=== PATIENT | female | born 1975 | race Two or more races ===

== ENCOUNTER → 2020-03-11 09:16 | Outpatient (BNVA) | payer OTHER, SELFPAY | PROVIDERS: PCP Internal Medicine; Visit Provider Physician Assistant ==

== ENCOUNTER → 2020-04-15 07:48 | Outpatient (BNVA) | payer OTHER, SELFPAY | PROVIDERS: PCP Internal Medicine; Visit Provider Physician Assistant ==

== ENCOUNTER → 2020-04-26 08:15 | Outpatient (BNVA) | payer OTHER, SELFPAY | PROVIDERS: PCP Internal Medicine; Referring Provider Internal Medicine; Visit Provider Physician Assistant | DX: E66.3 Overweight (principal); Z68.27 Body mass index [BMI] 27.0-27.9, adult; K90.49 Malabsorption due to intolerance, not elsewhere classified; Z98.84 Bariatric surgery status | CPT/HCPCS: Q3014 ==

== ENCOUNTER 2020-04-28 07:52 | Outpatient (REF) | payer OTHER, SELFPAY ==
[2020-04-28 09:10] LABS: MANUAL DIFF FLAG NO
[2020-04-28 09:18] LABS: Basophils Percent Auto 0.4 % (0-2); Eosinophils Absolute Auto 0.1 X10*3/uL (0.0-0.4); Eosinophils Percent Auto 2.1 % (0-4); Hemoglobin 13.6 g/dl (12.0-16.0); Imm Gran Abs Auto 0.01 X10*3/uL (0.00-0.03); Imm Gran Pct Auto 0.2 % (0.0-0.4); Lymphocytes Absolute Auto 1.2 X10*3/uL (1.2-4.9); Lymphocytes Percent Auto 21.7 % (20-40); Mean Corpuscular HGB Conc 30.9 g/dl (31.0-35.0); Mean Corpuscular Hemoglobin 26.4 pg (27.0-33.0); Mean Corpuscular Volume 85.4 fL (80-98); Mean Platelet Volume 11.2 fL (9.4-12.3); Monocytes Absolute Auto 0.3 X10*3/uL (0.1-1.2); Monocytes Percent Auto 4.4 % (2-11); Neutrophils Percent Auto 71.2 % (45-73); Platelet Count 238 X10*3/uL (160-400); Red Blood Count 5.15 X10*6/uL (4.20-5.50); White Blood Count 5.6 X10*3/uL (4.8-10.8)
[2020-04-28 09:30] LABS: Estimated Average Glucose 105 mg/dL; Hemoglobin A1c % 5.3 %
[2020-04-28 09:47] LABS: Alanine Aminotransferase 14 U/L (0-31); Albumin Level 3.9 g/dL (3.5-5.0); Alkaline Phosphatase 64 U/L (39-117); Anion Gap 10 (12-20); Aspartate Amino Transferase 14 U/L (5-31); Bilirubin Total 0.7 mg/dL (0.0-1.0); Blood Urea Nitrogen 10 mg/dL (9-16); C Reactive Protein 0.12 mg/dL (< or = 0.50); Calcium 9.2 mg/dL (8.4-10.2); Carbon Dioxide 27 mmol/L (22-29); Chloride 107 mmol/L (96-108); Cholesterol 166 mg/dL; Estimated Glomerular Filt Rate > 60; Glucose Fasting 83 mg/dL (60-99); HDL Cholesterol 54 mg/dL; Iron 124 mcg/dL (30-160); LDL Cholesterol Calculated 89 mg/dl; Percent Iron Saturation 36 % (15-50); Potassium 3.8 mmol/l (3.3-5.1); Sodium 140 mmol/L (135-145); Total Iron Binding Capacity 344 mcg/dL (228-428); Total Protein 6.6 g/dL (6.5-8.0); Triglycerides 116 mg/dL; Unsaturated Iron Binding 220 ug/dL
[2020-04-28 10:09] LABS: TSH reflex Free T4 0.91 mIU/mL (0.32-4.0); Vitamin D 25-OH Total 31.4 ng/mL (>30)
[2020-04-28 10:14] LABS: Folate 9.7 ng/mL (> or = 4.0); Vitamin B12 496 pg/mL (200-900)
[2020-04-28 10:15] LABS: Ferritin 21 ng/mL (10-250)
[2020-04-29 13:17] LABS: Insulin Level Total 10.5 uIU/mL
[2020-04-30 11:26] LABS: Calcium (PTHI) 9.4 mg/dL (8.6-10.2); PTHI 27 pg/mL (14-64)
[2020-05-01 04:56] LABS: Zinc 71 mcg/dL (60-130)
[2020-05-03 03:11] LABS: Vitamin A 54 mcg/dL (38-98)
[2020-05-04 12:22] LABS: Vitamin B1 11 nmol/L (8-30)
== END 2020-04-28 07:53 | disposition home or self-care (01) ==
LOC: HO.LAB 07:52
PROVIDERS: PCP Internal Medicine; Visit Provider Physician Assistant
DX: E66.01 Morbid (severe) obesity due to excess calories (principal); K90.49 Malabsorption due to intolerance, not elsewhere classified; Z98.84 Bariatric surgery status
CPT/HCPCS: 36415; 80053; 80061; 82306; 82607; 82728; 82746; 83036; 83525; 83540; 83970; 84425; 84443; 84590; 84630; 85025; 86140

== ENCOUNTER → 2020-05-18 08:06 | Outpatient (BNVA) | payer OTHER, SELFPAY | PROVIDERS: PCP Internal Medicine; Visit Provider Dietitian, Registered | DX: Z76.89 Persons encountering health services in other specified circumstances (principal) ==

== ENCOUNTER 2021-04-29 08:36 | Outpatient (REF) | payer OTHER, SELFPAY ==
[2021-04-29 09:57] LABS: MANUAL DIFF FLAG NO
[2021-04-29 10:17] LABS: Basophils Percent Auto 0.3 % (0-2); Eosinophils Absolute Auto 0.1 X10*3/uL (0.0-0.4); Eosinophils Percent Auto 1.8 % (0-4); Hematocrit 44.1 % (37.0-47.0); Hemoglobin 13.6 g/dl (12.0-16.0); Imm Gran Abs Auto 0.02 X10*3/uL (0.00-0.03); Imm Gran Pct Auto 0.3 % (0.0-0.4); Lymphocytes Absolute Auto 1.6 X10*3/uL (1.2-4.9); Lymphocytes Percent Auto 26.3 % (20-40); Mean Corpuscular HGB Conc 30.8 g/dl (31.0-35.0); Mean Corpuscular Hemoglobin 25.9 pg (27.0-33.0); Mean Platelet Volume 10.8 fL (9.4-12.3); Monocytes Absolute Auto 0.4 X10*3/uL (0.1-1.2); Monocytes Percent Auto 6.3 % (2-11); Neutrophils Absolute Auto 3.9 x10*3/uL (2.0-8.3); Platelet Count 238 X10*3/uL (160-400); Red Blood Count 5.25 X10*6/uL (4.20-5.50); Red Cell Distribution Width 13.3 % (11.0-16.0); White Blood Count 6.1 X10*3/uL (4.8-10.8)
[2021-04-29 10:26] LABS: Estimated Average Glucose 97 mg/dL
[2021-04-29 11:22] LABS: Folate 8.9 ng/mL (> or = 4.0); Vitamin B12 400 pg/mL (200-900)
[2021-04-29 11:47] LABS: Anion Gap 13 (12-20); Blood Urea Nitrogen 13 mg/dL (9-16); Calcium 9.9 mg/dL (8.4-10.2); Carbon Dioxide 22 mmol/L (22-29); Chloride 109 mmol/L (96-108); Cholesterol 194 mg/dL; Estimated Glomerular Filt Rate > 60; Glucose Random 86 mg/dL (60-115); HDL Cholesterol 69 mg/dL; Iron 91 mcg/dL (30-160); LDL Cholesterol Calculated 100 mg/dl; Percent Iron Saturation 20 % (15-50); Potassium 4.2 mmol/L (3.3-5.1); Sodium 140 mmol/L (135-145); Total Iron Binding Capacity 461 mcg/dL (228-428); Triglycerides 125 mg/dL; Unsaturated Iron Binding 370 ug/dL
[2021-04-29 11:58] LABS: Ferritin 10 ng/mL (10-250); TSH reflex Free T4 0.85 uIU/mL (0.32-4.0); Vitamin D 25-OH Total 27.5 ng/mL (>30)
[2021-05-01 15:05] LABS: H Pylori Breath Test Negative (Negative)
[2021-05-02 12:15] LABS: Calcium (PTHI) 10.1 mg/dL (8.6-10.2); PTHI 75 pg/mL (14-64)
[2021-05-03 05:51] LABS: Zinc 85 mcg/dL (60-130)
[2021-05-04 17:47] LABS: Vitamin A 62 mcg/dL (38-98)
[2021-05-07 11:32] LABS: Vitamin B1 12 nmol/L (8-30)
== END 2021-04-29 08:37 | disposition home or self-care (01) ==
LOC: HO.LAB 08:36
PROVIDERS: PCP Internal Medicine; Referring Provider Internal Medicine; Visit Provider Physician Assistant Surgical
DX: K21.00 Gastro-esophageal reflux disease with esophagitis, without bleeding (principal); K90.49 Malabsorption due to intolerance, not elsewhere classified; E66.3 Overweight
CPT/HCPCS: 36415; 80048; 80061; 82306; 82607; 82728; 82746; 83013; 83036; 83540; 83970; 84425; 84443; 84590; 84630; 85025; 86140

== ENCOUNTER → 2021-05-27 08:09 | Outpatient (BNVA) | payer OTHER, SELFPAY | PROVIDERS: PCP Internal Medicine; Visit Provider Physician Assistant Surgical | DX: K90.49 Malabsorption due to intolerance, not elsewhere classified (principal); E66.3 Overweight; K21.00 Gastro-esophageal reflux disease with esophagitis, without bleeding; Z98.84 Bariatric surgery status ==

== ENCOUNTER 2021-06-16 08:13 | Outpatient (REF) | payer OTHER, SELFPAY ==
--- NOTE | ~2021-06-16 | FL_ITS ---
EXAMINATION: FL FLUOROSCOPY UPPER GI WITH AIR CLINICAL INFORMATION: Gastroesophageal reflux disease. Lap-Band surgery and subsequent revision. COMPARISON: Upper GI air-contrast study 09/05/2017. TECHNIQUE: Routine upper GI air-contrast study was performed. FINDINGS: Following oral administration of thick barium and effervescent granules, there is normal propagation of the bolus from the oral cavity through the esophagus into the stomach without any evidence of obstruction, narrowing or stricture. There is tightening of the gastroesophageal junction with postsurgical changes in the fundus of the stomach, new finding since the previous study. Mild mucosal irregularity in the proximal fundus is likely post surgical. There are gastric reduction/sleeve surgical changes with a small caliber stomach. The duodenal bulb and the sweep are of normal caliber. The mucosal pattern of the esophagus, stomach and the duodenum is normal except for mild mucosal irregularity in the proximal fundus. [id number] gastroesophageal reflux was seen in the right decubitus view. Incidental finding of left anterior chest wall cardiac recorder. FLUOROSCOPY TIME: 1.7 minutes DOSE AREA PRODUCT: 21.542 uGy-m2 (microgray-meter squared) FL/FL upper GI w air IMPRESSION: Interval gastric reduction surgical changes, most likely sleeve surgery. There is tightening of the gastroesophageal junction and proximal stomach with postsurgical allie in the fundal region. There is mild gastroesophageal reflux and a small hiatal hernia.
== END 2021-06-16 08:14 | disposition home or self-care (01) ==
LOC: HO.XRAY 08:13
PROVIDERS: Visit Provider Physician Assistant Surgical
DX: K21.00 Gastro-esophageal reflux disease with esophagitis, without bleeding (principal)
CPT/HCPCS: 74246

== ENCOUNTER → 2021-09-13 11:17 | Outpatient (BNVA) | payer OTHER, SELFPAY | PROVIDERS: PCP Internal Medicine; Referring Provider Internal Medicine; Visit Provider Nurse Practitioner Family | DX: Z13.89 Encounter for screening for other disorder (principal) ==

== ENCOUNTER 2021-12-30 07:24 | Day surgery (SDC) | payer OTHER, SELFPAY ==
[2021-12-26 10:30] VITALS: BMI 30.8
--- NOTE | 2021-12-29 11:41 | HO.ANESPROP2 ---
Documented by User: Larisa Kwok NP 12/29/21 11:41 HPI - Anesthesia Eval Consult details Narrative: 46yo F for Upper Endoscopy and Colonoscopy [facility] Active Problems Active Problems: All Active Problems (Updated 05/02/21 @ 13:07 by HANY Escobar) Vitamin D deficiency (Acute) Reflux esophagitis (Acute) S/P laparoscopic sleeve gastrectomy (Acute) Malabsorption due to intolerance, not elsewhere classified (Acute) Overweight (BMI 25.0-29.9) (Acute) Past Medical History Medical History Back pain Malabsorption due to intolerance, not elsewhere classified Overweight (BMI 25.0-29.9) Super obesity Family History Family History Father Diabetes HTN (hypertension) Mother Diabetes CVD (cardiovascular disease) Brother No problems noted. Brother No problems noted. Brother No problems noted. Brother No problems noted. Sister No problems noted. Sister No problems noted. Sister No problems noted. Son No problems noted. Daughter No problems noted. Daughter No problems noted. Daughter No problems noted. Surgical History Surgical History (Updated 12/30/21 @ 07:34 by Griffin Chairez RN) History of bunionectomy History of cholecystectomy History of esophagogastroduodenoscopy (EGD) History of loop recorder History of tubal ligation Hx of section Hx of knee surgery LAP-BAND surgery status S/P laparoscopic sleeve gastrectomy Social History Social History Patient Tobacco Use Status: Never used Tobacco Second Hand Smoke Exposure: No Use of substances other than those prescribed or required for medical reasons: No Are you DNR?: No Advance Directives: No Advance Directives Information Provided: Yes Advance Directives on File: No Meds Allergies Allergy/AdvReac Type Severity Reaction Status Date / Time codeine [CODEINE] Allergy Intermediate HEASDACHE/D Verified 12/30/21 07:47 AIDEN acetaminophen [Percocet] Allergy Unknown Tachycardia Verified 12/30/21 07:47 oxycodone [Percocet] Allergy Unknown tachycardia Verified 12/30/21 07:47 Penicillins [PENICILLINS] AdvReac Unknown HEADACHE/DI Verified 12/30/21 07:47 ZZINESS scopolamine [SCOPOLAMINE] AdvReac Unknown EPISODE OF Verified 12/30/21 07:47 DEPRESSION MORPHINE Allergy Unknown tachycardia Uncoded 09/13/21 11:21 PENICILLIN Allergy Unknown tachycardia Uncoded 09/13/21 11:21 From PERCOCET AdvReac Intermediate HEADACHE/DI Uncoded 09/13/21 11:21 ZZY Home Medications Medication Instructions Recorded Confirmed Last Taken Type onabotulinumtoxinA 200 unit unit IM ONCE 09/13/21 Unknown History solution for injection (Botox) Exam Exam Date and Time: December 29, 2021 1141 Height,Weight and Vital Signs: Height 5 ft 1 in Weight 73.936 kg Assessment and Plan Assessment Anesthesia Assessment: Chart Reviewed Documented by User: Ranjit Mesa MD 12/30/21 08:28 [facility] Past Medical History Medical History Back pain Malabsorption due to intolerance, not elsewhere classified Overweight (BMI 25.0-29.9) Super obesity Family History Family History Father Diabetes HTN (hypertension) Mother Diabetes CVD (cardiovascular disease) Brother No problems noted. Brother No problems noted. Brother No problems noted. Brother No problems noted. Sister No problems noted. Sister No problems noted. Sister No problems noted. Son No problems noted. Daughter No problems noted. Daughter No problems noted. Daughter No problems noted. Family history of problems with anesthesia: No Surgical History Surgical History (Updated 12/30/21 @ 07:34 by Griffin Chairez RN) History of bunionectomy History of cholecystectomy History of esophagogastroduodenoscopy (EGD) History of loop recorder History of tubal ligation Hx of section Hx of knee surgery LAP-BAND surgery status S/P laparoscopic sleeve gastrectomy History of Problems with Anesthesia: No Social History Social History Patient Tobacco Use Status: Never used Tobacco Second Hand Smoke Exposure: No Use of substances other than those prescribed or required for medical reasons: No Are you DNR?: No Advance Directives: No Advance Directives Information Provided: Yes Advance Directives on File: No Meds Allergies Allergy/AdvReac Type Severity Reaction Status Date / Time codeine [CODEINE] Allergy Intermediate HEASDACHE/D Verified 12/30/21 07:47 AIDEN acetaminophen [Percocet] Allergy Unknown Tachycardia Verified 12/30/21 07:47 oxycodone [Percocet] Allergy Unknown tachycardia Verified 12/30/21 07:47 Penicillins [PENICILLINS] AdvReac Unknown HEADACHE/DI Verified 12/30/21 07:47 ZZINESS scopolamine [SCOPOLAMINE] AdvReac Unknown EPISODE OF Verified 12/30/21 07:47 DEPRESSION MORPHINE Allergy Unknown tachycardia Uncoded 09/13/21 11:21 PENICILLIN Allergy Unknown tachycardia Uncoded 09/13/21 11:21 From PERCOCET AdvReac Intermediate HEADACHE/DI Uncoded 09/13/21 11:21 ZZY Home Medications Medication Instructions Recorded Confirmed Last Taken Type onabotulinumtoxinA 200 unit unit IM ONCE 09/13/21 Unknown History solution for injection (Botox) Exam Airway Mallampati Class: III TM Dist: >3cm Neck ROM: Full Assessment and Plan Assessment Anesthesia Assessment: Anesthesia Plan Discussed Final Anesthetic Review Family History of Problems with Anesthesia: No History of Problems with Anesthesia: No NPO: Yes ASA Class: II Final Preanesthetic Review: No Changes in Pt Med Stat, Meds/Allgs Chart Reviewed, Consent Obtained/Reviewed and Anes Risks/Benef Reviewed Patient Risk: Low Procedure Risk: Low Anesthetic Plan Anesthetic Plan: MAC: Disposition: Standard PACU
[2021-12-30 07:41] VITALS: BP 135/62; PULSE 77; RESP 16; TEMP 36.8; O2SAT 100
[2021-12-30] MEDS: Lactated Ringers 1,000 ML 100 ML IVCONT (07:47)
--- NOTE | 2021-12-30 08:06 | MHC.SHP ---
Pre-Procedural Eval Section A Date of Service: 12/30/21 The patient is an INPATIENT: No The History & Physical has been completed within 30 days and I have reviewed it.: No Section B Chief Complaint: screening, reflux Details of Present Illness: Colon cancer screening, GERD, status post gastric sleeve Relevant Family History (Specify if Yes): No Relevant Social History: None Present Medications: see Short Stay Collaborative assessment Medical History: Significant History (Back pain Malabsorption due to intolerance, not elsewhere classified Overweight (BMI 25.0-29.9) Super obesity) History of Previous Operations: Relevant previous surgery/procedure and date(s) (History of bunionectomy History of cholecystectomy History of esophagogastroduodenoscopy (EGD) History of loop recorder Hx of section Hx of knee surgery LAP-BAND surgery status S/P laparoscopic sleeve gastrectomy) Allergies: Allergies Allergy/AdvReac Type Severity Reaction Status Date / Time codeine [CODEINE] Allergy Intermediate HEASDACHE/D Verified 12/30/21 07:47 AIDEN acetaminophen [Percocet] Allergy Unknown Tachycardia Verified 12/30/21 07:47 oxycodone [Percocet] Allergy Unknown tachycardia Verified 12/30/21 07:47 Penicillins [PENICILLINS] AdvReac Unknown HEADACHE/DI Verified 12/30/21 07:47 ZZINESS scopolamine [SCOPOLAMINE] AdvReac Unknown EPISODE OF Verified 12/30/21 07:47 DEPRESSION MORPHINE Allergy Unknown tachycardia Uncoded 09/13/21 11:21 PENICILLIN Allergy Unknown tachycardia Uncoded 09/13/21 11:21 From PERCOCET AdvReac Intermediate HEADACHE/DI Uncoded 09/13/21 11:21 ZZY Review of Systems Sugical H&P ROS: Negative: Constitution, Cardiovascular, Respiratory and Gastrointestinal Exam Surgical H&P Exam: Normal: Heart, Normal: Lungs, Normal: Extremities and Normal: Abdomen Plan Diagnosis/Plan: Unchanged I have reviewed the history and physical and performed a pertinent physical examination on my patient. No changes have occurred unless specified.
--- NOTE | 2021-12-30 08:07 | P.BOP_ITS ---
Brief Operative Note Date of Service: 12/30/21 Pre-op diagnosis: Colon cancer screening, GERD, status post gastric sleeve Post-op diagnosis: other (GERD, hiatal hernia, gastritis, duodenal nodule, status post gastric sleeve, colon polyp, diverticulosis) Procedure: FLEXIBLE TRANSORAL UPPER GASTROINTESTINAL ENDOSCOPY WITH BIOPSIES AND COLONOSCOPY TILL CECUM WITH BIOPSIES UPPER ENDOSCOPY Consent: Indications for the procedure and potential complications of bleeding, perforation, reaction to medications and missed diagnosis were discussed with the patient and informed consent was obtained. Instrument: Olympus GIF H 190 mid size upper endoscope Monitoring: Vital signs and clinical assessment, continuous EKG monitoring, Pulse oximetry, Carbon Dioxide monitoring and blood pressure monitoring were done throughout the procedure. Procedure: The patient was placed in the left lateral decubitis position and pre-procedure medications were administered and a bite block was placed. The endoscope was inserted into the mouth and advanced under direct vision to the third part of duodenum. A careful inspection was made as the upper endoscope was withdrawn including a retroflexed examination of the proximal stomach; Findings and interventions are described below. Findings: Larynx: Normal Esophagus: GE junction at 34 cms, small hiatal hernia 34 to 36 cms. Single 0.5 cms focal erosion at GE junction. No Au's. Stomach: Changes consistent with past gastric sleeve surgery. Mild gastric erythema. Biopsies were obtained. Grade 2 flap valve on retroflexed examination of the cardia. Duodenum: A 1 cms benign appearing nodule in the bulb - just distal to the pylorus - biopsied, Normal descending duodenum Intervention: Biopsies as noted above COLONOSCOPY PROCEDURE NOTE Consent: Indications for the procedure and potential complications of bleeding, perforation, reaction to medications and missed diagnosis were discussed with the patient and informed consent was obtained. Instrument: Olympus PCF H 190 L variable stiffness pediatric colonoscope Monitoring: Vital signs and clinical assessment, intermittent blood pressure monitoring, continuous EKG monitoring, Pulse oximetry and Carbon Dioxide monitoring were done throughout the procedure. Colon withdrawl time was 11 minutes. Procedure: The patient was placed in the left lateral decubitis position and pre-procedure medications were administered. After a digital rectal examination of the ano-rectum, the video colonoscope was inserted into the rectum and advanced through the colon to the cecum. The colonoscope was slowly withdrawn in a retrograde panoramic fashion and the colon mucosa was carefully examined including a retroflexed view of the rectum. Findings and interventions are described below. Procedure Difficulty: : Without difficulty Findings: Terminal Ileum: Not evaluated Cecum: Normal Ascending Colon: A 2-3 mm diminutive appearing polyp in the distal AC removed with a cold bx Moderate diverticulosis throughout the colon Transverse Colon: Moderate diverticulosis throughout the colon Descending Colon: Moderate diverticulosis throughout the colon Sigmoid Colon: Moderate diverticulosis Rectum: Normal Ano-rectum: Normal Colon preparation: Good Impression and Post Procedure Diagnosis: Endoscopy Findings: ESOPHAGUS: GE junction at 34 cms, small hiatal hernia 34 to 36 cms. Single 0.5 cms focal erosion at GE junction. No Au's. STOMACH: Changes consistent with gastric sleeve surgery. Mild gastric erythema. Biopsies were obtained. DUODENUM: A 1 cms benign appearing nodule in the bulb - just distal to the pylorus - biopsied, Colonoscopy Findings: One tiny polyp removed Moderate diverticulosis seen in the entire colon Plan: Await pathology results Patient has an appointment on 01/11/22 in the GI Clinic with Malika Brown FNP- [facility]. Consider further evaluatiion with a barium swallow and UGI. Repeat Colonoscopy interval based on path results - in 5 years if polyps are adenomatous and 10 years if polyps are hyperplastic. Above findings were reviewed with the patient and GERD, colon polyps and diverticulosis handouts were given in the discharge area Surgeon: Federico Castro MD Anesthesia: MAC (Dr Mesa) Was an [employer] used for this Procedure?: Yes [employer]: Amrita Paz Estimated blood loss (mL): 0 Pathology: other (A: Gastric Antrum. B: Duodenal nodule. C: Ascending colon polyp.) Condition: stable Disposition: PACU
[2021-12-30 09:20] VITALS: BP 116/50; PULSE 78; RESP 15; TEMP 36.9; O2SAT 99
[2021-12-30 09:38] VITALS: BP 135/59; PULSE 71; RESP 16; TEMP 36.9; O2SAT 100
--- NOTE | 2021-12-31 14:56 | W.PM.OPN ---
Operative Note Operative Note Date of Service: 12/30/21 Narrative: Pre-op diagnosis: Colon cancer screening, GERD, status post gastric sleeve Post-op diagnosis:?other (GERD, hiatal hernia, gastritis, duodenal nodule, status post gastric sleeve, colon polyp, diverticulosis) Procedure: FLEXIBLE TRANSORAL UPPER GASTROINTESTINAL ENDOSCOPY WITH BIOPSIES AND COLONOSCOPY TILL CECUM WITH BIOPSIES UPPER ENDOSCOPY Consent:?Indications for the procedure and potential complications of bleeding, perforation, reaction to medications and missed diagnosis were discussed with the patient and informed consent was obtained. Instrument:?Olympus GIF H 190 mid size upper endoscope Monitoring: Vital signs and clinical assessment, continuous EKG monitoring, Pulse oximetry, Carbon Dioxide monitoring and blood pressure monitoring were done throughout the procedure. Procedure:?The patient was placed in the left lateral decubitis position and pre-procedure medications were administered and a bite block was placed. The endoscope was inserted into the mouth and advanced under direct vision to the third part of duodenum. A careful inspection was made as the upper endoscope was withdrawn including a retroflexed examination of the proximal stomach; Findings and interventions are described below. Findings: Larynx:? Normal Esophagus:?GE junction at 34 cms, small hiatal hernia 34 to 36 cms.? Single 0.5 cms focal erosion at GE junction.? No Au's. Stomach:?Changes consistent with past gastric sleeve surgery. Mild gastric erythema. Biopsies were obtained. Grade 2 flap valve on retroflexed examination of the cardia. Duodenum:?A 1 cms benign appearing nodule in the bulb - just distal to the pylorus - biopsied, Normal descending duodenum Intervention:?Biopsies as noted above COLONOSCOPY PROCEDURE NOTE Consent:?Indications for the procedure and potential complications of bleeding, perforation, reaction to medications and missed diagnosis were discussed with the patient and informed consent was obtained. Instrument:?Olympus PCF H 190 L variable stiffness pediatric colonoscope Monitoring:?Vital signs and clinical assessment, intermittent blood pressure monitoring, continuous EKG monitoring, Pulse oximetry and Carbon Dioxide monitoring were done throughout the procedure. Colon withdrawl time was 11 minutes. Procedure:?The patient was placed in the left lateral decubitis position and pre-procedure medications were administered. After a digital rectal examination of the ano-rectum, the video colonoscope was inserted into the rectum and advanced through the colon to the cecum. The colonoscope was slowly withdrawn in a retrograde panoramic fashion and the colon mucosa was carefully examined including a retroflexed view of the rectum. Findings and interventions are described below. Procedure Difficulty:?: Without difficulty Findings: Terminal Ileum: Not evaluated Cecum:? Normal Ascending Colon:??A 2-3 mm diminutive appearing polyp in the distal AC removed with a cold bx Moderate diverticulosis throughout the colon Transverse Colon:??Moderate diverticulosis throughout the colon Descending Colon:? Moderate diverticulosis throughout the colon Sigmoid Colon:??Moderate diverticulosis Rectum:??Normal Ano-rectum:??Normal Colon preparation:? Good? Impression and Post Procedure Diagnosis: Endoscopy Findings: ESOPHAGUS: GE junction at 34 cms, small hiatal hernia 34 to 36 cms.? Single 0.5 cms focal erosion at GE junction.? No Au's. STOMACH: Changes consistent with gastric sleeve surgery. Mild gastric erythema. Biopsies were obtained. DUODENUM: A 1 cms benign appearing nodule in the bulb - just distal to the pylorus - biopsied, Colonoscopy Findings: One tiny polyp removed Moderate diverticulosis seen in the entire colon Plan: Await pathology results Patient has an appointment on 01/11/22 in the GI Clinic with Malika Brown FNP-BC. Consider further evaluatiion with a barium swallow and UGI. Repeat Colonoscopy interval based on path results - in 5 years if polyps are adenomatous and 10 years if polyps are hyperplastic. Above findings were reviewed with the patient and GERD, colon polyps and diverticulosis handouts were given in the discharge area Surgeon: Federico Castro MD Anesthesia:?MAC (Dr Mesa) Was an [employer] used for this Procedure?:?Yes [employer]:?Amrita Paz Estimated blood loss (mL):?0 Pathology:?other (A: Gastric Antrum.? B: Duodenal nodule.? C: Ascending colon polyp.) Condition:?stable Disposition:?PACU
== END 2021-12-30 09:55 | disposition home or self-care (01) ==
PROVIDERS: PCP Internal Medicine; Visit Provider Internal Medicine Gastroenterology
PROC: (CPT 45380; principal; 2021-12-30 08:30)
DX: Z12.11 Encounter for screening for malignant neoplasm of colon (principal); D12.2 Benign neoplasm of ascending colon; K57.30 Diverticulosis of large intestine without perforation or abscess without bleeding; K58.2 Mixed irritable bowel syndrome; K21.9 Gastro-esophageal reflux disease without esophagitis; K29.50 Unspecified chronic gastritis without bleeding; K31.9 Disease of stomach and duodenum, unspecified; K44.9 Diaphragmatic hernia without obstruction or gangrene; E66.3 Overweight; Z68.30 Body mass index [BMI] 30.0-30.9, adult; K90.49 Malabsorption due to intolerance, not elsewhere classified; Z98.84 Bariatric surgery status; Z88.0 Allergy status to penicillin; Z88.8 Allergy status to other drugs, medicaments and biological substances; Z90.49 Acquired absence of other specified parts of digestive tract
CPT/HCPCS: 45380; 43239; 88305; 88342

== ENCOUNTER 2022-06-20 08:07 | Outpatient (REF) | payer OTHER, SELFPAY ==
--- NOTE | ~2022-06-20 | XR_ITS ---
EXAMINATION: XR SOFT TISSUE NECK CLINICAL INDICATION: R13.10 - Dysphagia, unspecified COMPARISON: None TECHNIQUE: 2 views of the soft tissue neck were obtained. FINDINGS: The vallecula, epiglottis, and area epiglottic folds are unremarkable. The subglottic airway appears normal. The prevertebral soft tissues appear normal. There is normal cervical lordosis. Vertebral bodies are normal in height. There is levocurvature cervical thoracic spine. Lung apices are clear. XR/XR soft tissue neck IMPRESSION: 1. Unremarkable soft tissues of the neck. 2. Levocurvature cervical thoracic spine.
== END 2022-06-20 08:08 | disposition home or self-care (01) ==
LOC: HO.XRAY 08:07
PROVIDERS: PCP Internal Medicine; Visit Provider Nurse Practitioner Family
DX: R13.12 Dysphagia, oropharyngeal phase (principal); K59.04 Chronic idiopathic constipation; K21.9 Gastro-esophageal reflux disease without esophagitis
CPT/HCPCS: 70360

== ENCOUNTER 2022-06-29 08:09 | Outpatient (REF) | payer OTHER, SELFPAY ==
--- NOTE | ~2022-06-29 | US_ITS ---
EXAMINATION: US LOWER EXTREMITY VENOUS (REFLUX EXAM), BILATERAL CLINICAL INDICATION: Varicose veins COMPARISON: Bilateral lower extremity duplex on 08/22/2019 TECHNIQUE: Color flow triplex imaging and compression Doppler was performed to evaluate both the deep and the superficial systems bilaterally. To evaluate the superficial system, the examination was performed in the upright position. Color-flow Doppler ultrasound and compression ultrasound were utilized. In addition, maneuvers were utilized to demonstrate reflux. FINDINGS: 1. DEEP VENOUS ULTRASOUND OF THE RIGHT LOWER EXTREMITY: Common Femoral Vein: Compressible, normal respiratory variation and augmented flow. Femoral Vein: Compressible, normal color flow and augmentation. Popliteal Vein: Compressible, normal augmentation. Deep Reflux: There is no evidence of reflux in the deep system in either the common femoral vein or the popliteal vein. There is no evidence of a Tam's cyst. 2. SUPERFICIAL ULTRASOUND WITH DOPPLER OF RIGHT LOWER EXTREMITY: GREAT SAPHENOUS VEIN: Saphenofemoral Junction: 0.5 cm; Reflux: 0 ms Proximal Thigh: 0.5 cm; Reflux: 0 ms Mid Thigh: 0.2 cm; Reflux: 0 ms Above Knee: 0.2 cm; Reflux: 0 ms At Knee: 0.1 cm; Reflux: 0 ms Below Knee: 0.1 cm; Reflux: 0 ms Mid Calf: 0.1 cm; Reflux: 0 ms Ankle: 0.1 cm; Reflux: 0 ms DUPLICATED MEDIAL GREAT SAPHENOUS VEIN: Diameter: None Imaged Reflux: NA DUPLICATED LATERAL GREAT SAPHENOUS VEIN: Diameter: None Imaged Reflux: NA SMALL SAPHENOUS VEIN: Proximal: 0.3 cm; Reflux: 0 ms Distal: 0.2 cm; Reflux: 0 ms VEIN OF GIACOMINI: None Imaged. PERFORATORS: Location: None Imaged Size: NA Reflux: NA VARICOSITIES: Location: None Imaged Size: NA Reflux: NA 3. DEEP VENOUS ULTRASOUND OF THE LEFT LOWER EXTREMITY: Common Femoral Vein: Compressible, normal respiratory variation and augmented flow. Femoral Vein: Compressible, normal color flow and augmentation. Popliteal Vein: Compressible, normal augmentation. Deep Reflux: There is no evidence of reflux in the deep system in either the common femoral vein or the popliteal vein. There is no evidence of a Tam's cyst. 4. SUPERFICIAL ULTRASOUND WITH DOPPLER OF LEFT LOWER EXTREMITY: GREAT SAPHENOUS VEIN: Saphenofemoral Junction: 0.4 cm; Reflux: 0 ms Proximal Thigh: 0.3 cm; Reflux: 0 ms Mid Thigh: 0.2 cm; Reflux: 948 ms Above Knee: 0.2 cm; Reflux: 0 ms At Knee: 0.2 cm; Reflux: 576 ms Below Knee: 0.1 cm; Reflux: 0 ms Mid Calf: 0.1 cm; Reflux: 0 ms Ankle: 0.1 cm; Reflux: 0 ms DUPLICATED MEDIAL GREAT SAPHENOUS VEIN: Diameter: None Imaged Reflux: NA DUPLICATED LATERAL GREAT SAPHENOUS VEIN: Proximal: 0.2 cm; Reflux: 0 ms Distal: 0.1 cm; Reflux: 0 ms SMALL SAPHENOUS VEIN: Proximal: 0.2 cm; Reflux: 0 ms Distal: 0.2 cm; Reflux: 0 ms VEIN OF GIACOMINI: None Imaged. PERFORATORS: Location: mid small saphenous vein Size: 0.2 cm Reflux: NA Location: mid thigh Size: 0.2 cm Reflux: NA VARICOSITIES: Location: None Imaged Size: NA Reflux: NA US/US venous duplex LE BI IMPRESSION: 1. No DVT in the bilateral lower extremity. 2. Left great saphenous venous insufficiency. 3. No reflux in the right great saphenous vein.
== END 2022-06-29 08:10 | disposition home or self-care (01) ==
LOC: HO.US 08:09
PROVIDERS: PCP Internal Medicine; Visit Provider Surgery Vascular Surgery
DX: I83.12 Varicose veins of left lower extremity with inflammation (principal)
CPT/HCPCS: 93970

== ENCOUNTER → 2022-07-13 09:05 | Outpatient (BNVA) | payer OTHER, SELFPAY | PROVIDERS: PCP Internal Medicine; Visit Provider Surgery Vascular Surgery | DX: Z13.89 Encounter for screening for other disorder (principal) ==

== ENCOUNTER 2022-10-11 06:56 | Outpatient (REF) | payer OTHER, SELFPAY ==
--- NOTE | ~2022-10-11 | XR_ITS ---
EXAMINATION: XR LUMBOSACRAL SPINE WITH OBLIQUES CLINICAL INFORMATION: Low back pain radiating to right leg COMPARISON: None available. TECHNIQUE: AP, both oblique, and lateral views of the lumbar spine. Lateral view of the lumbosacral junction. FINDINGS: There is normal lumbar lordosis with mild levoscoliosis.. The vertebral heights, alignment and disc heights are normal. There is no pars defect on oblique views. No lytic or sclerotic process. There is minimal ventral spondylosis. No acute fracture or subluxation. SI joints are symmetrical and normal. Surgical allie are seen in the left epigastric region from previous intervention. XR/XR lumbar spine 4V min IMPRESSION: Mild levoscoliosis lumbar spine otherwise unremarkable lumbar spine exam.
== END 2022-10-11 06:57 | disposition home or self-care (01) ==
LOC: HO.XRAY 06:56
PROVIDERS: PCP Internal Medicine; Visit Provider Internal Medicine
DX: M54.50 Low back pain, unspecified (principal); M79.604 Pain in right leg
CPT/HCPCS: 72110

== ENCOUNTER → 2022-10-17 08:22 | Outpatient (BNVA) | payer OTHER, SELFPAY | PROVIDERS: PCP Internal Medicine; Referring Provider Internal Medicine; Visit Provider Nurse Practitioner Family ==

== ENCOUNTER → 2022-11-13 08:29 | Outpatient (BNVA) | payer OTHER, SELFPAY | PROVIDERS: PCP Internal Medicine; Visit Provider Physician Assistant Surgical ==

== ENCOUNTER 2023-02-01 17:00 | Outpatient (RCR) | payer OTHER, SELFPAY | END 2023-02-01 18:05 | disposition home or self-care (01) | LOC: HO.PT 17:00 | PROVIDERS: PCP Internal Medicine; Visit Provider Internal Medicine | DX: M54.50 Low back pain, unspecified (principal); M79.604 Pain in right leg | CPT/HCPCS: 97110; 97140; 97162; 97530 ==

== ENCOUNTER 2023-03-27 15:20 | Emergency (ER) | payer OTHER, SELFPAY ==
[2023-03-27 15:25] VITALS: BP 116/72; PULSE 96; O2SAT 99
[2023-03-27 15:41] VITALS: BP 129/58; PULSE 88; RESP 16; TEMP 36.4; O2SAT 100; BMI 34.0
--- NOTE | 2023-03-27 15:43 | ED_ITS ---
HPI - General Adult General Chief complaint: Abdominal Pain Stated complaint: RLQ PAIN,FELT FAINT PER EMS Time Seen by Provider: 03/27/23 21:02 Source: patient Mode of arrival: ambulatory Limitations: no limitations History of Present Illness HPI narrative: 47 yo female s/p batriatric surgery here with c/o earlier today at work prior to arrival intense lower abdominal cramps with nausea and she felt she was going to pass out. NO diarrhea, no dysuria or other symptoms. The pain was so bad she took an aleve. It has improved. She thought maybe it was a kidney stone as she has had them before. She has waited many hours and now wants to leave she will follow up with her doctor. MD complaint: abdominal pain Onset (ago): hour(s) (1 - 2hour prior to arrival ) Location: abdomen Radiation: non-radiation Severity: severe Quality: aching Pain Consistency: other (improved) Relieving factors: medication Exacerbating factors: none Associated symptoms: loss of appetite and other (nausea and felt faint) Treatments prior to arrival: NSAID Related Data Home Medications Medication Instructions Recorded Confirmed onabotulinumtoxinA 200 unit unit IM ONCE 09/13/21 11/13/22 solution for injection (Botox) Previous Rx's Medication Instructions Recorded [id number]-[id number] 45 mg-folic 1 cap PO DAILY #30 caps 04/29/21 acid 800 mcg-vit K 120 mcg capsule (Bariatric Multivitamins) esomeprazole magnesium 40 mg 40 mg PO DAILY #90 caps 10/09/22 capsule,delayed release (Nexium) polyethylene glycol 3350 17 17 g PO DAILY #510 grams 10/17/22 gram/dose oral powder (Miralax) Allergies Allergy/AdvReac Type Severity Reaction Status Date / Time codeine [CODEINE] Allergy Intermediate HEASDACHE/D Verified 11/13/22 08:42 AIDEN acetaminophen [Percocet] Allergy Unknown Tachycardia Verified 11/13/22 08:42 oxycodone [Percocet] Allergy Unknown tachycardia Verified 11/13/22 08:42 Penicillins [PENICILLINS] AdvReac Unknown HEADACHE/DI Verified 11/13/22 08:42 ZZINESS scopolamine [SCOPOLAMINE] AdvReac Unknown EPISODE OF Verified 11/13/22 08:42 DEPRESSION MORPHINE Allergy Unknown tachycardia Uncoded 10/17/22 08:27 PENICILLIN Allergy Unknown tachycardia Uncoded 10/17/22 08:27 From PERCOCET AdvReac Intermediate HEADACHE/DI Uncoded 10/17/22 08:27 ZZY Review of Systems 2 Review of Systems: Constitutional : No Weight loss, No Fever, No Chills Cardiovascular : No Chest Pain, No SOB, No Edema Respiratory : No Cough, No Sputum, No Wheezing Gastrointestinal : Positive Nausea, no Vomiting, no Diarrhea, positive abdominal Pain, No Hematochezia, No Melena Genitourinary : No Dysuria, No Urinary Frequency, No Hematuria, No Urgency Musculoskeletal : No joint pain, No Myalgias, No Joint Swelling Skin : No Skin Lesions, No rash Neuro : No Weakness, No Numbness, No Dizziness, No Headache Psych : No Anxiety/Panic, No Depression All other systems reviewed and are negative. [facility] Past Medical History Attestation statement: The following information was validated with the patient. Source: old records reviewed Medical History Tubular adenoma Back pain Malabsorption due to intolerance, not elsewhere classified Overweight (BMI 25.0-29.9) Super obesity Surgical History History of bunionectomy History of cholecystectomy History of esophagogastroduodenoscopy (EGD) History of loop recorder History of tubal ligation Hx of bladder repair surgery Hx of section Hx of colonoscopy Hx of knee surgery LAP-BAND surgery status S/P laparoscopic sleeve gastrectomy Family History Family History Father Diabetes HTN (hypertension) Mother Diabetes CVD (cardiovascular disease) Brother No problems noted. Brother No problems noted. Brother No problems noted. Brother No problems noted. Sister No problems noted. Sister No problems noted. Sister No problems noted. Son No problems noted. Daughter No problems noted. Daughter No problems noted. Daughter No problems noted. Social History Social History Alcohol intake: never Patient Tobacco Use Status: Never used Tobacco Second Hand Smoke Exposure: No Advance Directives: No Advance Directives Information Provided: No Physical Exam ED Vital Signs: Vital Signs - 24 hr 03/27/23 15:41 Temperature 97.6 F Pulse Rate 88 Respiratory Rate 16 Blood Pressure 129/58 L Pulse Oximetry 100 Oxygen Delivery Method Room Air BMI result Body Mass Index 34.0 Appearance: Alert. Oriented X3. No acute distress. Eyes: Pupils equal, round and reactive to light. ENT: Pharynx normal. Neck: Normal inspection. Neck supple. CVS: Normal heart rate and rhythm. Pulses normal. Respiratory: No respiratory distress. Abdomen: Soft and mild suprapubic ttp no rebound Skin: Skin warm and dry. Normal skin color. Normal skin turgor. Extremities: No lower extremity edema. Neuro: Oriented X 3. No motor deficit. No sensory deficit. Course Course Course Narrative: This is an RME: Additional HPI, ROS, PE not included below will be deferred to primary provider. 47-year-old female with PMH of constipation, tubular adenomas, and sleeve gastrectomy presenting with 1 hour of lower abdominal pain/cramping worse on the right and improved with motrin. Denies n/v/d and abnormal vaginal bleeding. Still having regular menses every month and not on control. Plan - labs, urine, hcg Medical Decision Making Medical Decision Making [facility] Narrative: 47 yo female wiht PMH of bariatric surgery, renal colic here with c/o lower abodminal pain so severe it made her feel faint - at this time labs, UA ordered and within normal limits she has ttp in suprapubic area I would recommend CT scan first for renal colic then possible ovarian workup but she declines. Will send home with precautions. Differential Diagnosis Differential Diagnoses: The differential diagnosis associated with the presentation includes renal colic, ovarian cyst, colitis Admission/Observation Consideration of admission/observation: Escalation of care including admission/observation considered Lab Data [facility] Lab Attestation statement: I reviewed the patient's lab results. 03/27/23 17:09 03/27/23 17:09 Labs: Lab Results 03/27/23 03/27/23 Range/Units 17:09 20:38 WBC 8.8 (4.8-10.8) X10*3/uL RBC 5.10 (4.20-5.50) X10*6/uL Hgb 11.6 L (12.0-16.0) g/dl Hct 39.0 (37.0-47.0) % MCV 76.5 L (80.0-98.0) fL MCH 22.7 L (27.0-33.0) pg MCHC 29.7 L (31.0-35.0) g/dl RDW 16.4 H (11.0-16.0) % Plt Count 303 D (160-400) X10*3/uL MPV 10.8 (9.4-12.3) fL Immature Gran % (Auto) 0.3 (0.0-0.4) % Neut % (Auto) 69.4 (45-73) % Lymph % (Auto) 23.1 (20-40) % Reeves % (Auto) 5.6 (2-11) % Eos % (Auto) 1.1 (0-4) % Baso % (Auto) 0.5 (0-2) % Lymph # (Auto) 2.0 (1.2-4.9) X10*3/uL Reeves # (Auto) 0.5 (0.1-1.2) X10*3/uL Eos # (Auto) 0.1 (0.0-0.4) X10*3/uL Baso # (Auto) 0.0 (0.0-0.2) X10*3/uL Abs Immat Gran (auto) 0.03 (0.00-0.03) X10*3/uL Absolute Neuts (auto) 6.1 (2.0-8.3) x10*3/uL Absolute Nucleated RBC 0.000 (0.0-0.012) X10*3/uL Nucleated RBC % (auto) 0.0 (0.0-0.2) /100WBC Sodium 141 (135-145) mmol/L Potassium 4.1 (3.3-5.1) mmol/L Chloride 107 (96-108) mmol/L Carbon Dioxide 24 (22-29) mmol/L Anion Gap 14 (12-20) BUN 9 (9-16) mg/dL Creatinine 0.72 (0.5-1.4) mg/dL Estim Creat Clear Calc 91.5 Estimated GFR > 60 Random Glucose 84 (60-115) mg/dL Calcium 9.8 (8.4-10.2) mg/dL Total Bilirubin 0.4 (0.0-1.0) mg/dL AST 18 (5-31) U/L ALT 17 (0-31) U/L Alkaline Phosphatase 83 (39-117) U/L Total Protein 7.7 (6.5-8.0) g/dL Albumin 4.2 (3.5-5.0) g/dL Lipase 45 (8-78) U/L Beta HCG, Quant < 2 mIU/mL Urine Color Yellow Urine Appearance Clear Urine pH 6.0 (5.0-9.0) Ur Specific [place] 1.025 (1.005-1.025) Urine Protein Negative (Neg-Trace) mg/dL Urine Glucose (UA) Negative (Negative) mg/dL Urine Ketones Trace (Negative) mg/dL Urine Blood Negative (Negative) Urine Nitrite Negative (Negative) Ur Leukocyte Esterase Negative (Negative) Urine Test NEGATIVE (NEGATIVE) Independent Historian Clinical information obtained from an independent historian. History obtained from or confirmed by: Spouse External Record Review External record reviewed: Office record Tests considered The following testing was considered but not selected: CT scan for renal colic but patient declined due to wait times Discharge Plan Discharge Clinical Impression: Abdominal pain Qualifiers: Abdominal location: lower abdomen, unspecified Qualified Code(s): R10.30 - Lower abdominal pain, unspecified Patient Disposition: Home, Self-Care Instructions: Abdominal Pain (ED) Additional Instructions: return for worsening symptoms, fevers, vomiting, diarrhea or any other concerns. you were offered imaging but declined at this time. you can return at any time. I would talk to your doctor about a kidney and ovarian ultrasound. avoid NSAIDs Prescriptions: No Action esomeprazole magnesium [Nexium] 40 mg capsule,delayed release(DR/EC) 40 mg PO DAILY Qty: 90 3RF Bariatric Multivitamins 45 mg iron- 800 mcg-120 mcg capsule 1 cap PO DAILY Qty: 30 0RF polyethylene glycol 3350 [Miralax] 17 gram/dose powder 17 g PO DAILY Qty: 510 2RF Botox 200 unit recon soln IM ONCE Stand Alone Forms: Work/School Release
[2023-03-27 17:13] LABS: MANUAL DIFF FLAG NO
[2023-03-27 17:20] LABS: Basophils Percent Auto 0.5 % (0-2); Eosinophils Absolute Auto 0.1 X10*3/uL (0.0-0.4); Eosinophils Percent Auto 1.1 % (0-4); Hemoglobin 11.6 g/dl (12.0-16.0); Imm Gran Abs Auto 0.03 X10*3/uL (0.00-0.03); Imm Gran Pct Auto 0.3 % (0.0-0.4); Lymphocytes Percent Auto 23.1 % (20-40); Mean Corpuscular HGB Conc 29.7 g/dl (31.0-35.0); Mean Corpuscular Hemoglobin 22.7 pg (27.0-33.0); Mean Corpuscular Volume 76.5 fL (80.0-98.0); Mean Platelet Volume 10.8 fL (9.4-12.3); Monocytes Absolute Auto 0.5 X10*3/uL (0.1-1.2); Monocytes Percent Auto 5.6 % (2-11); Neutrophils Absolute Auto 6.1 x10*3/uL (2.0-8.3); Neutrophils Percent Auto 69.4 % (45-73); Platelet Count 303 X10*3/uL (160-400); Red Cell Distribution Width 16.4 % (11.0-16.0); White Blood Count 8.8 X10*3/uL (4.8-10.8)
[2023-03-27 17:27] LABS: Lipase 45 U/L (8-78)
[2023-03-27 17:36] LABS: Alanine Aminotransferase 17 U/L (0-31); Albumin Level 4.2 g/dL (3.5-5.0); Alkaline Phosphatase 83 U/L (39-117); Anion Gap 14 (12-20); Aspartate Amino Transferase 18 U/L (5-31); Bilirubin Total 0.4 mg/dL (0.0-1.0); Blood Urea Nitrogen 9 mg/dL (9-16); Calcium 9.8 mg/dL (8.4-10.2); Carbon Dioxide 24 mmol/L (22-29); Chloride 107 mmol/L (96-108); Creatinine Clr Calc Pharmacy 91.5; Estimated Glomerular Filt Rate > 60; Glucose Random 84 mg/dL (60-115); Potassium 4.1 mmol/L (3.3-5.1); Sodium 141 mmol/L (135-145); Total Protein 7.7 g/dL (6.5-8.0)
[2023-03-27 17:43] LABS: HCG Quantitative < 2 mIU/mL
[2023-03-27 20:52] LABS: Appearance Urine Clear; Color Urine Yellow; Glucose Urine UA Negative (Negative); Leukocyte Esterase Urine Negative (Negative); Nitrite Urine Negative (Negative); Specific Gravity - Urine 1.025 (1.005-1.025); Urine Blood Negative (Negative); Urine Ketones Trace mg/dL (Negative); Urine Protein Negative (Neg-Trace)
[2023-03-27 20:58] LABS: UPreg QC Valid YES; Urine Pregnancy NEGATIVE (NEGATIVE)
== END 2023-03-27 21:32 | disposition home or self-care (01) ==
PROVIDERS: Physician Assistant; Emergency Provider Emergency Medicine; PCP Internal Medicine
DX: R10.30 Lower abdominal pain, unspecified (principal); Z90.49 Acquired absence of other specified parts of digestive tract; Z98.51 Tubal ligation status; Z98.84 Bariatric surgery status
CPT/HCPCS: 36415; 80053; 81003; 81025; 83690; 84702; 85025; 99282; 99283

== ENCOUNTER → 2023-04-18 08:06 | Outpatient (BNVA) | payer OTHER, SELFPAY | PROVIDERS: Visit Provider Nurse Practitioner Family ==

== ENCOUNTER 2023-04-23 15:48 | Outpatient (AMB) | payer OTHER, SELFPAY ==
--- NOTE | 2023-04-23 16:11 | A.OFFVIS_ITS ---
Intake Vital Signs 04/23/23 16:15 Height 5 ft 1 in Weight 179 lb BMI 33.8 BP 125/65 Blood Pressure Location Lt brachial Position Sitting Pulse 71 Intake Visit Reasons: follow up Intake Note: Diane presents to in office visit today in 6 months follow up. CC: Patient reports acid reflux and heartburn well controlloe dwith medication. Denies other GI symptoms today. [employer] Dipper Required: No Accompanied by: Self / Same As Patient Allergies codeine [CODEINE] Allergy (Intermediate, Verified 04/23/23 16:13) HEASDACHE/DIZZY acetaminophen [Percocet] Allergy (Unknown, Verified 04/23/23 16:13) Tachycardia oxycodone [Percocet] Allergy (Unknown, Verified 04/23/23 16:13) tachycardia Penicillins [PENICILLINS] Adverse Reaction (Unknown, Verified 04/23/23 16:13) HEADACHE/DIZZINESS scopolamine [SCOPOLAMINE] Adverse Reaction (Unknown, Verified 04/23/23 16:13) EPISODE OF DEPRESSION MORPHINE Allergy (Unknown, Uncoded 10/17/22 08:27) tachycardia PENICILLIN Allergy (Unknown, Uncoded 10/17/22 08:27) tachycardia From PERCOCET Adverse Reaction (Intermediate, Uncoded 10/17/22 08:27) HEADACHE/DIZZY HPI follow up HPI Details LAST VISIT Constipation Continue taking MiraLax. Patient was also encouraged to increase fluid intake and activity to promote better bowel motility. Reflux esophagitis Continue on Nexium. Avoid dietary triggers and late night snacking. Staying upright for minimum 3 hours after meals discussed with patient. IBS (irritable bowel syndrome) Occasional postprandial abdominal bloating. Patient states that she is moving her bowels better now that she takes MiraLax daily. Continue avoiding dietary triggers. Low FODMAP diet discussed with patient. List of food recommended as well as list of food to avoid given to patient. Postprandial abdominal bloating Occasional postprandial abdominal bloating. Low FODMAP diet discussed with patient. I will see patient in 6 months, sooner on as needed basis fit patient is agreeable to this plan and verbalizes understanding of instructions. She was given the opportunity to ask questions and all questions answered. ? Thank you for allowing me to participate in her care Plan Medications Refilled polyethylene glycol 3350 (Miralax) 17 grams PO DAILY 510 grams 2RF A TODAY'S VISIT Patient is here today for follow-up. Patient reports that she has been feeling better. Last month patient had right lower quadrant colic and went the ER. Patient had no leukocytosis. Patient did not want to wait for CT scan. Patient since then has been taking her Nexium every day and taking MiraLax daily. Patient denies any GI concerning symptoms. Patient denies any nausea or vomiting. Denies any dyspepsia, dysphagia or odynophagia. Denies melena, hematochezia, unintentional weight loss or ribbon like stools. Patient had colonoscopy last year in December and recommendation was to repeat colonoscopy in 5 years. [facility] Medical History Tubular adenoma Back pain Malabsorption due to intolerance, not elsewhere classified Overweight (BMI 25.0-29.9) Super obesity Surgical History Hx of bladder repair surgery Hx of colonoscopy History of tubal ligation History of esophagogastroduodenoscopy (EGD) History of cholecystectomy LAP-BAND surgery status History of bunionectomy Hx of section Hx of knee surgery S/P laparoscopic sleeve gastrectomy History of loop recorder Family History Father Diabetes HTN (hypertension) Mother Diabetes CVD (cardiovascular disease) Brother No problems noted. Brother No problems noted. Brother No problems noted. Brother No problems noted. Sister No problems noted. Sister No problems noted. Sister No problems noted. Son No problems noted. Daughter No problems noted. Daughter No problems noted. Daughter No problems noted. Alcohol intake: never Patient Tobacco Use Status: Never used Tobacco Second Hand Smoke Exposure: No Review of Systems Const Denies weight gain and Denies weight loss ENT Reports no additional complaints, Denies dysphagia and Denies odynophagia Card Reports no additional complaints Resp Reports no additional complaints GI Denies abdominal pain, Denies belching, Denies melena, Denies bloating, Denies change in bowel habits, Denies dysphagia, Denies excessive flatus, Denies dyspepsia, Denies heartburn, Denies diarrhea, Denies loose stools, Denies nausea, Denies odynophagia and Denies vomiting Reports no additional complaints Musc Reports no additional complaints Neuro Reports no additional complaints Psych Reports no additional complaints Endo Reports no additional complaints Physical Exam Vital Signs: Last Vital Signs Pulse 71 04/23/23 16:15 BP 125/65 04/23/23 16:15 BMI result Body Mass Index 33.8 Const General: healthy appearing, no acute distress and well developed Nutritional Appearance: obese Orientation/consciousness: patient oriented x3 HEENT Head: Yes normal to inspection, Yes normocephalic and Yes atraumatic Face and sinus: Yes normal facial exam Mouth: Normal oral and palatal mucosa present Throat: Yes posterior oropharynx normal, Yes tonsils normal and Yes uvula midline Eyes General: appearance normal, both eyes and all related structures Neck Neck: Yes normal visual inspection, Yes full ROM and Yes trachea midline Thyroid: Thyroid normal Resp Effort & Inspection: normal respiratory effort, able to speak in complete sentences, no tracheal deviation and symmetric chest movement Auscultation: clear to auscultation bilaterally Cardio Rate: regular rate Heart sounds: S1 normal heart sound present and S2 normal heart sound present GI Inspection: Yes normal to inspection, No distended and Yes obesity Palpation (GI): Soft to palpation, not firm, nontender and No hepatosplenomegaly present Auscultation: normal bowel sounds General: Yes no CVA tenderness Back/Spine/Pelvis Back: no CVA tenderness Skin General skin exam: elasticity normal, turgor normal and dry skin Neuro General: patient oriented x3 Psych Appearance: grossly normal Mental Status: mental status grossly normal Affect: normal affect Assessment & Plan Assessment & Plan (1) Constipation: Code(s): K59.00 - Constipation, unspecified Qualifiers: Constipation type: chronic idiopathic constipation Qualified Code(s): K59.04 - Chronic idiopathic constipation (2) Reflux esophagitis: Code(s): K21.00 - Gastro-esophageal reflux disease with esophagitis, without bleeding Qualifiers: Esophagitis bleeding: without hemorrhage Qualified Code(s): K21.00 - Gastro-esophageal reflux disease with esophagitis, without bleeding (3) IBS (irritable bowel syndrome): Code(s): K58.9 - Irritable bowel syndrome without diarrhea Qualifiers: Irritable bowel syndrome type: with constipation Qualified Code(s): K58.1 - Irritable bowel syndrome with constipation (4) Postprandial abdominal bloating: Code(s): R14.0 - Abdominal distension (gaseous) Plan Continue will FODMAP diet. Patient was encouraged to increase fluid intake and activity to promote better bowel motility. Continue MiraLax. Patient was encouraged to avoid dietary triggers and late night snacking. Staying upright for minimum 3 hours after meals discussed with patient. Patient is to continue Nexium daily. Patient will return in 1 year, sooner on as needed basis. Patient is agreeable to this plan and verbalizes understanding of instructions. She was given the opportunity to ask questions and all questions answered. Thank you for allowing me to participate in her care Medications: Changed From polyethylene glycol 3350 17 grams PO DAILY 510 grams 2RF To polyethylene glycol 3350 (Miralax) 17 grams PO DAILY 510 grams 2RF Refilled esomeprazole magnesium (Nexium) 40 mg PO DAILY 90 caps 3RF K21.9 - Gastro- esophageal reflux disease without esophagitis Coding Level of Care Code Est Pt Level 3 (22769) Diagnoses Chronic idiopathic constipation K59.04 Constipation type: chronic idiopathic constipation Gastroesophageal reflux disease with esophagitis without hemorrhage K21.00 Esophagitis bleeding: without hemorrhage Irritable bowel syndrome with constipation K58.1 Irritable bowel syndrome type: with constipation Postprandial abdominal bloating R14.0 Time Spent (min) 25 Comment 15 minutes spent with patient and additional 10 minutes spent reviewing her records
[2023-04-23 16:15] VITALS: BP 125/65; PULSE 71; BMI 33.8
== END 2023-04-23 16:35 | disposition home or self-care (01) ==
PROVIDERS: PCP Internal Medicine; Visit Provider Nurse Practitioner Family
DX: K59.04 Chronic idiopathic constipation (principal); K21.00 Gastro-esophageal reflux disease with esophagitis, without bleeding; K58.1 Irritable bowel syndrome with constipation; R14.0 Abdominal distension (gaseous)
CPT/HCPCS: 99213

== ENCOUNTER → 2023-04-23 15:48 | Outpatient (BNVA) | payer OTHER, SELFPAY | PROVIDERS: PCP Internal Medicine; Visit Provider Nurse Practitioner Family ==

== ENCOUNTER 2023-08-25 08:43 | Outpatient (REF) | payer OTHER, SELFPAY ==
--- NOTE | ~2023-08-25 | MM_ITS ---
EXAMINATION: MM SCREENING DIGITAL BREAST TOMOSYNTHESIS, BILATERAL CLINICAL INFORMATION: Screening. Asymptomatic. COMPARISON: Mammography: No prior mammograms available for comparison. TECHNIQUE: Digital breast tomosynthesis is performed in both the craniocaudal and mediolateral oblique views along with computer-aided detection (CAD). Synthesized 2D images are generated from the tomosynthesis. FINDINGS: The breasts are heterogeneously dense, which may obscure small masses (ACR BI-RADS breast composition Category c). There are no significant masses, abnormal calcifications, or other abnormalities. There is cardiac loop recorder in the medial aspect of the left breast. MM/MM tomosynthesis screening BI IMPRESSION: No mammographic evidence of malignancy. ASSESSMENT: BI-RADS BI-RADS 1 - Negative RECOMMENDATION: Routine annual mammography screening. 1 year F/U This examination should not preclude the clinical evaluation of a suspicious palpable abnormality. This patient's information was entered into a reminder system with a target due date for their next mammogram.
== END 2023-08-25 08:44 | disposition home or self-care (01) ==
LOC: HO.MAMMO 08:43
PROVIDERS: Absent Provider Obstetrics & Gynecology; PCP Internal Medicine; Visit Provider Internal Medicine
DX: Z12.31 Encounter for screening mammogram for malignant neoplasm of breast (principal)
CPT/HCPCS: 77063; 77067

== ENCOUNTER → 2023-08-25 08:45 | Outpatient (BNV) | payer OTHER, SELFPAY | PROVIDERS: Absent Provider Obstetrics & Gynecology; PCP Internal Medicine; Visit Provider Radiology Diagnostic Radiology | DX: Z12.31 Encounter for screening mammogram for malignant neoplasm of breast (principal) | CPT/HCPCS: 77063; 77067 ==

== ENCOUNTER 2023-12-25 12:29 | Outpatient (REF) | payer OTHER, SELFPAY ==
--- NOTE | ~2023-12-25 | XR_ITS ---
EXAMINATION: XR CHEST CLINICAL INFORMATION: Patient states cough for one month. COMPARISON: 01/24/2018 TECHNIQUE: 2 views of the chest were obtained. FINDINGS: S-shaped thoracolumbar scoliosis with multilevel degenerative changes. Postsurgical changes with clips in the upper abdomen. Redemonstration of Loop recorder overlying left chest wall. Heart size is normal. No gross pneumothorax. No significant pleural effusion. No focal consolidation. XR/XR chest 2V IMPRESSION: No evidence of pneumonia.
--- NOTE | ~2023-12-25 | XR_ITS ---
EXAMINATION: XR FOOT, RIGHT CLINICAL INFORMATION: Heel pain COMPARISON: None available. TECHNIQUE: AP, lateral, and oblique views of the right foot. FINDINGS: Postsurgical changes of the first metatarsal, with plate and screw hardware. Screw in the distal first metatarsal. Bony alignment is anatomic. No visible acute fracture or dislocation. Small plantar calcaneal spur. No abnormal soft tissue calcification. XR/XR foot RT min 3V IMPRESSION: Postsurgical changes in the first metatarsal. No radiographically evident acute fracture. Study is assigned to ne for dictation on January 17, 2024
== END 2023-12-25 12:30 | disposition home or self-care (01) ==
LOC: HO.XRAY 12:29
PROVIDERS: PCP Internal Medicine; Visit Provider Internal Medicine
DX: M79.671 Pain in right foot (principal); R05.2 Subacute cough
CPT/HCPCS: 71046; 73630

== ENCOUNTER 2024-03-18 07:53 | Outpatient (AMB) | payer OTHER, SELFPAY ==
--- NOTE | 2024-03-18 08:02 | A.OFFVIS_ITS ---
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 Equipment Operator Present (Thelma Harrington NICANOR) Accompanied by: Self / Same As Patient Allergies codeine [CODEINE] Allergy (Intermediate, Verified 03/18/24 08:05) HEASDACHE/DIZZY acetaminophen [Percocet] Allergy (Unknown, Verified 03/18/24 08:05) Tachycardia oxycodone [Percocet] Allergy (Unknown, Verified 03/18/24 08:05) tachycardia Penicillins [PENICILLINS] Adverse Reaction (Unknown, Verified 03/18/24 08:05) HEADACHE/DIZZINESS scopolamine [SCOPOLAMINE] Adverse Reaction (Unknown, Verified 03/18/24 08:05) EPISODE OF DEPRESSION MORPHINE Allergy (Unknown, Uncoded 03/18/24 08:05) tachycardia PENICILLIN Allergy (Unknown, Uncoded 03/18/24 08:05) tachycardia From PERCOCET Adverse Reaction (Intermediate, Uncoded 03/18/24 08:05) HEADACHE/DIZZY Is last menstrual period known: Yes Last menstrual period: 03/06/24 HPI Comments Details: Presenting for annual exam. No complaints. Last Pap/HPV? Last Mammogram was BI-RADS 1 in 09/01 Last Colonoscopy was done in 12/30, the recommendation was to repeat in 5 years according to the patient's [facility] Medical History Tubular adenoma Back pain Malabsorption due to intolerance, not elsewhere classified Overweight (BMI 25.0-29.9) Super obesity Surgical History Hx of bladder repair surgery Hx of colonoscopy History of tubal ligation History of esophagogastroduodenoscopy (EGD) History of cholecystectomy LAP-BAND surgery status History of bunionectomy Hx of section Hx of knee surgery S/P laparoscopic sleeve gastrectomy History of loop recorder Family History Father Diabetes HTN (hypertension) Mother Diabetes CVD (cardiovascular disease) Brother No problems noted. Brother No problems noted. Brother No problems noted. Brother No problems noted. Sister No problems noted. Sister No problems noted. Sister No problems noted. Son No problems noted. Daughter No problems noted. Daughter No problems noted. Daughter No problems noted. 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 Reproductive History Menstrual Age of Menarche: 12 Duration of menses: 3-5 days Date of last menstrual period: 03/06/24 control method: permanent sterilization Total pregnancies: 4 Full term: 4 Number of Living Children: 4 Date of Mammogram: 08/23/23 Review of Systems Const All systems reviewed & are unremarkable except as noted in HPI and below Card Reports as per HPI Resp Reports as per HPI GI Reports as per HPI and Reports no additional complaints Reports as per HPI Physical Exam Vital Signs: Last Vital Signs BP 114/60 03/18/24 08:03 BMI result Body Mass Index 34.0 Const General: cooperative, healthy appearing and comfortable Chest Chest palpation & inspection: normal inspection of the chest and normal palpation of entire chest wall Breast/axilla inspection: normal inspection of the breasts and normal inspection of the axillae Breast/axilla palpation: normal palpation of the breasts, normal palpation of the axillae and no axillary lymphadenopathy General: Yes bladder normal to palpation External Female Exam: No lesion Speculum Exam - Vagina: normal appearance of the vagina, normal palpation, normal vaginal discharge and not erythematous Speculum Exam - Cervix: normal appearance of the cervix and normal palpation Bimanual exam- vagina & uterus: normal bimanual exam, normal palpation, uterine size normal, bladder normal to palpation, consistency normal and normal palpation Bimanual Exam- Adnexa, other: normal adnexae, no masses and no tenderness Assessment & Plan Assessment & Plan (1) Well woman exam: Code(s): Z01.419 - Encounter for gynecological examination (general) (routine) without abnormal findings Category: Medical Plan: Co testing done. Counseled the patient about the recommended dietary allowance of 1200 mg of Calcium & 600 IU of vitamin D. Instructions given the patient to schedule next screening Mammogram in 09/02. The patient was instructed to perform monthly self-breast exams and schedule annual exam in a year. All questions answered and the patient verbalized understanding. Coding Level of Care Code New Pt Level 3 (57138) New Pt Prev Care 40-64y(55648) Diagnoses Well woman exam Z01.419
[2024-03-18 08:03] VITALS: BP 114/60; BMI 34.0
== END 2024-03-18 08:22 | disposition home or self-care (01) ==
PROVIDERS: PCP Internal Medicine; Visit Provider Obstetrics & Gynecology
DX: Z01.419 Encounter for gynecological examination (general) (routine) without abnormal findings (principal)
CPT/HCPCS: 99386

== ENCOUNTER 2024-03-18 07:53 | Outpatient (REF) | payer OTHER, SELFPAY ==
[2024-03-21 09:28] LABS: HPV mRNA E6/E7 Not Detected (Not Detected)
== END 2024-03-18 07:54 | disposition home or self-care (01) ==
LOC: HO.LNP 07:53
PROVIDERS: PCP Internal Medicine; Visit Provider Obstetrics & Gynecology
DX: Z01.419 Encounter for gynecological examination (general) (routine) without abnormal findings (principal)
CPT/HCPCS: 87624; 88175

== ENCOUNTER 2024-04-29 15:52 | Outpatient (AMB) | payer OTHER, SELFPAY ==
[2024-04-29 16:03] VITALS: BP 140/64; PULSE 80; O2SAT 97; BMI 35.2
--- NOTE | 2024-04-29 16:03 | MHC.OFFVIS ---
Vital Signs 04/29/24 16:03 Height 5 ft 1 in Weight 186 lb 8.177 oz BMI 35.2 BP 140/64 H Blood Pressure Location Lt brachial Position Sitting Pulse 80 Pulse Source Pulse Oximeter Pulse Oximetry (%) 97 Oxygen Delivery Method Room Air Intake Visit Reasons: 1 yr follow up Intake Note: PRESCRIPTIONS LAST GENERATED polyethylene glycol 3350 17 gram/dose oral powder?(Miralax)?17 grams PO DAILY 510 grams 2RF Malika Brown 04/23/23 16:26 (Transmitted) Pt no longer taking because their insurance does not cover it. Relevant Flags or Indicators ? Requires Cd Reactor Operator Head? N Diane presents in office today for a scheduled 1 yr FUV. CC; No recent labs, diagnostics placed. ? Relevant GI Sx as reported per pt? None ? Hx of any recent surgeries? None Cd Reactor Operator Head Required: No Allergies codeine [CODEINE] Allergy (Intermediate, Verified 04/29/24 16:03) HEASDACHE/DIZZY acetaminophen [Percocet] Allergy (Unknown, Verified 04/29/24 16:03) Tachycardia oxycodone [Percocet] Allergy (Unknown, Verified 04/29/24 16:03) tachycardia Penicillins [PENICILLINS] Adverse Reaction (Unknown, Verified 04/29/24 16:03) HEADACHE/DIZZINESS scopolamine [SCOPOLAMINE] Adverse Reaction (Unknown, Verified 04/29/24 16:03) EPISODE OF DEPRESSION MORPHINE Allergy (Unknown, Uncoded 03/18/24 08:05) tachycardia PENICILLIN Allergy (Unknown, Uncoded 03/18/24 08:05) tachycardia From PERCOCET Adverse Reaction (Intermediate, Uncoded 03/18/24 08:05) HEADACHE/DIZZY HPI HPI 1 yr follow up: Details: LAST VISIT Constipation Reflux esophagitis IBS (irritable bowel syndrome) Postprandial abdominal bloating Plan Continue will FODMAP diet. Patient was encouraged to increase fluid intake and activity to promote better bowel motility. Continue MiraLax. Patient was encouraged to avoid dietary triggers and late night snacking. Staying upright for minimum 3 hours after meals discussed with patient. Patient is to continue Nexium daily. Patient will return in 1 year, sooner on as needed basis. Patient is agreeable to this plan and verbalizes understanding of instructions. She was given the opportunity to ask questions and all questions answered. ? Thank you for allowing me to participate in her care Medications Changed Changed From polyethylene glycol 3350 17 grams PO DAILY 510 grams 2RF Changed To polyethylene glycol 3350 (Miralax) 17 grams PO DAILY 510 grams 2RF Refilled esomeprazole magnesium (Nexium) 40 mg PO DAILY 90 caps 3RF K21.9 TODAY'S VISIT Patient is here today for follow-up. Seen last time in April of 2023. Since last visit patient has been doing well. Reports that she is taking Nexium in the morning and her symptoms of acid reflux are suppressed. Patient no longer requires take any other medications at bedtime. Patient is moving her bowels better. She changed her diet, no longer is eating late at night. Last colonoscopy was in December of 2021 and showed tubular adenoma without high-grade dysplasia or carcinoma. Recommendation was made for patient to return for colorectal screening in 5 years. Patient denies any melena, hematochezia, unintentional weight loss or ribbon like stools. Denies any dyspepsia, dysphagia or odynophagia. [facility] Medical History Tubular adenoma Back pain Malabsorption due to intolerance, not elsewhere classified Overweight (BMI 25.0-29.9) Super obesity Surgical History Hx of bladder repair surgery Hx of colonoscopy History of tubal ligation History of esophagogastroduodenoscopy (EGD) History of cholecystectomy LAP-BAND surgery status History of bunionectomy Hx of section Hx of knee surgery S/P laparoscopic sleeve gastrectomy History of loop recorder Family History Father Diabetes HTN (hypertension) Mother Diabetes CVD (cardiovascular disease) Brother No problems noted. Brother No problems noted. Brother No problems noted. Brother No problems noted. Sister No problems noted. Sister No problems noted. Sister No problems noted. Son No problems noted. Daughter No problems noted. Daughter No problems noted. Daughter No problems noted. 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 Reproductive History Menstrual Age of Menarche: 12 Review of Systems Const Denies weight gain and Denies weight loss ENT Reports no additional complaints, Denies dysphagia and Denies odynophagia Card Reports no additional complaints Resp Reports no additional complaints GI Denies abdominal pain, Denies belching, Denies melena, Denies bloating, Denies change in bowel habits, Denies dysphagia, Denies excessive flatus, Denies dyspepsia, Denies heartburn, Denies diarrhea, Denies loose stools, Denies nausea, Denies odynophagia and Denies vomiting Musc Reports no additional complaints Neuro Reports no additional complaints Psych Reports no additional complaints Endo Reports no additional complaints Physical Exam Vital Signs: Last Vital Signs Pulse 80 04/29/24 16:03 BP 140/64 H 04/29/24 16:03 Pulse Ox 97 04/29/24 16:03 Oxygen Delivery Method Room Air 04/29/24 16:03 BMI result Body Mass Index 35.2 Const General: healthy appearing and no acute distress Nutritional Appearance: obese Orientation/consciousness: patient oriented x3 Resp Effort & Inspection: normal respiratory effort, able to speak in complete sentences, no tracheal deviation and symmetric chest movement Auscultation: clear to auscultation bilaterally Cardio Rate: regular rate GI Inspection: Yes normal to inspection, No distended and Yes obesity Palpation (GI): Soft to palpation, not firm, nontender and No hepatosplenomegaly present Auscultation: normal bowel sounds General: Yes no CVA tenderness Back/Spine/Pelvis Back: no CVA tenderness Skin General skin exam: elasticity normal, turgor normal and dry skin Neuro General: patient oriented x3 Psych Appearance: grossly normal Mental Status: mental status grossly normal Assessment & Plan Assessment & Plan (1) Constipation: Code(s): K59.00 - Constipation, unspecified Category: Medical Qualifiers: Constipation type: chronic idiopathic constipation Qualified Code(s): K59.04 - Chronic idiopathic constipation (2) Reflux esophagitis: Code(s): K21.00 - Gastro-esophageal reflux disease with esophagitis, without bleeding Category: Medical Qualifiers: Esophagitis bleeding: without hemorrhage Qualified Code(s): K21.00 - Gastro-esophageal reflux disease with esophagitis, without bleeding (3) IBS (irritable bowel syndrome): Code(s): K58.9 - Irritable bowel syndrome, unspecified Qualifiers: Irritable bowel syndrome type: without diarrhea Qualified Code(s): K58.9 - Irritable bowel syndrome, unspecified (4) Postprandial abdominal bloating: Code(s): R14.0 - Abdominal distension (gaseous) Plan Patient will continue taking Nexium daily. Continue avoiding dietary triggers and late night snacking. Staying upright for minimum 3 hours after meals discussed with patient. Colonoscopy will be due in 2026. Patient will will follow-up with us if she will have any other concerns. PCP may take over the PPI prescription. Patient is agreeable to current plan of care and verbalizes understanding of instructions. She was given the opportunity to ask questions and all questions answered. Thank you for allowing me to participate in her care Medications: Refilled esomeprazole magnesium 40 mg PO DAILY 90 caps 3RF K21.9 - Gastro-esophageal reflux disease without esophagitis Coding Level of Care Code Est Pt Level 3 (26270) Diagnoses Chronic idiopathic constipation K59.04 Constipation type: chronic idiopathic constipation Gastroesophageal reflux disease with esophagitis without hemorrhage K21.00 Esophagitis bleeding: without hemorrhage Irritable bowel syndrome without diarrhea K58.9 Irritable bowel syndrome type: without diarrhea Postprandial abdominal bloating R14.0 Time Spent (min) 25 Comment 15 minutes spent with patient and additional 10 minutes spent reviewing her records
== END 2024-04-29 17:00 | disposition home or self-care (01) ==
PROVIDERS: PCP Internal Medicine; Visit Provider Nurse Practitioner Family
DX: K59.04 Chronic idiopathic constipation (principal); K21.00 Gastro-esophageal reflux disease with esophagitis, without bleeding; K58.9 Irritable bowel syndrome, unspecified; R14.0 Abdominal distension (gaseous)
CPT/HCPCS: 99213

== ENCOUNTER 2024-05-16 12:22 | Outpatient (REF) | payer OTHER, SELFPAY ==
--- NOTE | ~2024-05-16 | XR_ITS ---
EXAMINATION: X-ray left humerus X-ray left forearm CLINICAL INFORMATION: Atraumatic pain 1 month COMPARISON: None TECHNIQUE: Humerus 2 views. Forearm 2 views. FINDINGS: Humerus: No evidence of acute fracture or malalignment. No suspicious lytic or blastic lesion is seen. Elbow and shoulder joint articulation is maintained. Acromioclavicular joint appears within normal limits. No abnormal soft tissue calcification. No significant elbow joint effusion. Forearm: No evidence of acute fracture malalignment. No suspicious bony lesion seen. Elbow and wrist articulation is maintained. No significant elbow joint effusion. No abnormal soft tissue calcification. XR/XR forearm LT 2V IMPRESSION: No radiographic evidence of acute osseous abnormality. Electronically signed by: Santiago Prado MD 05/16/2024 04:54 PM STEPHANIE BLANCHARD
--- NOTE | ~2024-05-16 | XR_ITS ---
EXAMINATION: X-ray left humerus X-ray left forearm CLINICAL INFORMATION: Atraumatic pain 1 month COMPARISON: None TECHNIQUE: Humerus 2 views. Forearm 2 views. FINDINGS: Humerus: No evidence of acute fracture or malalignment. No suspicious lytic or blastic lesion is seen. Elbow and shoulder joint articulation is maintained. Acromioclavicular joint appears within normal limits. No abnormal soft tissue calcification. No significant elbow joint effusion. Forearm: No evidence of acute fracture malalignment. No suspicious bony lesion seen. Elbow and wrist articulation is maintained. No significant elbow joint effusion. No abnormal soft tissue calcification. XR/XR humerus LT IMPRESSION: No radiographic evidence of acute osseous abnormality. Electronically signed by: Santiago Prado MD 05/16/2024 04:54 PM STEPHANIE
== END 2024-05-16 12:23 | disposition home or self-care (01) ==
LOC: HO.XRAY 12:22
PROVIDERS: PCP Internal Medicine; Visit Provider Emergency Medicine
DX: M79.602 Pain in left arm (principal); M79.632 Pain in left forearm
CPT/HCPCS: 73060; 73090

== ENCOUNTER 2024-06-25 12:48 | Emergency (ER) | payer OTHER, SELFPAY ==
--- NOTE | ~2024-06-25 | CT_ITS ---
EXAMINATION: CT HEAD WITHOUT CONTRAST CLINICAL INFORMATION: Fall, head trauma. COMPARISON: None available. TECHNIQUE: Contiguous axial imaging was performed from the skull base to vertex without intravenous administration of contrast. This CT examination was performed using dose optimization techniques as appropriate, variously including the following: *Automated exposure control *Adjustment of mA and/or kV according to patient size (this includes techniques or standardized protocols for targeted exams where dose is matched to indication/reason for exam; i.e. extremities or head) *Use of iterative reconstruction technique FINDINGS: There is no evidence of intracranial hemorrhage or extra-axial fluid collection. There is no mass effect, or edema. No CT evidence of acute territorial infarct. Ventricles, sulci, and cisterns are normal in size and configuration for patient age. No hydrocephalus. No midline shift. No significant white matter abnormalities. Normal sella. Globes and orbital contents image normally. No extracranial soft tissue abnormalities. The paranasal sinuses, mastoid air cells, and tympanic cavities are normally aerated. No suspicious bony abnormalities. CT/CT head/brain wo IV con IMPRESSION: No acute intracranial pathology. Electronically signed by: Elier Garcia MD 06/25/2024 02:15 PM [facility]
--- NOTE | ~2024-06-25 | CT_ITS ---
EXAMINATION: CT CERVICAL SPINE WITHOUT CONTRAST CLINICAL INFORMATION: Fall, head trauma, neck pain. COMPARISON: No prior CT. X-rays cervical spine 11/25/2010. TECHNIQUE: Spiral CT of the cervical spine was performed in axial plane from the petrous ridges to the thoracic inlet without IV contrast. Sagittal, coronal, and thin section axial reformatted images were constructed from the axial data set. This CT examination was performed using dose optimization techniques as appropriate, variously including the following: *Automated exposure control *Adjustment of mA and/or kV according to patient size (this includes techniques or standardized protocols for targeted exams where dose is matched to indication/reason for exam; i.e. extremities or head) *Use of iterative reconstruction technique FINDINGS: There is mild motion degradation in the mid aspect of the scan. Normal bone mineralization. No fracture, compression deformity, or evidence of traumatic subluxation. Normal lordosis. No scoliosis. Normal vertebral body and facet alignment. Atlantoaxial joint and craniocervical junction intact and normally aligned. Disc spaces are largely preserved. No evidence of large disc herniation or canal stenosis. No prevertebral or paravertebral soft tissue abnormalities. Globally enlarged thyroid gland present. There are likely underlying nodules, which are poorly defined on this exam. Imaged lung apices are clear. Imaged superior mediastinal contents appear normal. CT/CT cervical spine wo IV con IMPRESSION: 1. No CT evidence of acute cervical spine fracture or injury. 2. Global enlargement of the thyroid with probable underlying nodules, poorly defined on this examination Electronically signed by: Elier Garcia MD 06/25/2024 02:22 PM [facility]
--- NOTE | ~2024-06-25 | XR_ITS ---
EXAMINATION: XR CHEST CLINICAL INFORMATION: syncope COMPARISON: 04/26/2024. TECHNIQUE: Frontal view of the chest was obtained. FINDINGS: A cardiac loop monitoring device is noted overlying the left cardiac silhouette. Cardiac, hilar, and mediastinal contours are normal. Lungs are clear bilaterally. No effusion or pneumothorax. There is a right convex thoracic scoliosis, unchanged. There are surgical clips in the epigastric region. XR/XR chest 1V IMPRESSION: No active pulmonary disease. Electronically signed by: Elier Garcia MD 06/25/2024 01:15 PM EST
[2024-06-25 12:53] VITALS: BP 140/66; PULSE 69; RESP 14; O2SAT 99; BMI 34.1
--- NOTE | 2024-06-25 12:54 | ECG_ITS ---
Test Reason : SYNCOPE Blood Pressure : */* mmHG Vent. Rate : 67 BPM Atrial Rate : 67 BPM P-R Int : 154 ms QRS Dur : 76 ms QT Int : 406 ms P-R-T Axes : 28 -7 12 degrees QTcB Int : 429 ms Normal sinus rhythm Normal ECG When compared with ECG of 09-Jun-2006 22:16, No significant change was found Referred By: Saul Jacobson Electronically Signed By: Dakotah Babb
--- NOTE | 2024-06-25 12:56 | ED.SEIZURE ---
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 She is here with her renewable energy division manager who states they heard her fall she had just been talking to renewable energy division manager and was crying about possibly losing her job. Patient is refusing to answer any questions she is moving all extremities whenever she eats she does have multiple allergies and history of bariatric surgery in the past. Related Data Home Medications ?Medication ?Instructions ?Recorded ?Confirmed onabotulinumtoxinA 100 unit unit IM ONCE PRN 04/29/24 solution for injection (Botox) Previous Rx's ?Medication ?Instructions ?Recorded skcrgdzw-ipifhueu-qcop 45 mg-folic 1 cap PO DAILY #30 caps 04/29/21 acid 800 mcg-vit K 120 mcg capsule (Bariatric Multivitamins) esomeprazole magnesium 40 mg 40 mg PO DAILY #90 caps 04/29/24 capsule,delayed release Allergies Allergy/AdvReac Type Severity Reaction Status Date / Time codeine [CODEINE] Allergy Intermediate HEASDACHE/D Verified 06/25/24 12:55 AIDEN acetaminophen [Percocet] Allergy Unknown Tachycardia Verified 06/25/24 12:55 oxycodone [Percocet] Allergy Unknown tachycardia Verified 06/25/24 12:55 Penicillins [PENICILLINS] AdvReac Unknown HEADACHE/DI Verified 06/25/24 12:55 ZZINESS scopolamine [SCOPOLAMINE] AdvReac Unknown EPISODE OF Verified 06/25/24 12:55 DEPRESSION MORPHINE Allergy Unknown tachycardia Uncoded 03/18/24 08:05 PENICILLIN Allergy Unknown tachycardia Uncoded 03/18/24 08:05 From PERCOCET AdvReac Intermediate HEADACHE/DI Uncoded 03/18/24 08:05 ZZY Review of Systems Review of Systems: Yes Unobtainable due to mental condition PMFSH Past Medical History Medical History Tubular adenoma Back pain Malabsorption due to intolerance, not elsewhere classified Overweight (BMI 25.0-29.9) Super obesity Surgical History Hx of bladder repair surgery Hx of colonoscopy History of tubal ligation History of esophagogastroduodenoscopy (EGD) History of cholecystectomy LAP-BAND surgery status History of bunionectomy Hx of section Hx of knee surgery S/P laparoscopic sleeve gastrectomy History of loop recorder Family History Family History Father Diabetes HTN (hypertension) Mother Diabetes CVD (cardiovascular disease) Brother No problems noted. Brother No problems noted. Brother No problems noted. Brother No problems noted. Sister No problems noted. Sister No problems noted. Sister No problems noted. Son No problems noted. Daughter No problems noted. Daughter No problems noted. Daughter No problems noted. 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 Patient is alert and oriented to person place and time. Patient has no dysphagia or dysarthia, denies good vision in all four vision bhagat no nystagmus on exam, good strength to upper and lower extremities with normal reflexes to brachioradialis, wrist, patella and achilles. Negative romberg, good finger to nose and heel to garza. General: Well-appearing well-nourished in no signs of distress HEENT: Normocephalic atraumatic Neck: No signs of JVD, no masses no tenderness or lymphadenopathy Cardiovascular: Regular rate and rhythm Respiratory: Clear to auscultation bilaterally Abdomen: Soft nontender no masses Extremities: Normal pedal pulses no signs of edema Skin: Dry warm no rashes Back: No tenderness full ROM Course Course Course Narrative: Patient is much more awake answering questions states she does pass out a lot. lactic acid is noted to be 1.1 Reevaluation(s) Reevaluation #1: CT and labs are all normal I will discharge the patient home at this time. Time: 14:26 Medications Administered Discontinued Medications Generic Name Dose Route Start Last Admin Trade Name Frevivienne PRN Reason Stop Dose Admin Sodium Chloride 1,000 mls @ 999 mls/hr 06/25/24 13:00 06/25/24 13:08 Ns IV 06/25/24 14:00 999 mls/hr .Q1H1M DARRON Administration Lorazepam 2 mg 06/25/24 12:54 06/25/24 13:08 Lorazepam 2 Mg/Ml Vial IVPUSH 06/25/24 12:55 2 mg ONCE ONE Administration Medical Decision Making Medical Decision Making [facility] Narrative: I will give the patient over for CT head and neck I will give the patient 2 mg of Ativan fluids and check labs. Patient has no signs of sepsis I am getting a lactic acid to see if the patient has signs of a seizure or if this was more likely syncope or recurrent seizure recurrent syncope or stress-induced I do think that was like psych component to this as the patient was crying and upset and having conversation when the symptoms started Differential Diagnosis Differential Diagnoses: The differential diagnosis associated with the presentation includes seizure versus syncope electrolye dehydration migraine Lab Data [facility] Lab Attestation statement: I reviewed the patient's lab results. 06/25/24 12:52 06/25/24 12:52 Labs: Lab Results 06/25/24 06/25/24 Range/Units 12:52 13:07 WBC 6.8 (4.8-10.8) X10*3/uL RBC 5.32 (4.20-5.50) X10*6/uL Hgb 10.9 L (12.0-16.0) g/dl Hct 37.8 (37.0-47.0) % MCV 71.1 L (80.0-98.0) fL MCH 20.5 L (27.0-33.0) pg MCHC 28.8 L (31.0-35.0) g/dl RDW 17.1 H (11.0-16.0) % Plt Count 305 (160-400) X10*3/uL MPV 11.4 (9.4-12.3) fL Immature Gran % (Auto) 0.4 (0.0-0.4) % Neut % (Auto) 63.1 (45-73) % Lymph % (Auto) 28.1 (20-40) % Weld % (Auto) 6.5 (2-11) % Eos % (Auto) 1.3 (0-4) % Baso % (Auto) 0.6 (0-2) % Lymph # (Auto) 1.9 (1.2-4.9) X10*3/uL Weld # (Auto) 0.4 (0.1-1.2) X10*3/uL Eos # (Auto) 0.1 (0.0-0.4) X10*3/uL Baso # (Auto) 0.0 (0.0-0.2) X10*3/uL Abs Immat Gran (auto) 0.03 (0.00-0.03) X10*3/uL Absolute Neuts (auto) 4.3 (2.0-8.3) x10*3/uL Absolute Nucleated RBC 0.000 (0.0-0.012) X10*3/uL Nucleated RBC % (auto) 0.0 (0.0-0.2) /100WBC Hold Purple Top SEE NOTE PT 11.8 (10.9-12.4) SEC INR 1.0 (0.9-1.1) Sodium 141 (135-145) mmol/L Potassium 4.3 (3.3-5.1) mmol/L Chloride 113 H (96-108) mmol/L Carbon Dioxide 24 (22-29) mmol/L Anion Gap 8 L (12-20) BUN 10 (9-16) mg/dL Creatinine 0.64 (0.5-1.4) mg/dL Estim Creat Clear Calc 117.2 Estimated GFR > 60 Random Glucose 91 (60-115) mg/dL Lactic Acid 1.1 (0.5-2.0) mmol/L Calcium 9.2 D (8.4-10.2) mg/dL Total Bilirubin 0.6 (0.0-1.0) mg/dL Direct Bilirubin 0.1 (0.0-0.5) mg/dL AST 32 H (5-31) U/L ALT 15 (0-31) U/L Alkaline Phosphatase 76 (39-117) U/L Total Protein 7.7 (6.5-8.0) g/dL Albumin 4.0 (3.5-5.0) g/dL Lipase 34 (8-78) U/L Hold Green Top See Note Hold Yellow Top See Note Ethyl Alcohol < 10 mg/dL Independent Interpretation I performed an independent interpretation of an: EKG and Plain X-Ray Radiology Impression Discussion of test interpretation with radiology: I have reviewed the radiologist's reading. External Record Review External record reviewed: Inpatient record Discharge Plan Discharge Clinical Impression: Syncope, Headache, Stress Patient Disposition: Home, Self-Care Instructions: Syncope (DC), Stress (ED), Acute Headache (DC) Additional Instructions: you were seen today in the emergency department after having a stressful reaction and passing out. You had labs x-ray and a CT done which you had no seizure. Please call follow up with your doctor. Prescriptions: No Action Bariatric Multivitamins 45 mg iron- 800 mcg-120 mcg capsule 1 cap PO DAILY Qty: 30 0RF Botox 100 unit recon soln IM ONCE PRN esomeprazole magnesium 40 mg capsule,delayed release(DR/EC) 40 mg PO DAILY Qty: 90 3RF Print Language: Chinese
[2024-06-25 13:02] LABS: MANUAL DIFF FLAG NO
[2024-06-25] MEDS: 0.9 % Sodium Chloride 1,000 ML 999 ML IV (13:08)
[2024-06-25] MEDS: LORazepam 2 MG/ML VIAL IVPUSH (13:08)
[2024-06-25 13:09] LABS: Basophils Percent Auto 0.6 % (0-2); Eosinophils Absolute Auto 0.1 X10*3/uL (0.0-0.4); Eosinophils Percent Auto 1.3 % (0-4); Hematocrit 37.8 % (37.0-47.0); Hemoglobin 10.9 g/dl (12.0-16.0); Imm Gran Abs Auto 0.03 X10*3/uL (0.00-0.03); Imm Gran Pct Auto 0.4 % (0.0-0.4); Lymphocytes Absolute Auto 1.9 X10*3/uL (1.2-4.9); Lymphocytes Percent Auto 28.1 % (20-40); Mean Corpuscular HGB Conc 28.8 g/dl (31.0-35.0); Mean Corpuscular Hemoglobin 20.5 pg (27.0-33.0); Mean Corpuscular Volume 71.1 fL (80.0-98.0); Mean Platelet Volume 11.4 fL (9.4-12.3); Monocytes Absolute Auto 0.4 X10*3/uL (0.1-1.2); Monocytes Percent Auto 6.5 % (2-11); Neutrophils Absolute Auto 4.3 x10*3/uL (2.0-8.3); Neutrophils Percent Auto 63.1 % (45-73); Platelet Count 305 X10*3/uL (160-400); Red Blood Count 5.32 X10*6/uL (4.20-5.50); Red Cell Distribution Width 17.1 % (11.0-16.0); White Blood Count 6.8 X10*3/uL (4.8-10.8)
[2024-06-25 13:15] LABS: Lactic Acid 1.1 mmol/L (0.5-2.0)
[2024-06-25 13:18] LABS: Ethanol < 10 mg/dL
[2024-06-25 13:20] LABS: Alanine Aminotransferase 15 U/L (0-31); Alkaline Phosphatase 76 U/L (39-117); Anion Gap 8 (12-20); Aspartate Amino Transferase 32 U/L (5-31); Bilirubin Direct 0.1 mg/dL (0.0-0.5); Bilirubin Total 0.6 mg/dL (0.0-1.0); Blood Urea Nitrogen 10 mg/dL (9-16); Calcium 9.2 mg/dL (8.4-10.2); Carbon Dioxide 24 mmol/L (22-29); Chloride 113 mmol/L (96-108); Creatinine Clr Calc Pharmacy 117.2; Estimated Glomerular Filt Rate > 60; Glucose Random 91 mg/dL (60-115); Lipase 34 U/L (8-78); Potassium 4.3 mmol/L (3.3-5.1); Sodium 141 mmol/L (135-145); Total Protein 7.7 g/dL (6.5-8.0)
[2024-06-25 13:31] LABS: Prothrombin Time 11.8 SEC (10.9-12.4)
[2024-06-25 15:11] VITALS: BP 113/60; PULSE 69; RESP 14; TEMP 36.7; O2SAT 99
== END 2024-06-25 15:12 | disposition home or self-care (01) ==
PROVIDERS: Emergency Provider Student in an Organized Health Care Education/Training Program; PCP Internal Medicine
DX: R56.9 Unspecified convulsions (principal); R55 Syncope and collapse; R51.9 Headache, unspecified; F43.9 Reaction to severe stress, unspecified; M54.2 Cervicalgia; Z98.84 Bariatric surgery status; Z79.899 Other long term (current) drug therapy; Z51.81 Encounter for therapeutic drug level monitoring
CPT/HCPCS: 36415; 70450; 71045; 72125; 80048; 80076; 80307; 83605; 83690; 85025; 85610; 93005; 96361; 96374; 99284; J2060

== ENCOUNTER → 2024-06-25 12:54 | Outpatient (BNV) | payer OTHER, SELFPAY | PROVIDERS: Emergency Provider Student in an Organized Health Care Education/Training Program; PCP Internal Medicine; Visit Provider Internal Medicine Cardiovascular Disease | DX: R55 Syncope and collapse (principal) | CPT/HCPCS: 93010 ==

== ENCOUNTER → 2024-06-25 12:55 | Outpatient (BNV) | payer OTHER, SELFPAY | PROVIDERS: Emergency Provider Student in an Organized Health Care Education/Training Program; Visit Provider Radiology Diagnostic Radiology | DX: E04.9 Nontoxic goiter, unspecified (principal); S09.90XA Unspecified injury of head, initial encounter; W19.XXXA Unspecified fall, initial encounter; R55 Syncope and collapse | CPT/HCPCS: 70450; 71045; 72125 ==

== ENCOUNTER → 2024-07-16 14:13 | Outpatient (BNV) | payer OTHER, SELFPAY | PROVIDERS: PCP Internal Medicine; Visit Provider Internal Medicine Cardiovascular Disease | DX: I49.3 Ventricular premature depolarization (principal); I49.1 Atrial premature depolarization | CPT/HCPCS: 93272 ==

== ENCOUNTER → 2024-07-24 11:27 | Outpatient (BNVA) | payer OTHER, SELFPAY | PROVIDERS: PCP Internal Medicine; Visit Provider Physical Medicine & Rehabilitation ==

== ENCOUNTER 2024-08-05 11:17 | Outpatient (AMB) | payer OTHER, SELFPAY ==
--- NOTE | 2024-08-05 11:20 | A.OFFVIS_ITS ---
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 The patient states the pain started a few years ago and has not improved. Patient has tried ice, heat and stretching but nothing helps. Patient referred by Dr Riley Waldrop from [facility]. The patient states she experiences numbness, tingling and a burning sensation. She has not had an EMG study done. Wildlife Protector Required: No Allergies codeine [CODEINE] Allergy (Intermediate, Verified 08/05/24 11:33) HEASDACHE/DIZZY acetaminophen [Percocet] Allergy (Unknown, Verified 08/05/24 11:33) Tachycardia oxycodone [Percocet] Allergy (Unknown, Verified 08/05/24 11:33) tachycardia Penicillins [PENICILLINS] Adverse Reaction (Unknown, Verified 08/05/24 11:33) HEADACHE/DIZZINESS scopolamine [SCOPOLAMINE] Adverse Reaction (Unknown, Verified 08/05/24 11:33) EPISODE OF DEPRESSION MORPHINE Allergy (Unknown, Uncoded 08/05/24 11:33) tachycardia PENICILLIN Allergy (Unknown, Uncoded 08/05/24 11:33) tachycardia From PERCOCET Adverse Reaction (Intermediate, Uncoded 08/05/24 11:33) HEADACHE/DIZZY Medication List - Last Reconciled 08/05/24 by Ashley Mcfadden RN esomeprazole magnesium 40 mg PO DAILY igavnkcgriot-yeg-rkjs-FA-vit K 45 mg iron- 800 mcg-120 mcg (Bariatric Multivitamins) 1 cap PO DAILY onabotulinumtoxinA (Botox) units IM ONCE PRN HPI Comments Details: Lateral neck pain, left worse than right, radiates to left side. Pins/needles, heavy sensation and burning on medial arm/forearm but not the fingers. Not the numbness. Last episode 3-4 weeks ago. Chronic headache, separate from neck pain. But she did have 3 days that she had both headache and arm symptoms. Had gone to ER 06/25/24. CT Head no acute findings; CT cspine unremarkable. Denies inciting injuries. Right handed. 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 She used to work at [employer], had more hand symptoms then, had EMG but was told back then that it's coming from the neck. That's resolved now and more than 10 years ago. Also felt different from what she had recently. [facility] Medical History (Updated 08/05/24 @ 11:54 by Shira Mcgraw MD) History of migraine Tubular adenoma Back pain Malabsorption due to intolerance, not elsewhere classified Overweight (BMI 25.0-29.9) Super obesity Surgical History Hx of bladder repair surgery Hx of colonoscopy History of tubal ligation History of esophagogastroduodenoscopy (EGD) History of cholecystectomy LAP-BAND surgery status History of bunionectomy Hx of section Hx of knee surgery S/P laparoscopic sleeve gastrectomy History of loop recorder Family History Father Diabetes HTN (hypertension) Mother Diabetes CVD (cardiovascular disease) Brother No problems noted. Brother No problems noted. Brother No problems noted. Brother No problems noted. Sister No problems noted. Sister No problems noted. Sister No problems noted. Son No problems noted. Daughter No problems noted. Daughter No problems noted. Daughter No problems noted. 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 Patient was appropriately conversant and oriented. Good historian. MSK: Inspection reveals appropriate head and neck positioning. No pain with palpation over the neck musculature. Cervical ROM was full. Spurling's sign negative. Mild right-sided asymmetry/curve-patient says history of mild scoliosis during childhood. No scapular winging. Bilateral shoulder, elbow and wrist ROM WNL. No ligamentous laxity or crepitance. No increased effusion. No tenderness over subacromial. Negative Murray sign. Negative empty can sign. Negative carpal compression. Negative Tinel sign. Mildly tender in left medial epicondyle and common flexor tendons. Strength is 5/5 in all muscle groups tested. No increased tone noted. Neurological: Neurologic examination of the upper and lower extremities was nonfocal with intact sensation, muscle stretch reflexes and without focal motor deficits . Busch?s negative bilaterally. Babinski was down going bilaterally. Clonus was negative. Gait is non-antalgic without loss of balance. Results Reviewed Results Reviewed: I independently reviewed the results of the following: As above Ordering Physician: Saul Jacobson DO Date of Service: 06/25/24 Procedure(s): CT head/brain wo IV con Accession Number(s): [id number] cc: Saul Jacobson DO; Physician,Unknown ~ Report Number: [id number]: Total DLP = 664.00 mGy-cm EXAMINATION: CT HEAD WITHOUT CONTRAST CLINICAL INFORMATION: Fall, head trauma. COMPARISON: None available. TECHNIQUE: Contiguous axial imaging was performed from the skull base to vertex without intravenous administration of contrast. This CT examination was performed using dose optimization techniques as appropriate, variously including the following: *Automated exposure control *Adjustment of mA and/or kV according to patient size (this includes techniques or standardized protocols for targeted exams where dose is matched to indication/reason for exam; i.e. extremities or head) *Use of iterative reconstruction technique FINDINGS: There is no evidence of intracranial hemorrhage or extra-axial fluid collection. There is no mass effect, or edema. No CT evidence of acute territorial infarct. Ventricles, sulci, and cisterns are normal in size and configuration for patient age. No hydrocephalus. No midline shift. No significant white matter abnormalities. Normal sella. Globes and orbital contents image normally. No extracranial soft tissue abnormalities. The paranasal sinuses, mastoid air cells, and tympanic cavities are normally aerated. No suspicious bony abnormalities. CT/CT head/brain wo IV con IMPRESSION: No acute intracranial pathology. Electronically signed by: Elier Garcia MD 06/25/2024 02:15 PM [facility] Ordering Physician: Saul Jacobson DO Date of Service: 06/25/24 Procedure(s): CT cervical spine wo IV con Accession Number(s): [id number] cc: Saul Jacobson DO; Physician,Unknown ~ Report Number: [id number]: Total DLP = 442.00 mGy-cm EXAMINATION: CT CERVICAL SPINE WITHOUT CONTRAST CLINICAL INFORMATION: Fall, head trauma, neck pain. COMPARISON: No prior CT. X-rays cervical spine 11/25/2010. TECHNIQUE: Spiral CT of the cervical spine was performed in axial plane from the petrous ridges to the thoracic inlet without IV contrast. Sagittal, coronal, and thin section axial reformatted images were constructed from the axial data set. This CT examination was performed using dose optimization techniques as appropriate, variously including the following: *Automated exposure control *Adjustment of mA and/or kV according to patient size (this includes techniques or standardized protocols for targeted exams where dose is matched to indication/reason for exam; i.e. extremities or head) *Use of iterative reconstruction technique FINDINGS: There is mild motion degradation in the mid aspect of the scan. Normal bone mineralization. No fracture, compression deformity, or evidence of traumatic subluxation. Normal lordosis. No scoliosis. Normal vertebral body and facet alignment. Atlantoaxial joint and craniocervical junction intact and normally aligned. Disc spaces are largely preserved. No evidence of large disc herniation or canal stenosis. No prevertebral or paravertebral soft tissue abnormalities. Globally enlarged thyroid gland present. There are likely underlying nodules, which are poorly defined on this exam. Imaged lung apices are clear. Imaged superior mediastinal contents appear normal. CT/CT cervical spine wo IV con IMPRESSION: 1. No CT evidence of acute cervical spine fracture or injury. 2. Global enlargement of the thyroid with probable underlying nodules, poorly defined on this examination Electronically signed by: Elier Garcia MD 06/25/2024 02:22 PM [facility] I reviewed records from the following: ER GI -constipation Vascular Dr. Jin saw her for leg pain, unremarkable workup Assessment & Plan Assessment & Plan (1) Arm paresthesia, left: Code(s): R20.2 - Paresthesia of skin Category: Medical (2) Neck pain on left side: Code(s): M54.2 - Cervicalgia Category: Medical (3) History of migraine: Code(s): Z86.69 - Personal history of other diseases of the nervous system and sense organs Category: Medical Plan She had a severe episode of neck pain and arm pain/paresthesias in June, all resolved now. Chronic history of headache/migraine. No signs of cervical radiculopathy or myelopathy today. No signs of shoulder pathology today. No signs of Carpal Tunnel Syndrome. We will schedule for EMG left upper extremity. Continue to watch for recurrence of symptoms. Consider referral to neurology for headache. Assessment and plan discussed with patient, and patient was agreeable. All questions were answered thoroughly. Follow up 3 months. Shira Mcgraw MD, JAYLEEN Board Certified, [place] Board [employer] and Rehabilitation (ABPMR) Board Certified, [place] Board of Electrodiagnostic Medicine (ABEM) Orders: Orders NE nerve conduction velocity Today R20.2 - Paresthesia of skin NE electromyogram (EMG) Today R20.2 - Paresthesia of skin Coding Level of Care Code New Pt Level 4 (94067) Diagnoses Arm paresthesia, left R20.2 Neck pain on left side M54.2 History of migraine Z86.69
--- OUTSIDE RECORDS SUMMARY | 2024-08-05 13:49 | XMS_ITS | Encounter Summary ---
Author Organization [employer] Address [address] [facility] 7 [place] [address] Care Team Providers Care Regulatory Process Manager Name Role Phone Jay Davis MD Primary Care Provide r Reason for Visit * Reason Onset Date Comments Referral 07/11/2024 Encounter Details Date Type Department Care Team ([facility] st Contact Info) Description 07/11/2024 Telephone [facility] [address] [place] [address] Jay Davis MD [address] [place] [address] Referral Social History Tobacco Use Types Packs/Day Years Used Date Smoking Tobacco: Never Passive Smoke Exposure: Never Smokeless Tobacco: Never Depression Answer Date Recorded Patient Health Questionnaire-9 Score 0 12/25/2023 Patient Health Questionnaire-9 Score 0 12/25/2023 Last PHQ-9: Questionnaire Data Not on file 0 12/25/2023 Housing Stability Answer Date Recorded What is your housing situation today? I have adelina boucher 12/25/[address] you li ve. Do you have problems with any of the following? None of the above 12/25/2023 Food Insecurity Answer Date Recorded Within the past 12 months, y ou worried that your food would run out before you got money to buy more: Never True 12/25/2023 Within the past 12 months,th e food you bought just didn't last and you didn't have enough money to get more: Never True Transportation Answer Date Recorded In the past 12 months, has l ack of transportation kept you from medical appts, meetings, work or from getting things needed for daily living? No 12/25/2023 Utilities Answer Date Recorded In the past 12 months, has t he electric, gas, oil or water company threatened to shut off services in your home? No 12/25/2023 Depression Answer Date Recorded Patient Health Questionnaire-2 Score 0 12/25/2023 Internet Access Answer Date Recorded Internet Access Q1 Yes 02/11/2024 Internet Access Q2 Not on file 02/11/2024 Comments Unknown Sex and Gender Information Value Date Recorded Sex Assigned at Female 04/10/2022 10:17 AM EDT Legal Sex Female 10:17 AM EDT Gender Identity Female 04/10/2022 10:17 AM EDT Sexual Orientation Straight 04/10/2022 10 :17 AM EDT documented as of this encounter Miscellaneous Notes * Telephone Encounter - Walter Calderón - 07/11/2024 10:12 AM EST Tc from pt requesting referral that was placed for Psychiatry or any referral in general to be placed in [facility] as pt work insurance will have coverage in that facility. Pt received call from a facility as she had to reject due to insurance wont cover visit. documented in this encounter Plan of Treatment Upcoming Encounters Date Type Department Care Team (Late st Contact Info) Description 09/11/2024 2:15 PM EDT Office Visit [facility] [address] [place] [phone] Jay Davis MD [address] [place] [address] documented as of this encounter Visit Diagnoses Not on filedocumented in this encounter Additional Health Concerns Assessment Noted Time PHQ-9 Depression Total Score: 0 12/25/19 24 1:07 PM EDT documented as of this encounter Care Teams Regulatory Process Manager Relationship Specialty Start Date End Date Jay Davis MD [address] [place] [phone] PCP - General Internal Medicine 01/13/14 documented as of this encounter
--- OUTSIDE RECORDS SUMMARY | 2024-08-05 13:49 | XMS_ITS | Encounter Summary ---
Author Organization [facility] Address [address] [place] [address] Care Team Providers Care Housekeeping Supervisor Name Role Phone Jay Hooper MD Primary Care Provi leah Encounter Details Date Type Department Care Team (Late Contact Info) Description 07/18/2024 Lab [facility] [address] [place] [phone] Nayan Leonardo MD [address] [place] [address] [place] [address] Syncope and collapse Social History Tobacco Use Types Packs/Day Years Used Date Smoking Tobacco: Never Assessed Comments Unknown Sex and Gender Information Value Date Recorded Sex Assigned at Not on file Legal Sex Female 3:31 PM EST Gender Identity Not on file Sexual Orientation Not on file documented as of this encounter Plan of Treatment Upcoming Encounters Date Type Department Care Team (Late st Contact Info) Description 10/15/2024 10:00 AM EDT Appointment [facility] [address] [place] [phone] 10/16/2024 12:00 PM EDT Appointment [facility] [address] [place] [phone] 10/17/2024 12:00 PM EDT Appointment [facility] [address] [place] [phone] documented as of this encounter Visit Diagnoses Diagnosis Syncope and collapse documented in this encounter Orders Neurology Count Last Ordered Date First Orde red Date CONTINUOUS EEG 1 07/18/2024 documented in this encounter Care Teams Housekeeping Supervisor Relationship Specialty Start Date End Date Jay Hooper, MD [address] [place] [address] [place] [phone] PCP - General 04/05/10 documented as of this encounter
--- OUTSIDE RECORDS SUMMARY | 2024-08-05 13:49 | XMS_ITS | Encounter Summary ---
Author Organization [facility] Address [address] [place] [address] Care Team Providers Care Tool Machine Set Up Operator Name Role Phone Jay Hooper MD Primary Care Provi leah Encounter Details Date Type Department Care Team (Late Contact Info) Description 07/16/2024 Lab [facility] [address] [place] [phone] Nayan Leonardo MD [address] [place] [address] [place] [address] Syncope and collapse Social History Tobacco Use [...] Info) Description 10/15/2024 10:00 AM EDT Appointment [facility] [address] [place] [phone] 10/16/2024 12:00 PM EDT Appointment [facility] [address] [place] [phone] 10/17/2024 12:00 PM EDT Appointment [facility] [address] [place] [phone] documented as of this encounter Visit Diagnoses Diagnosis Syncope and collapse documented in this encounter Orders Neurology Count Last Ordered Date First Orde red Date CONTINUOUS EEG 1 07/16/2024 documented in this encounter Care Teams Tool Machine Set Up Operator Relationship Specialty Start Date End Date Jay Hooper, MD [address] [place] [address] [place] [phone] PCP - General 04/05/10 documented as of this encounter
--- OUTSIDE RECORDS SUMMARY | 2024-08-05 13:49 | XMS_ITS | Clinical Summary ---
Author Organization [employer] Address [address] [place] [address] [address] [place] [address] Care Team Providers Care Thermal Molder Name Role Phone Jay Davis MD Primary Care Provide r Allergies Active Allergy Reactions Criticality Noted Date Comments Codeine 12/23/2019 Other reaction(s): panic attacks, palpitations Doxycycline 10/05/2022 Other reaction(s): Increased heart rate Morphine 01/29/2012 Oxycodone 12/23/2019 Oxycodone-Acetaminophen 10/05/2022 Other reaction(s): panic attacks, palpitations Penicillins 01/29/2012 Sulfa Antibiotics 10/05/2022 Other reaction(s): Increased heart rate Tramadol 10/05/2022 Medications tiZANidine (Zanaflex) 2 MG tabletIndicatio ns:Low back pain radiating to right leg Take 1 tablet (2 mg) by mouth every 6 (six) hours if needed for muscle spasms. 30 tablet 3 Active Misc. Devices (Pulse Oximeter For Finger) miscIndications :COVID-19 To use every 4 hours. Call the office if O2 Sat < 90% 1 each 3 Active triamcinolone (Kenalog) 0.1 % creamIndication s:Dermatitis APPLY TO THE AFFECTED AREA(S) SPARINGLY TWICE DAILY 15 g 1 4 Active Diclofenac Sodium 1 % gelIndications: Pain of right heel Use twice daily on affected area 50 g 1 4 Active terbinafine (LamISIL AT) 1 % creamIndication s:Tinea pedis of right foot Apply topically 2 times daily. 42 g 1 4 Active acetaminophen (Tylenol) 500 MG tablet Take 2 tablets (1,000 mg) by mouth every 6 (six) hours if needed for moderate pain or fever for up to 25 doses. 40 tablet 4 Active lidocaine (Lidoderm) 5 % patch Apply 1 patch topically Once per day. Remove & discard patch within 12 hours or as directed by MD. 30 patch 2 4 05/16/20 25 Active ibuprofen 400 MG tablet Take 1 tablet (400 mg) by mouth every 6 (six) hours if needed for moderate pain or fever for up to 30 doses. 30 tablet 4 Active Blood Pressure kit 1 each 2 times daily. 1 kit 4 05/16/20 25 Active cetirizine (ZyrTEC) 10 MG tabletIndicatio ns:Subacute cough Take 1 tablet (10 mg) by mouth Once per day. 30 tablet 2 5 09/11/19 25 Active Active Problems Problem Noted Date Diagnosed Date Major depressive disorder, recurrent episode, mo derate 06/12/2024 Assessment & Plan (06/12/2024 3:06 PM EST): Patient is under the care of Zohreh Raphael at [facility]. Back in 10/2023 Pt underwent extensive pyschologic testing and was diagnosed with depression and insomnia Plan: Patient tells me she will continue to folow with Zohreh to address this issues. Borderline intellectual functioning 06/12/2024 Assessment & Plan (06/12/2024 4:07 PM EST): Pt already seeing a Neurologist Dr Leonardo Pt has a follow up 07/08/2023 One of the recommendations from the psychological testing was that she needs to be evaluated to rule out Psychogenic Non-epileptic seizures. She will address that with Dr. Leonardo when she sees her. Sleep disturbances 06/12/2024 Assessment & Plan (06/12/2024 4:06 PM EST): One of the diagnoses given to her during her psychologic testing evaluation was insomnia. Pt tells me she weill address this with her psychotherapist Zohreh Simmons at [facility] Subacute cough 12/25/2023 Assessment & Plan (06/12/2024 4:09 PM EST): Likely associated with post nasal drip Rapid flu and covid testing negative Plan: Supportive measures, antihistaminics F/u if worsening or no improvement. Assessment & Plan (12/25/2023 12:52 PM EDT): Likely due to Viral URI, post nasal drip Negative rapid Covid -19 Plan: Chest x-ray, Tessalon perles, Antihistaminics Follow up if no improvement. Pain of right heel 12/25/2023 Assessment & Plan (12/25/2023 12:53 PM EDT): Symptomatology suggestive of plantar fasciitis Plan: stretching exercises Heel pads Plain films right foot Podiatry evaluation Tinea pedis of right foot 12/25/2023 Assessment & Plan (12/25/2023 12:54 PM EDT): Exam indicative of this Terbinafine prescribed LAP-BAND surgery status 10/05/2022 Assessment & Plan (10/05/2022 8:28 AM EDT): s/p EGD with laparoscopic lysis of adhesions, laparoscopic removal of lap band and accessories, laparoscopic sleeve gastrectomy and gastropexy. Preventative health care 10/05/2022 Assessment & Plan (12/25/2023 11:13 AM EDT): Mammogram: Done 08/25/2023 Normal Pap Smear: Done by Dr Zee 01/12/2017 Normal Colonoscopy: 12/30/2021 showed: One tiny polyp removed Moderate diverticulosis seen in the entire colon 5 year follow up Vaccines: declines Flu shots. Assessment & Plan (10/05/2022 8:25 AM EDT): Mammogram: Done 05/07/2017 at [facility] was normal Pap Smear: Done by Dr Zee 01/12/2017 Normal Colonoscopy: NOT due yet Vaccines: declines Flu shots. Low back pain radiating to right leg 10/05/2022 Assessment & Plan (10/05/2022 1:58 PM EDT): Symptomatology suggestive of sciatica Plan: Rest, NSAIDS, Muscle relaxant, plain films of LS spine PT eval Follow up if no improvement Learning disabilities 10/05/2022 Assessment & Plan (06/12/2024 4:08 PM EST): Pt tells me that throughout her entire life she felt she had a learning disability, associated with her inability to retain new information, ability to focus or even developing anxiety associated with learning acitivities. She had never been evaluated for this. I discussed with her that performing appropriate Neuropsychologic testing would be a good first step. 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 This was finally done 10/19/2023 See report. Diagnosed with Depression, Insomnia, Borderline intellectual functioning Recommendations were to: Refer to: , Consider treatment for depression and insomnia ( she is already seeing Zohreh Simmons ), refer to Sleep Medicine and Refer back to Neurology to consider ruling out Pychogenic Non-epileptoid seizures (PNES). Pt already scheduled to see her Neurologist. Assessment & Plan (10/05/2022 2:01 PM EDT): Pt tells me that throughout her entire life she felt she had a learning disability, associated with her inability to retain new information, ability to focus or even developing anxiety associated with learning acitivities. She has never been evaluated for this. I discussed with her that performing appropriate Neuropsychologic testing would be a good first step. She is willing and able to travel Will refer to [facility] Obesity 04/14/2014 Kidney stone 01/29/2012 Impaired glucose tolerance 01/29/2012 Migraine without aura and wi thout status migrainosus, not intractable 01/29/2012 Assessment & Plan (06/12/2024 4:09 PM EST): Pt started on Botox with good results Under the care of neurology specialist Dr Leonardo. Assessment & Plan (10/05/2022 8:27 AM EDT): Pt started on Botox with good results Under the care of neurology specialist Dr Leonardo. Doing well. Last seen 08/23/2022 Encounters Date Type Department Care Team Description 07/11/2024 Telephone [facility] [address] [facility] [place] [address] Jay Davis MD Referral 06/13/[address] [facility] [address] [facility] [place] [address] Jay Davis MD 06/12/2024 2:30 PM EST Office Visit [facility] [address] [facility] [place] [address] Jay Davis MD Subacute cough (Primary Dx); Learning disabilities; Major depressive disorder, recurrent episode, moderate (CMS/HCC); Borderline intellectual functioning; Sleep disturbances; Migraine without aura and without status migrainosus, not intractable 06/03/2024 Telephone [facility] [address] [facility] [place] [address] Jay Davis MD Referral 06/02/2024 Telephone [facility] [address] [facility] [place] [address] Jay Davis MD Chart Prep 05/21/[address] [facility] [place] [address] Brenda Gomez, RN Results 05/16/2024 10:20 AM EST Office Visit [facility] [address] [place] [address] Riley Waldrop MD Left arm pain (Primary Dx); Left forearm pain; Neck pain; Migraine without aura and without status migrainosus, not intractable; Elevated blood pressure reading in office without diagnosis of hypertension from Last 3 Months Immunizations Name Administration Dates Next Due Hep B, adult 10/11/2022 HepB-CpG 09/07/2022 MMR 10/11/2022,09/07/2022 TD (adult), 2 Lf tetanus tox oid, preservative free, adsorbed 01/29/2012 Tdap 09/07/2022 Varicella 10/11/2022,09/07/2022 Social History Tobacco Use Types Packs/Day Years Used Date Smoking Tobacco: Never Passive Smoke Exposure: Never Smokeless Tobacco: Never Tobacco Cessation:Counseling Given: Not Answered Depression Answer Date Recorded Patient Health Questionnaire-9 [...] Orientation Straight 04/10/2022 10 :17 AM EDT Last Filed Vital Signs Vital Sign Reading Time Taken Comments Blood Pressure 131/71 06/12/2024 2:34 PM EST Pulse 80 06/12/2024 2:34 PM EST Temperature 36.3 ??C (97.3 ??F) 06/12/2024 2:34 PM ES T Respiratory Rate 20 06/12/2024 2:34 PM EST Oxygen Saturation 98% 06/12/2024 2:34 PM EST Inhaled Oxygen Concentration - - Weight 86.7 kg (191 lb 3.2 oz) 06/12/2024 2:34 P M EST Height 154.9 cm (5' 1 ) 06/12/2024 2:34 PM EST Body Mass Index 36.13 06/12/2024 2:34 PM EST Plan of Treatment Upcoming Encounters Date Type Department Care Team (Late st Contact Info) Description 09/11/2024 2:15 PM EDT Office Visit [facility] [address] [place] [address] Jay Davis MD [address] [place] [address] Health Maintenance Due Date Last Done Comments CT Colonography 1973 FIT DNA/Cologuard 1973 FIT 1973 FOBT 1975 HIV Screening 1975 Lipid Panel 1975 Sigmoidoscopy 1973 Family Planning (PISQ) 1988 Hepatitis C Screening 1991 Hepatitis B Vaccines (3 of 3 - 19+ 3-dose series) 03/10/2023 10/11/2022, 09/07/2022 Pneumococcal Vaccine: 50+ Years (1 of 1 - PCV) 2023 Zoster Vaccines (1 of 2) 2023 COVID-19 Vaccine (3 - 2023-2 5 season) 2024 10/07/2020, 09/15/2020 Influenza Vaccine (#1) 2024 Mammogram 08/24/2024 08/25/2023 Depression Screening 12/24/2024 12/25/2023, 12/25/2023 SDOH Screening 12/24/2024 12/25/2023 Tobacco Screening 05/16/2025 05/16/2024 Alcohol/Substance Use Screening 06/12/2025 06/12/2024 Pap Smear 03/18/2027 03/18/2024 Cervical Cancer Screening 03/18/2029 HPV/Cotest 03/18/2029 03/18/2024 Colonoscopy 12/31/2031 12/30/2021 Colorectal Cancer Screening 12/31/2031 DTaP/Tdap/Td Vaccines (2 - T d or Tdap) 09/07/2032 09/07/2022, 01/29/2012 RSV Patients and Patients Aged 60 years or older (1 - 1-dose 75+ series) 2048 HIB Vaccines Aged Out No longer eligi ble based on patient's age to complete this topic HPV Vaccines Aged Out No longer eligi ble based on patient's age to complete this topic Hepatitis A Vaccines Aged Out No long er eligible based on patient's age to complete this topic IPV Vaccines Aged Out No longer eligi ble based on patient's age to complete this topic Meningococcal Vaccine Aged Out No ward kaitlyn eligible based on patient's age to complete this topic RSV under 20 months Aged Out No longe r eligible based on patient's age to complete this topic Rotavirus Vaccines Aged Out No longer eligible based on patient's age to complete this topic Procedures Procedure Name Priority Date/Time Associated Diagnosis Comments POCT INFLUENZA B (ID NOW RAPID MOLECULAR) Routine 06/12/2024 3:43 PM EST Subacute cough POCT INFLUENZA A (ID NOW RAPID MOLECULAR) Routine 06/12/2024 3:43 PM EST Subacute cough POCT RAPID COVID ANTIGEN Routine 06/12/2024 3:37 PM EST Subacute cough ECG 12-LEAD Routine 05/21/2024 8:45 AM EST Elevated blood pressure reading in office without diagnosis of hypertension Left arm pain XR HUMERUS LEFT Routine 05/16/2024 12:40 PM EST Left arm pain XR FOREARM 2 VIEWS LEFT Routine 05/16/2024 12:40 PM EST Left forearm pain THINPREP IMAGING PAP AND HPV MRNA E6/E7 WITH REFLEX TO HPV 16,18/45 Routine 03/18/2024 8:00 AM EDT BI MAMMOGRAM SCREENING TOMOSYNTHESIS BILATERAL Routine 08/25/2023 8:59 AM EDT HM COLONOSCOPY Routine 12/30/2021 from Last 3 Months or Most Recently Relevant to Health Maintenance Results * POCT Rapid Influenza B SCOTT ID NOW (06/12/2024 3:43 PM EST) Influenza B Negative Negative, Indeterminate [facility] QC Media Lot # [id number] [facility] Lot# Expiration Date [facility] Swab 06/12/2024 3:43 PM EST us Jay Henry MD POINT OF CARE TEST EN TER/EDIT ORDERABLES Final Result Performing Organization Address [facility]/ZIP Co de Phone Number [facility] [address] [place] [phone] * POCT Rapid Influenza A SCOTT ID NOW (06/12/2024 3:43 PM EST) Influenza A Negative Negative, Indeterminate [facility] QC Media Lot # [id number] [facility] Lot# Expiration Date [facility] Swab 06/12/2024 3:43 PM EST Result [facility] us Jay Henry MD POINT OF CARE TEST EN TER/EDIT ORDERABLES Final Result Performing Organization Address [facility] Co de Phone Number [facility] [address] [place] [phone] * POCT Rapid Covid-19 BinaxNOW (06/12/2024 3:37 PM EST) Rapid COVID Ag Negative QC Media Lot # [id number] Lot# Expiration Date Swab 06/12/2024 3:37 PM EST us Jay Henry MD POINT OF CARE TEST EN TER/EDIT ORDERABLES Final Result * XR Forearm 2 Views Left (05/16/2024 12:40 PM EST) Anatomical Region Laterality Modality Upper Extremities, Forearm Left Radio graphic Imaging 05/16/2024 12:4 0 PM EST Narrative 05/16/2024 4:57 PM EST ? [facility] ?[address] ?[place] [address] ?XRay Report ? Signed ? Patient: Johnson,Diane ?MR#: [id number] ? : 1975 ?Acct:[id number] ? Age/Sex: 49 / F ?ADM Date: 05/16/24 ? Loc: HO.XRAY ? Attending Dr: Riley Waldrop MD ? Ordering Physician: RILEY WALDROP MD ?? Date of Service: 05/16/24 ?? Procedure(s): XR forearm LT 2V ?? Accession Number(s): [id number] ? cc: RILEY WALDROP MD; Jay Hooper MD ? EXAMINATION: ?? X-ray left humerus ?? X-ray left forearm ? CLINICAL INFORMATION: ?? Atraumatic pain 1 month ? COMPARISON: ?? None ? TECHNIQUE: ?? Humerus 2 views. Forearm 2 views. ? FINDINGS: ?? Humerus: No evidence of acute fracture or malalignment. No suspicious ?? lytic or blastic lesion is seen. Elbow and shoulder joint articulation ?? is maintained. Acromioclavicular joint appears within normal limits. No ?? abnormal soft tissue calcification. No significant elbow joint effusion. ? Forearm: No evidence of acute fracture malalignment. No suspicious bony ?? lesion seen. Elbow and wrist articulation is maintained. No significant ?? elbow joint effusion. No abnormal soft tissue calcification. ? XR/XR forearm LT 2V ?? IMPRESSION: ?? No radiographic evidence of acute osseous abnormality. ? Electronically signed by: ??Santiago Prado MD ??05/16/2024 04:54 PM EST ?? RP ? Dictated By: ?Santiago Prado MD ? Signed By: ?<Electronically signed by Santiago Prado MD in OV> ?05/16/24 1654 ? DD/ 1240 ? TD/TT: 05/16/24 1247 ? Principle Industrial Hygienist: HB ? Procedure Note Brianna Lam - 05/16/[address] [address] XRay Report Signed Patient: Diane JohnsonMR#: [id number] : 1975Acct:[id number] Age/Sex: 49 / FADM Date: 05/16/24 Loc: HO.XRAY Attending Dr: Riley Waldrop MD Ordering Physician: RILEY WALDROP MD Date of Service: 05/16/24 Procedure(s): XR forearm LT 2V Accession Number(s): [id number] cc: RILEY WALDROP MD; Jay Hooper MD EXAMINATION: X-ray left humerus X-ray left forearm CLINICAL INFORMATION: Atraumatic pain 1 month COMPARISON: None TECHNIQUE: Humerus 2 views. Forearm 2 views. FINDINGS: Humerus: No evidence of acute fracture or malalignment. No suspicious lytic or blastic lesion is seen. Elbow and shoulder joint articulation is maintained. Acromioclavicular joint appears within normal limits. No abnormal soft tissue calcification. No significant elbow joint effusion. Forearm: No evidence of acute fracture malalignment. No suspicious bony lesion seen. Elbow and wrist articulation is maintained. No significant elbow joint effusion. No abnormal soft tissue calcification. XR/XR forearm LT 2V IMPRESSION: No radiographic evidence of acute osseous abnormality. Electronically signed by: Santiago Prado MD 05/16/2024 04:54 PM EST Dictated By: Santiago Prado MD Signed By: <Electronically signed by Santiago Prado MD in OV> 05/16/24 1654 DD/ 1240 TD/TT: 05/16/24 1247 Principle Industrial Hygienist: SRI us Riley Waldrop MD IMG XR PROCEDURES Final Result * XR Humerus Left (05/16/2024 12:40 PM EST) Anatomical Region Laterality Modality Upper Extremities, Humerus Left Radio graphic Imaging 05/16/2024 12:4 0 PM EST Narrative 05/16/2024 4:57 PM EST ? [place] [facility] ?[address] ?[place] [address] ?XRay Report ? Signed ? Patient: Johnson,Diane ?MR#: [id number] ? : 1975 ?Acct:[id number] ? Age/Sex: 49 / F ?ADM Date: 05/16/24 ? Loc: HO.XRAY ? Attending Dr: Riley Waldrop MD ? Ordering Physician: RILEY WALDROP MD ?? Date of Service: 05/16/24 ?? Procedure(s): XR humerus LT ?? Accession Number(s): [id number] ? cc: RILEY WALDROP MD; Jay Hooper MD ? EXAMINATION: ?? X-ray left humerus ?? X-ray left forearm ? CLINICAL INFORMATION: ?? Atraumatic pain 1 month ? COMPARISON: ?? None ? TECHNIQUE: ?? Humerus 2 views. Forearm 2 views. ? FINDINGS: ?? Humerus: No evidence of acute fracture or malalignment. No suspicious ?? lytic or blastic lesion is seen. Elbow and shoulder joint articulation ?? is maintained. Acromioclavicular joint appears within normal limits. No ?? abnormal soft tissue calcification. No significant elbow joint effusion. ? Forearm: No evidence of acute fracture malalignment. No suspicious bony ?? lesion seen. Elbow and wrist articulation is maintained. No significant ?? elbow joint effusion. No abnormal soft tissue calcification. ? XR/XR humerus LT ?? IMPRESSION: ?? No radiographic evidence of acute osseous abnormality. ? Electronically signed by: ??Santiago Prado MD ??05/16/2024 04:54 PM EST ? Dictated By: ?Santiago Prado MD ? Signed By: ?<Electronically signed by Santiago Prado MD in OV> ?05/16/24 1654 ? DD/ 1240 ? TD/TT: 05/16/24 1247 ? Principle Industrial Hygienist: HB ? Procedure Note Brianna Lam - 05/16/[address] [address] XRay Report Signed Patient: Diane JohnsonMR#: [id number] : 1975Acct:[id number] Age/Sex: 49 / FADM Date: 05/16/24 Loc: [facility] Attending Dr: Riley Waldrop MD Ordering Physician: RILEY WALDROP MD Date of Service: 05/16/24 Procedure(s): XR humerus LT Accession Number(s): [id number] cc: RILEY WALDROP MD; Jay Hooper MD EXAMINATION: X-ray left humerus X-ray left forearm CLINICAL INFORMATION: Atraumatic pain 1 month COMPARISON: None TECHNIQUE: Humerus 2 views. Forearm 2 views. FINDINGS: Humerus: No evidence of acute fracture or malalignment. No suspicious lytic or blastic lesion is seen. Elbow and shoulder joint articulation is maintained. Acromioclavicular joint appears within normal limits. No abnormal soft tissue calcification. No significant elbow joint effusion. Forearm: No evidence of acute fracture malalignment. No suspicious bony lesion seen. Elbow and wrist articulation is maintained. No significant elbow joint effusion. No abnormal soft tissue calcification. XR/XR humerus LT IMPRESSION: No radiographic evidence of acute osseous abnormality. Electronically signed by: Santiago Prado MD 05/16/2024 04:54 PM [facility] Dictated By: Santiago Prado MD Signed By: <Electronically signed by Santiago Prado MD in OV> 05/16/24 1654 DD/ 1240 TD/TT: 05/16/24 1247 Principle Industrial Hygienist: HB Riley Waldrop MD IMG XR PROCEDURES Final Result * ThinPrep Imaging Pap and HPV mRNA E6/E7 with Reflex to HPV 16,18/45 (03/18/2024 8:00 AM EDT) HPV 16 RNA UTP [facility] HPV 18/45 RNA [facility] HPV nRNA E6/E7 Not Detected Not Detected [facility] Comment:Methodology: Transcr iption-Mediated AmplificationThis assay detects E6/E7 viral messenger RNA (mRNA) from 14high-risk HPV types (16,18,31,33,35,39,45,51,52,56,58,59,66,68).Cervical sources are required for HPV testing.If a vaginal source from a patient who has had atotal hysterectomy with removal of cervix wassubmitted, please contact the testing laboratoryfor alternative testing options.For additional information, please refer [email or web address]/[email or web address](This link if provided for information/educational purposes only.)THIS TEST WAS PERFORMED AT:[facility] [address] [phone] WASHINGTON MD SOURCE: SEE NOTE [facility] Comment:None given Report Status: [facility] Clinical Information: SEE NOTE [facility] Comment:None given LMP: SEE NOTE [facility] Comment:NONE GIVEN Prev. PAP: SEE NOTE [facility] Comment:NONE GIVEN Prev. BX: SEE NOTE [facility] Comment:NONE GIVEN Statement Of Adequacy: SEE NOTE [facility] Comment:Satisfactory for caroline luation.Endocervical/transformation zone componentpresent. General Categorization: [facility] Interpretation/Result: SEE NOTE [facility] Comment:Cytology Results: Ne gative for intraepitheliallesion or malignancy. Cytology Comment SEE NOTE [facility] Comment:This Pap test has be en evaluated with computerassisted technology. Accounting Office Manager: SEE NOTE [facility] Comment:BK,CT(ASCP)CT screen ing location: [address] Review Accounting Office Manager: [facility] Pathologist [facility] PAP Infection [facility] See Note SEE [facility] Comment:EXPLANATORY NOTE:The Pap is a screening test for cervical cancer. It isnot a diagnostic test and is subject to false negativeand false positive results. It is most reliable when asatisfactory sample, regularly obtained, is submittedwith relevant clinical findings and history, and whenthe Pap result is evaluated along with historic andcurrent clinical information. 03/18/2024 8:00 AM EDT 03/18/2024 3:31 PM EDT Narrative [facility] - 03/25/2024 2:07 PM EDT SEE SCANNED RESULTS IN EMR us Generic External Data Provider LAB PATHOLOGY ORD ERABLES Final Result [facility] [address] [place] [address] [phone] * BI Mammogram Screening Tomosynthesis Bilateral (08/25/2023 8:59 AM EDT) Anatomical Region Laterality Modality Breast Bilateral Mammography 08/25/2023 8:59 AM EDT Narrative 09/07/2023 4:11 PM EDT ? [facility] [place] ? [address] ?[place] [address] ? Mammography Report ? Signed ? Patient: Johnson,Diane ?MR#: [id number] ? : 1975 ?Acct:[id number] ? Age/Sex: 48 / F ?ADM Date: 08/25/23 ? Loc: HO.MAMMO ? Attending Dr: Jay Hooper MD ? Ordering Physician: Jay Hooper MD ?Resu ?? lts: 1Negative ? Date of Service: 08/25/23 ?Follow Up: 1 Year From Orig ?? inal Mammogram ? Procedure(s): MM tomosynthesis screening BI ?? Accession Number(s): [id number] ? cc: Jay Hooper MD ? EXAMINATION: ?? MM SCREENING DIGITAL BREAST TOMOSYNTHESIS, BILATERAL ? CLINICAL INFORMATION: ? Screening. Asymptomatic. ? COMPARISON: ?? Mammography: No prior mammograms available for comparison. ? TECHNIQUE: ?? Digital breast tomosynthesis is performed in both the craniocaudal and ?? mediolateral oblique views along with computer-aided detection (CAD). ?? Synthesized 2D images are generated from the tomosynthesis. ? FINDINGS: ?? The breasts are heterogeneously dense, which may obscure small masses ?? (ACR BI-RADS breast composition Category c). ? There are no significant masses, abnormal calcifications, or other ?? abnormalities. ?? There is cardiac loop recorder in the medial aspect of the left breast. ? MM/MM tomosynthesis screening BI ?? IMPRESSION: ?? No mammographic evidence of malignancy. ? ASSESSMENT: ? BI-RADS BI-RADS 1 - Negative ? RECOMMENDATION: ?? Routine annual mammography screening. ? 1 year F/U ? This examination should not preclude the clinical evaluation of a ?? suspicious palpable abnormality. ? This patient's information was entered into a reminder system with a ?? target due date for their next mammogram. ? Dictated By: ?Montse Collins MD ? Signed By: ?<Electronically signed by Montse Collins MD in OV> ? 09/07/23 1608 ? DD/ 0859 ? TD/TT: ? Principle Industrial Hygienist: ? Procedure Note Genaro, Image - 09/07/2023 [facility] [address] [place] [address] Dr. [place], [place] [address] Mammography Report Signed Patient: Luna Johnson#: [id number] : 1975Acct:[id number] Age/Sex: 48 / FADM Date: 08/25/23 Loc: HO.MAMMO Attending Dr: Jay Hooper MD Ordering Physician: Jay Hooperesu lts: 1Negative Date of Service: 08/25/23Follow Up: 1 Year From Orig ina Mammogram Procedure(s): MM tomosynthesis screening BI Accession Number(s): [id number] cc: Jay Hooper MD EXAMINATION: MM SCREENING DIGITAL BREAST TOMOSYNTHESIS, BILATERAL CLINICAL INFORMATION: Screening. Asymptomatic. COMPARISON: Mammography: No prior mammograms available for comparison. TECHNIQUE: Digital breast tomosynthesis is performed in both the craniocaudal and mediolateral oblique views along with computer-aided detection (CAD). Synthesized 2D images are generated from the tomosynthesis. FINDINGS: The breasts are heterogeneously dense, which may obscure small masses (ACR BI-RADS breast composition Category c). There are no significant masses, abnormal calcifications, or other abnormalities. There is cardiac loop recorder in the medial aspect of the left breast. MM/MM tomosynthesis screening BI IMPRESSION: No mammographic evidence of malignancy. ASSESSMENT: BI-RADS BI-RADS 1 - Negative RECOMMENDATION: Routine annual mammography screening. 1 year F/U This examination should not preclude the clinical evaluation of a suspicious palpable abnormality. This patient's information was entered into a reminder system with a target due date for their next mammogram. Dictated By: Montse Collins MD Signed By: <Electronically signed by Montse Collins MD in OV> 09/07/23 1608 DD/ 0859 TD/TT: Principle Industrial Hygienist: Jay Henry MD IMG BI PROCEDURES Darin viki Result - Final * Hm Colonoscopy (12/30/2021) Colonoscopy Normal Normal Jay Henry MD HEALTH MAINTENANCE Ed ited Result - Final from Last 3 Months or Most Recently Relevant to Health Maintenance Insurance [employer] Care Teams Thermal Molder Relationship Specialty Start Date End Date Jay Davis MD [address] [place] [phone] PCP - General Internal Medicine 01/13/14
--- OUTSIDE RECORDS SUMMARY | 2024-08-05 13:49 | XMS_ITS | Clinical Summary ---
Author Organization [facility] it Address [address] [place] [phone] Care Team Providers Care Lesson Instructor Name Role Phone Jay Hooper MD Primary Care Provi leah Encounters Date Type Department Care Team Description 07/18/2024 [facility] Neurodiagnostic [address] [place] [phone] Nayan Leonardo MD Syncope and collapse 07/17/2024 [facility] Neurodiagnostic [address] [place] [phone] Nayan Leonardo MD Syncope and collapse 07/16/2024 [facility] Neurodiagnostic [address] [place] [phone] Nayan Leonardo MD Syncope and collapse from Last 3 Months Social History Tobacco Use Types Packs/Day Years Used Date Smoking Tobacco: Never Assessed Comments Unknown Sex and Gender Information Value Date Recorded Sex Assigned at Not on file Legal Sex Female 3:31 PM EST Gender Identity Not on file Sexual Orientation Not on file Last Filed Vital Signs Vital Sign Reading Time Taken Comments Blood Pressure - - Pulse - - Temperature - - Respiratory Rate - - Oxygen Saturation - - Inhaled Oxygen Concentration - - Weight 82.6 kg (182 lb) 03/24/2024 3:24 PM EDT Height 154.9 cm (5' 1 ) 03/24/2024 3:24 PM EDT Body Mass Index 34.39 03/24/2024 3:24 PM EDT Plan of Treatment Upcoming Encounters Date Type Department Care Team (Late st Contact Info) Description 10/15/2024 10:00 AM EDT Appointment [facility] Neurodiagnostic [address] [place] [phone] 10/16/2024 12:00 PM EDT Appointment [facility] Neurodiagnostic [address] [place] [phone] 10/17/2024 12:00 PM EDT Appointment [facility] Neurodiagnostic [address] [place] [phone] Health Maintenance Due Date Last Done Comments Breast Cancer Screening 1975 DTaP,Tdap,and Td Vaccines (1 - Tdap) 1992 Hepatitis B Vaccines (1 of 3 - 19+ 3-dose series) 1992 Cervical Cancer Screening: P ap Smear 1994 Pneumococcal Vaccine: 50+ Ye ars (1 of 1 - PCV) 2023 Zoster Vaccines (1 of 2) 2023 COVID-19 Vaccine ( - 2023-2 5 season) 2024 Influenza Vaccine (#1) 2024 Colorectal Cancer Screening: Colonoscopy 04/07/2024 Depression Screening 04/07/2024 HIV Screening 04/07/2024 Hepatitis C Screening 04/07/2024 Social Influencers of Health Screening 04/07/2024 HIB Vaccines Aged Out No longer eligi [...] on patient's age to complete this topic MMR Vaccines Aged Out No longer eligi ble based on patient's age to complete this topic Meningococcal ACWY Vaccine Aged Out N o longer eligible based on patient's age to complete this topic Meningococcal B Vacine Aged Out No lo nger eligible based on patient's age to complete this topic Pneumococcal Vaccine: Pediat rics (0 to 5 Years) and At-Risk Patients (6 to 64 Years) Aged Out No longer eligible b ased on patient's age to complete this topic RSV Immunization Patients Un leah 20 months Aged Out No longer eligible b ased on patient's age to complete this topic Varicella Vaccines Aged Out No longer eligible based on patient's age to complete this topic Insurance MEDICAID [place] Care Teams Lesson Instructor Relationship Specialty Start Date End Date Jay Hooper MD [address] [place] [phone] PCP - General 04/05/10
--- OUTSIDE RECORDS SUMMARY | 2024-08-05 13:49 | XMS_ITS | Encounter Summary ---
Author Organization [facility] Address [address] [place] [address] Care Team Providers Care Mechanical Engineering Technician Name Role Phone Jay Hooper MD Primary Care Provi leah Encounter Details Date Type Department Care Team (Late Contact Info) Description 07/17/2024 Lab [facility] Neurodiagnostic [address] [place] [phone] Nayan Leonardo MD [address] [place] [address] [place] [address] Syncope and collapse Social History Tobacco Use [...] Info) Description 10/15/2024 10:00 AM EDT Appointment [facility] Neurodiagnostic [address] [place] [phone] 10/16/2024 12:00 PM EDT Appointment [facility] Neurodiagnostic [address] [place] [phone] 10/17/2024 12:00 PM EDT Appointment [facility] Neurodiagnostic [address] [place] [phone] documented as of this encounter Visit Diagnoses Diagnosis Syncope and collapse documented in this encounter Orders Neurology Count Last Ordered Date First Orde red Date CONTINUOUS EEG 1 07/16/2024 documented in this encounter Care Teams Mechanical Engineering Technician Relationship Specialty Start Date End Date Jay Hooper, MD [address] [place] [address] [place] [phone] PCP - General 04/05/10 documented as of this encounter
--- OUTSIDE RECORDS SUMMARY | 2024-08-05 13:49 | XMS_ITS | Encounter Summary ---
Author Organization [employer] Address [address] [facility] [address] [place] [address] Care Team Providers Care Pressure Sealer And Tester Name Role Phone Jay Davis MD Primary Care Provide r Reason for Visit * Reason Onset Date Comments Med Refill 10/15/2023 Encounter Details Date Type Department Care Team ([facility] st Contact Info) Description 10/15/2023 Refill [facility] [address] [place] [address] Jay Davis MD [address] [place] [address] Dermatitis Social History Tobacco Use Types Packs/Day Years Used Date Smoking Tobacco: Never Passive Smoke Exposure: Never Smokeless Tobacco: Never Depression Answer Date Recorded Patient Health Questionnaire-9 Score 6 10/05/2022 Housing Stability Answer Date Recorded What is your housing situation today? I have adelina boucher 03/27/[address] you li ve. Do you have problems with any of the following? None of the above 03/27/2023 Food Insecurity Answer Date Recorded Within the past 12 months, y ou worried that your food would run out before you got money to buy more: Never True 03/27/2023 Within the past 12 months,th e food you bought just didn't last and you didn't have enough money to get more: Never True Transportation Answer Date Recorded In the past 12 months, has l ack of transportation kept you from medical appts, meetings, work or from getting things needed for daily living? No 03/27/2023 Utilities Answer Date Recorded In the past 12 months, has t he electric, gas, oil or water [employer] threatened to shut off services in your home? No 03/27/2023 Depression Answer Date Recorded Patient Health Questionnaire-2 Score 2 10/05/2022 Comments Unknown Sex and Gender Information Value Date Recorded Sex Assigned at Female 04/10/2022 10:17 AM EDT Legal Sex Female 10:17 AM EDT Gender Identity Female 04/10/2022 10:17 AM EDT Sexual Orientation Straight 04/10/2022 10 :17 AM EDT documented as of this encounter Plan of Treatment Upcoming Encounters Date Type Department Care Team (Late st Contact Info) Description 09/11/2024 2:15 PM EDT Office Visit [facility] [address] [place] [phone] Jay Davis MD [address] [place] [phone] documented as of this encounter Visit Diagnoses Diagnosis Dermatitis Contact dermatitis and other eczema, due to unspecified cause documented in this encounter Additional Health Concerns Assessment Noted Time PHQ-9 Depression Total Score: 6 10/06/19 23 12:39 PM EDT documented as of this encounter Care Teams Pressure Sealer And Tester Relationship Specialty Start Date End Date Jay Davis MD [address] [place] [phone] PCP - General Internal Medicine 01/13/14 documented as of this encounter
== END 2024-08-05 14:29 | disposition home or self-care (01) ==
PROVIDERS: PCP Internal Medicine; Visit Provider Physical Medicine & Rehabilitation
DX: R20.2 Paresthesia of skin (principal); M54.2 Cervicalgia; Z86.69 Personal history of other diseases of the nervous system and sense organs
CPT/HCPCS: 99204

== ENCOUNTER 2024-08-08 14:39 | Outpatient (REF) | payer OTHER, SELFPAY ==
--- NOTE | ~2024-08-08 | CT_ITS ---
CLINICAL HISTORY: SYNCOPE AND COLLAPSE CT head without contrast. Comparison: None Findings: No acute intracranial hemorrhage, edema, mass effect or extra-axial collection. No acute alteration in the de la garza-white matter interface. Ventricles and sulci age-appropriate. No hydrocephalus. Posterior fossa structures intact. No Chiari malformation. Skull intact. Included paranasal sinuses and mastoids clear. Globes and orbits intact. IMPRESSION: No acute intracranial process. This document has been electronically signed by: Talon Bledsoe MD on 08/11/2024 13:11:58
--- OUTSIDE RECORDS SUMMARY | 2024-08-08 16:48 | XMS_ITS | Clinical Summary ---
Author Organization [employer] Address [address] [place] [address] 7[address] [place] [address] Care Team Providers Care Box Fabricator Name Role Phone Jay Davis MD Primary [...] under the care of Zohreh Raphael at [facility]. 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 This was finally done 10/19/2023 See [...] and able to travel Will refer to [facility] Obesity 04/14/2014 Kidney stone 01/29/2012 Impaired glucose [...] Encounters Date Type Department Care Team Description 08/08/2024 Telephone [facility] MED[facility]INE [place], [place] [address] Jay Davis MD Referral 07/11/2024 Telephone [facility] [place] [address] Jay Davis MD Referral 06/13/2024 Telephone [facility] [place] [address] Jay Davis MD 06/12/2024 2:30 PM EST Office Visit [facility] MEDICINE [place], [place] [address] Jay Davis MD Subacute cough (Primary Dx); Learning disabilities; Major depressive disorder, recurrent episode, moderate (CMS/HCC); Borderline intellectual functioning; Sleep disturbances; Migraine without aura and without status migrainosus, not intractable 06/03/2024 Telephone [facility] [place] [address] Jay Davis MD Referral 06/02/2024 Telephone [facility] [place], [place] [address] Jay Davis MD Chart Prep 05/21/2024 Telephone [facility] [place] [address] Brenda Gomez RN Results 05/16/2024 10:20 AM EST Office Visit [facility] [place] [address] Riley Waldrop MD Left arm pain (Primary [...] Description 09/11/2024 2:15 PM EDT Office Visit [facility] MEDICINE [address] [place] [address] Jay Davis MD [address] [place] [address] Health Maintenance Due Date Last Done Comments [...] PM EST) Influenza B Negative Negative, Indeterminate [facility] QC Media Lot # [id number] [facility] Lot# Expiration Date [facility] Swab 06/12/2024 3:43 PM EST us Jay Henry MD POINT OF CARE TEST EN TER/EDIT ORDERABLES Final Result Performing Organization Address [facility]/ZIP Co de Phone Number [facility] [address] [place] [phone] * POCT Rapid Influenza A SCOTT ID NOW (06/12/2024 3:43 PM EST) [facility] Influenza A Negative Negative, Indeterminate [facility] QC Media Lot # [id number] [facility] Lot# Expiration Date [facility] Swab 06/12/2024 3:43 PM EST us Jya Henry MD POINT OF CARE TEST EN TER/EDIT ORDERABLES Final Result Performing Organization Address City/[facility]/ZIP Co de Phone Number [facility] [address] [place] [phone] * POCT Rapid Covid-19 BinaxNOW (06/12/2024 3:37 PM EST) Pathologist [facility] Rapid COVID Ag Negative QC Media Lot # [id number] Lot# Expiration Date Swab 06/12/2024 3:37 PM EST us Jay Henry MD POINT OF CARE TEST EN TER/EDIT ORDERABLES Final Result * XR Forearm 2 Views Left (05/16/2024 12:40 PM EST) Anatomical Region Laterality Modality Upper Extremities, Forearm Left Radio graphic Imaging 05/16/2024 12:4 0 PM EST Narrative 05/16/2024 4:57 PM EST ? [facility] ?[address] ?[place] [address] ?XRay Report ? Signed ? Patient: Johnson,Diane ?MR#: [id number] ? : 1975 ?Acct:[id number] ? Age/Sex: 49 / F ?ADM Date: 05/16/24 ? Loc: HO.XRAY ? Attending Dr: Riley Waldrop MD ? Ordering Physician: RLIEY WALDROP MD ?? Date of Service: 05/16/24 ?? Procedure(s): XR forearm LT 2V ?? Accession Number(s): [id number] ? cc: RILEY WALDROP MD; Jay Hooper [...] DD/ 1240 ? TD/TT: 05/16/24 1247 ? Legal Assistant: HB ? Procedure Note Donotuseinterpreter, Image - 05/16/[address] [address] XRay Report Signed Patient: Luna Johnson#: [id number] : 1975Acct:[id number] Age/Sex: 49 / FADM Date: 05/16/24 Loc: HO.XRAY Attending Dr: Riley Waldrop MD Ordering Physician: RILEY WALDROP MD Date of Service: 05/16/24 Procedure(s): XR forearm LT 2V Accession Number(s): [id number] cc: RILEY WALDROP MD; Jay Hooper MD [...] 05/16/24 1654 DD/ 1240 TD/TT: 05/16/24 1247 Legal Assistant: SRI Riley Waldrop MD IMG XR PROCEDURES Final Result * XR Humerus Left (05/16/2024 12:40 PM EST) Anatomical Region Laterality Modality Upper Extremities, Humerus Left Radio graphic Imaging 05/16/2024 12:4 0 PM EST Narrative 05/16/2024 4:57 PM EST ? [facility] ?[address] ?[place] [address] ?XRay Report ? Signed ? Patient: Johnson,Diane ?MR#: [id number] ? : 1975 ?Acct:[id number] ? Age/Sex: 49 / F ?ADM Date: 05/16/24 ? Loc: HO.XRAY ? Attending Dr: Riley Waldrop MD ? Ordering Physician: RILEY WALDROP MD ?? Date of Service: 05/16/24 ?? Procedure(s): XR humerus LT ?? Accession Number(s): [id number] ? cc: RILEY WALDROP MD; Jay Hooper [...] signed by Santiago Prado MD in OV> ?05/16/244 ? DD/ 1240 ? TD/TT: 05/16/24 1247 ? Legal Assistant: HB ? Procedure Note Brianna Lam - 05/16/[address] [place] [address] XRay Report Signed Patient: Luna Johnson#: [id number] : 1975Acct:[id number] Age/Sex: 49 / FADM Date: 05/16/24 Loc: HEMANT Attending Dr: Riley Waldrop MD Ordering Physician: RILEY WALDROP MD Date of Service: 05/16/24 Procedure(s): XR humerus LT Accession Number(s): [id number] cc: RILEY WALDROP MD; Jay Hooper MD [...] by: Santiago Prado MD 05/16/2024 04:54 PM [facility] Dictated By: Santiago Prado MD Signed By: <Electronically signed by Santiago Prado MD in OV> 05/16/24 1654 DD/ 1240 TD/TT: 05/16/24 1247 Legal Assistant: SRI Riley Waldrop MD IMG XR PROCEDURES Final Result * ThinPrep Imaging Pap and HPV mRNA E6/E7 with Reflex to HPV 16,18/45 (03/18/2024 8:00 AM EDT) HPV 16 RNA [facility] HPV 18/45 RNA [facility] HPV nRNA E6/E7 Not Detected Not Detected [facility] Comment:Methodology: Transcr iption-Mediated AmplificationThis assay detects E6/E7 viral messenger RNA (mRNA) from 14high-risk HPV types (16,18,31,33,35,39,45,51,52,56,58,59,66,68).Cervical sources are required for HPV testing.If a vaginal source from a patient who has had atotal hysterectomy with removal of cervix wassubmitted, please contact the testing laboratoryfor alternative testing options.For additional information, please refer tohttp://education.SlimTrader/faq/HXF182a1(This link if provided for information/educational purposes only.)THIS TEST WAS PERFORMED AT:[employer] [address] [phone] [place] MD SOURCE: SEE NOTE [facility] Comment:None given Report Status: [facility] Clinical Information: SEE NOTE [facility] Comment:None given LMP: SEE NOTE [facility] Comment:NONE GIVEN Prev. PAP: SEE NOTE [facility] Comment:NONE GIVEN Prev. BX: SEE NOTE [facility] Comment:NONE GIVEN Statement Of Adequacy: SEE NOTE [facility] Comment:Satisfactory for caroline luation.Endocervical/transformation zone componentpresent. General Categorization: [facility] Interpretation/Result: SEE NOTE [facility] Comment:Cytology Results: Ne gative for intraepitheliallesion or malignancy. Cytology Comment SEE NOTE [facility] Comment:This Pap test has be en evaluated with computerassisted technology. Lawn Mower Sharpener: SEE NOTE [facility] Comment:BK,CT(ASCP)CT screen ing location: [address] Review Lawn Mower Sharpener: [facility] Pathologist [facility] PAP Infection [facility] See Note SEE [facility] Comment:EXPLANATORY NOTE:The Pap is a screening test for cervical cancer. It isnot a diagnostic test and is subject to false negativeand false positive results. It is most reliable when asatisfactory sample, regularly obtained, is submittedwith relevant clinical findings and history, and whenthe Pap result is evaluated along with historic andcurrent clinical information. 03/18/2024 8:00 AM EDT 03/18/2024 3:31 PM EDT Narrative [facility] - 03/25/2024 2:07 PM EDT SEE SCANNED RESULTS IN EMR us Generic External Data Provider LAB PATHOLOGY ORD ERABLES Final Result [facility] [address] [place] [phone] * BI Mammogram Screening Tomosynthesis Bilateral (08/25/2023 8:59 AM EDT) Anatomical Region Laterality Modality Breast Bilateral Mammography 08/25/2023 8:59 AM EDT Narrative 09/07/2023 4:11 PM EDT ? [facility] ? [address] ?[place] [address] ? Mammography Report ? Signed ? Patient: Johnson,Diane ?MR#: [id number] ? : 1975 ?Acct:[id number] ? Age/Sex: 48 / F ?ADM Date: 08/24/ ? Loc: HO.MAMMO ? Attending Dr: Jay Hooper MD ? Ordering Physician: Jay Hooper MD ?Resu ?? lts: 1Negative ? Date of Service: 08/24/ ?Follow Up: 1 Year From Orig ?? inal Mammogram ? Procedure(s): MM tomosynthesis screening BI ?? Accession Number(s): [id number] ? cc: Jay Hooper MD ? EXAMINATION: [...] 1608 ? DD/ 0859 ? TD/TT: ? Legal Assistant: ? Procedure Note Genaro, Brianna - 09/07/2023 [facility] [address] [place] [address] [place] [address] Mammography Report Signed Patient: Luna Johnson#: [id number] : 1975Acct:[id number] Age/Sex: 48 / FADM Date: 08/25/23 Loc: HO.MAMMO Attending Dr: Jay Hooper MD Ordering Physician: Jay Hooper MDResu lts: 1Negative Date of Service: 08/25/23Follow Up: 1 Year From Orig ina Mammogram Procedure(s): MM tomosynthesis screening BI Accession Number(s): [id number] cc: Jay Hooper MD EXAMINATION: MM SCREENING [...] in OV> 09/07/23 1608 DD/ 0859 TD/TT: Legal Assistant: Jay Henry MD IMG BI PROCEDURES Darin viki Result - Final * Hm Colonoscopy (12/30/2021) Colonoscopy Normal Normal Jay Henry MD HEALTH MAINTENANCE Ed ited Result - Final from Last 3 Months or Most Recently Relevant to Health Maintenance Insurance [employer]AT[employer] Care Teams Box Fabricator Relationship Specialty Start Date End Date Jay Davis MD [address] [place] [phone] PCP - General Internal Medicine 01/13/14
--- OUTSIDE RECORDS SUMMARY | 2024-08-08 16:48 | XMS_ITS | Encounter Summary ---
Author Organization [employer] Address [address] [facility] 7 [place] [address] Care Team Providers Care Inspector Tool Name Role Phone Jay Davis MD Primary Care Provide r Reason for Visit * Reason Onset Date Comments Referral 08/08/2024 Encounter Details Date Type Department Care Team ([facility] st Contact Info) Description 08/08/2024 Telephone [facility] [address] [place] [address] Jay Davis MD [address] [place] [address] Referral Social History Tobacco Use Types Packs/Day [...] encounter Miscellaneous Notes * Telephone Encounter - Hillary Mccrary RN - 08/08/2024 11:44 AM EST TC placed to pt who states that she needs a referral placed to [facility] psychiatry. 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 Pt also has had difficulty finding a location due to insurance restrictions. [facility] does take her current plan. Pt called about this same request back on 07/11/2024. Pt informed that this request will be sent over to PCP for review. * Telephone Encounter - Moy Gloria - 08/08/2024 10:47 AM EST Tc from pt stating that she would [facility] [place] [facility] [place] to go to [facility] due to that beingthe Only place that her insurance accepts. Contact pt at [phone] documented in this encounter Plan of Treatment Upcoming Encounters Date Type Department Care Team (Late st Contact Info) Description 09/11/2024 2:15 PM EDT Office Visit [facility] [address] [place], [place] [phone] Jay Davis MD [address] [place] [address] documented as of this encounter Visit Diagnoses Not on filedocumented in this encounter Additional Health Concerns Assessment Noted Time PHQ-9 Depression Total Score: 0 12/25/19 24 1:07 PM EDT documented as of this encounter Care Teams Inspector Tool Relationship Specialty Start Date End Date Jay Davis MD [address] [place] [address] PCP - General Internal Medicine 01/13/14 documented as of this encounter
--- OUTSIDE RECORDS SUMMARY | 2024-08-08 16:48 | XMS_ITS | Encounter Summary ---
Author Organization [employer] Address [address] [facility] 7 [place] [address] Care Team Providers Care Pipelaying Fitter Name Role Phone Jay Davis MD Primary Care Provide r Reason for Visit * Reason Onset Date Comments Referral 07/11/2024 Encounter Details Date Type Department Care Team ([facility] st Contact Info) Description 07/11/2024 Telephone [facility] [address] [place] [address] Jay Davis MD [address] [place] [address] Referral Social History Tobacco Use Types Packs/Day [...] referral in general to be placed in [facility] as pt work insurance will have coverage in that facility. Pt received call from a facility as she had to reject due to insurance wont cover visit. documented in this encounter Plan of Treatment Upcoming Encounters Date Type Department Care Team (Late st Contact Info) Description 09/11/2024 2:15 PM EDT Office Visit [facility] [address] [place] [address] Jay Davis MD [address] [place] [address] documented as of this encounter Visit Diagnoses Not on filedocumented in this encounter Additional Health Concerns Assessment Noted Time PHQ-9 Depression Total Score: 0 12/25/19 24 1:07 PM EDT documented as of this encounter Care Teams Pipelaying Fitter Relationship Specialty Start Date End Date Jay Davis MD [address] [place] [address] PCP - General Internal Medicine 01/13/14 documented as of this encounter
--- OUTSIDE RECORDS SUMMARY | 2024-08-08 16:48 | XMS_ITS | Clinical Summary ---
Author Organization [facility] Address [address] [place] [phone] Care Team Providers Care Gymnastics Instructor Name Role Phone Jay Hooper MD Primary Care Provi leah Encounters Date Type Department Care Team Description 07/18/2024 [facility] [address] [place] [phone] Nayan Leonardo MD Syncope and collapse 07/17/2024 [facility] [address] [place] [phone] Nayan Leonardo MD Syncope and collapse 07/16/2024 [facility] [address] [place] [phone] Nayan Leonardo MD Syncope and collapse from [...] Info) Description 10/15/2024 10:00 AM EDT Appointment [facility] Neurodiagnostic [address] [place] [phone] 10/16/2024 12:00 PM EDT Appointment [facility]diagn[facility] [address] [place] [address] 10/17/2024 12:00 PM EDT Appointment [facility] [address] [place] [phone] Health Maintenance Due Date Last Done Comments [...] topic Insurance MEDICAID - [place] Care Teams Gymnastics Instructor Relationship Specialty Start Date End Date Jay Hooper MD [address] [place] [phone] PCP - General 04/05/10
--- OUTSIDE RECORDS SUMMARY | 2024-08-08 16:48 | XMS_ITS | Continuity of Care Document ---
Author Organization [facility] Address [address] [place] [address]- Care Team Providers Care Client Relationship Manager Name Role Phone Rufus ENCARNACION, Jay Rios Primary Care Physi aleja Encounter [facility] Date(s): 07/07/24 - 08/06/24 [facility] [address] [address] Encounter Type: Triage Allergies, Adverse Reactions, Alerts Substance Criticality Severity Reaction Reaction Severity Status codeine panic attacks, palpitations Active doxycycline Increased heart rate Active sulfa drugs Increased heart rate Active Percocet 7.5/325 panic attac ks, palpitations Active Ultram Active Medications esomeprazole 40 mg oral enteric coated capsule 1 capsule = 40 mg, By Mouth, Daily, # 30 capsule, 0 Refills, Maintenance, 10/17/22 12:19:00 PM EDT, EC Capsule, Partial fill upon patient request if the prescription is for a schedule II opioid drug. Start Date: 10/17/22 Status: Ordered Quantity: 30.0 Unit: capsule Repeat number: 1 tiZANidine 2 mg oral tablet 2 mg, 1, tablet, By Mouth, Every 6 hours, PRN, Refills 0, Maintenance, Spasm, 10/17/22 12:20:00 PM EDT, Partial fill upon patient request if the prescription is for a schedule II opioid drug. Start Date: 10/17/22 Status: Ordered Repeat number: 1 Problem List Condition Confirmation Course Effective Dates Status Health St atus Informant Bunionectomy with Soft Tissue Correction and Osteotomy of the First Metatarsal Confirmed 2007 Active Chronic headaches Confirmed Active LAP-BAND surgery status Confirmed 2011 Active Major depressive disorder Confirmed Active Obese class I Confirmed Active Tubal Ligation Status Confirmed 1998 Active Social History Social History Type Response Smoking Status Never smoker entered on: 08/30/15 Sex Sex Representation Female (finding) Implantable Device List Procedure Provider Procedure Date Device Type Site Transvaginal Tape Thang Nicholson MD, uJlia Horta 10/19/22 Unkn own Vagina Device Identifier Serial Number Lot or Batch Number Manufacturing Date Expiration Date Distinct Identification Code MRI Safety Implantable Status Assigning Authority Unknown Unknown [id number] Unknown 08/05/25 Unknown Unknown Active Unknown Patient Care team information Care Team Personnel Name: Rufus ENCARNACION, Jay Rios Position: [facility] Outreach Member Role: PCP Address: [address] [place] [address] Telecom: Name: Patricia Tejeda RN Position: [facility] RN Member Role: Primary Care Nurse Care Team Related Persons Name: BORIS SPEARS Name: MYRIAM SPEARS Insurance Providers Guarantor name: FERDINAND SPEARS Health Plan Information #: 1 Payer: BLUE [employer]EFIT [employer] PPO Member Number: NA Policy Number: NA Group Number: [id number]
--- OUTSIDE RECORDS SUMMARY | 2024-08-08 16:48 | XMS_ITS | Encounter Summary ---
Author Organization [facility] Address [address] [place] [address] Care Team Providers Care Packaging Line Operator Name Role Phone Jay Hooper MD Primary Care Provi leah Encounter Details Date Type Department Care Team (Late Contact Info) Description 07/17/2024 Lab [facility] Neurodiagnostic [address] [place] [phone] Nayan Leonardo MD [address] [place] [address] [place] [address] Syncope and collapse Social History Tobacco Use [...] Info) Description 10/15/2024 10:00 AM EDT Appointment [facility] Neurodiagnostic [address] [place] [phone] 10/16/2024 12:00 PM EDT Appointment [facility] Neurodiagnostic [address] [place] [phone] 10/17/2024 12:00 PM EDT Appointment [facility]diagnostic [address] [place] [phone] documented as of this encounter Visit Diagnoses Diagnosis Syncope and collapse documented in this encounter Orders Neurology Count Last Ordered Date First Orde red Date CONTINUOUS EEG 1 07/16/2024 documented in this encounter Care Teams Packaging Line Operator Relationship Specialty Start Date End Date Jay Hooper, MD [address] [place] [address] [place] [phone] PCP - General 04/05/10 documented as of this encounter
--- OUTSIDE RECORDS SUMMARY | 2024-08-08 16:48 | XMS_ITS | Encounter Summary ---
Author Organization [facility] Address [address] [place] [address] Care Team Providers Care Laborer Vegetable Farm Name Role Phone Jay Hooper MD Primary Care Provi leah Encounter Details Date Type Department Care Team (Late Contact Info) Description 07/16/[address] [facility] Neurodiagnostic [address] [place] [phone] Nayan Leonardo MD [address] [place] [address] [place] [address] Syncope and collapse Social History Tobacco Use [...] Info) Description 10/15/2024 10:[address] [facility] Neurodiagnostic [address] [place] [phone] 10/16/2024 12:[address] [facility] Neurodiagnostic [address] [place] [phone] 10/17/2024 12:[address] [facility] Neurodiagnostic [address] [place] [phone] documented as of this encounter Visit Diagnoses Diagnosis Syncope and collapse documented in this encounter Orders Neurology Count Last Ordered Date First Orde red Date CONTINUOUS EEG 1 07/16/2024 documented in this encounter Care Teams Laborer Vegetable Farm Relationship Specialty Start Date End Date Jay Hooper, MD [address] [place] [address] [place] [phone] PCP - General 04/05/10 documented as of this encounter
--- OUTSIDE RECORDS SUMMARY | 2024-08-08 16:48 | XMS_ITS | Encounter Summary ---
Author Organization [employer] Address [address] [facility] 7t [place] [address] Care Team Providers Care Senior Chemical Engineer Name Role Phone Jay Davis MD Primary Care Provide r Reason for Visit * Reason Onset Date Comments Med Refill 10/15/2023 Encounter Details Date Type Department Care Team ([facility] st Contact Info) Description 10/15/2023 Refill [facility] [address] [place] [address] Jay Davis MD [address] [place] [address] Dermatitis Social History Tobacco Use Types Packs/Day [...] t he electric, gas, oil or water [employer] threatened to shut off services in your [...] Description 09/11/2024 2:15 PM EDT Office Visit [facility] [address] [place] [address] Jay Davis MD [address] [place] [address] documented as of this encounter Visit Diagnoses Diagnosis Dermatitis Contact dermatitis and other eczema, due to unspecified cause documented in this encounter Additional Health Concerns Assessment Noted Time PHQ-9 Depression Total Score: 6 10/06/19 23 12:39 PM EDT documented as of this encounter Care Teams Senior Chemical Engineer Relationship Specialty Start Date End Date Jay Davis MD [address] [place] [address] PCP - General Internal Medicine 01/13/14 documented as of this encounter
--- OUTSIDE RECORDS SUMMARY | 2024-08-08 16:48 | XMS_ITS | Encounter Summary ---
Author Organization [facility] Address [address] [place] [address] Care Team Providers Care Infrastructure Developer Name Role Phone Jay Hooper MD Primary Care Provi leah Encounter Details Date Type Department Care Team (Late Contact Info) Description 07/18/2024 Lab [facility] Neurodiagnostic [address] [place] [phone] Nayan Leonardo MD [address] [place] [address] [place] [address] Syncope and collapse Social History Tobacco Use [...] Info) Description 10/15/2024 10:00 AM EDT Appointment [facility] Neurodiagnostic [address] [place] [phone] 10/16/2024 12:00 PM EDT Appointment [facility] Neurodiagnostic [address] [place] [phone] 10/17/2024 12:00 PM EDT Appointment [facility]diagnostic [address] [place] [phone] documented as of this encounter Visit Diagnoses Diagnosis Syncope and collapse documented in this encounter Orders Neurology Count Last Ordered Date First Orde red Date CONTINUOUS EEG 1 07/18/2024 documented in this encounter Care Teams Infrastructure Developer Relationship Specialty Start Date End Date Jay Hooper, MD [address] [place] [address] [place] [phone] PCP - General 04/05/10 documented as of this encounter
== END 2024-08-08 14:40 | disposition home or self-care (01) ==
LOC: HO.CT 14:39
PROVIDERS: PCP Internal Medicine; Visit Provider Psychiatry & Neurology Neurology
DX: R55 Syncope and collapse (principal)
CPT/HCPCS: 70450

== ENCOUNTER → 2024-08-08 14:41 | Outpatient (BNV) | payer OTHER, SELFPAY | PROVIDERS: PCP Internal Medicine; Visit Provider Radiology Diagnostic Radiology | DX: R55 Syncope and collapse (principal) | CPT/HCPCS: 70450 ==

== ENCOUNTER 2024-09-04 14:46 | Outpatient (REF) | payer OTHER, SELFPAY ==
--- NOTE | 2024-09-04 14:48 | EMG_ITS ---
Chief complaint: On and off left elbow pain, denies numbness, denies neck pain, chronic headache Reason for referral: Evaluate for radiculopathy Procedure done: Left upper extremity NCS/EMG Precautions and/or limitations: None The limb temperature was monitored continuously and remained between 32-36 degrees C during the performance of the NCS. Nerve Conduction Studies Anti Sensory Summary Table ?Stim Site NR Onset (ms) Norm Onset (ms) Peak (ms) Norm Peak (ms) O-P Amp (?V) Norm O-P Amp Site1 Site2 Delta-0 (ms) Dist (cm) Tristin (m/s) Norm Tristin (m/s) Left Median Anti Sensory (2nd Digit) Wrist ? 2.3 3.3 <3.6 60.0 >10 Wrist 2nd Digit 2.3 14.0 61 Left Radial Anti Sensory (Thumb) Forearm ? 1.4 2.0 <3.1 48.1 Forearm Thumb 1.4 0.0 Left Ulnar Anti Sensory (5th Digit) Wrist ? 2.1 2.8 <3.7 22.0 >15.0 Wrist 5th Digit 2.1 14.0 67 Motor Summary Table ?Stim Site NR Onset (ms) Norm Onset (ms) O-P Amp (mV) Norm O-P Amp iAmp (mV) Amp (1st) (%) Site1 Site2 Delta-0 (ms) Dist (cm) Tristin (m/s) Norm Tristin (m/s) Left Median Motor (Abd Poll Brev) Wrist ? 2.9 <3.9 10.1 >4.5 11.5 100.0 Elbow Wrist 3.1 18.0 58 >45 Elbow ? 6.0 9.0 10.6 89.1 Left Ulnar Motor (Abd Dig Minimi) Wrist ? 2.4 <3.0 8.3 >5 9.5 100.0 B Elbow Wrist 2.6 16.5 63 >45 B Elbow ? 5.0 7.0 8.3 84.3 A Elbow B Elbow 1.9 10.0 53 >45 A Elbow ? 6.9 6.8 8.2 81.9 EMG ?Side Muscle Nerve Root Ins Act Fibs Psw Amp Dur Poly Recrt Int Pat Comment Left 1stDorInt Ulnar C8-T1 Nml Nml Nml Nml Nml 0 Nml Complete Left FlexCarRad Median C6-7 Nml Nml Nml Nml Nml 0 Nml Complete Left Biceps Musculocut C5-6 Nml Nml Nml Nml Nml 0 Nml Complete Left Triceps Radial C6-7-8 Nml Nml Nml Nml Nml 0 Nml Complete Left Deltoid Axillary C5-6 Nml Nml Nml Nml Nml 0 Nml Complete FINDINGS: All motor and sensory nerves tested showed normal latencies, amplitudes and conduction velocities. Concentric needle EMG was performed in selected muscles of the left upper extremity. Study did not reveal signs of electric abnormalities as shown in the table above. IMPRESSION: 1. This is a normal study. 2. There is no electrodiagnostic evidence for median neuropathy, ulnar neuropathy, brachial plexopathy, or cervical radiculopathy. Thank you for your kind referral. Shira Mcgraw MD, JAYLENE Board Certified, [place] Board of Physical Medicine and Rehabilitation (ABPMR) Board Certified, [place] Board of Electrodiagnostic Medicine (ABEM) CODIN [id number] MTDD
--- OUTSIDE RECORDS SUMMARY | 2024-09-04 18:26 | XMS_ITS | Encounter Summary ---
Author Organization [employer] Address [address] [facility] 7t [place] [address] Care Team Providers Care Quality Assurance Consultant Name Role Phone Jay Dvais MD Primary Care Provide r Encounter Details Date Type Department Care Team (Late st Contact Info) Description 08/08/2024 Orders Only [facility] External Provider, [facility] Social History Tobacco Use Types Packs/Day Years [...] Description 09/11/2024 2:15 PM EDT Office Visit [facility] [address] [place] [address] Jay Davis MD [address] [facility] [place] [address] documented as of this encounter Procedures Procedure Name Priority Date/Time Associated Diagnosis Comments CT HEAD WO CONTRAST Routine 08/11/2024 1 :11 PM EST documented in this encounter Results * CT Head w/o Contrast (08/11/2024 1:11 PM EST) Anatomical Region Laterality Modality Head, Neck Computed Tomogra phy 08/11/2024 1:11 PM EST Narrative 08/11/2024 1:13 PM EST ? [facility] ?[address] ?[place] [address] ? CT Scan Report ? Signed ? Patient: Johnson,Diane ?MR#: [id number] ? : 1975 ?Acct:[id number] ? Age/Sex: 49 / F ?ADM Date: /28/25 ? Loc: HO.CT ? Attending Dr: Nayan Leonardo MD ? Ordering Physician: Nayan Leonardo MD ?? Date of Service: 08/08/24 ?? Procedure(s): CT head/brain wo IV con ?? Accession Number(s): [id number] ? cc: Jay Hooper MD; Nayan Leonardo MD ? Report Number: ?? [id number]: Total DLP = ??732.00 mGy-cm ? CLINICAL HISTORY: SYNCOPE AND COLLAPSE ? CT head without contrast. ? Comparison: None ? Findings: ?? No acute intracranial hemorrhage, edema, mass effect or extra-axial ?? collection. ?? No acute alteration in the de la garza-white matter interface. ?? Ventricles and sulci age-appropriate. No hydrocephalus. ?? Posterior fossa structures intact. No Chiari malformation. ? Skull intact. Included paranasal sinuses and mastoids clear. ?? Globes and orbits intact. ? IMPRESSION: ?? No acute intracranial process. ? This document has been electronically signed by: Talon Bledsoe MD on ?? 08/11/2024 13:11:58 ? Dictated By: ?Talon Bledsoe MD ? Signed By: ?<Electronically signed by Talon Bledsoe MD in OV> ? 08/11/24 1312 ? DD/ 1311 ? TD/TT: 08/11/24 1311 ? Heat Transfer Technician: ? Procedure Note Donpedroter, Image - 08/11/[address] [place] [address] [address] Scan Report Signed Patient: Luna Johnson#: [id number] : 1975Acct:[id number] Age/Sex: 49 / FADM Date: 08/08/24 Loc: HO.CT Attending Dr: Nayan Leonardo MD Ordering Physician: Nayan Leonardo MD Date of Service: 08/08/24 Procedure(s): CT head/brain wo IV con Accession Number(s): [id number] cc: Jay Hooper MD; Nayan Leonardo MD Report Number: [id number]: Total DLP = 732.00 mGy-cm CLINICAL HISTORY: SYNCOPE AND COLLAPSE CT head without contrast. Comparison: None Findings: No acute intracranial hemorrhage, edema, mass effect or extra-axial collection. No acute alteration in the de la garza-white matter interface. Ventricles and sulci age-appropriate. No hydrocephalus. Posterior fossa structures intact. No Chiari malformation. Skull intact. Included paranasal sinuses and mastoids clear. Globes and orbits intact. IMPRESSION: No acute intracranial process. This document has been electronically signed by: Talon Bledsoe MD on 08/11/2024 13:11:58 Dictated By: Talon Bledsoe MD Signed By: <Electronically signed by Talon Bledsoe MD in OV> 08/11/24 1312 DD/ 1311 TD/TT: 08/11/24 1311 Heat Transfer Technician: [facility] External Provider IMG CT PROCEDURES Final Result documented in this encounter Visit Diagnoses Not on filedocumented in this encounter Additional Health Concerns Assessment Noted Time PHQ-9 Depression Total Score: 0 12/25/19 24 1:07 PM EDT documented as of this encounter Care Teams Quality Assurance Consultant Relationship Specialty Start Date End Date Jay Davis MD [address] [place] [address] PCP - General Internal Medicine 01/13/14 documented as of this encounter
--- OUTSIDE RECORDS SUMMARY | 2024-09-04 18:26 | XMS_ITS | Encounter Summary ---
Author Organization [employer] Address 75 [facility] 7t [place] [address] Care Team Providers Care Network Security Officer Name Role Phone Jay Davis MD Primary Care Provide r Reason for Visit * Reason Onset Date Comments Med Refill 10/15/2023 Encounter Details Date Type Department Care Team ([facility] st Contact Info) Description 10/15/2023 Refill [facility] [address] [place] [address] Jay Davis MD [address] [place] [address] Dermatitis Social History Tobacco Use Types Packs/Day [...] t he electric, gas, oil or water [employer] threatened to shut off services in your [...] Description 09/11/2024 2:15 PM EDT Office Visit [facility] [address] [place] [address] Jay Davis MD [address] [place] [address] documented as of this encounter Visit Diagnoses Diagnosis Dermatitis Contact dermatitis and other eczema, due to unspecified cause documented in this encounter Additional Health Concerns Assessment Noted Time PHQ-9 Depression Total Score: 6 10/06/19 23 12:39 PM EDT documented as of this encounter Care Teams Network Security Officer Relationship Specialty Start Date End Date Jay Davis MD [address] [place] [address] PCP - General Internal Medicine 01/13/14 documented as of this encounter
--- OUTSIDE RECORDS SUMMARY | 2024-09-04 18:26 | XMS_ITS | Encounter Summary ---
Author Organization [employer] Address [address] [place] [address] 7 [place] [address] Care Team Providers Care Cash Management Associate Name Role Phone Jay Davis MD Primary Care Provide r Reason for Referral * Consultation (Urgent) - Pending Review Specialty Diagnoses / Procedures Referred By Contac t Referred To Contact Psychiatry Diagnoses Major depressive disorder, recurrent episode, moderate (CMS/HCC) Jay Davis MD [address] [place] [address] Phone: tel: fax: Referral ID Status Reason Start Date Expiration Date Visits Requested Visits Authorized [id number] Pending Review Specialty Services Required 08/12/2024 08/12/2025 1 1 Encounter Details Date Type Department Care Team (Late st Contact Info) Description 08/12/2024 Orders Only [facility] MED[facility] [address] [place], [place] [phone] Jay Davis MD [address] [place], [place] [phone] Major depressive disorder, recurrent episode, moderate (CMS/HCC) (Primary Dx) Social History Tobacco Use Types Packs/Day Years [...] Description 09/11/2024 2:15 PM EDT Office Visit [facility] [address] [place] [address] Jay Davis MD [address] [place] [address] Scheduled Referrals Name Type Priority Associated Diagnoses Order Schedule Referral to Psychiatry Outpatient Referral Urgent Major depressive disorder, recurrent episode, moderate (CMS/HCC) Expected: 08/12/2024 (Approximate), Expires: 08/12/2025 documented as of this encounter Visit Diagnoses Diagnosis Major depressive disorder, recurrent episode, moderate (CMS/HCC)- Primary Major depressive disorder, recurrent episode, moderate documented in this encounter Additional Health Concerns Assessment Noted Time PHQ-9 Depression Total Score: 0 12/25/19 24 1:07 PM EDT documented as of this encounter Care Teams Cash Management Associate Relationship Specialty Start Date End Date Jay Davis MD [address] [place] [phone] PCP - General Internal Medicine 01/13/14 documented as of this encounter
--- OUTSIDE RECORDS SUMMARY | 2024-09-04 18:26 | XMS_ITS | Encounter Summary ---
Author Organization [employer] Address [address] [facility] 7 [place] [address] Care Team Providers Care Wallet Assembler Name Role Phone Jay Davis MD Primary Care Provide r Reason for Visit * Reason Onset Date Comments Chart Prep 08/28/2024 Encounter Details Date Type Department Care Team ([facility] st Contact Info) Description 08/28/2024 Telephone [facility] [address] [place] [address] Jay Davis MD 230 [place] [address] Chart Prep Social History Tobacco Use Types Packs/Day Years [...] encounter Miscellaneous Notes * Telephone Encounter - Jyoti Sarabia [place] - 08/28/2024 10:49 AM EDT Chart Prep Labs: not applicable Images: US Thyroid scheduled for 09/10/2024 @2:30PM Vaccines due: Covid Due, Hep B Due, PCV20 Due, Flu Due, and Shingles in pharmacy Due Referrals: Neurology Requested notes by Fax. Waiting for notes., Sleep Medicine Requested notes by Fax. Waiting for notes., and Radiology Pending appointment on 09/10/2024 @2:30PM. Screenings: Mammogram and HIV screening Overdue care gaps: SDOH, PHQ-9, and Oral Health Chart prep for upcoming appt with Dr.Esparza mauro. LB documented in this encounter Plan of Treatment Upcoming Encounters Date Type Department Care Team (Late st Contact Info) Description 09/11/2024 2:15 PM EDT Office Visit [facility] 230 [place] [address] Jay Davis MD 230 [place] [address] documented as of this encounter Visit Diagnoses Not on filedocumented in this encounter Additional Health Concerns Assessment Noted Time PHQ-9 Depression Total Score: 0 12/25/19 24 1:07 PM EDT documented as of this encounter Care Teams Wallet Assembler Relationship Specialty Start Date End Date Jay Davis MD [address] [place] [address] PCP - General Internal Medicine 01/13/14 documented as of this encounter
--- OUTSIDE RECORDS SUMMARY | 2024-09-04 18:26 | XMS_ITS | Encounter Summary ---
Author Organization [email or web address] Address [address] [facility] 7 [place] [address] Care Team Providers Care Crisis Specialist Name Role Phone Jay Davis MD Primary Care Provide r Reason for Visit * Reason Onset Date Comments Referral 08/08/2024 Encounter Details Date Type Department Care Team ([facility] st Contact Info) Description 08/08/2024 Telephone [facility]INE [address] [place] [address] Jay Davis MD 230 [place] [address] Referral Social History Tobacco Use Types Packs/Day [...] Telephone Encounter - Hillary Mccrary RN - 08/12/2024 2:57 PM EST TC placed to pt to inform that PCP placed the referral that the pt was requesting to [facility] psychiatry. Pt stated understanding and had no further questions or concerns at this time. * Telephone Encounter - Hillary Mccrary RN - 08/08/2024 11:44 AM EST TC placed to pt who states that she needs a referral placed to [facility] psychiatry. 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 Pt also has had difficulty finding a location due to insurance restrictions. [facility] does take her current plan. Pt called about this same request back on 07/11/2024. Pt informed that this request will be sent over to PCP for review. * Telephone Encounter - Moy Gloria - 08/08/2024 10:47 AM EST Tc from pt stating that she would like a inw referral for Psychiatry to go to [facility] due to that beingthe Only place that her insurance accepts. Contact pt at [phone] documented in this encounter Plan of Treatment Upcoming Encounters Date Type Department Care Team (Late st Contact Info) Description 09/11/2024 2:15 PM EDT Office Visit [facility] [address] [place] [address] Jay Davis MD [address] [place] [address] documented as of this encounter Visit Diagnoses Not on filedocumented in this encounter Additional Health Concerns Assessment Noted Time PHQ-9 Depression Total Score: 0 12/25/19 24 1:07 PM EDT documented as of this encounter Care Teams Crisis Specialist Relationship Specialty Start Date End Date Jay Davis MD 230 [place] [address] PCP - General Internal Medicine 01/13/14 documented as of this encounter
--- OUTSIDE RECORDS SUMMARY | 2024-09-04 18:26 | XMS_ITS | Clinical Summary ---
Author Organization [facility] Address [address] [place] [phone] Care Team Providers Care Title I Coordinator Name Role Phone Jay Hooper MD Primary Care Provi leah Encounters Date Type Department Care Team Description 07/18/2024 [facility] Neurodiagnostic [address] [place] [phone] Nayan Leonardo MD Syncope and collapse 07/17/2024 [facility] Neurodiagnostic [address] [place] [phone] Nayan Leonardo MD Syncope and collapse 07/16/2024 [facility] Neurodiagnostic [address] [place] [phone] Nayan Leonardo MD Syncope and collapse from [...] Info) Description 10/15/2024 10:00 AM EDT Appointment [facility] Neurodiagnostic [address] [place] [phone] 10/16/2024 12:00 PM EDT Appointment [facility] Neurodiagnostic [address] [place] [address] 10/17/2024 12:00 PM EDT Appointment [facility]diagnostic [address] [place] [address] Health Maintenance Due Date Last Done Comments [...] topic Insurance MEDICAID - [place] Care Teams Title I Coordinator Relationship Specialty Start Date End Date Jay Hooper MD [address] [place] [address] [place] [phone] PCP - General 04/05/10
--- OUTSIDE RECORDS SUMMARY | 2024-09-04 18:26 | XMS_ITS | Encounter Summary ---
Author Organization [employer] Address [address] [facility] 7 [place] [address] Care Team Providers Care Feed Mill Manager Name Role Phone Jay Davis MD Primary Care Provide r Reason for Visit * Reason Onset Date Comments Referral 07/11/2024 Encounter Details Date Type Department Care Team ([facility] st Contact Info) Description 07/11/2024 Telephone [facility] MEDICINE [address] [place] [address] Jay Davis MD [address] [place] [address] Referral Social History Tobacco Use Types Packs/Day [...] referral in general to be placed in [facility] as pt work insurance will have coverage in that facility. Pt received call from a facility as she had to reject due to insurance wont cover visit. documented in this encounter Plan of Treatment Upcoming Encounters Date Type Department Care Team (Late st Contact Info) Description 09/11/2024 2:15 PM EDT Office Visit [facility] MEDICINE [address] [place] [address] Jay Davis MD [address] [place] [address] documented as of this encounter Visit Diagnoses Not on filedocumented in this encounter Additional Health Concerns Assessment Noted Time PHQ-9 Depression Total Score: 0 12/25/19 24 1:07 PM EDT documented as of this encounter Care Teams Feed Mill Manager Relationship Specialty Start Date End Date Jay Davis MD [address] [place] [phone] PCP - General Internal Medicine 01/13/14 documented as of this encounter
--- OUTSIDE RECORDS SUMMARY | 2024-09-04 18:26 | XMS_ITS | Clinical Summary ---
Author Organization [employer] Address [address] [place] [address] 7t [place] [address] Care Team Providers Care Railway Patrol Officer Name Role Phone Jay Davis MD [...] under the care of Zohreh Raphael at [facility]. Back in 10/2023 Pt underwent extensive [...] 8:25 AM EDT): Mammogram: Done 05/07/2017 at [facility] was normal Pap Smear: Done by Dr [...] step. 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 by Zohreh [...] and able to travel Will refer to [facility] Obesity 04/14/2014 Kidney stone 01/29/2012 Impaired [...] Encounters Date Type Department Care Team Description 08/28/2024 Telephone [facility] MEDICINE [place], [place] [address] Jay Davis MD Chart Prep 08/18/2024 Telephone [facility] [place] [place] [address] Jay Davis MD Results; Referral 08/16/2024 Orders Only [facility] [place] [address] Jay Davis MD Enlarged thyroid (Primary Dx) 08/12/2024 Orders Only [facility] [place] [address] Jya Davis MD Major depressive disorder, recurrent episode, moderate (CMS/HCC) (Primary Dx) 08/08/2024 Orders Only [facility] External Provider, [facility] 08/08/2024 Telephone [facility] [place] [address] Jay Davis MD Referral 07/11/2024 Telephone [facility] [place] [address] Jay Davis MD Referral 06/13/2024 Telephone [facility] [place] [address] Jay Davis MD 06/12/2024 2:30 PM EST Office Visit [facility] [place] [address] Jay Davis MD Subacute cough (Primary Dx); Learning disabilities; Major depressive disorder, recurrent episode, moderate (CMS/HCC); Borderline intellectual functioning; Sleep disturbances; Migraine without aura and without status migrainosus, not intractable from Last 3 Months Immunizations Name Administration [...] Description 09/11/2024 2:15 PM EDT Office Visit [facility] MED[facility]INE [address] [place] [address] Jay Davis MD [address] [place] [address] Health Maintenance Due Date Last Done Comments [...] CONTRAST Routine 08/11/2024 1 :11 PM EST POCT INFLUENZA B (ID NOW RAPID MOLECULAR) Routine 06/12/2024 3:43 PM EST Subacute cough POCT INFLUENZA A (ID NOW RAPID MOLECULAR) Routine 06/12/2024 3:43 PM EST Subacute cough POCT RAPID COVID ANTIGEN Routine 06/12/2024 3:37 PM EST Subacute cough THINPREP IMAGING PAP AND HPV MRNA E6/E7 WITH REFLEX TO HPV 16,18/45 Routine 03/18/2024 8:00 AM EDT BI MAMMOGRAM SCREENING TOMOSYNTHESIS BILATERAL Routine 08/25/2023 8:59 AM EDT HM COLONOSCOPY Routine 12/30/2021 from Last 3 Months or Most Recently Relevant to Health Maintenance Results * CT Head w/o Contrast (08/11/2024 1:11 PM EST) Anatomical Region Laterality Modality Head, Neck Computed Tomogra phy 08/11/2024 1:11 PM EST Narrative 08/11/2024 1:13 PM EST ? [facility] ?[address] ?[place] [address] ? CT Scan Report ? Signed ? Patient: Johnson,Diane ?MR#: [id number] ? : 1975 ?Acct:[id number] ? Age/Sex: 49 / F ?ADM Date: 08/08/24 ? Loc: HO.CT ? Attending Dr: Nayan Leonardo MD ? Ordering Physician: Nayan Leonardo MD ?? Date of Service: 08/08/24 ?? Procedure(s): CT head/brain wo IV con ?? Accession Number(s): [id number] ? cc: Jay Hooper MD; Nayan Leonardo MD ? Report Number: ?? [id number]: Total DLP = ??732.00 mGy-cm ? CLINICAL [...] DD/ 1311 ? TD/TT: 08/11/24 1311 ? Neon Installer: ? Procedure Note Brianna Lam - 08/11/2024 [facility] [address] [facility] [place] [address] CT Scan Report Signed Patient: Luna Johnson#: [id number] : 1975Acct:[id number] Age/Sex: 49 / FADM Date: 08/08/24 Loc: HO.CT Attending Dr: Nayan Leonardo MD Ordering Physician: Nayan Leonardo MD Date of Service: 08/08/24 Procedure(s): CT head/brain wo IV con Accession Number(s): [id number] cc: Jay Hooper MD; Nayan Leonardo MD Report Number: [id number]: Total DLP = 732.00 mGy-cm CLINICAL HISTORY: [...] 08/11/24 1312 DD/ 1311 TD/TT: 08/11/24 1311 Neon Installer: [facility] External Provider IMG CT PROCEDURES Final Result * POCT Rapid Influenza B SCOTT ID NOW (06/12/2024 3:43 PM EST) Influenza B Negative Negative, Indeterminate [facility] QC Media Lot # [id number] [facility] Lot# Expiration Date 3,026 [facility] Swab 06/12/2024 3:43 PM EST Jay Henry MD POINT OF CARE TEST EN TER/EDIT ORDERABLES Final Result [facility] [address] [place] [phone] * POCT Rapid Influenza A SCOTT ID NOW (06/12/2024 3:43 PM EST) Influenza A Negative Negative, Indeterminate [facility] QC Media Lot # [id number] [facility] Lot# Expiration Date [facility] Swab 06/12/2024 3:43 PM EST Jay Henry MD POINT OF CARE TEST EN TER/EDIT ORDERABLES Final Result [facility] [address] [place] [address] [phone] * POCT Rapid Covid-19 BinaxNOW (06/12/2024 3:37 PM EST) [facility] Rapid COVID Ag Negative QC Media Lot # [id number] Lot# Expiration Date Swab 06/12/2024 3:37 PM EST Jay Henry MD POINT OF CARE TEST EN TER/EDIT ORDERABLES Final Result * ThinPrep Imaging Pap and HPV mRNA E6/E7 with Reflex to HPV 16,18/45 (03/18/2024 8:00 AM EDT) [facility] HPV 16 RNA NMP [facility] HPV 18/45 RNA [facility] HPV nRNA E6/E7 Not Detected Not Detected [facility] Comment:Methodology: Transcr iption-Mediated AmplificationThis assay detects E6/E7 viral messenger RNA (mRNA) from 14high-risk HPV types (16,18,31,33,35,39,45,51,52,56,58,59,66,68).Cervical sources are required for HPV testing.If a vaginal source from a patient who has had atotal hysterectomy with removal of cervix wassubmitted, please contact the testing laboratoryfor alternative testing options.For additional information, please refer tohttp://education.ServiceFrame/faq/WKD739h2(This link if provided for information/educational purposes only.)THIS TEST WAS PERFORMED AT:[employer] [address] [phone] [place] MD SOURCE: SEE NOTE [facility] Comment:None given Report Status: [facility] Clinical Information: SEE NOTE [facility] Comment:None given LMP: SEE NOTE [facility] Comment:NONE GIVEN Prev. PAP: SEE NOTE [facility] Comment:NONE GIVEN Prev. BX: SEE NOTE [facility] Comment:NONE GIVEN Statement Of Adequacy: SEE NOTE [facility] Comment:Satisfactory for caroline luation.Endocervical/transformation zone componentpresent. General Categorization: [facility] Interpretation/Result: SEE NOTE [facility] Comment:Cytology Results: Ne gative for intraepitheliallesion or malignancy. Cytology Comment SEE NOTE [facility] Comment:This Pap test has be en evaluated with computerassisted technology. Chyron Operator: SEE NOTE [facility] Comment:BK,CT(ASCP)CT screen ing location: [address] Review Chyron Operator: [facility] Pathologist [facility] PAP Infection [facility] See Note SEE NOTE [facility] Comment:EXPLANATORY NOTE:The Pap is a screening test for cervical cancer. It isnot a diagnostic test and is subject to false negativeand false positive results. It is most reliable when asatisfactory sample, regularly obtained, is submittedwith relevant clinical findings and history, and whenthe Pap result is evaluated along with historic andcurrent clinical information. 03/18/2024 8:00 AM EDT 03/18/2024 3:31 PM EDT Narrative [facility] - 03/25/2024 2:07 PM EDT SEE SCANNED RESULTS IN EMR us Generic External Data Provider LAB PATHOLOGY ORD ERABLES Final Result [facility] [address] [place] [address] [phone] * BI Mammogram Screening Tomosynthesis Bilateral (08/25/2023 8:59 AM EDT) Anatomical Region Laterality Modality Breast Bilateral Mammography 08/25/2023 8:59 AM EDT Narrative 09/07/2023 4:11 PM EDT ? [facility] [place] ? [address] ?[place] [address] ? Mammography Report ? Signed ? Patient: Johnson,Diane ?MR#: [id number] ? : 1975 ?Acct:[id number] ? Age/Sex: 48 / F ?ADM Date: 08/25/23 ? Loc: HO.MAMMO ? Attending Dr: Jay Hooper MD ? Ordering Physician: Jay Hooper MD ?Resu ?? lts: 1Negative ? Date of Service: 08/25/23 ?Follow Up: 1 Year From Orig ?? inal Mammogram ? Procedure(s): MM tomosynthesis screening BI ?? Accession Number(s): [id number] ? cc: Jay Hooper MD ? EXAMINATION: [...] 1608 ? DD/ 0859 ? TD/TT: ? Neon Installer: ? Procedure Note Mikatejindersabrinanegro, Image - 09/07/2023 [facility] [address] [place] [address] [place] [address] Mammography Report Signed Patient: Luna Johnson#: [id number] : 1975Acct:[id number] Age/Sex: 48 / FADM Date: 08/25/23 Loc: LORI Attending Dr: Jay Hooper MD Ordering Physician: Jay Hooper MDResu lts: 1Negative Date of Service: 08/25/23Follow Up: 1 Year From Orig inal Mammogram Procedure(s): MM tomosynthesis screening BI Accession Number(s): [id number] cc: Jay Hooper MD EXAMINATION: MM SCREENING [...] in OV> 09/07/23 1608 DD/ 0859 TD/TT: Neon Installer: Jay Henry MD IMG BI PROCEDURES Darin viki Result - Final * Hm Colonoscopy (12/30/2021) Colonoscopy Normal Normal Jay Henry MD HEALTH MAINTENANCE Ed ited Result - Final from Last 3 Months or Most Recently Relevant to Health Maintenance Insurance [employer] Care Teams Railway Patrol Officer Relationship Specialty Start Date End Date Jay Davis MD [address] [place] [phone] PCP - General Internal Medicine 01/13/14
--- OUTSIDE RECORDS SUMMARY | 2024-09-04 18:26 | XMS_ITS | Encounter Summary ---
Author Organization [employer] Address [address] [place] [address] 7t [place] [address] Care Team Providers Care Five Piece Expansion Maker Hand Name Role Phone Jay Davis MD Primary Care Provide r Reason for Referral * Imaging (Routine) - Authorized Specialty Diagnoses / Procedures Referred By Contac t Referred To Contact Radiology Diagnoses Enlarged thyroid Procedures US Thyroid Jay Davis MD [address] [place] [address] Phone: tel: fax: [address] Phone: tel: fax: Referral ID Status Reason Start Date Expiration Date V isits Requested Visits Authorized [id number] Authorized 08/16/2024 08/16/2025 1 1 Encounter Details Date Type Department Care Team (Late st Contact Info) Description 08/16/2024 Orders Only [facility] MEDICINE [address] [place], [place] [phone] Jay Davis MD [address] [place], [place] [phone] Enlarged thyroid (Primary Dx) Social History Tobacco Use Types [...] 2:15 PM EDT Office Visit [facility] MEDICINE [address] [place] [address] Jay Davis MD [address] [place] [address] Scheduled Orders Name Type Priority Associated Diagnoses Orde r Schedule US Thyroid Imaging Routine Enlarged thyroid Expected: 08/16/2024, Expires: 08/16/2025 documented as of this encounter Visit Diagnoses Diagnosis Enlarged thyroid- Primary Goiter, unspecified documented in this encounter Additional Health Concerns Assessment Noted Time PHQ-9 Depression Total Score: 0 12/25/19 24 1:07 PM EDT documented as of this encounter Care Teams Five Piece Expansion Maker Hand Relationship Specialty Start Date End Date Jay Davis MD [address] [place] [address] PCP - General Internal Medicine 01/13/14 documented as of this encounter
--- OUTSIDE RECORDS SUMMARY | 2024-09-04 18:26 | XMS_ITS | Encounter Summary ---
Author Organization [employer] Address [address] [facility] 7 [place] [address] Care Team Providers Care Pediatric Oncologist Name Role Phone Jay Davis MD Primary Care Provide r Reason for Visit * Reason Onset Date Comments Results 08/18/2024 Referral 08/18/2024 Encounter Details Date Type Department Care Team ([facility] st Contact Info) Description 08/18/2024 Telephone [facility] MEDICINE [address] [place] [address] Jay Davis MD [address] [place] [address] Results; Referral Social History Tobacco Use Types Packs/Day [...] encounter Miscellaneous Notes * Telephone Encounter - Brenda Stratton RN - 08/18/2024 10:11 AM EDT Telephone call to pt to advise that CT scan showed incidental finding of enlarged thyroid and that PCP recommends thyroid ultrasound to better visualize this area. Advised pt that [facility] will call pt toschedule appt in next 2 weeks and to call back [facility] if no word by then. Explained ultrasound vs MRI.Pt verbalized understanding, no further questions. * Telephone Encounter - Brenda Stratton RN - 08/18/2024 10:07 AM EDT ----- Message from Jay Henry MD sent at 08/16/2024 3:36 PM EST ----- Pt had a CT of her spine ordered elsewhere that showed: CT/CT cervical spine wo IV con IMPRESSION: 2. Global enlargement of the thyroid with probable underlying nodules, poorly defined on this examination I have placed an order for a thyroid US, please contact patient to inform her and ask her to have US done documented in this encounter Plan of Treatment Upcoming Encounters Date Type Department Care Team (Late st Contact Info) Description 09/11/2024 2:15 PM EDT Office Visit [facility] MEDICINE [address] [place] [address] Jay Davis MD [address] [place] [address] documented as of this encounter Visit Diagnoses Not on filedocumented in this encounter Additional Health Concerns Assessment Noted Time PHQ-9 Depression Total Score: 0 12/25/19 24 1:07 PM EDT documented as of this encounter Care Teams Pediatric Oncologist Relationship Specialty Start Date End Date Jay Davis MD [address] [place] [address] PCP - General Internal Medicine 01/13/14 documented as of this encounter
== END 2024-09-04 14:47 | disposition home or self-care (01) ==
LOC: HO.NEURO 14:46
PROVIDERS: PCP Internal Medicine; Visit Provider Physical Medicine & Rehabilitation
DX: R20.2 Paresthesia of skin (principal)
CPT/HCPCS: 95886; 95909

== ENCOUNTER → 2024-09-04 14:48 | Outpatient (BNV) | payer OTHER, SELFPAY | PROVIDERS: PCP Internal Medicine; Visit Provider Physical Medicine & Rehabilitation | DX: M25.522 Pain in left elbow (principal) | CPT/HCPCS: 95886; 95909 ==

== ENCOUNTER 2024-09-10 13:53 | Outpatient (REF) | payer OTHER, SELFPAY ==
--- NOTE | ~2024-09-10 | US_ITS ---
EXAMINATION: US THYROID HISTORY: enlargement of the thyroid TECHNIQUE: Real-time grayscale ultrasound imaging was performed and images were reviewed. COMPARISON: Correlation is made with an unenhanced CT of the cervical spine dated 06/25/2024. FINDINGS: SIZE: The right thyroid lobe measures 6.1 x 2.2 x 2.6 cm. The left thyroid lobe measures 6.2 x 2.6 x 1.9 cm. The isthmus measures 5 mm. FLOW: Flow to the gland is normal. ECHOGENICITY: The echotexture of the gland is normal. NODULES: Multiple nodules are seen in the thyroid gland as described below: Nodule #: 1 Location: Midportion of the right thyroid lobe measuring 12 x 7 x 9 mm Shape: Wider than tall (0 points) Margins: Ill-defined (0 points) Echotexture: Isoechoic (1 point) Composition: Mostly solid (2 points) Calcifications: None (0 points) Total points: 3 TIRADS: TR3: Mildly suspicious. Nodule #: 2 Location: Mid to lower pole of the right thyroid lobe measuring 5 x 3 x 4 mm Shape: Wider than tall (0 points) Margins: Ill-defined (0 points) Echotexture: Hypoechoic (2 points) Composition: Mostly solid (2 points) Calcifications: Comet tail (0 points) Total points: 4 TIRADS: TR4: Moderately suspicious. Nodule #: 3 Location: Mid to lower pole of the left thyroid lobe measuring 3 x 2 x 3 mm Shape: Round (0 points) Margins: Ill-defined (0 points) Echotexture: Isoechoic (1 point) Composition: Solid (2 points) Calcifications: None (0 points) Total points: 3 TIRADS: TR3: Mildly suspicious. Nodule #: 4 Location: Lower pole of the left thyroid lobe measuring 4 x 4 by 6 mm Shape: Wider than tall (0 points) Margins: Ill-defined (0 points) Echotexture: Isoechoic (1 point) Composition: Mostly solid (2 points) Calcifications: Macrocalcifications (1 point) Total points: 4 TIRADS: TR4: Moderately suspicious. US/US thyroid IMPRESSION: Global enlargement of the thyroid. Multiple small bilateral thyroid nodules as described. According to ACR TI-RADS is guidelines, none of the nodules warrants biopsy or follow up. ACR TI-RADS Guidelines TR1 (0 points): Benign, No follow-up or biopsy required TR2 (2 points): Not Suspicious, No biopsy or follow up indicated TR3 (3 points): Mildly Suspicious, FNA if >= 2.5 cm, Follow if >= 1.5 cm TR4 (4-6 points): Moderately Suspicious, FNA if >= 1.5 cm, Follow if >= 1.0 cm TR5 (>=7 points): Highly Suspicious, FNA if >= 1.0 cm, Follow if >= 0.5 cm Electronically signed by: Emir Ca MD 09/11/2024 07:23 AM EDT
--- OUTSIDE RECORDS SUMMARY | 2024-09-10 16:35 | XMS_ITS | Encounter Summary ---
Author Organization [employer] Address [address] [facility] 7 [place] [address] Care Team Providers Care Hop Weigher Name Role Phone Jay Davis MD Primary Care Provide r Reason for Visit * Reason Onset Date Comments Referral 07/11/2024 Encounter Details Date Type Department Care Team ([facility] st Contact Info) Description 07/11/2024 Telephone [facility] [address] [place] [address] Jay Davis MD [address] [place] [address] Referral Social History Tobacco Use Types Packs/Day [...] referral in general to be placed in [facility] as pt work insurance will have coverage in that facility. Pt received call from a facility as she had to reject due to insurance wont cover visit. documented in this encounter Plan of Treatment Upcoming Encounters Date Type Department Care Team (Late st Contact Info) Description 09/11/2024 2:15 PM EDT Office Visit [facility] [address] [place] [phone] Jay Davis MD [address] [place] [address] documented as of this encounter Visit Diagnoses Not on filedocumented in this encounter Additional Health Concerns Assessment Noted Time PHQ-9 Depression Total Score: 0 12/25/19 24 1:07 PM EDT documented as of this encounter Care Teams Hop Weigher Relationship Specialty Start Date End Date Jay Davis MD [address] [place] [phone] PCP - General Internal Medicine 01/13/14 documented as of this encounter
--- OUTSIDE RECORDS SUMMARY | 2024-09-10 16:35 | XMS_ITS | Clinical Summary ---
Author Organization [facility] it Address [address] [place] [phone] Care Team Providers Care Artificial Flower Maker Name Role Phone Jay Hooper MD Primary Care Provi leah Encounters Date Type Department Care Team Description 07/18/2024 [facility]diagn[facility] [address] [place] [phone] Nayan Leonardo MD Syncope and collapse 07/17/2024 [facility] [address] [place] [phone] Nayan Leonardo MD Syncope and collapse 07/16/2024 [facility] [address] [place] [phone] Nayan Leonardo MD Syncope and collapse from [...] Description 10/15/2024 10:00 AM EDT Appointment [facility] Neurodiagnostic [address] [place] [phone] 10/16/2024 12:00 PM EDT Appointment [facility]diagnostic [address] [place] [phone] 10/17/2024 12:00 PM EDT Appointment [facility] [address] [place] [phone] Health Maintenance Due Date Last Done Comments Breast Cancer Screening 1973 DTaP,Tdap,and Td Vaccines (1 - Tdap) 1992 Hepatitis B Vaccines (1 of 3 - 19+ 3-dose series) 1992 Cervical Cancer Screening: P ap Smear 1994 Pneumococcal Vaccine: 50+ Ye ars (1 of 1 - PCV) 2023 Zoster Vaccines (1 of 2) 2023 COVID-19 Vaccine ( - 2023-2 5 season) 2024 Colorectal Cancer Screening: Colonoscopy 04/07/2024 Depression Screening 04/07/2024 HIV Screening 04/07/2024 Hepatitis C Screening 04/07/2024 Social Influencers of Health Screening 04/07/2024 Influenza Vaccine (Season Ended) 2025 HIB Vaccines Aged Out No longer eligi [...] topic Insurance MEDICAID - [place] Care Teams Artificial Flower Maker Relationship Specialty Start Date End Date Jay Hooper MD [address] [place] [address] [place] [phone] PCP - General 04/05/10
--- OUTSIDE RECORDS SUMMARY | 2024-09-10 16:35 | XMS_ITS | Clinical Summary ---
Author Organization [employer] Address [address] [place] [address] 7t [place] [address] Care Team Providers Care Automotive Sales Representative Name Role Phone Jay Davis MD Primary [...] Once per day. 30 tablet 2 5 Active Active Problems Problem Noted Date Diagnosed Date Major depressive disorder, recurrent episode, mo derate 06/12/2024 Assessment & Plan (06/12/2024 3:06 PM EST): Patient is under the care of Zohreh Raphael at [facility]. 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 This was finally done [...] and able to travel Will refer to [facility] Obesity 04/14/2014 Kidney stone 01/29/2012 Impaired glucose [...] Type Department Care Team Description 08/28/2024 Telephone [facility] [place] [address] Jay Davis MD Chart Prep 08/18/[address] [facility] [place] [address] Jay Davis MD Results; Referral 08/16/2024 Orders Only [facility] [place] [address] Jay Davis MD Enlarged thyroid (Primary Dx) 08/12/2024 Orders Only [address] [place] [address] Jay Davis MD Major depressive disorder, recurrent episode, moderate (CMS/HCC) (Primary Dx) 08/08/2024 Orders Only [facility] External Provider, [facility] 08/08/2024 Telephone [facility] [place] [address] Jay Davis MD Referral 07/11/[address] [facility] [place] [facility] [address] aJy Davis MD Referral 06/13/[address] [place] [address] Jay Davis MD 06/12/2024 2:30 PM EST Office Visit [facility] [place] [address] Jay Davis MD Subacute cough (Primary Dx); [...] Description 09/11/2024 2:15 PM EDT Office Visit [facility] [address] [place] [address] Jay Davis MD [address] [place], [place] [phone] Health Maintenance Due Date Last Done Comments [...] 05/16/2025 05/16/2024 Alcohol/Substance Use Screening 06/12/2025 06/12/2024 Cervical Cancer Screening 03/18/2029 HPV/Cotest 03/18/2029 03/18/2024 Pap Smear 03/18/2029 03/18/2024 Colonoscopy 12/31/2031 12/30/2021 Colorectal Cancer [...] EST Narrative 08/11/2024 1:13 PM EST ? [facility] ?[address] ?[place] [address] ? CT Scan Report ? Signed ? Patient: Johnson,Diane ?MR#: [id number] ? : 1975 ?Acct:[id number] ? Age/Sex: 49 / F ?ADM Date: 08/08/24 ? Loc: HO.CT ? Attending Dr: Nayan Leonardo MD ? Ordering Physician: Nayan Leonardo MD ?? Date of Service: 08/08/24 ?? Procedure(s): CT head/brain wo IV con ?? Accession Number(s): [id number] ? cc: Jay Hooper MD; Nayan Leonardo MD ? Report Number: ?? [id number]: Total DLP = ??732.00 mGy-cm ? CLINICAL [...] DD/ 1311 ? TD/TT: 08/11/24 1311 ? Plant Buyer: ? Procedure Note Brianna Lam - 08/11/2024 [place] [address] [place] [address] CT Scan Report Signed Patient: Tia JohnsonKillian#: [id number] : 1975Acct:[id number] Age/Sex: 49 / FADM Date: 08/08/24 Loc: HO.CT Attending Dr: Nayan Leonardo MD Ordering Physician: Nayan Leonardo MD Date of Service: 08/08/24 Procedure(s): CT head/brain wo IV con Accession Number(s): [id number] cc: Jay Hooper MD; Nayan Leonardo MD Report Number: [id number]: Total DLP = 732.00 mGy-cm CLINICAL HISTORY: [...] 08/11/24 1312 DD/ 1311 TD/TT: 08/11/24 1311 Plant Buyer: [facility] External Provider IMG CT PROCEDURES Final Result * POCT Rapid Influenza B SCOTT ID NOW (06/12/2024 3:43 PM EST) Influenza B Negative Negative, Indeterminate [facility] QC Media Lot # [id number] [facility] Lot# Expiration Date [id number] [facility] Swab 06/12/2024 3:43 PM EST Jay Henry MD POINT OF CARE TEST EN TER/EDIT ORDERABLES Final Result [facility] [address] [place] [phone] * POCT Rapid Influenza A SCOTT ID NOW (06/12/2024 3:43 PM EST) Pathologist [facility] Influenza A Negative Negative, Indeterminate [facility] QC Media Lot # [id number] [facility] Lot# Expiration Date [facility] Swab 06/12/2024 3:43 PM EST Jay Henry MD POINT OF CARE TEST EN TER/EDIT ORDERABLES Final Result [facility] [address] [place] [address] [phone] * POCT Rapid Covid-19 BinaxNOW (06/12/2024 3:37 PM EST) [facility] Rapid COVID Ag Negative QC Media Lot # [id number] Lot# Expiration Date Swab 06/12/2024 3:37 PM EST Jay Henry MD POINT OF CARE TEST EN TER/EDIT ORDERABLES Final Result * [facility] Pap and HPV mRNA E6/E7 with Reflex to HPV 16,18/45 (03/18/2024 8:00 AM EDT) [facility] HPV 16 RNA TNP [facility] HPV 18/45 RNA [facility] HPV nRNA E6/E7 Not Detected Not Detected [facility] Comment:Methodology: Transcr iption-Mediated AmplificationThis assay detects E6/E7 viral messenger RNA (mRNA) from 14high-risk HPV types (16,18,31,33,35,39,45,51,52,56,58,59,66,68).Cervical sources are required for HPV testing.If a vaginal source from a patient who has had atotal hysterectomy with removal of cervix wassubmitted, please contact the testing laboratoryfor alternative testing options.For additional information, please refer [email or web address].[email or web address]/faq/DJJ123x7(This link if provided for information/educational purposes only.)THIS TEST WAS PERFORMED AT:[employer] [address] [phone] WASHINGTON MD SOURCE: SEE NOTE [facility] Comment:None given Report Status: [facility] Clinical Information: SEE NOTE [facility] Comment:None given LMP: SEE NOTE [facility] Comment:NONE GIVEN Prev. PAP: SEE NOTE [facility] Comment:NONE GIVEN Prev. BX: SEE NOTE [facility] Comment:NONE GIVEN Statement Of Adequacy: SEE NOTE [facility] Comment:Satisfactory for caroline luation.Endocervical/transformation zone componentpresent. General Categorization: [facility] Interpretation/Result: SEE NOTE [facility] Comment:Cytology Results: Ne gative for intraepitheliallesion or malignancy. Cytology Comment SEE NOTE [facility] Comment:This Pap test has be en evaluated with computerassisted technology. Sheriff Officer: SEE NOTE [facility] Comment:BK,CT(ASCP)CT screen ing location: [address] Review Sheriff Officer: [facility] Pathologist [facility] PAP Infection [facility] See Note SEE [facility] Comment:EXPLANATORY NOTE:The Pap is a screening test for cervical cancer. It isnot a diagnostic test and is subject to false negativeand false positive results. It is most reliable when asatisfactory sample, regularly obtained, is submittedwith relevant clinical findings and history, and whenthe Pap result is evaluated along with historic andcurrent clinical information. 03/18/2024 8:00 AM EDT 03/18/2024 3:31 PM EDT Narrative [facility] - 03/25/2024 2:07 PM EDT SEE SCANNED RESULTS IN EMR us Generic External Data Provider LAB PATHOLOGY ORD ERABLES Final Result [facility] [address] [place] [phone] [phone] * BI Mammogram Screening Tomosynthesis Bilateral (08/25/2023 8:59 AM EDT) Anatomical Region Laterality Modality Breast Bilateral Mammography 08/25/2023 8:59 AM EDT Narrative 09/07/2023 4:11 PM EDT ? [facility] [place] ? [address] ?[place] [address] ? Mammography Report ? Signed ? Patient: Johnson,Diane ?MR#: [id number] ? : 1975 ?Acct:[id number] ? Age/Sex: 48 / F ?ADM Date: 08/25/23 ? Loc: HO.MAMMO ? Attending Dr: Jay Hooper MD ? Ordering Physician: Jay Hooper MD ?Resu ?? lts: 1Negative ? Date of Service: 08/25/23 ?Follow Up: 1 Year From Orig ?? inal Mammogram ? Procedure(s): MM tomosynthesis screening BI ?? Accession Number(s): [id number] ? cc: Jay Hooper MD ? EXAMINATION: [...] 1608 ? DD/ 0859 ? TD/TT: ? Plant Buyer: ? Procedure Note Mikatejindersabrinanegro, Image - 09/07/2023 [facility] [address] [place] [address] Mammography Report Signed Patient: Luna Johnson#: [id number] : 1975Acct:[id number] Age/Sex: 48 / FADM Date: 08/25/23 Loc: LORI Attending Dr: Jay Hooper MD Ordering Physician: Jay Hooper MDResu lts: 1Negative Date of Service: 08/25/23Follow Up: 1 Year From Orig inal Mammogram Procedure(s): MM tomosynthesis screening BI Accession Number(s): [id number] cc: Jay Hooper MD EXAMINATION: MM SCREENING [...] in OV> 09/07/23 1608 DD/ 0859 TD/TT: Plant Buyer: Jay Henry MD IMG BI PROCEDURES Darin viki Result - Final * Hm Colonoscopy (12/30/2021) Colonoscopy Normal Normal Jay Henry MD HEALTH MAINTENANCE Ed ited Result - Final from Last 3 Months or Most Recently Relevant to Health Maintenance Insurance [employer] Care Teams Automotive Sales Representative Relationship Specialty Start Date End Date Jay Davis MD [address] [place] [phone] PCP - General Internal Medicine 01/13/14
--- OUTSIDE RECORDS SUMMARY | 2024-09-10 16:35 | XMS_ITS | Encounter Summary ---
Author Organization [employer] Address [address] [facility] 7t [place] [address] Care Team Providers Care Accounts Receivable Analyst Name Role Phone Jay Davis MD Primary Care Provide r Reason for Visit * Reason Onset Date Comments Med Refill 10/15/2023 Encounter Details Date Type Department Care Team ([facility] st Contact Info) Description 10/15/2023 Refill [facility] [address] [place] [address] Jay Davis MD [address] [place] [address] Dermatitis Social History Tobacco Use Types Packs/Day [...] t he electric, gas, oil or water [employer] threatened to shut off services in your [...] Description 09/11/2024 2:15 PM EDT Office Visit [facility] [address] [place] [address] Jay Davis MD [address] [place] [address] documented as of this encounter Visit Diagnoses Diagnosis Dermatitis Contact dermatitis and other eczema, due to unspecified cause documented in this encounter Additional Health Concerns Assessment Noted Time PHQ-9 Depression Total Score: 6 10/06/19 23 12:39 PM EDT documented as of this encounter Care Teams Accounts Receivable Analyst Relationship Specialty Start Date End Date Jay Davis MD [address] [place] [phone] PCP - General Internal Medicine 01/13/14 documented as of this encounter
== END 2024-09-10 13:54 | disposition home or self-care (01) ==
LOC: HO.US 13:53
PROVIDERS: PCP Internal Medicine; Visit Provider Internal Medicine
DX: E04.9 Nontoxic goiter, unspecified (principal)
CPT/HCPCS: 76536

== ENCOUNTER → 2024-09-10 13:55 | Outpatient (BNV) | payer OTHER, SELFPAY | PROVIDERS: PCP Internal Medicine; Visit Provider Radiology Diagnostic Radiology | DX: E04.2 Nontoxic multinodular goiter (principal) | CPT/HCPCS: 76536 ==

== ENCOUNTER 2024-09-12 09:30 | Outpatient (REF) | payer OTHER, SELFPAY ==
--- OUTSIDE RECORDS SUMMARY | 2024-09-12 10:27 | XMS_ITS | Clinical Summary ---
Author Organization [employer] Address [address] [place] [address] 7[address] [place] [address] Care Team Providers Care Production Packager Name Role Phone Jay Davis MD Primary [...] Active Problems Problem Noted Date Diagnosed Date Goiter 09/11/2024 Assessment & Plan (09/11/2024 2:30 PM EDT): Pt with an incidental finding on CT of neck of enlarged Thyroid Thyroid US done 09/10/2024 showed: IMPRESSION: Global enlargement of the thyroid. Multiple small bilateral thyroid nodules as described. According to ACR TI-RADS is guidelines, none of the nodules warrants biopsy or follow up. Plan: Obtain TSH, Endocrinology evaluation Major depressive disorder, recurrent episode, mo derate 06/12/2024 Assessment & Plan (09/11/2024 2:44 PM EDT): Patient is no longer under the care of Zohreh Raphael at [facility]. Back in 10/2023 Pt underwent extensive pyschologic testing and was diagnosed with depression and insomnia Plan: Patient tells me she is awaiting to see a psychiatrist at [facility] Assessment & Plan (06/12/2024 3:06 PM EST): Patient is under the care of Zohreh Raphael at [facility]. Back in 10/2023 Pt underwent extensive [...] this with her psychotherapist Zohreh Simmons at [facility] Subacute cough 12/25/2023 Assessment & Plan (06/12/2024 [...] and accessories, laparoscopic sleeve gastrectomy and gastropexy. [facility] health care 10/05/2022 Assessment & Plan (09/11/2024 2:36 PM EDT): Mammogram: Done 08/25/2023 Normal Pap Smear: 03/25/2024 Normal Colonoscopy: 12/30/2021 showed: One tiny polyp removed Moderate diverticulosis seen in the entire colon 5 year follow up Vaccines: declines Flu shots. Assessment & Plan (12/25/2023 11:13 AM EDT): Mammogram: Done 08/25/2023 Normal Pap Smear: Done by Dr Zee 01/12/2017 Normal Colonoscopy: 12/30/2021 showed: One tiny polyp removed Moderate diverticulosis seen in the entire colon 5 year follow up Vaccines: declines Flu shots. Assessment & Plan (10/05/2022 8:25 AM EDT): Mammogram: Done 05/07/2017 at [facility] was normal Pap Smear: Done by Dr Zee 01/12/2017 Normal Colonoscopy: NOT due yet Vaccines: declines Flu shots. 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 This was finally done 10/19/2023 See report. Diagnosed with Depression, Insomnia, Borderline intellectual functioning Recommendations were to: Refer to: , Consider treatment for depression and insomnia ( She is awaiting to see Psychiatrist at [facility] ), refer to Sleep Medicine (appointment pending) and she was referred back to Neurology to consider ruling out Pychogenic Non-epileptoid seizures (PNES). Pt had a CT 08/2024 that showed: IMPRESSION: No acute intracranial process. 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 This was finally done 10/19/2023 See [...] and able to travel Will refer to [facility] Obesity 04/14/2014 Assessment & Plan (09/11/2024 2:35 PM EDT): Patient has been counseled and educated about diet and exercise. Personal goal of weight loss discussed Kidney stone 01/29/2012 Impaired glucose tolerance 01/29/2012 [...] Encounters Date Type Department Care Team Description 09/11/2024 2:15 PM EDT Office Visit [facility] [address], [place] [address] Jay Davis MD Goiter (Primary Dx); Class 2 obesity due to excess calories without serious comorbidity with body mass index (BMI) of 36.0 to 36.9 in adult; Dietary counseling; Exercise counseling; Major depressive disorder, recurrent episode, moderate (CMS/HCC); Learning disabilities; Preventative health care 09/11/2024 Telephone [facility] [address], [place] [address] Jay Davis MD Referral 09/11/2024 Travel 09/10/2024 Travel 08/28/2024 Telephone [facility] [address], [place] [address] Jay Davis MD Chart Prep 08/18/2024 Telephone [facility] [address], [place] [address] Jay Davis MD Results; Referral 08/16/2024 Orders Only [facility] [address], [place] [address] Jay Davis MD Enlarged thyroid (Primary Dx) 08/12/2024 Orders Only [facility] [address], [place] [address] Jay Davis MD Major depressive disorder, recurrent episode, moderate (CMS/HCC) (Primary Dx) 08/08/2024 Orders Only [facility] External Provider, [facility] 08/08/2024 Telephone [facility] [address], [place] [address] Jay Davis MD Referral 07/11/2024 Telephone [facility] [address] [place] [address] Jay Davis MD Referral from Last 3 Months Immunizations Name Administration [...] Answer Date Recorded Patient Health Questionnaire-9 Score 18 09/11/2024 Patient Health Questionnaire-9 Score 18 09/11/2024 Last PHQ-9: Questionnaire Data Not on file 0 09/11/2024 Housing Stability Answer Date Recorded What is [...] Answer Date Recorded Patient Health Questionnaire-2 Score 4 09/11/2024 Internet Access Answer Date Recorded Internet Access [...] Sign Reading Time Taken Comments Blood Pressure 140/78 09/11/2024 2:42 PM EDT Pulse 88 09/11/2024 2:18 PM EDT Temperature 36.4 ??C (97.5 ??F) 09/11/2024 2:18 PM ED T Respiratory Rate 20 09/11/2024 2:18 PM EDT Oxygen Saturation 99% 09/11/2024 2:18 PM EDT Inhaled Oxygen Concentration - - Weight 88.6 kg (195 lb 6.4 oz) 09/11/2024 2:18 P M EDT Height 154.9 cm (5' 1 ) 09/11/2024 2:18 PM EDT Body Mass Index 36.92 09/11/2024 2:18 PM EDT Plan of Treatment Upcoming Encounters Date Type Department Care Team (Late st Contact Info) Description 12/11/2024 3:00 PM EDT Office Visit [facility] [address] [place], [place] [phone] Jay Davis MD [address] [place] [address] Health Maintenance Due Date Last Done Comments [...] Influenza Vaccine (#1) 2024 Mammogram 08/24/2024 08/25/2023 SDOH Screening 12/24/2024 12/25/2023 Depression Monitoring (PHQ-9) 03/13/2025, 09/11/2024 Tobacco Screening 05/16/2025 05/16/2024 Alcohol/Substance Use Screening 06/12/2025 06/12/2024 Depression Screening 09/11/2025 09/11/2024, 09/11/2024 Cervical Cancer Screening 03/18/2029 HPV/Cotest 03/18/2029 03/18/2024 [...] Procedure Name Priority Date/Time Associated Diagnosis Comments US THYROID Routine 09/10/2024 2:09 PM EDT Enlarged thyroid CT HEAD WO CONTRAST Routine 08/11/2024 1 :11 PM EST THINPREP IMAGING PAP AND HPV MRNA E6/E7 WITH REFLEX TO HPV 16,18/45 Routine 03/18/2024 8:00 AM EDT BI MAMMOGRAM SCREENING TOMOSYNTHESIS BILATERAL Routine 08/25/2023 8:59 AM EDT HM COLONOSCOPY Routine 12/30/2021 from Last 3 Months or Most Recently Relevant to Health Maintenance Results * US Thyroid (09/10/2024 2:09 PM EDT) Anatomical Region Laterality Modality Head, Neck Ultrasound 09/10/2024 2:09 PM EDT Narrative 09/11/2024 7:26 AM EDT ? [facility] ?[address] ?[place] [address] ? Ultrasound Report ? Signed ? Patient: Johnson,Diane ?MR#: [id number] ? : 1975 ?Acct:[id number] ? Age/Sex: 49 / F ?ADM Date: 09/10/24 ? Loc: HO.US ? Attending Dr: Jay Hooper MD ? Ordering Physician: Jay Hooper MD ?? Date of Service: 09/10/24 ?? Procedure(s): US thyroid ?? Accession Number(s): [id number] ? cc: Jay Hooper MD ? EXAMINATION: ??US THYROID ? HISTORY: enlargement of the thyroid ? TECHNIQUE: Real-time grayscale ultrasound imaging was performed and ?? images were reviewed. ? COMPARISON: Correlation is made with an unenhanced CT of the cervical ?? spine dated 06/25/2024. ? FINDINGS: ?? SIZE: The right thyroid lobe measures 6.1 x 2.2 x 2.6 cm. ??The left ?? thyroid lobe measures 6.2 x 2.6 x 1.9 cm. ?? The isthmus measures 5 mm. ? FLOW: ??Flow to the gland is normal. ? ECHOGENICITY: ??The echotexture of the gland is normal. ? NODULES: ?? Multiple nodules are seen in the thyroid gland as described below: ? Nodule #: 1 ?? Location: Midportion of the right thyroid lobe measuring 12 x 7 x 9 mm ?? Shape: ??Wider than tall (0 points) ?? Margins: ??Ill-defined (0 points) ?? Echotexture: ??Isoechoic (1 point) ?? Composition: ??Mostly solid (2 points) ?? Calcifications: ??None (0 points) ?? Total points: 3 ?? TIRADS: TR3: Mildly suspicious. ? Nodule #: 2 ?? Location: Mid to lower pole of the right thyroid lobe measuring 5 x 3 x ?? 4 mm ?? Shape: ??Wider than tall (0 points) ?? Margins: ??Ill-defined (0 points) ?? Echotexture: ??Hypoechoic (2 points) ?? Composition: ??Mostly solid (2 points) ?? Calcifications: ??Comet tail (0 points) ?? Total points: 4 ?? TIRADS: TR4: Moderately suspicious. ? Nodule #: 3 ?? Location: Mid to lower pole of the left thyroid lobe measuring 3 x 2 x ?? 3 mm ?? Shape: ??Round (0 points) ?? Margins: ??Ill-defined (0 points) ?? Echotexture: ??Isoechoic (1 point) ?? Composition: ??Solid (2 points) ?? Calcifications: ??None (0 points) ?? Total points: 3 ?? TIRADS: TR3: Mildly suspicious. ? Nodule #: 4 ?? Location: Lower pole of the left thyroid lobe measuring 4 x 4 by 6 mm ?? Shape: ??Wider than tall (0 points) ?? Margins: ??Ill-defined (0 points) ?? Echotexture: ??Isoechoic (1 point) ?? Composition: ??Mostly solid (2 points) ?? Calcifications: ??Macrocalcifications (1 point) ?? Total points: 4 ?? TIRADS: TR4: Moderately suspicious. ? US/US thyroid ?? IMPRESSION: ?? Global enlargement of the thyroid. Multiple small bilateral thyroid ?? nodules as described. According to ACR TI-RADS is guidelines, none of ?? the nodules warrants biopsy or follow up. ? ACR TI-RADS Guidelines ? TR1 (0 points): Benign, ??No follow-up or biopsy required ?? TR2 (2 points): Not Suspicious, ??No biopsy or follow up indicated ?? TR3 (3 points): Mildly Suspicious, ??FNA if >= 2.5 cm, Follow if >= 1.5 ?? cm ?? TR4 (4-6 points): Moderately Suspicious, FNA if >= 1.5 cm, Follow if >= ?? 1.0 cm ?? TR5 (>=7 points): Highly Suspicious, ??FNA if >= 1.0 cm, Follow if >= ?? 0.5 cm ? Electronically signed by: ??Emir Ca MD ??09/11/2024 07:23 AM EDT ?? RP ? Dictated By: ?Emir Ca MD ? Signed By: ?<Electronically signed by Emir Ca MD in OV> ?09/11/24722 ? DD/ 1409 ? TD/TT: 09/10/24 1421 ? Monument Carver: ? Procedure Note Donotbhavaniter, Image - 09/11/2024 [place] [address] Ultrasound Report Signed Patient: Luna Johnson#: [id number] : 1975Acct:[id number] Age/Sex: 49 / FADM Date: 09/10/24 Loc: HO.US Attending Dr: Jay Hooper MD Ordering Physician: Jay Hooper MD Date of Service: 09/10/24 Procedure(s): US thyroid Accession Number(s): [id number] cc: Jay Hooper MD EXAMINATION: US THYROID HISTORY: enlargement of the thyroid TECHNIQUE: Real-time grayscale ultrasound imaging was performed and images were reviewed. COMPARISON: Correlation is made with an unenhanced CT of the cervical spine dated 06/25/2024. FINDINGS: SIZE: The right thyroid lobe measures 6.1 x 2.2 x 2.6 cm. The left thyroid lobe measures 6.2 x 2.6 x 1.9 cm. The isthmus measures 5 mm. FLOW: Flow to the gland is normal. ECHOGENICITY: The echotexture of the gland is normal. NODULES: Multiple nodules are seen in the thyroid gland as described below: Nodule #: 1 Location: Midportion of the right thyroid lobe measuring 12 x 7 x 9 mm Shape: Wider than tall (0 points) Margins: Ill-defined (0 points) Echotexture: Isoechoic (1 point) Composition: Mostly solid (2 points) Calcifications: None (0 points) Total points: 3 TIRADS: TR3: Mildly suspicious. Nodule #: 2 Location: Mid to lower pole of the right thyroid lobe measuring 5 x 3 x 4 mm Shape: Wider than tall (0 points) Margins: Ill-defined (0 points) Echotexture: Hypoechoic (2 points) Composition: Mostly solid (2 points) Calcifications: Comet tail (0 points) Total points: 4 TIRADS: TR4: Moderately suspicious. Nodule #: 3 Location: Mid to lower pole of the left thyroid lobe measuring 3 x 2 x 3 mm Shape: Round (0 points) Margins: Ill-defined (0 points) Echotexture: Isoechoic (1 point) Composition: Solid (2 points) Calcifications: None (0 points) Total points: 3 TIRADS: TR3: Mildly suspicious. Nodule #: 4 Location: Lower pole of the left thyroid lobe measuring 4 x 4 by 6 mm Shape: Wider than tall (0 points) Margins: Ill-defined (0 points) Echotexture: Isoechoic (1 point) Composition: Mostly solid (2 points) Calcifications: Macrocalcifications (1 point) Total points: 4 TIRADS: TR4: Moderately suspicious. US/US thyroid IMPRESSION: Global enlargement of the thyroid. Multiple small bilateral thyroid nodules as described. According to ACR TI-RADS is guidelines, none of the nodules warrants biopsy or follow up. ACR TI-RADS Guidelines TR1 (0 points): Benign, No follow-up or biopsy required TR2 (2 points): Not Suspicious, No biopsy or follow up indicated TR3 (3 points): Mildly Suspicious, FNA if >= 2.5 cm, Follow if >= 1.5 cm TR4 (4-6 points): Moderately Suspicious, FNA if >= 1.5 cm, Follow if >= 1.0 cm TR5 (>=7 points): Highly Suspicious, FNA if >= 1.0 cm, Follow if >= 0.5 cm Electronically signed by: Emir Ca MD 09/11/2024 07:23 AM EDT Dictated By: Emir Ca MD Signed By: <Electronically signed by Emir Ca MD in OV> 09/11/24 0723 DD/ 1409 TD/TT: 09/10/24 1421 Monument Carver: us Jay Henry MD IMG US PROCEDURES Darin viki Result - Final * CT Head w/o Contrast (08/11/2024 1:11 PM EST) Anatomical Region Laterality Modality Head, Neck Computed Tomogra phy 08/11/2024 1:11 PM EST Narrative 08/11/2024 1:13 PM EST ? [facility] ?[address] ?[place] [address] ? CT Scan Report ? Signed ? Patient: AlexDiane ?MR#: [id number] ? : 1975 ?Acct:[id number] ? Age/Sex: 49 / F ?ADM Date: 08/08/24 ? Loc: HO.CT ? Attending Dr: Nayan Leonardo MD ? Ordering Physician: Nayan Leonardo MD ?? Date of Service: 08/08/24 ?? Procedure(s): CT head/brain wo IV con ?? Accession Number(s): [id number] ? cc: Jay Hooper MD; Nayan Leonardo MD ? Report Number: ?? [id number]: Total DLP = ??732.00 mGy-cm ? CLINICAL [...] by Talon Bledsoe MD in OV> ? 08/11/241311 ? DD/ 131 ? TD/TT: 08/11/24 1311 ? Monument Carver: ? Procedure Note Donotbhavaniter, Image - 08/11/[address] [address] [address] Scan Report Signed Patient: Luna Johnson#: [id number] : 1975Acct:[id number] Age/Sex: 49 / FADM Date: 08/08/24 Loc: HO.CT Attending Dr: Nayan Leonardo MD Ordering Physician: Nayan Leonardo MD Date of Service: 08/08/24 Procedure(s): CT head/brain wo IV con Accession Number(s): [id number] cc: Jay Hooper MD; Nayan Leonardo MD Report Number: [id number]: Total DLP = 732.00 mGy-cm CLINICAL HISTORY: [...] signed by Talon Bledsoe MD in OV> 08/11/241311 DD/ 10 TD/TT: 08/11/24 131 Monument Carver: us [facility] External Provider IMG CT PROCEDURES Final Result * ThinPrep Imaging Pap and HPV mRNA E6/E7 with Reflex to HPV 16,18/45 (03/18/2024 8:00 AM EDT) HPV 16 RNA [facility] HPV 18/45 RNA [facility] HPV nRNA E6/E7 Not Detected Not Detected [facility] Comment:Methodology: Transcr iption-Mediated AmplificationThis assay detects E6/E7 viral messenger RNA (mRNA) from 14high-risk HPV types (16,18,31,33,35,39,45,51,52,56,58,59,66,68).Cervical sources are required for HPV testing.If a vaginal source from a patient who has had atotal hysterectomy with removal of cervix wassubmitted, please contact the testing laboratoryfor alternative testing options.For additional information, please refer tohttp://education.SocialThreader/faq/XIY952k8(This link if provided for information/educational purposes only.)THIS TEST WAS PERFORMED AT:[facility] [address] [address]IFYURCIPRIANO WASHINGTON MD SOURCE: SEE NOTE [facility] Comment:None given Report Status: [facility] Clinical Information: SEE NOTE [facility] Comment:None given LMP: SEE NOTE [facility] Comment:NONE GIVEN Prev. PAP: SEE NOTE [facility] Comment:NONE GIVEN Prev. BX: SEE NOTE [facility] Comment:NONE GIVEN Statement Of Adequacy: SEE NOTE [facility] Comment:Satisfactory for caroline luation.Endocervical/transformation zone componentpresent. General Categorization: [facility] Interpretation/Result: SEE NOTE [facility] Comment:Cytology Results: Ne gative for intraepitheliallesion or malignancy. Cytology Comment SEE NOTE [facility] Comment:This Pap test has be en evaluated with computerassisted technology. Paper Cup Machine Operator: SEE NOTE [facility] Comment:BK,CT(ASCP)CT screen ing location: [address] Review Paper Cup Machine Operator: [facility] Pathologist [facility] PAP Infection TNP [facility] See Note SEE NOTE [facility] Comment:EXPLANATORY NOTE:The Pap is a screening test for cervical cancer. It isnot a diagnostic test and is subject to false negativeand false positive results. It is most reliable when asatisfactory sample, regularly obtained, is submittedwith relevant clinical findings and history, and whenthe Pap result is evaluated along with historic andcurrent clinical information. 03/18/2024 8:00 AM EDT 03/18/2024 3:31 PM EDT Narrative [facility] - 03/25/2024 2:07 PM EDT SEE SCANNED RESULTS IN EMR us Generic External Data Provider LAB PATHOLOGY ORD ERABLES Final Result [facility] [address] [place] [address] [phone] * BI Mammogram Screening Tomosynthesis Bilateral (08/25/2023 8:59 AM EDT) Anatomical Region Laterality Modality Breast Bilateral Mammography 08/25/2023 8:59 AM EDT Narrative 09/07/2023 4:11 PM EDT ? [facility] ? [address] ?[place] [address] ? Mammography Report ? Signed ? Patient: Johnson,Diane ?MR#: [id number] ? : 1975 ?Acct:[id number] ? Age/Sex: 48 / F ?ADM Date: 03/16/24 ? Loc: HO.MAMMO ? Attending Dr: Jay Hooper MD ? Ordering Physician: Jay Hooper MD ?Resu ?? lts: 1Negative ? Date of Service: 08/25/23 ?Follow Up: 1 Year From Orig ?? inal Mammogram ? Procedure(s): MM tomosynthesis screening BI ?? Accession Number(s): [id number] ? cc: Jay Hooper MD ? EXAMINATION: [...] by Montse Collins MD in OV> ? 03/29/24 1608 ? DD/ 0859 ? TD/TT: ? Monument Carver: ? Procedure Note Donotuseinterpreter, Image - 09/07/2023 [place] [facility] [address] [place] [address] Mammography Report Signed Patient: Luna Johnson#: [id number] : 1975Acct:[id number] Age/Sex: 48 / FADM Date: 08/25/23 Loc: HO.MAMMO Attending Dr: Jay Hooper MD Ordering Physician: Jay Hooper MDResu lts: 1Negative Date of Service: 08/25/23Follow Up: 1 Year From Orig inal Mammogram Procedure(s): MM tomosynthesis screening BI Accession Number(s): [id number] cc: Jay Hooper MD EXAMINATION: MM SCREENING [...] in OV> 09/07/23 1608 DD/ 0859 TD/TT: Monument Carver: us Jay Henry MD IMG BI PROCEDURES Darin viki Result - Final * Hm Colonoscopy (12/30/2021) Colonoscopy Normal Normal Jay Henry MD HEALTH MAINTENANCE Ed ited Result - Final from Last 3 Months or Most Recently Relevant to Health Maintenance Insurance [employer] Care Teams Production Packager Relationship Specialty Start Date End Date Jay Davis MD [address] [place] [address] PCP - General Internal Medicine 01/13/14
--- OUTSIDE RECORDS SUMMARY | 2024-09-12 10:27 | XMS_ITS | Encounter Summary ---
Author Organization [employer] Address [address] [facility] [address] [place] [address] Care Team Providers Care Resource Development Director Name Role Phone Jay Davis MD Primary Care Provide r Encounter Details Date Type Department Care Team (Latest Contact Info) Description 09/11/2024 Travel Social History Tobacco Use Types Packs/Day Years [...] Description 12/11/2024 3:00 PM EDT Office Visit [facility] [address] [place] [address] Jay Davis MD [address] [place] [address] documented as of this encounter Visit Diagnoses Not on filedocumented in this encounter Additional Health Concerns Assessment Noted Time PHQ-9 Depression Total Score: 18 025 3:21 PM EDT documented as of this encounter Care Teams Resource Development Director Relationship Specialty Start Date End Date Jay Davis MD [address] [place] [address] PCP - General Internal Medicine 01/13/14 documented as of this encounter
--- OUTSIDE RECORDS SUMMARY | 2024-09-12 10:27 | XMS_ITS | Encounter Summary ---
Author Organization [employer] Address [address] [facility] [address] [place] [address] Care Team Providers Care Molding Press Operator Name Role Phone Jay Davis MD Primary Care Provide r Encounter Details Date Type Department Care Team (Latest Contact Info) Description 09/10/2024 Travel Social History Tobacco Use Types Packs/Day [...] Description 12/11/2024 3:00 PM EDT Office Visit [facility] [address] [place] [address] Jay Davis MD [address] [place] [address] documented as of this encounter Visit Diagnoses Not on filedocumented in this encounter Additional Health Concerns Assessment Noted Time PHQ-9 Depression Total Score: 0 12/25/19 24 1:07 PM EDT documented as of this encounter Care Teams Molding Press Operator Relationship Specialty Start Date End Date Jay Davis MD [address] [place] [address] PCP - General Internal Medicine 01/13/14 documented as of this encounter
--- OUTSIDE RECORDS SUMMARY | 2024-09-12 10:27 | XMS_ITS | Encounter Summary ---
Author Organization [employer] Address [address] [place] [address] 7 [place] [address] Care Team Providers Care Bellhop Service Captain Name Role Phone Jay Davis MD Primary Care Provide r Reason for Referral * Consultation (Routine) - Pending Review Specialty Diagnoses / Procedures Referred By Contfranco t Referred To Contact Endocrinology Diagnoses Jay Lind MD [address] [place] [address] Phone: tel: fax: Referral ID Status Reason Start Date Expiration Date Visits Requested Visits Authorized [id number] Pending Review Specialty Services Required 09/11/2024 09/11/2025 1 1 Reason for Visit * Reason Comments Depression Encounter Details Date Type Department Care Team ([facility] st Contact Info) Description 09/11/2024 2:15 PM EDT Office Visit [facility] [address] [place], [place] [phone] Jay Davis MD [address] [place], [place] [phone] Adonis (Primary Dx); Class 2 obesity due to excess calories without serious comorbidity with body mass index (BMI) of 36.0 to 36.9 in adult; Dietary counseling; Exercise counseling; Major depressive disorder, recurrent episode, moderate (CMS/HCC); Learning disabilities; Preventative health care Social History Tobacco Use Types Packs/Day Years [...] AM EDT documented as of this encounter Last Filed Vital Signs Vital Sign Reading [...] Mass Index 36.92 09/11/2024 2:18 PM EDT documented in this encounter Progress Notes * Jay Henry MD - 09/11/2024 2:15 PM EDT ANTOINE Johnson is a 49 y.o. female who presents for Depression. Patient is here for a follow up regarding incidental finding of enlarged thyroid DepressionPatient is not experiencing: shortness of breath. Review of Systems Constitutional: Negative for fever. HENT: Negative for sore throat. Respiratory: Negative for cough and shortness of breath. Cardiovascular: Negative for chest pain. Gastrointestinal: Negative for abdominal pain. Neurological: Negative for headaches. Psychiatric/Behavioral: Positive for depression. Allergies Allergen Reactions Codeine Other reaction(s): panic attacks, palpitations Doxycycline Other reaction(s): Increased heart rate Morphine Oxycodone Oxycodone-Acetaminophen Other reaction(s): panic attacks, palpitations Penicillins Sulfa Antibiotics Other reaction(s): Increased heart rate Tramadol OBJECTIVE Vitals: 09/11/24 1418 09/11/24 1442 BP: (!) 159/79 (!) 140/78 BP Location: Left arm Left arm Patient Position: Sitting Sitting BP Cuff Size: Adult Pulse: 88 Resp: 20 Temp: 97.5 ??F (36.4 ??C) TempSrc: Temporal SpO2: 99% Weight: 195 lb 6.4 oz (88.6 kg) Height: 5' 1 (1.549 m) Physical Exam Vitals reviewed. Constitutional: Appearance: Normal appearance. HENT: Head: Normocephalic and atraumatic. Right Ear: External ear normal. Left Ear: External ear normal. Nose: Nose normal. Mouth/Throat: Mouth: Mucous membranes are moist. Eyes: Conjunctiva/sclera: Conjunctivae normal. Cardiovascular: Rate and Rhythm: Normal rate and regular rhythm. Pulmonary: Effort: Pulmonary effort is normal. Breath sounds: Normal breath sounds. Skin: General: Skin is warm. Neurological: Mental Status: She is alert. Mental status is at baseline. Assessment/Plan Problem List Items Addressed This Visit Goiter - Primary Pt with an incidental finding on CT of neck of enlarged Thyroid Thyroid US done 09/10/2024 showed: IMPRESSION: Global enlargement of the thyroid. Multiple small bilateral thyroid nodules as described. Accordingto ACR TI-RADS is guidelines, none of the nodules warrants biopsy or follow up. Plan: Obtain TSH, Endocrinology evaluation Relevant Orders TSH with Reflex to Free T4 Thyroid Peroxidase Antibodies Referral to Endocrinology Obesity Patient has been counseled and educated about diet and exercise. Personal goal of weight loss discussed Relevant Orders Lipid Panel, Standard Major depressive disorder, recurrent episode, moderate (CMS/HCC) Patient is no longer under the care of Zohreh Raphael at [facility]. Back in 10/2023 Pt underwent extensive pyschologic testing and was diagnosed with depression and insomnia Plan: Patient tells me she is awaiting to see a psychiatrist at [facility] Learning disabilities Pt tells me that throughout her entire life she felt she had a learning disability, associated withher inability to retain new information, ability to focus or even developing anxiety associated with learning acitivities. She had never been evaluated for this. I discussed with her that performing appropriate Neuropsychologic testing would be a good first step. 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 This was finally done 10/19/2023 See report. Diagnosed with Depression, Insomnia, Borderline intellectual functioning Recommendations were to: Refer to: , Consider treatment for depression and insomnia ( She is awaiting to see Psychiatrist at [facility] ), refer to Sleep Medicine (appointment pending) and she was referred back to Neurology to consider ruling out Pychogenic Non- epileptoid seizures (PNES). Pt had a CT 08/2024 that showed: IMPRESSION: No acute intracranial process. Preventative health care Mammogram: Done 08/25/2023 Normal Pap Smear: 03/25/2024 Normal Colonoscopy: 12/30/2021 showed: One tiny polyp removed Moderate diverticulosis seen in the entire colon 5 year follow up Vaccines: declines Flu shots. Other Visit Diagnoses Dietary counseling Exercise counseling documented in this encounter Miscellaneous Notes * Assessment & Plan Note - Jay Henry MD - 09/11/2024 2:46 PM EDT Associated Problem(s): Learning disabilities Pt tells me that throughout her entire life she felt she had a learning disability, associated withher inability to retain new information, ability to focus or even developing anxiety associated with learning acitivities. She had never been evaluated for this. I discussed with her that performing appropriate Neuropsychologic testing would be a good first step. 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 This was finally done 10/19/2023 See report. Diagnosed with Depression, Insomnia, Borderline intellectual functioning Recommendations were to: Refer to: , Consider treatment for depression and insomnia ( She is awaiting to see Psychiatrist at [facility] ), refer to Sleep Medicine (appointment pending) and she was referred back to Neurology to consider ruling out Pychogenic Non- epileptoid seizures (PNES). Pt had a CT 08/2024 that showed: IMPRESSION: No acute intracranial process. * Assessment & Plan Note - Jay Henry MD - 09/11/2024 2:44 PM EDT Associated Problem(s): Major depressive disorder, recurrent episode, moderate (CMS/HCC) Patient is no longer under the care of Zohreh Raphael at [facility]. Back in 10/2023 Pt underwent extensive pyschologic testing and was diagnosed with depression and insomnia Plan: Patient tells me she is awaiting to see a psychiatrist at [facility] * Assessment & Plan Note - Jay Henry MD - 09/11/2024 2:36 PM EDT Associated Problem(s): Preventative health care Mammogram: Done 08/25/2023 Normal Pap Smear: 03/25/2024 Normal Colonoscopy: 12/30/2021 showed: One tiny polyp removed Moderate diverticulosis seen in the entire colon 5 year follow up Vaccines: declines Flu shots. * Assessment & Plan Note - Jay Henry MD - 09/11/2024 2:35 PM EDT Associated Problem(s): Obesity Patient has been counseled and educated about diet and exercise. Personal goal of weight loss discussed * Assessment & Plan Note - Jay Henry MD - 09/11/2024 2:30 PM EDT Associated Problem(s): Goiter Pt with an incidental finding on CT of neck of enlarged Thyroid Thyroid US done 09/10/2024 showed: IMPRESSION: Global enlargement of the thyroid. Multiple small bilateral thyroid nodules as described. Accordingto ACR TI-RADS is guidelines, none of the nodules warrants biopsy or follow up. Plan: Obtain TSH, Endocrinology evaluation documented in this encounter Plan of Treatment Upcoming Encounters Date Type Department Care Team (Late st Contact Info) Description 12/11/2024 3:00 PM EDT Office Visit [facility] [address] [place] [phone] Jay Davis MD [address] [place], [place] [phone] Scheduled Orders Name Type Priority Associated Diagnoses Orde r Schedule TSH with Reflex to Free T4 Lab Routine Goiter Ordered: 09/11/2024 Thyroid Peroxidase Antibodies Lab Routine Goiter Expected: 09/11/2024 (Approximate), Expires: 09/11/2025 Lipid Panel, Standard Lab Routine Class 2 obesity due to excess calories without serious comorbidity with body mass index (BMI) of 36.0 to 36.9 in adult Ordered: 09/11/2024 Scheduled Referrals Name Type Priority Associated Diagnoses Order Schedule Referral to Endocrinology Outpatient Referral Routine Goiter Expected: 09/11/2024 (Approximate), Expires: 09/11/2025 documented as of this encounter Visit Diagnoses Diagnosis Goiter- Primary Goiter, unspecified Class 2 obesity due to excess calories without serious comorbidity with body mass index (BMI) of 36.0 to 36.9 in adult Dietary counseling Dietary surveillance and counseling Exercise counseling Major depressive disorder, recurrent episode, moderate (CMS/HCC) Major depressive disorder, recurrent episode, moderate Learning disabilities Other specific developmental learning difficulties Preventative health care Routine general medical examination at a health care facility documented in this encounter Additional Health Concerns Assessment Noted Time PHQ-9 Depression Total Score: 18 025 3:21 PM EDT documented as of this encounter Care Teams Bellhop Service Captain Relationship Specialty Start Date End Date Jay Davis MD [address] [place] [phone] PCP - General Internal Medicine 01/13/14 documented as of this encounter
--- OUTSIDE RECORDS SUMMARY | 2024-09-12 10:27 | XMS_ITS | Encounter Summary ---
Author Organization [employer] Address [address] [facility] 7 [place] [address] Care Team Providers Care Insurance Claims Clerk Name Role Phone Jay Davis MD Primary Care Provide r Reason for Visit * Reason Onset Date Comments Referral 09/11/2024 Encounter Details Date Type Department Care Team ([facility] st Contact Info) Description 09/11/2024 Telephone [facility] [address] [place] [address] Jay Davis MD [address] [place] [address] Referral Social History Tobacco Use Types Packs/Day [...] Telephone Encounter - Jyoti Sarabia [place] - 09/11/2024 3:03 PM EDT Contacted [facility] Psychiatry in regards to referral, had to leave message with pt's # as well as a callback number to the clinic with my direct ext. Provided referral information to pt. LB documented in this encounter Plan of Treatment Upcoming Encounters Date Type Department Care Team (Late st Contact Info) Description 12/11/2024 3:00 PM EDT Office Visit [facility] [address] [place] [phone] Jay Davis MD [address] [place] [address] documented as of this encounter Visit Diagnoses Not on filedocumented in this encounter Additional Health Concerns Assessment Noted Time PHQ-9 Depression Total Score: 18 025 3:21 PM EDT documented as of this encounter Care Teams Insurance Claims Clerk Relationship Specialty Start Date End Date Jay Davis MD [address] [place] [phone] PCP - General Internal Medicine 01/13/14 documented as of this encounter
--- OUTSIDE RECORDS SUMMARY | 2024-09-12 10:27 | XMS_ITS | Encounter Summary ---
Author Organization [employer] Address [address] [facility] 7 [place] [address] Care Team Providers Care Test Driver Name Role Phone Jay Davis MD Primary Care Provide r Reason for Visit * Reason Onset Date Comments Referral 07/11/2024 Encounter Details Date Type Department Care Team ([facility] st Contact Info) Description 07/11/2024 Telephone [facility] [address] [place] [address] Jay Davis MD [address] [place] [address] Referral Social History Tobacco Use Types Packs/Day [...] referral in general to be placed in [facility] as pt work insurance will have coverage in that facility. Pt received call from a facility as she had to reject due to insurance wont cover visit. documented in this encounter Plan of Treatment Upcoming Encounters Date Type Department Care Team (Late st Contact Info) Description 12/11/2024 3:00 PM EDT Office Visit [facility] [address] [place] [address] Jay Davis MD [address] [place] [address] documented as of this encounter Visit Diagnoses Not on filedocumented in this encounter Additional Health Concerns Assessment Noted Time PHQ-9 Depression Total Score: 0 12/25/19 24 1:07 PM EDT documented as of this encounter Care Teams Test Driver Relationship Specialty Start Date End Date Jay Davis MD [address] [place] [phone] PCP - General Internal Medicine 01/13/14 documented as of this encounter
--- OUTSIDE RECORDS SUMMARY | 2024-09-12 10:28 | XMS_ITS | Clinical Summary ---
Author Organization [facility] it Address [id number] [place] [phone] Care Team Providers Care Procedures Rn Name Role Phone Jay Hooper MD Primary Care Provi leah Encounters Date Type Department Care Team Description 07/18/2024 [facility] Neuro[facility] [address] [place] [phone] Nayan Leonardo MD Syncope and collapse 07/17/2024 [facility] Neurodiagn[facility] [address] [place] [phone] Nayan Leonardo MD Syncope and collapse 07/16/2024 [facility] Neurodiagn[facility] [address] [place] [phone] Nayan Leonardo MD Syncope and collapse from [...] AM EDT Appointment [facility] Neurodiagnostic [address] [place] [phone] 10/16/2024 12:00 PM EDT Appointment [facility]diagn[facility] [address] [place] [phone] 10/17/2024 12:00 PM EDT Appointment [facility] [address] [place] [phone] Health Maintenance Due Date Last Done Comments [...] topic Insurance MEDICAID - [place] Care Teams Procedures Rn Relationship Specialty Start Date End Date Jay Hooper MD [address] [place] [address] [place] [phone] PCP - General 04/05/10
--- OUTSIDE RECORDS SUMMARY | 2024-09-12 10:28 | XMS_ITS | Encounter Summary ---
Author Organization [employer] Address [address] [facility] 7t [place] [address] Care Team Providers Care Qualifications Examiner Name Role Phone Jay Davis MD Primary Care Provide r Reason for Visit * Reason Onset Date Comments Med Refill 10/15/2023 Encounter Details Date Type Department Care Team ([facility] st Contact Info) Description 10/15/2023 Refill [facility] [address] [place] [address] Jay Davis MD [address] [place] [address] Dermatitis Social History Tobacco Use Types Packs/Day [...] t he electric, gas, oil or water [employer] threatened to shut off services in your [...] Description 12/11/2024 3:00 PM EDT Office Visit [facility] [address] [place] [phone] Jay Davis MD [address] [place] [phone] documented as of this encounter Visit Diagnoses Diagnosis Dermatitis Contact dermatitis and other eczema, due to unspecified cause documented in this encounter Additional Health Concerns Assessment Noted Time PHQ-9 Depression Total Score: 6 10/06/19 23 12:39 PM EDT documented as of this encounter Care Teams Qualifications Examiner Relationship Specialty Start Date End Date Jay Davis MD [address] [place] [phone] PCP - General Internal Medicine 01/13/14 documented as of this encounter
[2024-09-12 13:01] LABS: Cholesterol 174 mg/dL (<200); Triglycerides 132 mg/dL (<150)
[2024-09-12 13:20] LABS: TSH reflex Free T4 1.04 uIU/mL (0.32-4.0)
[2024-09-12 14:05] LABS: HDL Cholesterol 55 mg/dL (>40); LDL Cholesterol Calculated 93 mg/dL (<100)
[2024-09-16 19:03] LABS: Thyroid Peroxidase Antibodies 1 IU/mL (<9)
== END 2024-09-12 09:31 | disposition home or self-care (01) ==
LOC: HO.LAB 09:30
PROVIDERS: PCP Internal Medicine; Visit Provider Internal Medicine
DX: E04.9 Nontoxic goiter, unspecified (principal); E66.812 Obesity, class 2; E66.09 Other obesity due to excess calories; Z68.36 Body mass index [BMI] 36.0-36.9, adult
CPT/HCPCS: 36415; 80061; 84443; 86376

== ENCOUNTER → 2024-10-20 13:15 | Outpatient (BNV) | payer OTHER, SELFPAY | PROVIDERS: PCP Internal Medicine; Visit Provider Internal Medicine | DX: Z12.31 Encounter for screening mammogram for malignant neoplasm of breast (principal) | CPT/HCPCS: 77063; 77067 ==

== ENCOUNTER 2024-10-20 13:25 | Outpatient (REF) | payer OTHER, SELFPAY ==
--- OUTSIDE RECORDS SUMMARY | 2024-10-20 13:46 | XMS_ITS | Clinical Summary ---
Author Organization [employer] Address [address] [facility] 7[address] [place] [address] Care Team Providers Care Ux Researcher Name Role Phone Jay Davis MD Primary Care Provide r Allergies Active Allergy Reactions Criticality Noted Date Comments Codeine 12/23/2019 Other reaction(s): panic attacks, palpitations Doxycycline 10/05/2022 Other reaction(s): Increased heart rate Morphine 01/29/2012 Oxycodone 12/23/2019 Oxycodone-Acetaminophen 10/05/2022 Other reaction(s): panic attacks, palpitations Penicillins 01/29/2012 Sulfa Antibiotics 10/05/2022 Other reaction(s): Increased heart rate Tramadol 10/05/2022 Medications tiZANidine (Zanaflex) 2 MG tabletIndicati ons:Low back pain radiating to right leg Take 1 tablet (2 mg) by mouth every 6 (six) hours if needed for muscle spasms. 30 tablet 10/06/19 23 Active Misc. Devices (Pulse Oximeter For Finger) miscIndication s:COVID-19 To use every 4 hours. Call the office if O2 Sat < 90% 1 each 05/21/20 23 Active triamcinolone (Kenalog) 0.1 % creamIndicatio ns:Dermatitis APPLY TO THE AFFECTED AREA(S) SPARINGLY TWICE DAILY 15 g 1 10/15/19 24 Active Diclofenac Sodium 1 % gelIndications :Pain of right heel Use twice daily on affected area 50 g 1 12/25/19 24 Active terbinafine (LamISIL AT) 1 % creamIndicatio ns:Tinea pedis of right foot Apply topically 2 times daily. 42 g 1 12/25/19 24 Active acetaminophen (Tylenol) 500 MG tablet Take 2 tablets (1,000 mg) by mouth every 6 (six) hours if needed for moderate pain or fever for up to 25 doses. 40 tablet 05/16/20 24 Active lidocaine (Lidoderm) 5 % patch Apply 1 patch topically Once per day. Remove & discard patch within 12 hours or as directed by MD. 30 patch 2 05/16/20 24 025 Active ibuprofen 400 MG tablet Take 1 tablet (400 mg) by mouth every 6 (six) hours if needed for moderate pain or fever for up to 30 doses. 30 tablet 05/16/20 24 Active Blood Pressure kit 1 each 2 times daily. 1 kit 05/16/20 24 025 Active cetirizine (ZyrTEC) 10 MG tabletIndicati ons:Subacute cough Take 1 tablet (10 mg) by mouth Once per day. 30 tablet 2 10/11/19 25 025 Active cetirizine (ZyrTEC) 10 MG tabletIndicati ons:Subacute cough Take 1 tablet (10 mg) by mouth Once per day. 30 tablet 2 06/12/19 25 025 Discontinued(Re order (will not trigger notification to Pharmacy)) Active Problems Problem Noted Date Diagnosed Date [...] under the care of Zohreh Raphael at [facility]. Back in 10/2023 Pt underwent extensive pyschologic testing and was diagnosed with depression and insomnia Plan: Patient tells me she is awaiting to see a psychiatrist at [facility] Assessment & Plan (06/12/2024 3:06 PM EST): Patient is under the care of Zohreh Raphael at [facility]. Back in 10/2023 Pt underwent extensive [...] with her psychotherapist Zohreh Simmons at [facility] Subacute cough 12/25/2023 Assessment & Plan (06/12/2024 [...] and accessories, laparoscopic sleeve gastrectomy and gastropexy. [facility] health care 10/05/2022 Assessment & Plan [...] 8:25 AM EDT): Mammogram: Done 05/07/2017 at [facility] was normal Pap Smear: Done by Dr [...] step. She is willing and able to world travel counselor was referred to Neuropsychological testing by Zohreh Ford at [facility] . This was finally done 10/19/2023 See report. Diagnosed with Depression, Insomnia, Borderline intellectual functioning Recommendations were to: Refer to: , Consider treatment for depression and insomnia ( She is awaiting to see Psychiatrist at [facility] ), refer to Sleep Medicine (appointment pending) [...] step. She is willing and able to world travel counselor was referred to Neuropsychological testing by Zohreh Ford at [facility] . This was finally done 10/19/2023 See [...] and able to travel Will refer to [facility] Obesity 04/14/2014 Assessment & Plan (09/11/2024 [...] Encounters Date Type Department Care Team Description 10/10/2024 Refill [facility] [place] [address] Jay Davis MD Subacute cough 09/11/2024 2:15 PM EDT Office Visit [facility] [place] [address] Jay Davis MD Goiter (Primary Dx); Class 2 obesity due to excess calories without serious comorbidity with body mass index (BMI) of 36.0 to 36.9 in adult; Dietary counseling; Exercise counseling; Major depressive disorder, recurrent episode, moderate (CMS/HCC); Learning disabilities; Preventative health care 09/11/2024 Telephone [facility] [place] [address] Jay Davis MD Referral 09/11/2024 Travel 09/10/2024 Travel 08/28/2024 Telephone [facility] [place] [address] Jay Davis MD Chart Prep 08/18/2024 Telephone [facility] [place] [address] Jay Davis MD Results; Referral 08/16/2024 Orders Only [facility] [place] [address] Jay Davis MD Enlarged thyroid (Primary Dx) 08/12/2024 Orders Only [facility] [place] [address] Jay Davis MD Major depressive disorder, recurrent episode, moderate (CMS/HCC) (Primary Dx) 08/08/2024 Orders Only [facility] External Provider, [facility] 08/08/2024 Telephone [facility] [address] [facility] [place] [address] Jay Davis MD Referral from Last 3 [...] Description 12/11/2024 3:00 PM EDT Office Visit [facility] [address] [place] [address] Jay Davis MD [address] [place] [address] Health Maintenance Due Date Last Done Comments CT Colonography 1973 FIT DNA/Cologuard 1973 FIT 1973 FOBT 1975 HIV Screening 1973 Sigmoidoscopy 1973 Family Planning (PISQ) 1988 Hepatitis C Screening 1991 Hepatitis B Vaccines (3 of 3 - 19+ 3-dose series) 03/10/2023 10/11/2022, 09/07/2022 Pneumococcal Vaccine: 50+ Years (1 of 1 - PCV) 2023 Zoster Vaccines (1 of 2) 2023 COVID-19 Vaccine (3 - 2023-2 5 season) 2024 10/07/2020, 09/15/2020 Influenza Vaccine (#1) 2024 Mammogram 08/24/2024 08/25/2023 SDOH Screening 12/24/2024 12/25/2023 Tobacco Screening 05/16/2025 05/16/2024 Alcohol/Substance Use Screening 06/12/2025 06/12/2024 Depression Screening 09/11/2025 09/11/2024, 09/11/2024 Cervical Cancer Screening 03/18/2029 HPV/Cotest 03/18/2029 03/18/2024 Pap Smear 03/18/2029 03/18/2024 Lipid Panel 09/12/2029 09/12/2024 Colonoscopy 12/31/2031 12/30/2021 Colorectal Cancer Screening 12/31/2031 [...] Procedure Name Priority Date/Time Associated Diagnosis Comments THYROID PEROXIDASE ANTIBODIES Routine 09/12/2024 9:40 AM EDT Goiter LIPID PANEL, STANDARD Routine 09/12/2024 9:40 AM EDT Class 2 obesity due to excess calories without serious comorbidity with body mass index (BMI) of 36.0 to 36.9 in adult TSH W/REFLEX TO FT4 Routine 09/12/2024 9 :40 AM EDT Goiter US THYROID Routine 09/10/2024 2:09 PM EDT Enlarged thyroid CT HEAD WO CONTRAST Routine 08/11/2024 1 :11 PM EST THINPREP IMAGING PAP AND HPV MRNA E6/E7 WITH REFLEX TO HPV 16,18/45 Routine 03/18/2024 8:00 AM EDT BI MAMMOGRAM SCREENING TOMOSYNTHESIS BILATERAL Routine 08/25/2023 8:59 AM EDT HM COLONOSCOPY Routine 12/30/2021 from Last 3 Months or Most Recently Relevant to Health Maintenance Results * TSH with Reflex to Free T4 (09/12/2024 9:40 AM EDT) TSH reflex Free T4 1.04 0.32 - 4.0 uIU/mL [facility] Blood Venous blood specimen / Unknown 09/12/2024 9:40 AM EDT 09/12/2024 9:40 AM EDT us Jay Henry MD LAB BLOOD ORDERABLES Final Result Performing Organization Address City/[facility]/ZIP Co de Phone Number [facility] [address] [place], [place] [phone] * Thyroid Peroxidase Antibodies (09/12/2024 9:40 AM EDT) Thyroid Peroxidase Antibodies 1 <9 IU/mL [facility] Comment:THIS TEST WAS PERFOR MED AT:[facility] [address] [phone] WASHINGTON MD Blood Venous blood specimen / Unknown 09/12/2024 9:40 AM EDT 09/12/2024 9:40 AM EDT us Jay Henry MD LAB BLOOD ORDERABLES Final Result Performing Organization Address City/State/[facility] de Phone Number [facility] [address] [place] [address] [phone] * Lipid Panel, Standard (09/12/2024 9:40 AM EDT) Triglycerides 132 <150 mg/dL [facility] Comment:Desirable Triglyceri de: less than 150 mg/dLBorderline High Triglyceride 150-199 mg/dLHigh Triglyceride: 200-499 mg/dLVery High Triglyceride: greater than or equal to 5OO mg/dL Cholesterol 174 <200 mg/dL [facility] Comment:Desirable Cholestero l: less than 200 mg/dLBorderline High Cholesterol: 200-239 mg/dLHigh Cholesterol: greater than 239 mg/dL LDL Cholesterol Calculated 93 <100 mg/dL [facility] Comment:Desirable LDL: less than 100 mg/dLNear Optimal/Above Optimal LDL: 110- 129 mg/dLBorderline High LDL: 130-159 mg/dLHigh LDL: 160-189 mg/dLVery High LDL: greater than or equal to 190 mg/dL HDL Cholesterol 55 >40 mg/dL [facility] Comment:Desirable HDL: great er than 40 mg/dL Note: This HDL assay may give artificially low results in patients with liver disease. Blood Venous blood specimen / Unknown 09/12/2024 9:40 AM EDT 09/12/2024 9:40 AM EDT us Jay Henry MD LAB BLOOD ORDERABLES Final Result Performing Organization Address [facility] Co de Phone Number [facility] [address] [place] [address] [phone] * US Thyroid (09/10/2024 2:09 PM EDT) Anatomical Region Laterality Modality Head, Neck Ultrasound 09/10/2024 2:09 PM EDT Narrative 09/11/2024 7:26 AM EDT ? [facility] ?[address] ?[place] [address] ? Ultrasound Report ? Signed ? Patient: Johnson,Diane ?MR#: [id number] ? : 1975 ?Acct:[id number] ? Age/Sex: 49 / F ?ADM Date: 09/10/24 ? Loc: HO.US ? Attending Dr: Jay Hooper MD ? Ordering Physician: Jay Hooper MD ?? Date of Service: 09/10/24 ?? Procedure(s): US thyroid ?? Accession Number(s): [id number] ? cc: Jay Hooper MD ? EXAMINATION: [...] DD/ 1409 ? TD/TT: 09/10/24 1421 ? Bonding Machine Setter: ? Procedure Note Donotuseinterpreter, Image - 09/11/[address] [address] Ultrasound Report Signed Patient: Diane JohnsonMR#: [id number] : 1975Acct:[id number] Age/Sex: 49 / FADM Date: 09/10/24 Loc: HO.US Attending Dr: Jay Hooper MD Ordering Physician: Jay Hooper MD Date of Service: 09/10/24 Procedure(s): US thyroid Accession Number(s): [id number] cc: Jay Hooper MD EXAMINATION: US THYROID [...] 09/11/24 0723 DD/ 1409 TD/TT: 09/10/24 1421 Bonding Machine Setter: us Jay LIN US PROCEDURES Darin viki Result - Final * CT Head w/o Contrast (08/11/2024 1:11 PM EST) Anatomical Region Laterality Modality Head, Neck Computed Tomogra phy 08/11/2024 1:11 PM EST Narrative 08/11/2024 1:13 PM EST ? [facility] ?[address] ?[place] [address] ? CT Scan Report ? Signed ? Patient: Johnson,Diane ?MR#: [id number] ? : 1975 ?Acct:[id number] ? Age/Sex: 49 / F ?ADM Date: 08/08/24 ? Loc: HO.CT ? Attending Dr: Nayan Leonardo MD ? Ordering Physician: Nayan Leonardo MD ?? Date of Service: 08/08/24 ?? Procedure(s): CT head/brain wo IV con ?? Accession Number(s): [id number] ? cc: Jay Hooper MD; Nayan Leonardo MD ? Report Number: ?? [id number]: Total DLP = ??732.00 mGy-cm ? CLINICAL [...] 1312 ? DD/ 1311 ? TD/TT: 08/11/24 131 ? Bonding Machine Setter: ? Procedure Note Genaro, Image - 08/11/[address] [address] [address] Scan Report Signed Patient: Luna Johnson#: [id number] : 1975Acct:[id number] Age/Sex: 49 / FADM Date: 08/08/24 Loc: HO.CT Attending Dr: Nayan Leonardo MD Ordering Physician: Nayan Leonardo MD Date of Service: 08/08/24 Procedure(s): CT head/brain wo IV con Accession Number(s): [id number] cc: Jay Hooper MD; Nayan Leonardo MD Report Number: [id number]: Total DLP = 732.00 mGy-cm CLINICAL HISTORY: [...] 08/11/24 1312 DD/ 1311 TD/TT: 08/11/24 1311 Bonding Machine Setter: [facility] External Provider IMG CT PROCEDURES Final Result * ThinPrep Imaging Pap and HPV mRNA E6/E7 with Reflex to HPV 16,18/45 (03/18/2024 8:00 AM EDT) HPV 16 RNA [facility] HPV 18/45 RNA [facility] HPV nRNA E6/E7 Not Detected Not Detected [facility] Comment:Methodology: Transcr iption-Mediated AmplificationThis assay detects E6/E7 viral messenger RNA (mRNA) from 14high-risk HPV types (16,18,31,33,35,39,45,51,52,56,58,59,66,68).Cervical sources are required for HPV testing.If a vaginal source from a patient who has had atotal hysterectomy with removal of cervix wassubmitted, please contact the testing laboratoryfor alternative testing options.For additional information, please refer [email or web address]/faq/AIE833h4(This link if provided for information/educational purposes only.)THIS TEST WAS PERFORMED AT:[facility] [address] [phone] WASHINGTON MD SOURCE: SEE NOTE [facility] Comment:None given Report Status: [facility] Clinical Information: SEE NOTE [facility] Comment:None given LMP: SEE NOTE [facility] Comment:NONE GIVEN Prev. PAP: SEE NOTE [facility] Comment:NONE GIVEN Prev. BX: SEE NOTE [facility] Comment:NONE GIVEN Statement Of Adequacy: SEE NOTE [facility] Comment:Satisfactory for caroline luation.Endocervical/transformation zone componentpresent. General Categorization: [facility] Interpretation/Result: SEE NOTE [facility] Comment:Cytology Results: Ne gative for intraepitheliallesion or malignancy. Cytology Comment SEE NOTE [facility] Comment:This Pap test has be en evaluated with computerassisted technology. Financial Specialist: SEE NOTE [facility] Comment:BK,CT(ASCP)CT screen ing location: [address] Review Financial Specialist: [facility] Pathologist [facility] PAP Infection [facility] See Note SEE [facility] Comment:EXPLANATORY NOTE:The Pap is a screening test for cervical cancer. It isnot a diagnostic test and is subject to false negativeand false positive results. It is most reliable when asatisfactory sample, regularly obtained, is submittedwith relevant clinical findings and history, and whenthe Pap result is evaluated along with historic andcurrent clinical information. 03/18/2024 8:00 AM EDT 03/18/2024 3:31 PM EDT Narrative [facility] - 03/25/2024 2:07 PM EDT SEE SCANNED RESULTS IN EMR us Generic External Data Provider LAB PATHOLOGY ORD ERABLES Final Result [facility] [address] [place] [address] [phone] * BI Mammogram Screening Tomosynthesis Bilateral (08/25/2023 8:59 AM EDT) Anatomical Region Laterality Modality Breast Bilateral Mammography 08/25/2023 8:59 AM EDT Narrative 09/07/2023 4:11 PM EDT ? [facility] ? [address] ?[place] [address] ? Mammography Report ? Signed ? Patient: Johnson,Diane ?MR#: [id number] ? : 1975 ?Acct:[id number] ? Age/Sex: 48 / F ?ADM Date: 08/25/23 ? Loc: HO.MAMMO ? Attending Dr: Jay Hooper MD ? Ordering Physician: Jay Hooper MD ?Resu ?? lts: 1Negative ? Date of Service: 08/25/23 ?Follow Up: 1 Year From Orig ?? inal Mammogram ? Procedure(s): MM tomosynthesis screening BI ?? Accession Number(s): [id number] ? cc: Jay Hooper MD ? EXAMINATION: [...] 1608 ? DD/ 0859 ? TD/TT: ? Bonding Machine Setter: ? Procedure Note Genaro, Image - 09/07/2023 [place] [facility] [address] [place] [address] [place] [address] Mammography Report Signed Patient: Luna Johnson#: [id number] : 1975Acct:[id number] Age/Sex: 48 / FADM Date: 08/25/23 Loc: HO.MAMMO Attending Dr: Jay Hooper MD Ordering Physician: Jay Hooper MDResu lts: 1Negative Date of Service: 08/25/23Follow Up: 1 Year From Orig inal Mammogram Procedure(s): MM tomosynthesis screening BI Accession Number(s): [id number] cc: Jay Hooper MD EXAMINATION: MM SCREENING [...] in OV> 09/07/23 1608 DD/ 0859 TD/TT: Bonding Machine Setter: Jay Henry MD IMG BI PROCEDURES Darin viki Result - Final * Hm Colonoscopy (12/30/2021) Colonoscopy Normal Normal Jay Henry MD HEALTH MAINTENANCE Ed ited Result - Final from Last 3 Months or Most Recently Relevant to Health Maintenance Insurance [employer] Care Teams Ux Researcher Relationship Specialty Start Date End Date Jay Davis MD [address] [place] [phone] PCP - General Internal Medicine 01/13/14
--- OUTSIDE RECORDS SUMMARY | 2024-10-20 13:46 | XMS_ITS | Encounter Summary ---
Author Organization [facility] Address [address] [place] [address] Care Team Providers Care Executive Marketing Assistant Name Role Phone Jay Hooper MD Primary Care Provi leah Reason for Visit * Neurology (Routine) - Authorized Specialty Diagnoses / Procedures Referred By Contac t Referred To Contact Neurology Diagnoses Syncope and collapse Procedures Continuous EEG Nayan Leonardo MD [address] [place] [phone] Phone: tel: fax: [facility] [address] [place] [phone] Phone: tel: Referral ID Status Reason Start Date Expiration Date V isits Requested Visits Authorized [id number] Authorized 07/15/2024 07/15/2025 3 3 Encounter Details Date Type Department Care Team (Late st Contact Info) Description 10/17/2024 9:37 AM EDT Hospital Encounter [facility] [address] [place] [phone] Arrived Social History Tobacco Use Types Packs/Day Years Used Date Smoking Tobacco: Never Assessed Comments Unknown Sex and Gender Information Value Date Recorded Sex Assigned at Not on file Legal Sex Female 3:31 PM EST Gender Identity Not on file Sexual Orientation Not on file documented as of this encounter Plan of Treatment Pending Results Name Type Priority Associated Diagnoses Date /Time Continuous EEG Neurology Routine Syncope and collapse 10/17/2024 10:19 AM EDT documented as of this encounter Visit Diagnoses Not on filedocumented in this encounter Care Teams Executive Marketing Assistant Relationship Specialty Start Date End Date Jay Hooper MD [address] [place] [address] [place] [phone] PCP - General 04/05/10 documented as of this encounter
--- OUTSIDE RECORDS SUMMARY | 2024-10-20 13:46 | XMS_ITS | Clinical Summary ---
Author Organization [facility] Address [address] [place] [phone] Phone Care Team Providers Care Production Or Plant Engineer Name Role Phone Jay Hooper MD Primary Care Provi leah Encounters Date Type Department Care Team Description 10/17/2024 9:37 AM EDT Hospital Encounter [facility] [address] [place] [phone] Arrived 10/16/2024 10:00 AM EDT - 10/16/2024 11:59 PM EDT Hospital Encounter [facility] [address] [place] [phone] Discharge Disposition: Home or Self Care 10/15/2024 10:00 AM EDT - 10/15/2024 11:59 PM EDT Hospital Encounter [facility] [address] [place] [phone] Discharge Disposition: Home or Self Care from Last 3 Months Social History Tobacco [...] 03/24/2024 3:24 PM EDT Plan of Treatment Health Maintenance Due Date Last Done Comments Breast Cancer Screening 1973 Cervical Cancer Screening: P ap Smear 1994 Pneumococcal Vaccine: 50+ Years (1 of 1 - PCV) 2023 Zoster Vaccines (1 of 2) 2023 023, 09/07/2022 COVID-19 Vaccine (3 - 2023-2 5 season) 2024 10/07/2020, 09/15/2020 Colorectal Cancer Screening: Colonoscopy 04/07/2024 HIV Screening 04/07/2024 Hepatitis C Screening 04/07/2024 Social Influencers of Health Screening 04/07/2024 Influenza Vaccine (Season Ended) 2025 Depression Screening 09/11/2025 09/11/2024 Cholesterol Screening (Lipid Panel) 09/12/2029 09/12/2024 DTaP,Tdap,and Td Vaccines (3 - Td or Tdap) 09/07/2032 09/07/2022, 01/29/2012 MMR Vaccines Aged Out 10/11/2022, 09/07/2022 No longer eligible based on patient's age to complete this topic Varicella Vaccines Aged Out 10/11/2022, 09/07/2022 No longer eligible based on patient's age to complete this topic Hepatitis B Vaccines Completed 02/07/2023, 10/11/2022, 09/07/2022 HIB Vaccines Aged Out No longer eligi [...] age to complete this topic Meningococcal B Vaccine Aged Out No l onger eligible based on patient's age to complete this topic Pneumococcal Vaccine: Pediatrics (0 to 5 Years) and At-Risk Patients (6 to 64 Years) Aged Out No longer eligible b ased on patient's age to complete this topic RSV Immunization Patients Under 20 months Aged Out No longer eligible b ased on patient's age to complete this topic Insurance [place]ICAID - [place] [employer] [employer] [facility] Care Teams Production Or Plant Engineer Relationship Specialty Start Date End Date Jay Hooper MD [address] [place] [address] [place] [phone] PCP - General 04/05/10
--- OUTSIDE RECORDS SUMMARY | 2024-10-20 13:46 | XMS_ITS | Encounter Summary ---
Author Organization [employer] Address [address] [facility] 7t [place] [address] Care Team Providers Care Tucking Machine Operator Name Role Phone Jay Davis MD Primary Care Provide r Reason for Visit * Reason Onset Date Comments Med Refill 10/15/2023 Encounter Details Date Type Department Care Team ([facility] st Contact Info) Description 10/15/2023 Refill [facility] [address] [place] [address] Jay Davis MD [address] [place] [address] Dermatitis Social History Tobacco Use Types Packs/Day [...] t he electric, gas, oil or water [employer] threatened to shut off services in your [...] Description 12/11/2024 3:00 PM EDT Office Visit [facility] [address] [place] [address] Jay Davis MD [address] [place] [phone] documented as of this encounter Visit Diagnoses Diagnosis Dermatitis Contact dermatitis and other eczema, due to unspecified cause documented in this encounter Additional Health Concerns Assessment Noted Time PHQ-9 Depression Total Score: 6 10/06/19 23 12:39 PM EDT documented as of this encounter Care Teams Tucking Machine Operator Relationship Specialty Start Date End Date Jay Davis MD [address] [place] [phone] PCP - General Internal Medicine 01/13/14 documented as of this encounter
--- OUTSIDE RECORDS SUMMARY | 2024-10-20 13:46 | XMS_ITS | Encounter Summary ---
Author Organization [employer] Address [address] [facility] [address] [place] [address] Care Team Providers Care Moshgiach Name Role Phone Jay Davis MD Primary Care Provide r Reason for Visit * Reason Onset Date Comments Referral 07/11/2024 Encounter Details Date Type Department Care Team ([facility] st Contact Info) Description 07/11/2024 Telephone [facility] MED[facility] [address] [place] [address] Jay Davis MD [address] [place] [address] Referral Social History Tobacco Use Types Packs/Day [...] referral in general to be placed in [facility] as pt work insurance will have coverage in that facility. Pt received call from a facility as she had to reject due to insurance wont cover visit. documented in this encounter Plan of Treatment Upcoming Encounters Date Type Department Care Team (Late st Contact Info) Description 12/11/2024 3:00 PM EDT Office Visit [facility] MED[facility] [address] [place] [address] Jay Davis MD [address] [place] [phone] documented as of this encounter Visit Diagnoses Not on filedocumented in this encounter Additional Health Concerns Assessment Noted Time PHQ-9 Depression Total Score: 0 12/25/19 24 1:07 PM EDT documented as of this encounter Care Teams Moshgiach Relationship Specialty Start Date End Date Jay Davis MD [address] [place] [phone] PCP - General Internal Medicine 01/13/14 documented as of this encounter
--- OUTSIDE RECORDS SUMMARY | 2024-10-20 13:47 | XMS_ITS | Encounter Summary ---
Author Organization [facility] Address [address] [place] [address] Care Team Providers Care Soaker Helper Name Role Phone Jay Hooper MD Primary Care Provi leah Reason for Visit * Neurology (Routine) - Authorized Specialty Diagnoses / Procedures Referred By Contac t Referred To Contact Neurology Diagnoses Syncope and collapse Procedures Continuous EEG Nayan Leonardo MD [address] [place] [address] [place] [address] Phone: tel: fax: [facility] [address] [place] [phone] Phone: tel: Referral ID Status Reason Start Date Expiration Date V isits Requested Visits Authorized [id number] Authorized 07/15/2024 07/15/2025 3 3 Encounter Details Date Type Department Care Team (Latest Contact Info) Description 10/16/2024 10:00 AM EDT - 10/16/2024 11:59 PM EDT Hospital Encounter [facility] [address] [place] [phone] Discharge Disposition: Home or Self Care Social History Tobacco Use Types Packs/Day Years Used Date Smoking Tobacco: Never Assessed Comments Unknown Sex and Gender Information Value Date Recorded Sex Assigned at Not on file Legal Sex Female 3:31 PM EST Gender Identity Not on file Sexual Orientation Not on file documented as of this encounter Discharge Disposition Disposition Code Departure Means Destination Home or Self Care documented in this encounter Plan of Treatment Pending Results Name Type Priority Associated Diagnoses Date /Time Continuous EEG Neurology Routine Syncope and collapse 10/16/2024 1:19 PM EDT documented as of this encounter Visit Diagnoses Not on filedocumented in this encounter Care Teams Soaker Helper Relationship Specialty Start Date End Date Jay Hooper MD [address] [place] [address] [place] [phone] PCP - General 04/05/10 documented as of this encounter
--- OUTSIDE RECORDS SUMMARY | 2024-10-20 13:47 | XMS_ITS | Encounter Summary ---
Author Organization [facility] Address [address] [place] [address] Care Team Providers Care Aquatic Performer Name Role Phone Jay Hooper MD Primary Care Provi leah Reason for Visit * Neurology (Routine) - Authorized Specialty Diagnoses / Procedures Referred By Contac t Referred To Contact Neurology Diagnoses Syncope and collapse Procedures Continuous EEG Nayan Leonardo MD [address] [place] [address] [place] [address] Phone: tel: fax: [facility] [address] [place] [phone] Phone: tel: Referral ID Status Reason Start Date Expiration Date V isits Requested Visits Authorized [id number] Authorized 07/15/2024 07/15/2025 3 3 Encounter Details Date Type Department Care Team (Latest Contact Info) Description 10/15/2024 10:00 AM EDT - 10/15/2024 11:59 PM EDT Hospital Encounter [facility] [address] [place] [phone] Discharge Disposition: Home or Self Care Social [...] Continuous EEG Neurology Routine Syncope and collapse 10/15/2024 12:49 PM EDT documented as of this encounter Visit Diagnoses Not on filedocumented in this encounter Care Teams Aquatic Performer Relationship Specialty Start Date End Date Jay Hooper MD [address] [place] [address] [facility] [place] [phone] PCP - General 04/05/10 documented as of this encounter
== END 2024-10-20 13:26 | disposition home or self-care (01) ==
LOC: HO.MAMMO 13:25
PROVIDERS: PCP Internal Medicine; Visit Provider Internal Medicine
DX: Z12.31 Encounter for screening mammogram for malignant neoplasm of breast (principal)
CPT/HCPCS: 77063; 77067

== ENCOUNTER 2024-11-17 15:04 | Outpatient (AMB) | payer OTHER, SELFPAY ==
[2024-11-17 15:22] VITALS: BP 112/68; PULSE 70; O2SAT 98; BMI 31.9
--- NOTE | 2024-11-17 15:22 | A.OFFVIS_ITS ---
Vital Signs 11/17/24 15:22 Height 5 ft 5 in Weight 191 lb 9.307 oz BMI 31.9 BP 112/68 Blood Pressure Location Lt brachial Position Sitting Pulse 70 Pulse Source Pulse Oximeter Pulse Oximetry (%) 98 Oxygen Delivery Method Room Air Intake Visit Reasons: Gioter Intake Note: New patient present today for Goiter. Exhibits Curator Required: No Accompanied by: Self / Same As Patient Allergies codeine [CODEINE] Allergy (Intermediate, Verified 11/17/24 15:26) HEASDACHE/DIZZY acetaminophen [Percocet] Allergy (Unknown, Verified 11/17/24 15:26) Tachycardia oxycodone [Percocet] Allergy (Unknown, Verified 11/17/24 15:26) tachycardia Penicillins [PENICILLINS] Adverse Reaction (Unknown, Verified 11/17/24 15:26) HEADACHE/DIZZINESS scopolamine [SCOPOLAMINE] Adverse Reaction (Unknown, Verified 11/17/24 15:26) EPISODE OF DEPRESSION MORPHINE Allergy (Unknown, Uncoded 11/17/24 15:26) tachycardia PENICILLIN Allergy (Unknown, Uncoded 11/17/24 15:26) tachycardia From PERCOCET Adverse Reaction (Intermediate, Uncoded 11/17/24 15:26) HEADACHE/DIZZY Medication List - Last Reconciled 11/17/24 by Yumiko Zuniga MD esomeprazole magnesium 40 mg PO DAILY [id number]-vit K 45 mg iron- 800 mcg-120 mcg (Bariatric Multivitamins) 1 cap PO DAILY onabotulinumtoxinA (Botox) units IM ONCE PRN HPI Comments Details: 49-year-old female coming in today for nontoxic multinodular goiter, initial evaluation. Ct cervical spine done for left arm and shoulder pain revealed thyromegaly, after using new matteress. Ultrasound of the thyroid done 09/10/2024, I reviewed the images myself which show a right midpole 1.2 cm solid isoechoic TR 3 nodule, a right mid to lower pole subcentimeter solid hypoechoic TR 4 nodule, a left mid to lower pole subcentimeter solid isoechoic TR 3 nodule, another left lower pole subcentimeter solid isoechoic nodule with macrocalcifications, TR 4 category. None of these meet criteria for FNA. Overall the gland is enlarged. Reports loose stools. Lab band surgery 2021. Reports tiredness. Reports work related anxiety. Patient currently denies palpitation,, weight changes, , changes in appearance of eyes or vision changes, tremors, increased diaphoresis or dry skin. ?Increased post nasal drip. LMP: last month , once every other month Patient denies any difficulty swallowing, pain on swallowing or voice changes or difficulty breathing. Patient denies any history of childhood neck radiation. Denies having ever used lithium, amiodarone or biotin supplements. Patient denies any family history of thyroid cancer . Maternal Aunt has some thyroid disease. Physical exam General: sitting comfortably in no acute distress HEENT: normocephalic/atraumatic, Neck: supple, symmetrical, palpable prominent thyroid, no palpable nodules Cardiac: normal heart sounds Pulm: normal breath sounds B/L, no added breath sounds Abd: not distended, Extremities: no edema, no signs of myxedema Neuro: AAO x3, Speech: normal, no facial droop, moving all 4 extremities Laboratory Tests 09/12/24 09:40 TSH 1.04 Laboratory Tests 09/12/24 09:40 Thyroid Peroxidase Ab 1 EXAMINATION: US 09/10/24YROID HISTORY: enlargement of the thyroid TECHNIQUE: Real-time grayscale ultrasound imaging was performed and images were reviewed. COMPARISON: Correlation is made with an unenhanced CT of the cervical spine dated 06/25/2024. FINDINGS: SIZE: The right thyroid lobe measures 6.1 x 2.2 x 2.6 cm. The left thyroid lobe measures 6.2 x 2.6 x 1.9 cm. The isthmus measures 5 mm. FLOW: Flow to the gland is normal. ECHOGENICITY: The echotexture of the gland is normal. NODULES: Multiple nodules are seen in the thyroid gland as described below: Nodule #: 1 Location: Midportion of the right thyroid lobe measuring 12 x 7 x 9 mm Shape: Wider than tall (0 points) Margins: Ill-defined (0 points) Echotexture: Isoechoic (1 point) Composition: Mostly solid (2 points) Calcifications: None (0 points) Total points: 3 TIRADS: TR3: Mildly suspicious. Nodule #: 2 Location: Mid to lower pole of the right thyroid lobe measuring 5 x 3 x 4 mm Shape: Wider than tall (0 points) Margins: Ill-defined (0 points) Echotexture: Hypoechoic (2 points) Composition: Mostly solid (2 points) Calcifications: Comet tail (0 points) Total points: 4 TIRADS: TR4: Moderately suspicious. Nodule #: 3 Location: Mid to lower pole of the left thyroid lobe measuring 3 x 2 x 3 mm Shape: Round (0 points) Margins: Ill-defined (0 points) Echotexture: Isoechoic (1 point) Composition: Solid (2 points) Calcifications: None (0 points) Total points: 3 TIRADS: TR3: Mildly suspicious. Nodule #: 4 Location: Lower pole of the left thyroid lobe measuring 4 x 4 by 6 mm Shape: Wider than tall (0 points) Margins: Ill-defined (0 points) Echotexture: Isoechoic (1 point) Composition: Mostly solid (2 points) Calcifications: Macrocalcifications (1 point) Total points: 4 TIRADS: TR4: Moderately suspicious. US/US thyroid IMPRESSION: Global enlargement of the thyroid. Multiple small bilateral thyroid nodules as described. According to ACR TI-RADS is guidelines, none of the nodules warrants biopsy or follow up. CT CERVICAL SPINE WITHOUT CONTRAST 06/25/24 CLINICAL INFORMATION: Fall, head trauma, neck pain. COMPARISON: No prior CT. X-rays cervical spine 11/25/2010. TECHNIQUE: Spiral CT of the cervical spine was performed in axial plane from the petrous ridges to the thoracic inlet without IV contrast. Sagittal, coronal, and thin section axial reformatted images were constructed from the axial data set. This CT examination was performed using dose optimization techniques as appropriate, variously including the following: *Automated exposure control *Adjustment of mA and/or kV according to patient size (this includes techniques or standardized protocols for targeted exams where dose is matched to indication/reason for exam; i.e. extremities or head) *Use of iterative reconstruction technique FINDINGS: There is mild motion degradation in the mid aspect of the scan. Normal bone mineralization. No fracture, compression deformity, or evidence of traumatic subluxation. Normal lordosis. No scoliosis. Normal vertebral body and facet alignment. Atlantoaxial joint and craniocervical junction intact and normally aligned. Disc spaces are largely preserved. No evidence of large disc herniation or canal stenosis. No prevertebral or paravertebral soft tissue abnormalities. Globally enlarged thyroid gland present. There are likely underlying nodules, which are poorly defined on this exam. Imaged lung apices are clear. Imaged superior mediastinal contents appear normal. CT/CT cervical spine wo IV con IMPRESSION: 1. No CT evidence of acute cervical spine fracture or injury. 2. Global enlargement of the thyroid with probable underlying nodules, poorly defined on this examination Electronically signed by: Elier Garcia MD 06/25/2024 02:22 PM [facility] Medical History (Updated 11/17/24 @ 16:10 by Yumiko Zuniga MD) Goiter History of migraine Tubular adenoma Back pain Malabsorption due to intolerance, not elsewhere classified Overweight (BMI 25.0-29.9) Super obesity Surgical History Hx of bladder repair surgery Hx of colonoscopy History of tubal ligation History of esophagogastroduodenoscopy (EGD) History of cholecystectomy LAP-BAND surgery status History of bunionectomy Hx of section Hx of knee surgery S/P laparoscopic sleeve gastrectomy History of loop recorder Family History Father Diabetes HTN (hypertension) Mother Diabetes CVD (cardiovascular disease) Brother No problems noted. Brother No problems noted. Brother No problems noted. Brother No problems noted. Sister No problems noted. Sister No problems noted. Sister No problems noted. Son No problems noted. Daughter No problems noted. Daughter No problems noted. Daughter No problems noted. 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 She was having shoulder/neck pain due to a new mattress mostly in her left shoulder, when she had CT cervical spine which pointed out thyromegaly. Ultrasound of the thyroid done 09/10/2024, I reviewed the images myself which show a right midpole 1.2 cm solid isoechoic TR 3 nodule, a right mid to lower pole subcentimeter solid hypoechoic TR 4 nodule, a left mid to lower pole subcentimeter solid isoechoic TR 3 nodule, another left lower pole subcentimeter solid isoechoic nodule with macrocalcifications, TR 4 category. None of these meet criteria for FNA. Overall the gland is enlarged. She does not have any compressive symptoms, some mild postnasal drip/acid reflux causing frequent throat clearing. Unlikely related to her thyroid. Normal TSH from September 2024 with normal TPO antibody. At this point per TI-RADS guidelines she does not really need follow up for these nodules, still 1 of her nodules is 1.2 cm in the right midpole and I would recommend that her primary care physician repeat a thyroid ultrasound in 1-2 years to make sure it is not growing. If it remains stable in size/smaller, she does not need further repeat ultrasounds. If it grows in size, she can be referred back to us for further evaluation. Given history of thyroid nodules, she should have annual TFTs done with TSH with reflex free T4 by her PCP. I explained all of this to the patient. She verbalized understanding. All questions were answered. Plan: -PCP to repeat thyroid function tests annually with TSH with reflex free T4 -PCP to repeat a thyroid ultrasound in 1-2 years, patient can be referred back to us if there is any growth of her nodules Plan See above Patient Instructions: Have your pimary care do thyroid blood work once a year Have your primary care repeat a thyroid ultrasound in 1-2 years , if there is any growth of the nodules you can make an appointment with me / be referred back to me Coding Level of Care Code New Pt Level 3 (80011) Diagnoses Goiter E04.9
--- OUTSIDE RECORDS SUMMARY | 2024-11-17 16:55 | XMS_ITS | Encounter Summary ---
Author Organization [employer] Address [address] [facility] [address] [place] [address] Care Team Providers Care Refinery Operator Assistant Name Role Phone Jay Davis MD Primary Care Provide r Reason for Visit * Reason Onset Date Comments Referral 07/11/2024 Encounter Details Date Type Department Care Team ([facility] st Contact Info) Description 07/11/2024 Telephone [facility] [address] [place], [place] [phone] Jay Davis MD [address] [place] [address] Referral Social History Tobacco Use Types Packs/Day [...] referral in general to be placed in [facility] as pt work insurance will have coverage in that facility. Pt received call from a facility as she had to reject due to insurance wont cover visit. documented in this encounter Plan of Treatment Upcoming Encounters Date Type Department Care Team (Late st Contact Info) Description 12/11/2024 3:00 PM EDT Office Visit [facility] [address] [place] [address] Jay Davis MD [address] [place] [address] documented as of this encounter Visit Diagnoses Not on filedocumented in this encounter Additional Health Concerns Assessment Noted Time PHQ-9 Depression Total Score: 0 12/25/19 24 1:07 PM EDT documented as of this encounter Care Teams Refinery Operator Assistant Relationship Specialty Start Date End Date Jay Davis MD [address] [place] [phone] PCP - General Internal Medicine 01/13/14 documented as of this encounter
== END 2024-11-17 16:14 | disposition home or self-care (01) ==
LOC: HO.ENCR 15:05
PROVIDERS: PCP Internal Medicine; Visit Provider Student in an Organized Health Care Education/Training Program
DX: E04.9 Nontoxic goiter, unspecified (principal)
CPT/HCPCS: 99203

== ENCOUNTER → 2024-11-17 15:04 | Outpatient (BNVA) | payer OTHER, SELFPAY | PROVIDERS: PCP Internal Medicine; Visit Provider Student in an Organized Health Care Education/Training Program ==

== ENCOUNTER 2024-11-17 22:42 | Emergency (ER) | payer OTHER, SELFPAY ==
--- NOTE | ~2024-11-17 | CT_ITS ---
CLINICAL HISTORY: new seizure? CT head without contrast Comparison: CT/SR - CT HEAD/BRAIN WO IV CON - 08/08/24 14:45 EST Findings: No intra-axial mass, midline shift, hydrocephalus, or acute hemorrhage. No significant atrophy-like change or white matter disease. There is no sinus or mastoid fluid. The orbits are within normal limits. There is no acute fracture. IMPRESSION: 1. No acute intracranial findings. This document has been electronically signed by: Thai Gonzalez MD on 11/18/2024 01:28:20
[2024-11-17 22:45] VITALS: BP 130/80; PULSE 70; O2SAT 100
[2024-11-17 22:49] VITALS: BP 140/48; BP 150/85; PULSE 70; PULSE 80; RESP 12; TEMP 36.4; O2SAT 100; O2SAT 96; BMI 31.2
--- NOTE | 2024-11-17 22:55 | ECG_ITS ---
Test Reason : SEIZURE Blood Pressure : */* mmHG Vent. Rate : 68 BPM Atrial Rate : 68 BPM P-R Int : 128 ms QRS Dur : 74 ms QT Int : 412 ms P-R-T Axes : 34 18 38 degrees QTcB Int : 438 ms Normal sinus rhythm Normal ECG When compared with ECG of 25-Jun-2024 13:36, Nonspecific T wave abnormality no longer evident in Anterior leads Referred By: Generic ED Physician Electronically Signed By: SARAVANAN DELVALLE MD
--- NOTE | 2024-11-17 23:10 | PC.NURSE ---
PT comes from home with reported of seizure activity and prolonged downtime. PT alert to self only states she does not know to orientation and assessment. She is not sure why she is in the hospital. per ems pt has a history of seizures, and family believes she had one, pt was down for two hours prior to call. VSS. EMS IV line place, pt in c-collar.EKG and labs ordered. Plan of care ongoing
[2024-11-17 23:20] LABS: Basophils Percent Auto 0.5 % (0-2); Eosinophils Absolute Auto 0.2 X10*3/uL (0.0-0.4); Eosinophils Percent Auto 1.8 % (0-4); Hematocrit 34.2 % (37.0-47.0); Hemoglobin 10.1 g/dl (12.0-16.0); Imm Gran Abs Auto 0.04 X10*3/uL (0.00-0.03); Imm Gran Pct Auto 0.5 % (0.0-0.4); Lymphocytes Absolute Auto 2.2 X10*3/uL (1.2-4.9); Lymphocytes Percent Auto 26.3 % (20-40); MANUAL DIFF FLAG NO; Mean Corpuscular HGB Conc 29.5 g/dl (31.0-35.0); Mean Corpuscular Hemoglobin 20.5 pg (27.0-33.0); Mean Corpuscular Volume 69.5 fL (80.0-98.0); Mean Platelet Volume 10.3 fL (9.4-12.3); Monocytes Absolute Auto 0.5 X10*3/uL (0.1-1.2); Monocytes Percent Auto 5.7 % (2-11); Neutrophils Absolute Auto 5.6 x10*3/uL (2.0-8.3); Neutrophils Percent Auto 65.2 % (45-73); Platelet Count 309 X10*3/uL (160-400); Red Blood Count 4.92 X10*6/uL (4.20-5.50); Red Cell Distribution Width 16.7 % (11.0-16.0); White Blood Count 8.5 X10*3/uL (4.8-10.8)
[2024-11-17 23:22] LABS: Appearance Urine Clear; Color Urine Yellow; Glucose Urine UA Negative (Negative); Leukocyte Esterase Urine Trace (Negative); Nitrite Urine Negative (Negative); PH 5.5 (5.0-9.0); UMIC TRIGGER UACC YES; Urine Blood Negative (Negative); Urine Ketones Negative (Negative); Urine Protein Negative (Neg-Trace)
[2024-11-17 23:25] LABS: Bacteria Urine None Seen (None Seen); Hyaline Casts Urine 0-2 /LPF (0-2); RBC Urine 0-2 /HPF (0-2); Squamous Epithelial Cell Urine 0-2 /HPF (0-2); WBC Urine 0-5 /HPF (0-5)
[2024-11-17 23:34] LABS: Amphetamine Screen Urine Not Detected (Not Detect); Barbiturates, Urine Not Detected (Not Detect); Benzodiazepines Screen Urine Not Detected (Not Detect); Buprenorphine Scr Not Detected (Not Detect); Cannabinoid Screen Urine Not Detected (Not Detect); Cocaine Screen Urine Not Detected (Not Detect); Fentanyl, urine Not Detected (Not Detect); Methadone Screen, Urine Not Detected (Not Detect); Opiate Screen Urine Not Detected (Not Detect); Oxycodone Screen Urine Not Detected (Not Detect); Phencyclidine Screen Urine Not Detected (Not Detect)
[2024-11-17 23:43] LABS: Alanine Aminotransferase 21 U/L (0-31); Albumin Level 4.2 g/dL (3.5-5.0); Alkaline Phosphatase 75 U/L (39-117); Anion Gap 12 (12-20); Aspartate Amino Transferase 27 U/L (5-31); Bilirubin Total 0.7 mg/dL (0.0-1.0); Blood Urea Nitrogen 10 mg/dL (9-16); Calcium 9.3 mg/dL (8.4-10.2); Carbon Dioxide 25 mmol/L (22-29); Chloride 108 mmol/L (96-108); Creatinine Clr Calc Pharmacy 83.3; Estimated Glomerular Filt Rate > 60; Ethanol < 10 mg/dL; Glucose Random 105 mg/dL (60-115); Magnesium 2.1 mg/dL (1.6-2.6); Potassium 3.9 mmol/L (3.3-5.1); Sodium 141 mmol/L (135-145); Total Protein 7.4 g/dL (6.5-8.0)
[2024-11-17 23:46] LABS: Troponin-I High Sensitivity < 2.7 ng/L (<3.5-17.0)
--- NOTE | 2024-11-18 00:13 | ED_ITS ---
HPI - General Adult General Chief complaint: Seizure Stated complaint: UNWITNESSED FALL, DOWN X2 HRS, +CCOLLAR SEIZURE HX Time Seen by Provider: 11/17/24 23:15 Source: patient and family Limitations: no limitations History of Present Illness ED Provider: Julieta Nieto PA-C HPI narrative: 49-year-old female with a history of migraine, obesity, who presents after syncopal episode at home. Per the patient's daughter, who witnessed the event, the patient was involved in an argument with her spouse; he was telling her he wanted a divorce. The patient collapse on the ground, and began shaking. The episode lasted less than 5 minutes. There was no injury sustained no head strike, the patient did not become incontinent of urine. The patient has had numerous episodes in the past in the setting of anxiety or psychosocial stress. She does not have a formal seizure disorder diagnosis, she has never been assessed for these episodes. Patient is followed by Neurology for her migraines. Related Data Home Medications ?Medication ?Instructions ?Recorded ?Confirmed onabotulinumtoxinA 100 unit unit IM ONCE PRN 04/29/24 11/17/24 solution for injection (Botox) Previous Rx's ?Medication ?Instructions ?Recorded dahzynjt-povxrwts-mivb 45 mg-folic 1 cap PO DAILY #30 caps 04/29/21 acid 800 mcg-vit K 120 mcg capsule (Bariatric Multivitamins) esomeprazole magnesium 40 mg 40 mg PO DAILY #90 caps 04/29/24 capsule,delayed release Allergies Allergy/AdvReac Type Severity Reaction Status Date / Time codeine [CODEINE] Allergy Intermediate HEASDACHE/D Verified 11/17/24 22:54 AIDEN acetaminophen [Percocet] Allergy Unknown Tachycardia Verified 11/17/24 22:54 oxycodone [Percocet] Allergy Unknown tachycardia Verified 11/17/24 22:54 Penicillins [PENICILLINS] AdvReac Unknown HEADACHE/DI Verified 11/17/24 22:54 ZZINESS scopolamine [SCOPOLAMINE] AdvReac Unknown EPISODE OF Verified 11/17/24 22:54 DEPRESSION MORPHINE Allergy Unknown tachycardia Uncoded 11/17/24 22:54 PENICILLIN Allergy Unknown tachycardia Uncoded 11/17/24 22:54 From PERCOCET AdvReac Intermediate HEADACHE/DI Uncoded 11/17/24 22:54 ZZY Review of Systems 2 Review of Systems: Unable to obtain as the patient is not wanting to engage in conversation at this time Yes all other systems are reviewed and are negative [facility] Past Medical History Attestation statement: The following information was validated with the patient. Medical History (Updated 11/18/24 @ 03:22 by HANY Pastor) Goiter History of migraine Tubular adenoma Back pain Malabsorption due to intolerance, not elsewhere classified Overweight (BMI 25.0-29.9) Super obesity Surgical History Hx of bladder repair surgery Hx of colonoscopy History of tubal ligation History of esophagogastroduodenoscopy (EGD) History of cholecystectomy LAP-BAND surgery status History of bunionectomy Hx of section Hx of knee surgery S/P laparoscopic sleeve gastrectomy History of loop recorder Family History Family History Father Diabetes HTN (hypertension) Mother Diabetes CVD (cardiovascular disease) Brother No problems noted. Brother No problems noted. Brother No problems noted. Brother No problems noted. Sister No problems noted. Sister No problems noted. Sister No problems noted. Son No problems noted. Daughter No problems noted. Daughter No problems noted. Daughter No problems noted. 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 ED Vital Signs: Vital Signs - 24 hr 11/17/24 22:49 11/18/24 00:23 11/18/24 05:16 Temperature 97.5 F 97.8 F 98.4 F Pulse Rate 80 70 63 Respiratory Rate 12 13 16 Blood Pressure 140/48 H 123/44 L 108/49 L Pulse Oximetry 96 99 98 Oxygen Delivery Method Room Air Room Air Room Air 11/18/24 09:57 Temperature 98.2 F Pulse Rate 68 Respiratory Rate 15 Blood Pressure 123/53 L Pulse Oximetry 98 Oxygen Delivery Method Room Air BMI result Body Mass Index 31.2 Const Other: Alert Orientation/consciousness: patient oriented x3 Resp Effort & Inspection: normal respiratory effort Cardio Other: Normal peripheral perfusion Skin Other: Warm dry no rash Neuro Other: Patient finally began speaking, when she was asking to see the care team General: patient oriented x3, gait normal, no focal motor deficits and CN's II- XI intact bilaterally Psych Other: Emotional, tearful Course Reevaluation(s) Reevaluation #1: Time: 03:22 Date: 11/18/24 Provider: HANY Pastor Patient in physician observation for psychiatric evaluation.? No acute events reported overnight. No current complaints. VS stable.? Patient is in bed search status/pending CARE team evaluation. Will continue to monitor. Reevaluation #2: Time: 10:00AM Date: 11/18/24 Provider: HANY Dorsey Patient in physician observation for psychiatric evaluation.? Patient was seen by the care team, recommending outpatient care, does not meet any hospital admission for psychiatric care. Patient is agreeable with this plan. Patient stable for discharge. Physician observation ended. Medical Decision Making Medical Decision Making MDM Narrative: 49-year-old female with a history of migraine, obesity, who presents after syncopal episode at home. Per the patient's daughter, who witnessed the event, the patient was involved in an argument with her spouse; he was telling her he wanted a divorce. The patient collapse on the ground, and began shaking. The episode lasted less than 5 minutes. There was no injury sustained no head strike, the patient did not become incontinent of urine. The patient has had numerous episodes in the past in the setting of anxiety or psychosocial stress. She does not have a formal seizure disorder diagnosis, she has never been assessed for these episodes. Patient is followed by Neurology for her migraines. Problem: Migraine History: Per patient's daughter I have considered the following differential diagnoses: Vasovagal syncope in the setting of emotional stress, non epileptic psychogenic seizure, SI, HI, decompensated psychiatric illness, drug/alcohol intoxication, michelle tumor Plan: Screening labs including serum ethanol and drug screen were obtained from triage, her lab assessment is unremarkable. I am adding on a CT scan of the brain to rule out potential tumor burden as cause for her symptoms. From what the daughter is describing, she had a vasovagal episode in the setting of having an argument with her , she has had many episodes in the past with similar presentation. She is asking now to see the care team, I think this is a good idea. I did relay to the patient's daughter that she should follow up with Neurology for an EEG, given suspect nonepileptic psychogenic seizure activity. Labs: No leukocytosis, not anemic, no electrolyte abnormality, U tox negative ethanol negative urine not infected CT brain: Findings: No intra-axial mass, midline shift, hydrocephalus, or acute hemorrhage. No significant atrophy-like change or white matter disease. There is no sinus or mastoid fluid. The orbits are within normal limits. There is no acute fracture. IMPRESSION: 1. No acute intracranial findings. Lab Data 11/17/24 23:15 11/17/24 23:15 Labs: Lab Results 11/17/24 Range/Units 23:15 WBC 8.5 (4.8-10.8) X10*3/uL RBC 4.92 (4.20-5.50) X10*6/uL Hgb 10.1 L (12.0-16.0) g/dl Hct 34.2 L (37.0-47.0) % MCV 69.5 L (80.0-98.0) fL MCH 20.5 L (27.0-33.0) pg MCHC 29.5 L (31.0-35.0) g/dl RDW 16.7 H (11.0-16.0) % Plt Count 309 (160-400) X10*3/uL MPV 10.3 (9.4-12.3) fL Immature Gran % (Auto) 0.5 H (0.0-0.4) % Neut % (Auto) 65.2 (45-73) % Lymph % (Auto) 26.3 (20-40) % [place] % (Auto) 5.7 (2-11) % Eos % (Auto) 1.8 (0-4) % Baso % (Auto) 0.5 (0-2) % Lymph # (Auto) 2.2 (1.2-4.9) X10*3/uL [place] # (Auto) 0.5 (0.1-1.2) X10*3/uL Eos # (Auto) 0.2 (0.0-0.4) X10*3/uL Baso # (Auto) 0.0 (0.0-0.2) X10*3/uL Abs Immat Gran (auto) 0.04 H (0.00-0.03) X10*3/uL Absolute Neuts (auto) 5.6 (2.0-8.3) x10*3/uL Absolute Nucleated RBC 0.000 (0.0-0.012) X10*3/uL Nucleated RBC % (auto) 0.0 (0.0-0.2) /100WBC Sodium 141 (135-145) mmol/L Potassium 3.9 (3.3-5.1) mmol/L Chloride 108 (96-108) mmol/L Carbon Dioxide 25 (22-29) mmol/L Anion Gap 12 (12-20) BUN 10 (9-16) mg/dL Creatinine 0.71 (0.5-1.4) mg/dL Estim Creat Clear Calc 83.3 Estimated GFR > 60 Random Glucose 105 (60-115) mg/dL Calcium 9.3 (8.4-10.2) mg/dL Magnesium 2.1 (1.6-2.6) mg/dL Total Bilirubin 0.7 (0.0-1.0) mg/dL AST 27 (5-31) U/L ALT 21 (0-31) U/L Alkaline Phosphatase 75 (39-117) U/L Total Creatine Kinase 375 H (26-140) U/L Troponin I High Sens < 2.7 (<3.5-17.0) ng/L Total Protein 7.4 (6.5-8.0) g/dL Albumin 4.2 (3.5-5.0) g/dL Urine Color Yellow Urine Appearance Clear Urine pH 5.5 (5.0-9.0) Ur Specific [place] 1.010 (1.005-1.025) Urine Protein Negative (Neg-Trace) mg/dL Urine Glucose (UA) Negative (Negative) mg/dL Urine Ketones Negative (Negative) mg/dL Urine Blood Negative (Negative) Urine Nitrite Negative (Negative) Ur Leukocyte Esterase Trace H (Negative) Urine RBC 0-2 (0-2) /HPF Urine WBC 0-5 (0-5) /HPF Ur Squamous Epith Cells 0-2 (0-2) /HPF Urine Bacteria None Seen (None Seen) Hyaline Casts 0-2 (0-2) /LPF Urine Opiates Screen Not Detected (Not Detect) Ur Buprenorphine Scrn Not Detected (Not Detect) ng/mL Ur Oxycodone Screen Not Detected (Not Detect) ng/mL Urine Methadone Screen Not Detected (Not Detect) ng/mL Urine Fentanyl Screen Not Detected (Not Detect) Ur Barbiturates Screen Not Detected (Not Detect) Ur Phencyclidine Scrn Not Detected (Not Detect) Ur Amphetamines Screen Not Detected (Not Detect) U Benzodiazepines Scrn Not Detected (Not Detect) Urine Cocaine Screen Not Detected (Not Detect) U Marijuana (THC) Screen Not Detected (Not Detect) Ethyl Alcohol < 10 mg/dL Discharge Plan Discharge Clinical Impression: Emotional stress, Vasovagal syncope Patient Disposition: Home, Self-Care Instructions: Syncope (ED) Additional Instructions: You were seen in the emergency department. Your overall workup was reassuring. You were seen by the care team and they are referring you to outpatient resources. Please continue all at-home medications. Please follow-up with your primary care physician. If any new or worsening symptoms occur including but not limited to severe chest pain, shortness of breath, please seek emergent care. Prescriptions: No Action Bariatric Multivitamins 45 mg iron- 800 mcg-120 mcg capsule 1 cap PO DAILY Qty: 30 0RF Botox 100 unit recon soln IM ONCE PRN esomeprazole magnesium 40 mg capsule,delayed release(DR/EC) 40 mg PO DAILY Qty: 90 3RF Stand Alone Forms: Work/School Release Interventions: ED Discharge Assessment Last Done: 11/18/24 09:57 Discharge Date/Time: 11/18/24 10:07 Print Language: Bermudian
[2024-11-18 00:23] VITALS: BP 123/44; PULSE 70; RESP 13; TEMP 36.6; O2SAT 99
--- NOTE | 2024-11-18 01:05 | PC.NURSE ---
PT able to respond to question appropriately. PT tearful and states that prior to syncopal/seizure episode, pt's said he did not want to be with her any longer and he was going to leave. PT states she feels useless and sick, and is not sure how she will make it. She denies SI/HI but would like to speak with care team to set up outpatient services if possible.
[2024-11-18 05:16] VITALS: BP 108/49; PULSE 63; RESP 16; TEMP 36.9; O2SAT 98
--- NOTE | 2024-11-18 08:04 | MHC.CARE ---
Pt does not meet the criteria for IPLOC and will be referred to [facility] for therapy. ED provider in agreement.
[2024-11-18 09:57] VITALS: BP 123/53; PULSE 68; RESP 15; TEMP 36.8; O2SAT 98
--- NOTE | 2024-11-18 10:19 | MHC.CARE ---
Referral to [facility] complete
== END 2024-11-18 10:07 | disposition home or self-care (01) ==
PROVIDERS: Emergency Provider Emergency Medicine
DX: F43.9 Reaction to severe stress, unspecified (principal); R55 Syncope and collapse; R56.9 Unspecified convulsions; F41.9 Anxiety disorder, unspecified; Z79.899 Other long term (current) drug therapy; Z51.81 Encounter for therapeutic drug level monitoring
CPT/HCPCS: 36415; 70450; 80053; 80307; 81001; 82550; 83735; 84484; 85025; 93005; 99284; S9485

== ENCOUNTER → 2024-11-17 22:55 | Outpatient (BNV) | payer OTHER, SELFPAY | PROVIDERS: Emergency Provider Emergency Medicine; Visit Provider Internal Medicine Cardiovascular Disease | DX: R56.9 Unspecified convulsions (principal) | CPT/HCPCS: 93010 ==

== ENCOUNTER → 2024-11-18 00:18 | Outpatient (BNV) | payer OTHER, SELFPAY | PROVIDERS: Emergency Provider Emergency Medicine; Visit Provider Radiology Diagnostic Radiology | DX: R55 Syncope and collapse (principal) | CPT/HCPCS: 70450 ==

== ENCOUNTER 2025-01-16 06:47 | Outpatient (REF) | payer OTHER, SELFPAY ==
--- OUTSIDE RECORDS SUMMARY | 2025-01-16 06:49 | XMS_ITS | Clinical Summary ---
Author Organization [facility] Address [address] [place] [phone] Phone Care Team Providers Care Concrete Floater Name Role Phone Jay Hooper MD Primary Care Provi leah Encounters Date Type Department Care Team Description 10/17/2024 9:37 AM EDT - 10/17/2024 11:59 PM EDT Hospital Encounter [facility] [address] [place] [phone] Discharge Disposition: Home or Self Care 10/16/2024 10:00 AM EDT - 10/16/2024 11:59 PM EDT Hospital Encounter [facility] [address] [place] [phone] Discharge Disposition: Home or Self Care from [...] 04/07/2024 Social Influencers of Health Screening 04/07/2024 Depression Screening 06/11/2024 Influenza Vaccine (#1) 2025 Cholesterol Screening (Lipid Panel) 09/12/2029 09/12/2024 DTaP,Tdap,and [...] Procedure Name Priority Date/Time Associated Diagnosis Comments CONTINUOUS EEG Routine 10/17/2024 10:19 AM EDT Syncope and collapse CONTINUOUS EEG Routine 10/16/2024 1:19 PM EDT Syncope and collapse from Last 3 Months Results * Continuous EEG (10/17/2024 10:19 AM EDT) Narrative Nayan Leonardo MD - 10/20/2024 4:27 PM EDT Please see report from 10/15/24 Nayan Leonardo MD NEUROLOGY ORDERABLES Unique l Result * Continuous EEG (10/16/2024 1:19 PM EDT) Narrative Nayan Leonardo MD - 10/20/2024 4:28 PM EDT Please see reported dated 10/15/24 us Nayan Leonardo MD NEUROLOGY ORDERABLES Unique l Result from Last 3 Months Insurance MEDICAID - [place] [facility] Care Teams Concrete Floater Relationship Specialty Start Date End Date Jay Hooper MD [address] [facility] [place], [place] [phone] PCP - General 04/05/10
[2025-01-16 07:05] LABS: MANUAL DIFF FLAG NO
[2025-01-16 07:35] LABS: Hematocrit 37.0 % (37.0-47.0); Hemoglobin 10.4 g/dl (12.0-16.0); Imm Gran Abs Auto 0.02 X10*3/uL (0.00-0.03); Imm Gran Pct Auto 0.3 % (0.0-0.4); Lymphocytes Absolute Auto 1.6 X10*3/uL (1.2-4.9); Mean Corpuscular HGB Conc 28.1 g/dl (31.0-35.0); Mean Corpuscular Hemoglobin 20.1 pg (27.0-33.0); Mean Corpuscular Volume 71.4 fL (80.0-98.0); NRBC Abs Auto 0.000 X10*3/uL (0.0-0.012); NRBC Pct Auto 0.0 /100WBC (0.0-0.2); Platelet Count 368 X10*3/uL (160-400); Red Blood Count 5.18 X10*6/uL (4.20-5.50); White Blood Count 6.7 X10*3/uL (4.8-10.8)
[2025-01-16 08:01] LABS: Alanine Aminotransferase 13 U/L (0-31); Albumin Level 4.1 g/dL (3.5-5.0); Alkaline Phosphatase 82 U/L (39-117); Anion Gap 11 (12-20); Aspartate Amino Transferase 22 U/L (5-31); Blood Urea Nitrogen 16 mg/dL (9-16); Calcium 9.1 mg/dL (8.4-10.2); Carbon Dioxide 26 mmol/L (22-29); Chloride 111 mmol/L (96-108); Estimated Glomerular Filt Rate > 60; Potassium 3.9 mmol/L (3.3-5.1); Sodium 144 mmol/L (135-145); Total Protein 7.2 g/dL (6.5-8.0)
[2025-01-16 08:29] LABS: ~HepC Num1 0.08 S/CO (0.00-0.79); ~Hepatitis C Antibody Nonreactive (Nonreactive)
[2025-01-16 12:35] LABS: MANUAL DIFF FLAG NO
[2025-01-16 13:29] LABS: Hematocrit 36.1 % (37.0-47.0); Hemoglobin 10.3 g/dl (12.0-16.0); Imm Gran Abs Auto 0.04 X10*3/uL (0.00-0.03); Imm Gran Pct Auto 0.5 % (0.0-0.4); Lymphocytes Absolute Auto 2.1 X10*3/uL (1.2-4.9); Mean Corpuscular HGB Conc 28.5 g/dl (31.0-35.0); Mean Corpuscular Hemoglobin 20.0 pg (27.0-33.0); Mean Corpuscular Volume 70.2 fL (80.0-98.0); NRBC Abs Auto 0.000 X10*3/uL (0.0-0.012); NRBC Pct Auto 0.0 /100WBC (0.0-0.2); Platelet Count 385 X10*3/uL (160-400); Red Blood Count 5.14 X10*6/uL (4.20-5.50); White Blood Count 8.2 X10*3/uL (4.8-10.8)
[2025-01-16 13:59] LABS: Alanine Aminotransferase 14 U/L (0-31); Albumin Level 4.3 g/dL (3.5-5.0); Alkaline Phosphatase 90 U/L (39-117); Anion Gap 12 (12-20); Aspartate Amino Transferase 22 U/L (5-31); Blood Urea Nitrogen 15 mg/dL (9-16); Calcium 9.1 mg/dL (8.4-10.2); Carbon Dioxide 26 mmol/L (22-29); Chloride 107 mmol/L (96-108); Estimated Glomerular Filt Rate > 60; Iron 16 mcg/dL (30-160); Percent Iron Saturation 4 % (15-50); Potassium 3.9 mmol/L (3.3-5.1); Sodium 141 mmol/L (135-145); Total Iron Binding Capacity 409 mcg/dL (228-428); Total Protein 7.6 g/dL (6.5-8.0); Unsaturated Iron Binding 393 ug/dL
[2025-01-16 14:10] LABS: Ferritin 8 ng/mL (10-250)
[2025-01-16 14:24] LABS: Folate 8.5 ng/mL (> or = 4.0); Vitamin B12 263 pg/mL (200-900)
== END 2025-01-16 06:48 | disposition home or self-care (01) ==
LOC: HO.LAB 06:47
PROVIDERS: PCP Internal Medicine; Visit Provider Internal Medicine
DX: T73.3XXA Exhaustion due to excessive exertion, initial encounter (principal); F33.1 Major depressive disorder, recurrent, moderate; D64.9 Anemia, unspecified
CPT/HCPCS: 36415; 80053; 82607; 82728; 82746; 83540; 85025; 86803

== ENCOUNTER 2025-02-17 09:45 | Emergency (ER) | payer OTHER, SELFPAY ==
--- NOTE | ~2025-02-17 | CT_ITS ---
EXAMINATION: CT HEAD WITHOUT CONTRAST CLINICAL INFORMATION: Severe headache COMPARISON: November 18, 2024 TECHNIQUE: Contiguous axial imaging was performed from the skull base to vertex without intravenous administration of contrast. This CT examination was performed using dose optimization techniques as appropriate, variously including the following: *Automated exposure control *Adjustment of mA and/or kV according to patient size (this includes techniques or standardized protocols for targeted exams where dose is matched to indication/reason for exam; i.e. extremities or head) *Use of iterative reconstruction technique DLP: 626 mGY*cm FINDINGS: There is no acute ischemic change. There is no intracranial hemorrhage. There is no mass-effect or midline shift. Basal cisterns and ventricles are within normal limits for age/cerebral volume. Orbits are symmetrical and unremarkable. Paranasal sinuses and mastoid air cells are pneumatized. There are no acute bony abnormalities. Bony nasal septum deviates toward the right. CT/CT head/brain wo IV con IMPRESSION: No acute intracranial abnormality. Electronically signed by: John Armstrong MD 02/17/2025 12:23 PM EDT
[2025-02-17 09:49] VITALS: BP 148/69; BP 148/90; PULSE 87; PULSE 97; RESP 16; TEMP 37; O2SAT 100; BMI 31.9
--- NOTE | 2025-02-17 09:51 | ED_ITS ---
HPI - General Adult General Chief complaint: Headache Stated complaint: HEADACHE Time Seen by Provider: 02/17/25 09:50 Source: patient, EMS, RN notes reviewed and old records reviewed Mode of arrival: EMS History of Present Illness ED Provider: Debby HPI narrative: Patient is a 49-year-old female presenting to the ED via EMS with pmhx of obesity, s/p lap sleeve gastrectomy, migraines, chronic tension headaches presenting to the ED with complaint of severe headache which began while at work. States does not feel typical of her usual headaches. Crying during assessment and providing minimal answers to questions. MD complaint: headache Related Data Home Medications ?Medication ?Instructions ?Recorded ?Confirmed onabotulinumtoxinA 100 unit unit IM ONCE PRN 04/29/24 11/17/24 solution for injection (Botox) Previous Rx's ?Medication ?Instructions ?Recorded madpuawj-lcagcmrk-ypti 45 mg-folic 1 cap PO DAILY #30 caps 04/29/21 acid 800 mcg-vit K 120 mcg capsule (Bariatric Multivitamins) esomeprazole magnesium 40 mg 40 mg PO DAILY #90 caps 1 06/29/23 capsule,delayed release fremanezumab-vfrm 225 mg/1.5 mL 225 mg (1.5 mL) subcut QMONTH 01/27/25 subcutaneous auto-injector (Ajovy) Migraine 30 days #1 .5 mL Allergies Allergy/AdvReac Type Severity Reaction Status Date / Time codeine (CODEINE) Allergy Intermediate HEASDACHE/D Verified 02/17/25 10:03 AIDEN acetaminophen (Percocet) Allergy Unknown Tachycardia Verified 02/17/25 10:03 oxycodone (Percocet) Allergy Unknown tachycardia Verified 02/17/25 10:03 Penicillins (PENICILLINS) AdvReac Unknown HEADACHE/DI Verified 02/17/25 10:03 ZZINESS scopolamine (SCOPOLAMINE) AdvReac Unknown EPISODE OF Verified 02/17/25 10:03 DEPRESSION MORPHINE Allergy Unknown tachycardia Uncoded 11/17/24 22:54 PENICILLIN Allergy Unknown tachycardia Uncoded 11/17/24 22:54 From PERCOCET AdvReac Intermediate HEADACHE/DI Uncoded 11/17/24 22:54 ZZY Review of Systems 2 Review of Systems: As per HPI Yes all other systems are reviewed and are negative Constitutional: Constitutional: Reports as per HPI PMFSH Past Medical History Medical History (Updated 02/17/25 @ 12:37 by Shanelle Guardado NP) Memory loss Chronic tension headache Migraine Goiter History of migraine Tubular adenoma Back pain Malabsorption due to intolerance, not elsewhere classified Overweight (BMI 25.0-29.9) Super obesity Surgical History Hx of bladder repair surgery Hx of colonoscopy History of tubal ligation History of esophagogastroduodenoscopy (EGD) History of cholecystectomy LAP-BAND surgery status History of bunionectomy Hx of section Hx of knee surgery S/P laparoscopic sleeve gastrectomy History of loop recorder Family History Family History Father Diabetes HTN (hypertension) Mother Diabetes CVD (cardiovascular disease) Brother No problems noted. Brother No problems noted. Brother No problems noted. Brother No problems noted. Sister No problems noted. Sister No problems noted. Sister No problems noted. Son No problems noted. Daughter No problems noted. Daughter No problems noted. Daughter No problems noted. 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 ED Vital Signs: Vital Signs - 24 hr 02/17/25 09:49 02/17/25 11:30 Temperature 98.6 F 98.3 F Pulse Rate 97 85 Respiratory Rate 16 15 Blood Pressure 148/69 H 141/70 H Pulse Oximetry 100 100 Oxygen Delivery Method Room Air Room Air BMI result Body Mass Index 31.9 Const General: alert, awake and anxious Nutritional Appearance: average body habitus Orientation/consciousness: patient oriented x3 Limitations: other limitations (crying, minimally answering questions) HENMT Head: Yes normocephalic and Yes atraumatic Ears: external ears normal General nose exam: Normal external nose present Face and sinus: Yes face symmetric Mouth: oropharynx normal and moist mucous membranes Throat: Yes uvula midline Eyes Pupils: Equal, round and reactive pupils present Neck Neck: Yes normal visual inspection and Yes supple Resp Effort & Inspection: normal respiratory effort and able to speak in complete sentences Auscultation: clear to auscultation bilaterally Cardio Rate: regular rate Rhythm: regular rhythm Heart sounds: S1 normal heart sound present and S2 normal heart sound present GI Palpation (GI): Soft to palpation and nontender Auscultation: normoactive bowel sounds General: Yes no CVA tenderness Back/Spine/Pelvis Back: no CVA tenderness Skin General skin exam: elasticity normal and turgor normal Neuro General: patient oriented x3 Cranial nerves: Yes Equal, round and reactive pupils present Cognition (Neuro): normal cognition Extrem General: Yes full ROM, Yes no pedal edema and Yes no calf tenderness Psych Mental Status: mental status grossly normal Affect: normal affect Thought process: Normal thought process present Medications Administered Discontinued Medications Generic Name Dose Route Start Last Admin Trade Name Freq PRN Reason Stop Dose Admin Diphenhydramine HCl 25 mg 02/17/25 09:59 02/17/25 10:09 Diphenhydramine Hcl 50 Mg/Ml Vial IVPUSH 02/17/25 10:00 25 mg ONCE ONE Administration Sodium Chloride 1,000 mls @ 999 mls/hr 02/17/25 10:00 02/17/25 11:47 Ns IV 02/17/25 11:00 Infused .Q1H1M DARRON Infusion Metoclopramide HCl 10 mg 02/17/25 09:59 02/17/25 10:09 Metoclopramide Hcl 10 Mg/2 Ml Vial IVPUSH 02/17/25 10:00 10 mg ONCE ONE Administration Medical Decision Making Medical Decision Making [facility] Narrative: Patient is a 49-year-old female presenting to the ED via EMS with pmhx of obesity, s/p lap sleeve gastrectomy, migraines, chronic tension headaches presenting to the ED with complaint of severe headache which began while at work. On exam patient is awake, A+Ox3, VS WNL, afebrile, normal neurological exam without focal deficits, physical exam findings as above. Given reported symptoms and physical exam findings, initial differential includes but is not limited to ICH, tension headache, migraine. Labs notable for no leukocytosis, chronic stable anemia, no significant electrolyte abnormalities. CT notable for no evidence of ICH. My interpretation is in agreement with the radiologist's interpretation. Patient reports feeling significantly better after medications given in the ED, feels comfortable with discharge home. Advised follow up with PCP. Return precautions discussed. Patient verbalized understanding of and agreement with plan. Differential Diagnosis Differential Diagnoses: The differential diagnosis associated with the presentation includes As per [facility] Admission/Observation Consideration of admission/observation: Escalation of care including admission/observation considered Patient would have been admitted to the hospital had their clinical presentation warranted hospital admission. Lab Data [facility] Lab Attestation statement: I reviewed the patient's lab results. As per [facility] 02/17/25 10:43 02/17/25 10:43 Labs: Lab Results 02/17/25 Range/Units 10:43 WBC 6.6 (4.8-10.8) X10*3/uL RBC 5.14 (4.20-5.50) X10*6/uL Hgb 10.4 L (12.0-16.0) g/dl Hct 36.2 L (37.0-47.0) % MCV 70.4 L (80.0-98.0) fL MCH 20.2 L (27.0-33.0) pg MCHC 28.7 L (31.0-35.0) g/dl RDW 17.0 H (11.0-16.0) % Plt Count 301 (160-400) X10*3/uL MPV 10.5 (9.4-12.3) fL Immature Gran % (Auto) 0.5 H (0.0-0.4) % Neut % (Auto) 67.0 (45-73) % Lymph % (Auto) 24.1 (20-40) % Cameron % (Auto) 6.0 (2-11) % Eos % (Auto) 1.8 (0-4) % Baso % (Auto) 0.6 (0-2) % Lymph # (Auto) 1.6 (1.2-4.9) X10*3/uL Cameron # (Auto) 0.4 (0.1-1.2) X10*3/uL Eos # (Auto) 0.1 (0.0-0.4) X10*3/uL Baso # (Auto) 0.0 (0.0-0.2) X10*3/uL Abs Immat Gran (auto) 0.03 (0.00-0.03) X10*3/uL Absolute Neuts (auto) 4.4 (2.0-8.3) x10*3/uL Absolute Nucleated RBC 0.000 (0.0-0.012) X10*3/uL Nucleated RBC % (auto) 0.0 (0.0-0.2) /100WBC Sodium 143 (135-145) mmol/L Potassium 3.9 (3.3-5.1) mmol/L Chloride 112 H (96-108) mmol/L Carbon Dioxide 23 (22-29) mmol/L Anion Gap 12 (12-20) BUN 12 (9-16) mg/dL Creatinine 0.71 (0.5-1.4) mg/dL Estim Creat Clear Calc 98.5 Estimated GFR > 60 Random Glucose 84 (60-115) mg/dL Calcium 9.0 (8.4-10.2) mg/dL Total Bilirubin 0.4 (0.0-1.0) mg/dL AST 18 (5-31) U/L ALT 12 (0-31) U/L Alkaline Phosphatase 75 (39-117) U/L Total Protein 7.2 (6.5-8.0) g/dL Albumin 4.2 (3.5-5.0) g/dL Independent Interpretation I performed an independent interpretation of an: CT Scan Interpretation: CT head is without evidence of ICH Radiology Impression Discussion of test interpretation with radiology: I have reviewed the radiologist's reading. Radiologist Impression: CT/CT head/brain wo IV con IMPRESSION: No acute intracranial abnormality. External Record Review External record reviewed: Inpatient record, Office record and Outpatient record Critical Care Time Critical Care Time Critical Care Time: Yes Total Critical Care Time: 32 Attestation: I have personally provided critical care time exclusive of time spent on separately billable procedures. Time includes review of lab data, radiology results, discussion with consultants, and monitoring for potential decompensation. Intervention performed as documented. Discharge Plan Discharge Clinical Impression: Migraine Patient Disposition: Home, Self-Care Instructions: Migraine Headache (ED) Additional Instructions: You have been evaluated in the emergency department today for headache. Your evaluation did not show evidence of medical conditions requiring emergent intervention at this time, and your pain improved with medication in the ED. We recommend you take 600 mg ibuprofen every 6 hours or Tylenol 650 mg every 6 hours as needed for pain. If needed, you can alternate these medications so that you take 1 medication every 3 hours. For instance, at noon take ibuprofen, then at 3:00 p.m. take Tylenol, then at 6:00 p.m. take ibuprofen. Please follow-up with your primary care provider within 2 days. Return to the emergency department if you experience worsening or uncontrolled pain, vision changes, recurrent vomiting, difficulty with normal activities, abnormal behavior, difficulty walking, numbness, weakness, or any other concerning symptoms. Prescriptions: No Action Ajovy Autoinjector 225 mg/1.5 mL auto-injector 225 mg subcut QMONTH 30 Days Qty: 1.5 4RF Bariatric Multivitamins 45 mg iron- 800 mcg-120 mcg capsule 1 cap PO DAILY Qty: 30 0RF Botox 100 unit recon soln IM ONCE PRN esomeprazole magnesium 40 mg capsule,delayed release(DR/EC) 40 mg PO DAILY Qty: 90 3RF Print Language: Divehi
[2025-02-17 10:49] LABS: MANUAL DIFF FLAG NO
[2025-02-17 10:53] LABS: Hematocrit 36.2 % (37.0-47.0); Hemoglobin 10.4 g/dl (12.0-16.0); Imm Gran Abs Auto 0.03 X10*3/uL (0.00-0.03); Imm Gran Pct Auto 0.5 % (0.0-0.4); Lymphocytes Absolute Auto 1.6 X10*3/uL (1.2-4.9); Mean Corpuscular HGB Conc 28.7 g/dl (31.0-35.0); Mean Corpuscular Hemoglobin 20.2 pg (27.0-33.0); Mean Corpuscular Volume 70.4 fL (80.0-98.0); NRBC Abs Auto 0.000 X10*3/uL (0.0-0.012); NRBC Pct Auto 0.0 /100WBC (0.0-0.2); Platelet Count 301 X10*3/uL (160-400); Red Blood Count 5.14 X10*6/uL (4.20-5.50); White Blood Count 6.6 X10*3/uL (4.8-10.8)
[2025-02-17 11:07] LABS: Alanine Aminotransferase 12 U/L (0-31); Albumin Level 4.2 g/dL (3.5-5.0); Alkaline Phosphatase 75 U/L (39-117); Anion Gap 12 (12-20); Aspartate Amino Transferase 18 U/L (5-31); Blood Urea Nitrogen 12 mg/dL (9-16); Calcium 9.0 mg/dL (8.4-10.2); Carbon Dioxide 23 mmol/L (22-29); Chloride 112 mmol/L (96-108); Creatinine Clr Calc Pharmacy 98.5; Estimated Glomerular Filt Rate > 60; Potassium 3.9 mmol/L (3.3-5.1); Sodium 143 mmol/L (135-145); Total Protein 7.2 g/dL (6.5-8.0)
[2025-02-17 11:30] VITALS: BP 141/70; PULSE 85; RESP 15; TEMP 36.8; O2SAT 100
--- OUTSIDE RECORDS SUMMARY | 2025-02-17 12:10 | XMS_ITS | Clinical Summary ---
Author Organization [facility] Address [address] [place] [address] Phone Care Team Providers Care Director Design Name Role Phone Jay Hooper MD Primary Care Provi leah Social History Tobacco Use Types Packs/Day Years [...] Vaccines (1 of 2) 2023 023, 09/07/2022 Colorectal Cancer Screening: Colonoscopy 04/07/2024 HIV Screening 04/07/2024 Hepatitis C Screening 04/07/2024 Social Influencers of Health Screening 04/07/2024 Depression Screening 06/11/2024 COVID-19 Vaccine (3 - 2024-2 6 season) 2025 10/07/2020, 09/15/2020 Influenza Vaccine (#1) 2025 Cholesterol Screening (Lipid [...] complete this topic Insurance [place] - [place] [facility] Care Teams Director Design Relationship Specialty Start Date End Date Jay Hooper MD [address] [place] [id number] PCP - General 04/05/10
[2025-02-17 12:45] VITALS: BP 141/70; PULSE 85; RESP 15; TEMP 36.8; O2SAT 100
== END 2025-02-17 12:51 | disposition home or self-care (01) ==
PROVIDERS: Registered Nurse Emergency; Emergency Provider Emergency Medicine; PCP Internal Medicine
DX: G43.909 Migraine, unspecified, not intractable, without status migrainosus (principal); R11.0 Nausea; Z98.84 Bariatric surgery status; Z79.899 Other long term (current) drug therapy
CPT/HCPCS: 36415; 70450; 80053; 85025; 96361; 96374; 96375; 99283; 99284; J1200; J2765

== ENCOUNTER → 2025-02-17 09:58 | Outpatient (BNV) | payer OTHER, SELFPAY | PROVIDERS: Emergency Provider Emergency Medicine; PCP Internal Medicine; Visit Provider Radiology Diagnostic Radiology | DX: R51.9 Headache, unspecified (principal) | CPT/HCPCS: 70450 ==

== ENCOUNTER 2025-02-25 13:08 | Outpatient (AMB) | payer OTHER, SELFPAY ==
--- NOTE | 2025-02-25 13:15 | A.OFFVIS_ITS ---
Intake Visit Reasons: ajovy education Allergies codeine (CODEINE) Allergy (Intermediate, Verified 02/25/25 13:22) HEASDACHE/DIZZY acetaminophen (Percocet) Allergy (Unknown, Verified 02/25/25 13:22) Tachycardia oxycodone (Percocet) Allergy (Unknown, Verified 02/25/25 13:22) tachycardia Penicillins (PENICILLINS) Adverse Reaction (Unknown, Verified 02/25/25 13:22) HEADACHE/DIZZINESS scopolamine (SCOPOLAMINE) Adverse Reaction (Unknown, Verified 02/25/25 13:22) EPISODE OF DEPRESSION MORPHINE Allergy (Unknown, Uncoded 02/25/25 13:22) tachycardia PENICILLIN Allergy (Unknown, Uncoded 02/25/25 13:22) tachycardia From PERCOCET Adverse Reaction (Intermediate, Uncoded 02/25/25 13:22) HEADACHE/DIZZY Medication List - Last Reconciled 02/25/25 by Misty Contreras, KIAN esomeprazole magnesium 40 mg PO DAILY fremanezumab-vfrm (Ajovy) 225 mg (1.5 mL) subcut QMONTH 30 days tuveljgjqnhr-ihc-mjbc-FA-vit K 45 mg iron- 800 mcg-120 mcg (Bariatric Multivitamins) 1 cap PO DAILY HPI Comments Details: She was here today for Ajovy education and first dose of medication. She also had FMLA forms to be completed. Migraines were previously treated with Botox, which worked well for her, however Botox was no longer covered by insurance. Last Botox was 09/30/2024. She was having more headaches and was seen at [facility] [place] ER for headache on 02/17/2025. Previously, she was passing out 3-4x/month, work up negative. She has headaches daily?and once in a while she passes out?for 5 minutes. No convulsion. No tongue bite or incontinence. No chest pain.? She does well with the Botox and has much fewer headaches. Her migraines are improved from the Botox. She did not want to try any other prophylactic meds. Chronic GARCIA for years, did not respond to amitriptyline and chlordiazepoxide. She takes Aleve 4-6/day. She has not been able to get off it and it is possible that these could be drug withdrawal headaches. At times she will start talking random things and acting inappropriately. On 2/11/19 she was noted at work to have rapid jerking eye movements, facial twitching and not responding for 1-2 minutes. Had an episode of urinary incontinence in bed on 07/25/18 and also once last year. Syncopal episode in September 2017. Has had 5 more episodes. No incontinence and was confused. ? 2 syncope in 2015 in the shower and once in uncles house from a couch 5-10 minutes lying on floor with no sz and no incontinence or post ictal confusion. Not responding for 5 minutes, No confusion after. One episode of where she woke up very confused and went into the shower with her clothes on and denied it . Lasted 15 -20 minutes, slept and was fine 1/2 hour later and was fine. Gets headaches almost daily. She has a long history of recurrent syncopal episodes. S he got no warning. There was no tongue biting or incontinence. There is no chest pain or palpitation. [facility] Medical History (Updated 02/25/25 @ 13:22 by Misty Contreras CNP) Memory loss Chronic tension headache Migraine Goiter History of migraine Tubular adenoma Back pain Malabsorption due to intolerance, not elsewhere classified Overweight (BMI 25.0-29.9) Super obesity Surgical History Hx of bladder repair surgery Hx of colonoscopy History of tubal ligation History of esophagogastroduodenoscopy (EGD) History of cholecystectomy LAP-BAND surgery status History of bunionectomy Hx of section Hx of knee surgery S/P laparoscopic sleeve gastrectomy History of loop recorder Family History Father Diabetes HTN (hypertension) Mother Diabetes CVD (cardiovascular disease) Brother No problems noted. Brother No problems noted. Brother No problems noted. Brother No problems noted. Sister No problems noted. Sister No problems noted. Sister No problems noted. Son No problems noted. Daughter No problems noted. Daughter No problems noted. Daughter No problems noted. 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[place] Female Reproductive History Menstrual Age of Menarche: 12 Review of Systems Const Denies chills, Denies daytime sleepiness, Reports difficulty sleeping, Denies fatigue, Denies fever(s), Denies frequent falls, Reports headache(s), Denies increased appetite, Denies poor appetite, Denies snoring, Denies weakness, Denies weight gain and Denies weight loss Eyes Denies loss of vision ENT Denies vertigo, Denies dizziness, Reports headache(s) and Denies neck pain Card Denies chest pain at rest, Denies chest pain with activity, Denies syncope, Denies leg edema, Denies palpitations, Denies dyspnea and Denies dyspnea on exertion Resp Denies cough, Denies dyspnea, Denies dyspnea on exertion and Denies snoring GI Denies abdominal pain, Denies constipation, Denies heartburn, Denies diarrhea and Denies nausea Denies urinary frequency, Denies urinary incontinence and Denies urinary urgency Musc Denies abnormal gait, Denies back pain, Denies myalgias, Denies arthralgias, Denies neck pain, Denies numbness and Denies tingling Neuro Denies abnormal gait, Denies vertigo, Denies dizziness, Denies syncope, Denies frequent falls, Reports headache(s), Denies lack of coordination, Denies loss of vision, Denies memory loss, Denies numbness, Denies Other visual disturbances, Denies restless legs, Denies seizure-like activity, Denies tingling, Denies paresthesias, Denies tremor(s) and Denies weakness Psych Denies anxiety, Denies depression, Denies auditory hallucinations, Denies memory loss and Denies visual hallucinations Endo Denies fatigue and Denies palpitations Physical Exam Const Other: General Appearance:? normal, in no acute distress. Heart:? S1, S2 normal, no murmurs. Lungs:? clear anteriorly and posteriorly. Musculoskeletal:? normal. Extremities:? no edema. Psych:? alert, oriented, cognitive function intact, cooperative with exam. Neuro Other: Abnormal Neurological Findings:?none.? Mental Status: alert and oriented X 3. Normal attention, orientation, memory, and affect. Cranial Nerves: Pupils are equal, round, and reactive to light. External ocular muscles are intact. Visual bhagat are full, no ptosis. Face is symmetrical, no facial weakness or droop. Facial sensations are normal. Tongue protrudes in midline. Palate elevates symmetrically. Shoulder shrugging is normal Motor Examination: Normal muscle tone, bulk and strength. No atrophy or fasciculations. No drift of the extended upper extremities. DTR 2+. Plantars are flexor. Sensory Exam: Normal light touch, temperature, pinprick, vibration, and joint- position sensations. Rhomberg sign is absent. Coordination: No ataxia. No titubation. Gait Exam: Within normal limits. Cerebellar Signs: Sbjkaf-go-ocnv is okay. Extrapyramidal System: No tremor, rigidity with normal facial expressions. No bradykinesia. No bradyphrenia. Normal arm swing and posture. No propulsion or retropulsion. Speech: Normal. Results Reviewed Results Reviewed: [address] [id number] [address] Scan Report Signed Patient: Diaen Johnson MR#: [id number] : 1975 Acct:[id number] Age/Sex: 49 / F ADM Date: 02/17/25 Loc: HO.ED Attending Dr: Ordering Physician: Shanelle Guardado NP Date of Service: 02/17/25 Procedure(s): CT head/brain wo IV con Accession Number(s): [id number] cc: Jay Hooper MD; Shanelle Guardado NP~ Report Number: [id number]: Total DLP = 626.00 mGy-cm Reason for Exam: severe headache EXAMINATION: CT HEAD WITHOUT CONTRAST CLINICAL INFORMATION: Severe headache COMPARISON: November 18, 2024 TECHNIQUE: Contiguous axial imaging was performed from the skull base to vertex without intravenous administration of contrast. This CT examination was performed using dose optimization techniques as appropriate, variously including the following: *Automated exposure control *Adjustment of mA and/or kV according to patient size (this includes techniques or standardized protocols for targeted exams where dose is matched to indication/reason for exam; i.e. extremities or head) *Use of iterative reconstruction technique DLP: 626 mGY*cm FINDINGS: There is no acute ischemic change. There is no intracranial hemorrhage. There is no mass-effect or midline shift. Basal cisterns and ventricles are within normal limits for age/cerebral volume. Orbits are symmetrical and unremarkable. Paranasal sinuses and mastoid air cells are pneumatized. There are no acute bony abnormalities. Bony nasal septum deviates toward the right. CT/CT head/brain wo IV con IMPRESSION: No acute intracranial abnormality. Electronically signed by: John Armstrong MD 02/17/2025 12:23 PM EDT RP -- September 2024: CT brain - normal, 48 hr EEG - normal, Holter monitor - normal Psych testing c/w depression and low cognitive abilities. Assessment & Plan Assessment & Plan (1) Migraine: Code(s): G43.909 - Migraine, unspecified, not intractable, without status migrainosus Category: Medical Qualifiers: Intractability: not intractable Migraine type: unspecified Status migrainosus presence: without status migrainosus Qualified Code(s): G43.909 - Migraine, unspecified, not intractable, without status migrainosus Plan: Migraines were previously treated by Botox, which worked well for her, however Botox was no longer covered by insurance and she was started on Ajovy. She was seen at [facility] [place] ER on 02/17/[address] head reviewed from ER, no acute findings. She was here today for Ajovy education and first dose of medication. She was educated on the purpose, use, and side effects of medication. She was educated on how to administer medication and proper disposal. Medication was given to back of left upper arm, which she tolerated well without any immediate side effects. FMLA form completed and returned to patient. Coding Level of Care Code Est Pt Level 4 (66214) Diagnoses Migraine without status migrainosus, not intractable, unspecified migraine type G43.909 Intractability: not intractable Migraine type: unspecified Status migrainosus presence: without status migrainosus
--- OUTSIDE RECORDS SUMMARY | 2025-02-25 16:43 | XMS_ITS | Encounter Summary ---
Author Organization [employer] Address [address] [facility] 7 [place] [address] Care Team Providers Care Complaint Inspector Name Role Phone Jay Davis MD Primary Care Provide r Reason for Visit * Reason Onset Date Comments Referral 07/11/2024 Encounter Details Date Type Department Care Team ([facility] st Contact Info) Description 07/11/2024 Telephone [facility] [address] [place], [place] [phone] Jay Davis MD [address] [place] [address] Referral Social History Tobacco Use Types Packs/Day [...] referral in general to be placed in [facility] as pt work insurance will have coverage in that facility. Pt received call from a facility as she had to reject due to insurance wont cover visit. documented in this encounter Plan of Treatment Upcoming Encounters Date Type Department Care Team (Late st Contact Info) Description 03/17/2025 3:00 PM EDT Office Visit [facility] [address] [place] [address] Jay Davis MD [address] [place] [address] documented as of this encounter Visit Diagnoses Not on filedocumented in this encounter Additional Health Concerns Assessment Noted Time PHQ-9 Depression Total Score: 0 12/25/19 24 1:07 PM EDT documented as of this encounter Care Teams Complaint Inspector Relationship Specialty Start Date End Date Jay Davis MD [address] [place] [id number] PCP - General Internal Medicine 01/13/14 documented as of this encounter
--- OUTSIDE RECORDS SUMMARY | 2025-02-25 16:44 | XMS_ITS | Encounter Summary ---
Author Organization [employer] Address [address] [facility] 7t [place] [address] Care Team Providers Care Rougher Machine Operator Name Role Phone Jay Davis MD Primary Care Provide r Reason for Visit * Reason Onset Date Comments Med Refill 10/15/2023 Encounter Details Date Type Department Care Team ([facility] st Contact Info) Description 10/15/2023 Refill [facility] [address] [place] [address] Jay Davis MD [address] [place] [address] Dermatitis Social History Tobacco Use Types Packs/Day Years Used Date Smoking Tobacco: Never Passive Smoke Exposure: Never Smokeless Tobacco: Never Depression Answer Date Recorded Patient Health Questionnaire-9 Score 6 10/05/2022 Housing Stability Answer Date Recorded What is your housing situation today? I have adelinasami boucher 03/27/[address] you [...] t he electric, gas, oil or water [employer] threatened to shut off services in your [...] Upcoming Encounters Date Type Department Care Team ([facility] st Contact Info) Description 03/17/2025 3:00 PM EDT Office Visit [facility] [address] [place] [address] Jay Davis MD [address] [place] [phone] documented as of this encounter Visit Diagnoses Diagnosis Dermatitis Contact dermatitis and other eczema, due to unspecified cause documented in this encounter Additional Health Concerns Assessment Noted Time PHQ-9 Depression Total Score: 6 10/06/19 23 12:39 PM EDT documented as of this encounter Care Teams Rougher Machine Operator Relationship Specialty Start Date End Date Jay Davis MD [address] [place] [id number] PCP - General Internal Medicine 01/13/14 documented as of this encounter
--- OUTSIDE RECORDS SUMMARY | 2025-02-25 16:44 | XMS_ITS | Encounter Summary ---
Author Organization [employer] Address [address] [facility] 7t [place] [address] Care Team Providers Care Customs Investigator Name Role Phone Jay Davis MD Primary Care Provide r Reason for Visit * Reason Onset Date Comments Med Refill 01/14/2025 Encounter Details Date Type Department Care Team ([facility] st Contact Info) Description 01/14/[address] [facility] MED[facility]INE [address] [place] [address] Jay Davis MD [address] [place] [address] Low back pain radiating to right leg Social History Tobacco Use Types Packs/Day Years [...] before you got money to buy more: Sometimes True 2024 Within the past 12 months,th e food you bought just didn't last and you didn't have enough money to get more: Sometimes True 12/11/2024 Transportation Answer Date Recorded In the past 12 months, has l ack of transportation kept you from medical appts, meetings, work or from getting things needed for daily living? No 12/25/2023 Utilities Answer Date Recorded In the past 12 months, has t he electric, gas, oil or water company threatened to shut off services in your home? Yes 12/11/2024 Depression Answer Date Recorded Patient Health Questionnaire-2 [...] Description 03/17/2025 3:00 PM EDT Office Visit [facility] MED[facility]INE [address] [place] [address] Jay Davis MD [address] [place] [address] documented as of this encounter Visit Diagnoses Diagnosis Low back pain radiating to right leg Lumbago documented in this encounter Additional Health Concerns Assessment Noted Time PHQ-9 Depression Total Score: 18 025 3:21 PM EDT documented as of this encounter Care Teams Customs Investigator Relationship Specialty Start Date End Date Jay Davis MD [address] [place] [id number] PCP - General Internal Medicine 01/13/14 documented as of this encounter
--- OUTSIDE RECORDS SUMMARY | 2025-02-25 16:44 | XMS_ITS | Encounter Summary ---
Author Organization [employer] Address [address] [facility] 7t [place] [address] Care Team Providers Care Broodmare Barn Groom Name Role Phone Jay Davis MD Primary Care Provide r Reason for Visit * Reason Onset Date Comments Med Refill 01/14/2025 Encounter Details Date Type Department Care Team ([facility] st Contact Info) Description 01/14/[address] [facility] [address] [place] [address] Riley Waldrop MD [address] [place] [address] Social History Tobacco Use Types Packs/Day Years [...] Upcoming Encounters Date Type Department Care Team ([facility] st Contact Info) Description 03/17/2025 3:00 PM EDT Office Visit [facility] [address] [place] [address] Jay Davis MD [address] [place] [phone] documented as of this encounter Visit Diagnoses Not on filedocumented in this encounter Additional Health Concerns Assessment Noted Time PHQ-9 Depression Total Score: 18 025 3:21 PM EDT documented as of this encounter Care Teams Broodmare Barn Groom Relationship Specialty Start Date End Date Jay Davis MD [address] [place] [id number] PCP - General Internal Medicine 01/13/14 documented as of this encounter
--- OUTSIDE RECORDS SUMMARY | 2025-02-25 16:44 | XMS_ITS | Clinical Summary ---
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 Devices (Pulse Oximeter For Finger) miscIndications: COVID-19 To use every 4 hours. Call the office if O2 Sat < 90% 1 each 3 Active acetaminophen (Tylenol) 500 MG tablet Take 2 tablets (1,000 mg) by mouth every 6 (six) hours if needed for moderate pain or fever for up to 25 doses. 40 tablet 4 Active lidocaine (Lidoderm) 5 % patch Apply 1 patch topically Once per day. Remove & discard patch within 12 hours or as directed by . 30 patch 2 4 05/16/20 25 Active Blood Pressure kit 1 each 2 times daily. 1 kit 4 05/16/20 25 Active ibuprofen 400 MG tablet Take 1 tablet (400 mg) by mouth every 6 (six) hours if needed for moderate pain or fever for up to 30 doses. 30 tablet 5 Active Diclofenac Sodium 1 % gelIndications:P ain of right heel Use twice daily on affected area 50 g 1 5 Active terbinafine (LamISIL AT) 1 % creamIndications :Tinea pedis of right foot Apply topically 2 times daily. 42 g 1 5 Active tiZANidine (Zanaflex) 2 MG tabletIndication s:Low back pain radiating to right leg Take 1 tablet (2 mg) by mouth every 6 (six) hours if needed for muscle spasms. 30 tablet 5 Active triamcinolone (Kenalog) 0.1 % creamIndications :Dermatitis APPLY TO THE AFFECTED AREA(S) SPARINGLY TWICE DAILY 15 g 1 5 Active cetirizine (ZyrTEC) 10 MG tabletIndication s:Subacute cough Take 1 tablet (10 mg) by mouth Once per day. 30 tablet 2 5 04/15/20 25 Active ferrous sulfate (Fe Tabs) 325 (65 Fe) MG EC tabletIndication s:Iron deficiency anemia, unspecified iron deficiency anemia type Take 1 tablet (325 mg) by mouth before breakfast and before evening meal. Do not crush, chew, or split. 60 tablet 3 5 Active Active Problems Problem Noted Date Diagnosed Date Goiter 09/11/2024 Assessment & Plan (12/11/2024 2:44 PM EDT): Pt with an incidental finding on CT of neck of enlarged Thyroid Thyroid US done 09/10/2024 showed: Global enlargement of the thyroid. Multiple small bilateral thyroid nodules. According to ACR TI-RADS is guidelines, none of the nodules warrants biopsy or follow up. Lab Results Component Value Date TSH 1.04 09/12/2024 Endoctinology saw patient 11/17/24 recommended For us to repeat thyroid function tests annually with TSH with reflex free T4 For us to repeat a thyroid ultrasound in 1-2 years, patient can be referred back to them if there is any growth of her nodules Assessment & Plan (09/11/2024 2:30 PM EDT): [...] episode, mo derate 06/12/2024 Assessment & Plan (12/11/2024 3:06 PM EDT): Patient is no longer under the care of Zohreh Raphael at [facility]. Back in 10/2023 Pt underwent extensive pyschologic testing and was diagnosed with depression and insomnia Patient tells me she is already seeing a therapist. Plan: Pt will continue to follow with her. Assessment & Plan (09/11/2024 2:44 PM EDT): Patient is no longer under the care of Zohreh Raphael at [facility]. Back in 10/2023 Pt underwent extensive pyschologic testing and was diagnosed with depression and insomnia Plan: Patient tells me she is awaiting to see a psychiatrist at [facility] Assessment & Plan (06/12/2024 3:06 PM EST): Patient is under the care of Zohreh Raphael at [facility]. Back in 10/2023 Pt underwent extensive pyschologic testing and was diagnosed with depression and insomnia Plan: Patient tells me she will continue to folow with Zohreh to address this issues. 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 48 hr ambulatory EEG done 10/2024 at [facility] was Normal Assessment & Plan (06/12/2024 4:07 PM EST): Pt already seeing a Neurologist Dr Leonardo Pt has a follow up 07/08/2023 One of the recommendations from the psychological testing was that she needs to be evaluated to rule out Psychogenic Non-epileptic seizures. She will address that with Dr. Leonardo when she sees her. Sleep disturbances 06/12/2024 Assessment & Plan (01/15/2025 3:29 PM EDT): Pt feeling tired and having difficulty sleeping She was initially scheduled for sleep test in March, but apparently she was seen at the Sleep Center at [facility] and was told she did not need one and recommended positional therapy first and if it fails they would then consider repeating study Assessment & Plan (12/11/2024 2:53 PM EDT): Scheduled for sleep test in March Assessment & Plan (06/12/2024 4:06 PM EST): One of the diagnoses given to her during her psychologic testing evaluation was insomnia. Pt tells me she weill address this with her psychotherapist Zohreh Simmons at [facility] Subacute cough 12/25/2023 Assessment & Plan (06/12/2024 [...] and accessories, laparoscopic sleeve gastrectomy and gastropexy. [facility] health care 10/05/2022 Assessment & Plan (12/11/2024 2:46 PM EDT): Mammogram: Done 10/20/2024 Normal Pap Smear: 03/25/2024 Normal Colonoscopy: 12/30/2021 showed: One tiny polyp removed Moderate diverticulosis seen in the entire colon 5 year follow up Vaccines: declines Flu shots. Assessment & Plan (09/11/2024 2:36 PM EDT): [...] 8:25 AM EDT): Mammogram: Done 05/07/2017 at [facility] was normal Pap Smear: Done by Dr Zee 01/12/2017 Normal Colonoscopy: NOT due yet Vaccines: declines Flu shots. Low back pain radiating to right leg 10/05/2022 Assessment & Plan (10/05/2022 1:58 PM EDT): Symptomatology suggestive of sciatica Plan: Rest, NSAIDS, Muscle relaxant, plain films of LS spine PT eval Follow up if no improvement Learning disabilities 10/05/2022 Assessment & Plan (12/11/2024 2:48 PM EDT): Pt tells me that throughout [...] step. 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 This was finally done 10/19/2023 See report. Diagnosed with Depression, Insomnia, Borderline intellectual functioning Recommendations were to: Refer to: , Consider treatment for depression and insomnia ( She is awaiting to see Psychiatrist at [facility] ), Refer to Sleep Medicine (appointment pending) Pt had a CT 08/2024 that showed: No acute intracranial process. Pt was referred back to Neurology to consider ruling out Pychogenic Non- epileptoid seizures (PNES). Seen by Dr Leonardo who ordered a 48 hr EEG done 10/2024 and was Normal. Assessment & Plan (09/11/2024 2:46 PM EDT): [...] step. 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 This was finally done 10/19/2023 See report. Diagnosed with Depression, Insomnia, Borderline intellectual functioning Recommendations were to: Refer to: , Consider treatment for depression and insomnia ( She is awaiting to see Psychiatrist at [facility] ), refer to Sleep Medicine (appointment pending) [...] step. 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 This was finally done 10/19/2023 See [...] and able to travel Will refer to [facility] Obesity 04/14/2014 Assessment & Plan (09/11/2024 2:35 PM EDT): Patient has been counseled and educated about diet and exercise. Personal goal of weight loss discussed Kidney stone 01/29/2012 Impaired glucose tolerance 01/29/2012 Assessment & Plan (01/15/2025 3:12 PM EDT): Repeat FBG Migraine without aura and wi thout status [...] Encounters Date Type Department Care Team Description 02/17/2025 Orders Only [facility] External Provider, [facility] 01/16/2025 Orders Only [facility] [address] [place] [address] Jay Davis MD Iron deficiency anemia, unspecified iron deficiency anemia type (Primary Dx) 01/16/2025 Telephone [facility] [address] [place], [place] [address] [address] Jay Davis MD Results 01/16/2025 Results Follow-Up [facility] [address] [place], [place] [address] Bri [phone] Jay Davis MD CBC auto differential, Hepatitis C Antibody with Reflex to HCV, RNA, Quantitative, Real-Time PCR, Iron And Total Iron Binding Capacity, Additional followed-up results: 2 01/15/2025 3:00 PM EDT Office Visit [facility] [address] [place], [place] [address] [address] Jay Davis MD Impaired glucose tolerance (Primary Dx); Fatigue due to excessive exertion, initial encounter; Sleep disturbances; Pain of right heel; Tinea pedis of right foot; Low back pain radiating to right leg; Dermatitis; Subacute cough 01/15/2025 Travel 01/14/2025 Refill [facility] [address] [place] [address] [place] [address] Jay Davis MD Low back pain radiating to right leg 01/14/2025 Refill [facility] [address] [place] [address] Jay Davis MD Tinea pedis of right foot; Low back pain radiating to right leg 01/14/2025 Refill [facility] [address] [place] [phone] Riley Waldrop MD 01/14/2025 Travel 12/11/2024 3:00 PM EDT Office Visit [facility] [address] [place] [phone] Jay Davis MD Goiter (Primary Dx); Learning disabilities; Preventative health care; Borderline intellectual functioning; Sleep disturbances; Major depressive disorder, recurrent episode, moderate (CMS/HCC); Itching; Hives 12/11/2024 Travel 12/10/2024 Telephone [facility] [address] [place] [address] Jay Davis MD chart prep from Last 3 Months Immunizations Immunization Administration Dates Next Due Hep B, adult [...] Sign Reading Time Taken Comments Blood Pressure 130/70 01/15/2025 3:29 PM EDT Pulse 89 01/15/2025 2:53 PM EDT Temperature 36.4 C (97.6 F) 01/15/2025 2:53 PM EDT Respiratory Rate 20 01/15/2025 2:53 PM EDT Oxygen Saturation 98% 01/15/2025 2:53 PM EDT Inhaled Oxygen Concentration - - Weight 83.9 kg (185 lb) 01/15/2025 2:53 PM EDT Height 154.9 cm (5' 1 ) 01/15/2025 2:53 PM EDT Body Mass Index 34.96 01/15/2025 2:53 PM EDT Plan of Treatment Upcoming Encounters Date Type Department Care Team (Late st Contact Info) Description 03/17/2025 3:00 PM EDT Office Visit [facility] [address] [place], [place] [phone] Jay Davis MD [address] [place] [address] Health Maintenance Due Date Last Done Comments CT Colonography 1973 FIT DNA/Cologuard 1975 FIT 1975 FOBT 1975 HIV Screening 1975 Sigmoidoscopy 1975 Family Planning (PISQ) 1988 Hepatitis B Vaccines (3 of 3 - 19+ 3-dose series) 03/10/2023 10/11/2022, 09/07/2022 Pneumococcal Vaccine: 50+ Years (1 of 1 - PCV) 2023 Zoster Vaccines (1 of 2) 2023 COVID-19 Vaccine (3 - 2024-2 6 season) 2025 10/07/2020, 09/15/2020 Influenza Vaccine (#1) 2025 Depression Monitoring 03/13/2025 09/11/2024 , 09/11/2024 Alcohol/Substance Use Screening 06/12/2025 06/12/2024 Mammogram 10/20/2025 10/20/2024, 08/25/2023 Disability Screening 12/11/2025 12/11/2024 SDOH Screening 12/11/2025 12/11/2024 Tobacco Screening 01/15/2026 01/15/2025 Cervical Cancer Screening 03/18/2029 HPV/Cotest 03/18/2029 03/18/2024 Pap Smear 03/18/2029 03/18/2024 Lipid Panel 09/12/2029 09/12/2024 Colonoscopy 12/31/2031 12/30/2021 Colorectal Cancer Screening 12/31/2031 DTaP/Tdap/Td Vaccines (2 - T d or Tdap) 09/07/2032 09/07/2022, 01/29/2012 RSV Patients and Patients Aged 60 years or older (1 - 1-dose 75+ series) 2048 Hepatitis C Screening Completed 01/16/2025 HIB Vaccines Aged Out No longer eligi [...] Diagnosis Comments CT HEAD WO CONTRAST Routine 02/17/2025 1 0:28 AM EDT FERRITIN Routine 01/16/2025 12:31 PM EDT Anemia, unspecified type VITAMIN B12/FOLATE, SERUM PANEL Routine 01/16/2025 12:31 PM EDT Anemia, unspecified type IRON AND TOTAL IRON BINDING CAPACITY Routine 01/16/2025 12:31 PM EDT Anemia, unspecified type COMPREHENSIVE METABOLIC PANEL Routine 01/16/2025 12:31 PM EDT Fatigue due to excessive exertion, initial encounter CBC WITH AUTO DIFFERENTIAL Routine 01/16/2025 12:31 PM EDT Major depressive disorder, recurrent episode, moderate (CMS/HCC) HEPATITIS C AB W/REFL TO HCV RNA, QN, PCR Routine 01/16/2025 6:58 AM EDT Fatigue due to excessive exertion, initial encounter CBC WITH AUTO DIFFERENTIAL Routine 01/16/2025 6:58 AM EDT Fatigue due to excessive exertion, initial encounter COMPREHENSIVE METABOLIC PANEL Routine 01/16/2025 6:58 AM EDT Major depressive disorder, recurrent episode, moderate (CMS/HCC) BI MAMMOGRAM SCREENING TOMOSYNTHESIS BILATERAL Routine 10/20/2024 1:27 PM EDT LIPID PANEL, STANDARD Routine 09/12/2024 9:40 AM EDT Class 2 obesity due to excess calories without serious comorbidity with body mass index (BMI) of 36.0 to 36.9 in adult THINPREP IMAGING PAP AND HPV MRNA E6/E7 WITH REFLEX TO HPV 16,18/45 Routine 03/18/2024 8:00 AM EDT HM COLONOSCOPY Routine 12/30/2021 from Last 3 Months or Most Recently Relevant to Health Maintenance Results * CT Head w/o Contrast (02/17/2025 10:28 AM EDT) Anatomical Region Laterality Modality Head, Neck Computed Tomogra phy 02/17/2025 10:2 8 AM EDT Narrative 02/17/2025 12:25 PM EDT [address] [address] [address] Scan Report Signed Patient: Diane Johnson MR#: [id number] : 1975 Acct:[id number] Age/Sex: 49 / F ADM Date: 02/17/25 Loc: HO.ED Attending Dr: Ordering Physician: Shanelle Guardado NP Date of Service: 02/17/25 Procedure(s): CT head/brain wo IV con Accession Number(s): [id number] cc: Jay Hooper MD; Shanelle Guardado NP Report Number: [id number]: Total DLP = 626.00 mGy-cm Reason for Exam: severe headache EXAMINATION: CT HEAD WITHOUT CONTRAST CLINICAL INFORMATION: Severe headache COMPARISON: November 18, 2024 TECHNIQUE: Contiguous axial imaging was performed from the skull base to vertex without intravenous administration of contrast. This CT examination was performed using dose optimization techniques as appropriate, variously including the following: *Automated exposure control *Adjustment of mA and/or kV according to patient size (this includes techniques or standardized protocols for targeted exams where dose is matched to indication/reason for exam; i.e. extremities or head) *Use of iterative reconstruction technique DLP: 626 mGY*cm FINDINGS: There is no acute ischemic change. There is no intracranial hemorrhage. There is no mass-effect or midline shift. Basal cisterns and ventricles are within normal limits for age/cerebral volume. Orbits are symmetrical and unremarkable. Paranasal sinuses and mastoid air cells are pneumatized. There are no acute bony abnormalities. Bony nasal septum deviates toward the right. CT/CT head/brain wo IV con IMPRESSION: No acute intracranial abnormality. Electronically signed by: John Armstrong MD 02/17/2025 12:23 PM EDT Dictated By: John Armstrong MD Signed By: <Electronically signed by John Armstrong MD in OV> 02/17/25 1223 DD/ 1028 TD/TT: 02/17/25 1039 General Operations Agent: Procedure Note Donotuseinterpreter, Image - 02/17/[address] [address] [address] Scan Report Signed Patient: Diane JohnsonMR#: [id number] : 1975Acct:[id number] Age/Sex: 49 / FADM Date: 02/17/25 Loc: HO.ED Attending Dr: Ordering Physician: Shanelle Guardado NP Date of Service: 02/17/25 Procedure(s): CT head/brain wo IV con Accession Number(s): [id number] cc: Jay Hooper MD; Shanelle Guardado NP Report Number: [id number]: Total DLP = 626.00 mGy-cm Reason for Exam: severe headache EXAMINATION: CT HEAD WITHOUT CONTRAST CLINICAL INFORMATION: Severe headache COMPARISON: November 18, 2024 TECHNIQUE: Contiguous axial imaging was performed from the skull base to vertex without intravenous administration of contrast. This CT examination was performed using dose optimization techniques as appropriate, variously including the following: *Automated exposure control *Adjustment of mA and/or kV according to patient size (this includes techniques or standardized protocols for targeted exams where dose is matched to indication/reason for exam; i.e. extremities or head) *Use of iterative reconstruction technique DLP: 626 mGY*cm FINDINGS: There is no acute ischemic change. There is no intracranial hemorrhage. There is no mass-effect or midline shift. Basal cisterns and ventricles are within normal limits for age/cerebral volume. Orbits are symmetrical and unremarkable. Paranasal sinuses and mastoid air cells are pneumatized. There are no acute bony abnormalities. Bony nasal septum deviates toward the right. CT/CT head/brain wo IV con IMPRESSION: No acute intracranial abnormality. Electronically signed by: John Armstrong MD 02/17/2025 12:23 PM EDT Dictated By: John Armstrong MD Signed By: <Electronically signed by John Armstrong MD in OV> 02/17/25 1223 DD/ 1028 TD/TT: 02/17/25 1039 General Operations Agent: [facility] External Provider IMG CT PROCEDURES Edited Result - Final * Vitamin B12/Folate, Serum Panel (01/16/2025 12:31 PM EDT) Vitamin B12 263 200 - 900 pg/mL [facility] Comment:NORMAL 200-900 PG/ML INDETERMINATE 160-199 PG/ML DEFICIENT < 160 PG/ML Folate 8.5 > or = 4.0 ng/mL [facility] Comment:Reference Values:> o r = 4.0 ng/mL< 4.0 ng/mL suggests folate deficiency Methotrexate, aminopterin and folinic acid(leucovorin) are chemotherapeutic agents whose molecularstructures are similar to folate; therefore, the Architectfolate assay cannot be used for patients using these drugs. Blood Venous blood specimen / Unknown 01/16/2025 12:31 PM EDT 01/16/2025 12:31 PM EDT us Jay Henry MD LAB BLOOD ORDERABLES Final Result [facility] [address] [place], [place] [phone] * (ABNORMAL) CBC auto differential (01/16/2025 12:31 PM EDT) Only the most recent of2 resultswithin the time period is included. White Blood Count 8.2 4.8 - 10.8 X10*3/uL [facility] Red Blood Count 5.14 4.20 - 5.50 X10*6/uL [facility] Hemoglobin 10.3(L) 12.0 - 16.0 g/dl [facility] Hematocrit 36.1(L) 37.0 - 47.0 % [facility] Mean Corpuscular Volume 70.2(L) 80.0 - 98.0 fL [facility] Mean Corpuscular Hemoglobin 20.0(L) 27.0 - 33.0 pg [facility] Mean Corpuscular HGB Conc 28.5(L) 31.0 - 35.0 g/dl [facility] Red Cell Distribution Width 17.2(H) 11.0 - 16.0 % [facility] Platelet Count 385 160 - 400 X10*3/uL [facility] Mean Platelet Volume 11.6 9.4 - 12.3 fL [facility] Neutrophils Percent Auto 67.4 45 - 73 % [facility] Imm Gran Pct Auto 0.5(H) 0.0 - 0.4 % [facility] Lymphocytes Percent Auto 25.1 20 - 40 % [facility] Monocytes Percent Auto 5.1 2 - 11 % [facility] Eosinophils Percent Auto 1.3 0 - 4 % [facility] Basophils Percent Auto 0.6 0 - 2 % [facility] NRBC Pct Auto 0.0 0.0 - 0.2 /100WBC [facility] Neutrophils Absolute Auto 5.5 2.0 - 8.3 x10*3/uL [facility] Imm Gran Abs Auto 0.04(H) 0.00 - 0.03 X10*3/uL [facility] Lymphocytes Absolute Auto 2.1 1.2 - 4.9 X10*3/uL [facility] Monocytes Absolute Auto 0.4 0.1 - 1.2 X10*3/uL [facility] Eosinophils Absolute Auto 0.1 0.0 - 0.4 X10*3/uL [facility] Basophils Absolute Auto 0.1 0.0 - 0.2 X10*3/uL [facility] NRBC Abs Auto 0.000 0.0 - 0.012 X10*3/uL [facility] Blood Venous blood specimen / Unknown 01/16/2025 12:31 PM EDT 01/16/2025 12:31 PM EDT us Jay Henry MD LAB BLOOD ORDERABLES Final Result [facility] [address] [place] [phone] * (ABNORMAL) Iron And Total Iron Binding Capacity (01/16/2025 12:31 PM EDT) Iron 16(L) 30 - 160 mcg/dL [facility] Total Iron Binding Capacity 409 228 - 428 mcg/dL [facility] Percent Iron Saturation 4(L) 15 - 50 % [facility] Unsaturated Iron Binding 393 ug/dL [facility] Blood Venous blood specimen / Unknown 01/16/2025 12:31 PM EDT 01/16/2025 12:31 PM EDT Jay Henry MD LAB BLOOD ORDERABLES Final Result Performing Organization Address City/[facility]/ZIP Co de Phone Number [facility] [address] [place] [phone] * (ABNORMAL) Ferritin (01/16/2025 12:31 PM EDT) Ferritin 8(L) 10 - 250 ng/mL [facility] Blood Venous blood specimen / Unknown 01/16/2025 12:31 PM EDT 01/16/2025 12:31 PM EDT Jay Henry MD LAB BLOOD ORDERABLES Final Result Performing Organization Address City/[facility] Co de Phone Number [facility] [address] [place] [phone] * Comprehensive Metabolic Panel (01/16/2025 12:31 PM EDT) Only the most recent of2 resultswithin the time period is included. Sodium 141 135 - 145 mmol/L [facility] Potassium 3.9 3.3 - 5.1 mmol/L [facility] Chloride 107 96 - 108 mmol/L [facility] Carbon Dioxide 26 22 - 29 mmol/L [facility] Anion Gap 12 12 - 20 [facility] Urea Nitrogen (BUN) 15 9 - 16 mg/dL [facility] Creatinine, Serum 0.67 0.5 - 1.4 mg/dL [facility] Estimated Glomerular Filt Rate >60 [facility] Comment:Chronic Kidney Disea se: Estimated GFR < 60 mL/min/[id number] Kidney Disease: Estimated GFR < 15 mL/min/1.73m2 Glucose 112 60 - 115 mg/dL [facility] Calcium 9.1 8.4 - 10.2 mg/dL [facility] Bilirubin, Total 0.4 0.0 - 1.0 mg/dL [facility] Aspartate Amino Transferase 22 5 - 31 U/L [facility] Alanine Aminotransferase 14 0 - 31 U/L [facility] Total Protein 7.6 6.5 - 8.0 g/dL [facility] Albumin Level 4.3 3.5 - 5.0 g/dL [facility] Alkaline Phosphatase 90 39 - 117 U/L [facility] Blood Venous blood specimen / Unknown 01/16/2025 12:31 PM EDT 01/16/2025 12:31 PM EDT Jay Henry MD LAB BLOOD ORDERABLES Final Result Performing Organization Address [facility]/ZIP Co de Phone Number [facility] [address] [place] [phone] * Hepatitis C Antibody with Reflex to HCV, RNA, Quantitative, Real-Time PCR (01/16/2025 6:58 AM EDT) Hepatitis C Antibody Nonreactive Nonreactive [facility] Comment:Antibodies to HCV no t detected; does not exclude early acuteHCV infection. Blood Venous blood specimen / Unknown 01/16/2025 6:58 AM EDT 01/16/2025 7:03 AM EDT Jay Henry MD LAB BLOOD ORDERABLES Final Result Performing Organization Address [facility] Co de Phone Number [facility] [address] [place] [phone] * BI Mammogram Screening Tomosynthesis Bilateral (10/20/2024 1:27 PM EDT) Anatomical Region Laterality Modality Breast Bilateral Mammography 10/20/2024 1:27 PM EDT Narrative 10/26/2024 5:47 PM EDT [facility] [address] [place] [address] Mammography Report Signed Patient: Diane Johnson MR#: [id number] : 1975 Acct:[id number] Age/Sex: 49 / F ADM Date: 10/20/24 Loc: HO.MAMMO Attending Dr: Jay Hooper MD Ordering Physician: Jay Hooper MD Resu lts: 2Benign Findings Date of Service: 10/20/24 Follow Up: 1 Year From Orig inal Mammogram Procedure(s): MM tomosynthesis screening BI Accession Number(s): [id number] cc: Jay Hooper MD EXAMINATION: MM SCREENING DIGITAL BREAST TOMOSYNTHESIS, BILATERAL CLINICAL INFORMATION: Screening. Asymptomatic. COMPARISON: Mammography: Comparison is made with available priors TECHNIQUE: Digital breast mammography with tomosynthesis is performed in both the craniocaudal and mediolateral oblique views along with computer-aided detection (CAD). FINDINGS: The breasts are heterogeneously dense, which may obscure small masses (ACR BI-RADS breast composition Category c). Cardiac loop recorder overlies and obscures the retroareolar region left MLO view. There are no significant masses, abnormal calcifications, or other abnormalities. MM/MM tomosynthesis screening BI IMPRESSION: No mammographic evidence of malignancy. ASSESSMENT: BI-RADS BI-RADS 2 - Benign Findings RECOMMENDATION: Routine annual mammography screening. 1 year F/U This examination should not preclude the clinical evaluation of a suspicious palpable abnormality. This patient's information was entered into a reminder system with a target due date for their next mammogram. Electronically signed by: Sanna Marx DO 10/26/2024 05:44 PM EDT Dictated By: Sanna Marx DO Signed By: <Electronically signed by Sanna Marx DO in OV> 10/26/24 1744 DD/ 1327 TD/TT: 10/20/24 1355 General Operations Agent: Procedure Note Donotuseinterpreter, Image - 10/27/2024 [facility] [address] [place] [address] Mammography Report Signed Patient: Luna Johnson#: [id number] : 1975Acct:[id number] Age/Sex: 49 / FADM Date: 10/20/24 Loc: HO.MAMMO Attending Dr: Jay Hooper MD Ordering Physician: Jay Hooper MDResu lts: 2Benign Findings Date of Service: 10/20/24Follow Up: 1 Year From Orig inal Mammogram Procedure(s): MM tomosynthesis screening BI Accession Number(s): [id number] cc: Jay Hooper MD EXAMINATION: MM SCREENING DIGITAL BREAST TOMOSYNTHESIS, BILATERAL CLINICAL INFORMATION: Screening. Asymptomatic. COMPARISON: Mammography: Comparison is made with available priors TECHNIQUE: Digital breast mammography with tomosynthesis is performed in both the craniocaudal and mediolateral oblique views along with computer-aided detection (CAD). FINDINGS: The breasts are heterogeneously dense, which may obscure small masses (ACR BI-RADS breast composition Category c). Cardiac loop recorder overlies and obscures the retroareolar region left MLO view. There are no significant masses, abnormal calcifications, or other abnormalities. MM/MM tomosynthesis screening BI IMPRESSION: No mammographic evidence of malignancy. ASSESSMENT: BI-RADS BI-RADS 2 - Benign Findings RECOMMENDATION: Routine annual mammography screening. 1 year F/U This examination should not preclude the clinical evaluation of a suspicious palpable abnormality. This patient's information was entered into a reminder system with a target due date for their next mammogram. Electronically signed by: Sanna Marx DO 10/26/2024 05:44 PM EDT Dictated By: Sanna Marx DO Signed By: <Electronically signed by Sanna Marx DO in OV> 10/26/24 3175 DD/ 1327 TD/TT: 10/20/24 1355 General Operations Agent: Jay Henry MD IMG BI PROCEDURES Darin viki Result - Final * Lipid Panel, Standard (09/12/2024 9:40 AM EDT) Triglycerides 132 <150 mg/dL [facility] Comment:Desirable Triglyceri de: less than 150 mg/dLBorderline High Triglyceride 150-199 mg/dLHigh Triglyceride: 200-499 mg/dLVery High Triglyceride: greater than or equal to 5OO mg/dL Cholesterol 174 <200 mg/dL [facility] Comment:Desirable Cholestero l: less than 200 mg/dLBorderline High Cholesterol: 200-239 mg/dLHigh Cholesterol: greater than 239 mg/dL LDL Cholesterol Calculated 93 <100 mg/dL [facility] Comment:Desirable LDL: less than 100 mg/dLNear Optimal/Above Optimal LDL: 110- 129 mg/dLBorderline High LDL: 130-159 mg/dLHigh LDL: 160-189 mg/dLVery High LDL: greater than or equal to 190 mg/dL HDL Cholesterol 55 >40 mg/dL [facility] Comment:Desirable HDL: great er than 40 mg/dL Note: This HDL assay may give artificially low results in patients with liver disease. Blood Venous blood specimen / Unknown 09/12/2024 9:40 AM EDT 09/12/2024 9:40 AM EDT Jay Henry MD LAB BLOOD ORDERABLES Final Result [facility] [address] [place] [phone] * ThinPrep Imaging Pap and HPV mRNA E6/E7 with Reflex to HPV 16,18/45 (03/18/2024 8:00 AM EDT) HPV 16 RNA GAP [facility] HPV 18/45 RNA [facility] HPV nRNA E6/E7 Not Detected Not Detected [facility] Comment:Methodology: Transcr iption-Mediated AmplificationThis assay detects E6/E7 viral messenger RNA (mRNA) from 14high-risk HPV types (16,18,31,33,35,39,45,51,52,56,58,59,66,68).Cervical sources are required for HPV testing.If a vaginal source from a patient who has had atotal hysterectomy with removal of cervix wassubmitted, please contact the testing laboratoryfor alternative testing options.For additional information, please refer [email or web address]/faq/YDX208m5(This link if provided for information/educational purposes only.)THIS TEST WAS PERFORMED AT:[facility] [address] [phone] WASHINGTON MD SOURCE: SEE NOTE [facility] Comment:None given Report Status: [facility] Clinical Information: SEE NOTE [facility] Comment:None given LMP: SEE NOTE [facility] Comment:NONE GIVEN Prev. PAP: SEE NOTE [facility] Comment:NONE GIVEN Prev. BX: SEE NOTE [facility] Comment:NONE GIVEN Statement Of Adequacy: SEE NOTE [facility] Comment:Satisfactory for caroline luation.Endocervical/transformation zone componentpresent. General Categorization: [facility] Interpretation/Result: SEE NOTE [facility] Comment:Cytology Results: Ne gative for intraepitheliallesion or malignancy. Cytology Comment SEE NOTE [facility] Comment:This Pap test has be en evaluated with computerassisted technology. Wardsperson: SEE NOTE [facility] Comment:BK,CT(ASCP)CT screen ing location: [address] Review Wardsperson: [facility] Pathologist [facility] PAP Infection [facility] See Note SEE NOTE [facility] Comment:EXPLANATORY NOTE:The Pap is a screening test for cervical cancer. It isnot a diagnostic test and is subject to false negativeand false positive results. It is most reliable when asatisfactory sample, regularly obtained, is submittedwith relevant clinical findings and history, and whenthe Pap result is evaluated along with historic andcurrent clinical information. 03/18/2024 8:00 AM EDT 03/18/2024 3:31 PM EDT Narrative [facility] - 03/25/2024 2:07 PM EDT SEE SCANNED RESULTS IN EMR us Generic External Data Provider LAB PATHOLOGY ORD ERABLES Final Result [facility] [address] [place] [phone] * Hm Colonoscopy (12/30/2021) Colonoscopy Normal Normal us Jay Henry MD HEALTH MAINTENANCE Ed ited Result - Final from Last 3 Months or Most Recently Relevant to Health Maintenance Insurance [employer] Care Teams Blindstitch Hemmer Relationship Specialty Start Date End Date Jay Davis MD [address] [place] [phone] PCP - General Internal Medicine 01/13/14
== END 2025-02-25 13:41 | disposition home or self-care (01) ==
LOC: HO.HSM 13:09
PROVIDERS: PCP Internal Medicine; Visit Provider Registered Nurse
DX: G43.909 Migraine, unspecified, not intractable, without status migrainosus (principal)
CPT/HCPCS: 99214

== ENCOUNTER 2025-03-04 13:20 | Outpatient (AMB) | payer OTHER, SELFPAY ==
--- NOTE | 2025-03-04 13:25 | MHC.OFFVISWM ---
VS Expanded 03/04/25 13:34 BP 129/69 Blood Pressure Location Rt brachial Blood Pressure Position Sitting Pulse 78 Pulse Source Pulse Oximeter Temp 97.0 F Temperature Source Temporal Artery Scan Pulse Oximetry 100 Oxygen Delivery Method Room Air Height 5 ft 1 in Weight 177 lb 6.4 oz BMI 33.5 Body Fat % 34.0 Body Fat Mass 60.2 Fat Free Mass 117.0 Visceral Fat Rating 8.0 Body Water % 47.0 Body Water Mass 83.4 Muscle Mass/Score 111.2 Basal Metabolic Rate/Score 1,580 Intake Visit Reasons: (OV) PO LSG 01/23/18 Allergies codeine (CODEINE) Allergy (Intermediate, Verified 03/04/25 13:31) HEASDACHE/DIZZY acetaminophen (Percocet) Allergy (Unknown, Verified 03/04/25 13:31) Tachycardia oxycodone (Percocet) Allergy (Unknown, Verified 03/04/25 13:31) tachycardia Penicillins (PENICILLINS) Adverse Reaction (Unknown, Verified 03/04/25 13:31) HEADACHE/DIZZINESS scopolamine (SCOPOLAMINE) Adverse Reaction (Unknown, Verified 03/04/25 13:31) EPISODE OF DEPRESSION MORPHINE Allergy (Unknown, Uncoded 02/25/25 13:22) tachycardia PENICILLIN Allergy (Unknown, Uncoded 02/25/25 13:22) tachycardia From PERCOCET Adverse Reaction (Intermediate, Uncoded 02/25/25 13:22) HEADACHE/DIZZY HPI Comments Details: This?is a?49?yo F who is s/p LSG 01/23/2018. Weight loss of 3.4lb since last OV in November 2022. No complaints of nausea, emesis, abdominal pain, or constipation. Pt reports she tried one weight loss injection she got from a friend and tolerated it. zepbound. She has also taken phentermine in the past. Present meal plan includes: - at last office visit gave the following breakfast- 2 eggs or smoothie with protein powder, frozen fruits, Bahamian yogurt; minimize creamer in coffee lunch- Bahamian yogurt dinner- 3-4oz protein, 3-4oz veg/salad snack- ZP bar Exercise routine includes: walking, 30-45min in AM, 15min at lunch, 1 hour after work Have you been diagnosed with reflux (GERD)? yes, on esomeprazole Score 0-5: 0=no symptoms, 1=noticeable but not bothersome (slight or occasional), 2=noticeable, bothersome but not daily, 3=bothersome and daily, 4=affects daily activities, 5=incapacitating, unable to do daily activities How bad is the heartburn: 5 Heartburn when lying down: 5 Heartburn when standing up: 0 Heartburn after meals: 0 Does heartburn change your diet: 0 Does heartburn wake you up from sleep: 5 Do you have difficulty swallowin Do you have pain with swallowin If you take medication for reflux, does this affect your daily life: 0 Total score: 15 [facility] Medical History (Updated 02/25/25 @ 13:22 by Misty Contreras CNP) Memory loss Chronic tension headache Migraine Goiter History of migraine Tubular adenoma Back pain Malabsorption due to intolerance, not elsewhere classified Overweight (BMI 25.0-29.9) Super obesity Surgical History Hx of bladder repair surgery Hx of colonoscopy History of tubal ligation History of esophagogastroduodenoscopy (EGD) History of cholecystectomy LAP-BAND surgery status History of bunionectomy Hx of section Hx of knee surgery S/P laparoscopic sleeve gastrectomy History of loop recorder Family History Father Diabetes HTN (hypertension) Mother Diabetes CVD (cardiovascular disease) Brother No problems noted. Brother No problems noted. Brother No problems noted. Brother No problems noted. Sister No problems noted. Sister No problems noted. Sister No problems noted. Son No problems noted. Daughter No problems noted. Daughter No problems noted. Daughter No problems noted. 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 [employer] Female Reproductive History Menstrual Age of Menarche: 12 Physical Exam Vital Signs: Last Vital Signs Temp 97.0 F 03/04/25 13:34 Pulse 78 03/04/25 13:34 BP 129/69 09/24/25 13:34 Pulse Ox 100 03/04/25 13:34 Oxygen Delivery Method Room Air 03/04/25 13:34 BMI result Body Mass Index 33.5 Assessment & Plan Assessment & Plan (1) S/P laparoscopic sleeve gastrectomy: Comment: revision to LSG January 2018 Code(s): Z98.84 - Bariatric surgery status Category: Surgical (2) Obesity: Code(s): E66.9 - Obesity, unspecified Category: Medical Plan Pt is interested in restarting phentermine. She has taken in the past and tolerated well. She understands that she needs to check BP daily and if 140/90 do not take that day. Gave [employer] gualberto info. Encouraged exercise to goal of 2000 luz maria/week. Vitamin labs ordered. RTC 3-4 months. Orders: Orders Vitamin D 25-OH Total Today Z98.84 - Bariatric surgery status Vitamin A Today Z98.84 - Bariatric surgery status Vitamin B12 and Folate Today Z98.84 - Bariatric surgery status Vitamin B1 Today Z98.84 - Bariatric surgery status Zinc Today Z98.84 - Bariatric surgery status Medications: New phentermine must administer 2 hours after breakfast 15 mg PO DAILY 30 caps 0RF
[2025-03-04 13:34] VITALS: BP 129/69; PULSE 78; TEMP 36.1; O2SAT 100; BMI 33.5
--- OUTSIDE RECORDS SUMMARY | 2025-03-04 15:42 | XMS_ITS | Encounter Summary ---
Author Organization [employer] Address [address] [facility] 7 [place] [address] Care Team Providers Care Haul Cane Brakeman Name Role Phone Jay Davis MD Primary Care Provide r Reason for Visit * Reason Onset Date Comments Referral 07/11/2024 Encounter Details Date Type Department Care Team ([facility] st Contact Info) Description 07/11/2024 Telephone [facility] [address] [place], [place] [phone] Jay Davis MD [address] [place] [address] Referral Social History Tobacco Use Types Packs/Day [...] referral in general to be placed in [facility] as pt work insurance will have coverage in that facility. Pt received call from a facility as she had to reject due to insurance wont cover visit. documented in this encounter Plan of Treatment Upcoming Encounters Date Type Department Care Team (Late st Contact Info) Description 03/17/2025 3:00 PM EDT Office Visit [facility] [address] [place] [phone] Jay Davis MD [address] [place] [phone] documented as of this encounter Visit Diagnoses Not on filedocumented in this encounter Additional Health Concerns Assessment Noted Time PHQ-9 Depression Total Score: 0 12/25/19 24 1:07 PM EDT documented as of this encounter Care Teams Haul Cane Brakeman Relationship Specialty Start Date End Date Jay Davis MD [address] [place] [phone] PCP - General Internal Medicine 01/13/14 documented as of this encounter
--- OUTSIDE RECORDS SUMMARY | 2025-03-04 15:42 | XMS_ITS | Encounter Summary ---
Author Organization [employer] Address [address] [facility] [address]t [place] [address] Care Team Providers Care Restaurant Inspector Name Role Phone Jay Davis MD Primary Care Provide r Reason for Visit * Reason Onset Date Comments Med Refill 01/14/2025 Encounter Details Date Type Department Care Team ([facility] st Contact Info) Description 01/14/2025 Refill [facility] [address] [place] [phone] Riley Waldrop MD [address] [place] [address] Social History Tobacco Use Types Packs/Day Years [...] Upcoming Encounters Date Type Department Care Team ([facility] st Contact Info) Description 03/17/2025 3:00 PM EDT Office Visit [facility] [address] [place] [phone] Jay Davis MD [address] [place] [phone] documented as of this encounter Visit Diagnoses Not on filedocumented in this encounter Additional Health Concerns Assessment Noted Time PHQ-9 Depression Total Score: 18 025 3:21 PM EDT documented as of this encounter Care Teams Restaurant Inspector Relationship Specialty Start Date End Date Jay Davis MD [address] [place] [phone] PCP - General Internal Medicine 01/13/14 documented as of this encounter
--- OUTSIDE RECORDS SUMMARY | 2025-03-04 15:42 | XMS_ITS | Encounter Summary ---
Author Organization [employer] Address [address] [facility] 7[address] [place] [address] Care Team Providers Care Slip Tender Name Role Phone Jay Davis MD Primary Care Provide r Reason for Visit * Reason Onset Date Comments Med Refill 01/14/2025 Encounter Details Date Type Department Care Team ([facility] st Contact Info) Description 01/14/2025 Refill [facility] [address] [place] [phone] Jay Davis MD [address] [place] [phone] Low back pain radiating to right leg [...] 3:00 PM EDT Office Visit [facility] [address] [place] [phone] Jay Davis MD [address] [place] [address] documented as of this encounter Visit Diagnoses Diagnosis Low back pain radiating to right leg Lumbago documented in this encounter Additional Health Concerns Assessment Noted Time PHQ-9 Depression Total Score: 18 025 3:21 PM EDT documented as of this encounter Care Teams Slip Tender Relationship Specialty Start Date End Date Jay Davis MD [address] [place] [phone] PCP - General Internal Medicine 01/13/14 documented as of this encounter
--- OUTSIDE RECORDS SUMMARY | 2025-03-04 15:42 | XMS_ITS | Clinical Summary ---
Author Organization [employer] Address [address] [place] [address] 7[address] [place] [address] Care Team Providers Care Computer Animator Name Role Phone Jay Davis MD Primary [...] under the care of Zohreh Raphael at [facility]. Back in 10/2023 Pt underwent extensive pyschologic testing and was diagnosed with depression and insomnia Patient tells me she is already seeing a therapist. Plan: Pt will continue to follow with her. Assessment & Plan (09/11/2024 2:44 PM EDT): Patient is no longer under the care of Zohreh Raphael at [facility]. Back in 10/2023 Pt underwent extensive pyschologic testing and was diagnosed with depression and insomnia Plan: Patient tells me she is awaiting to see a psychiatrist at [facility] Assessment & Plan (06/12/2024 3:06 PM EST): Patient is under the care of Zohreh Raphael at [facility]. Back in 10/2023 Pt underwent extensive [...] 48 hr ambulatory EEG done 10/2024 at [facility] was Normal Assessment & Plan (06/12/2024 4:07 [...] was seen at the Sleep Center at [facility] and was told she did not need [...] this with her psychotherapist Zohreh Simmons at [facility] Subacute cough 12/25/2023 Assessment & Plan (06/12/2024 [...] and accessories, laparoscopic sleeve gastrectomy and gastropexy. 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 This was finally done 10/19/2023 See report. 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 This was finally done 10/19/2023 See report. 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 This was finally done 10/19/2023 See [...] and able to travel Will refer to [facility] Obesity 04/14/2014 Assessment & Plan (09/11/2024 [...] Department Care Team Description 02/17/2025 Orders Only [facility] External Provider, [facility] 01/16/2025 Orders Only [facility] MEDICINE [address] [place] [address] Jay Davis MD Iron deficiency anemia, unspecified iron deficiency anemia type (Primary Dx) 01/16/2025 Telephone [facility] MEDICINE [address] [place], [place] [address] [address] Jay Davis MD Results 01/16/2025 Results Follow-Up [facility] MEDICINE [address] [place], [place] [address] Bri [phone] Jay Davis MD CBC auto differential, Hepatitis C Antibody with Reflex to HCV, RNA, Quantitative, Real-Time PCR, Iron And Total Iron Binding Capacity, Additional followed-up results: 2 01/15/2025 3:00 PM EDT Office Visit [facility] MEDICINE [address] [place], [place] [address] [address] Jay Davis MD Impaired glucose tolerance (Primary Dx); Fatigue due to excessive exertion, initial encounter; Sleep disturbances; Pain of right heel; Tinea pedis of right foot; Low back pain radiating to right leg; Dermatitis; Subacute cough 01/15/2025 Travel 01/14/2025 Refill [facility] MEDICINE [address] [place] [address] [place] [address] Jay Davis MD Low back pain radiating to right leg 01/14/2025 Refill [facility] MEDICINE [address] [place] [phone] Jay Davis MD Tinea pedis of right foot; Low back pain radiating to right leg 01/14/2025 Refill [facility] WALK-IN CENTER [address] [place] [phone] Riley Waldrop MD 01/14/2025 Travel 12/11/2024 3:00 PM EDT Office Visit [facility] MEDICINE [address] [place] [phone] Jay Davis MD Goiter (Primary Dx); Learning disabilities; Preventative health care; Borderline intellectual functioning; Sleep disturbances; Major depressive disorder, recurrent episode, moderate (CMS/HCC); Itching; Hives 12/11/2024 Travel 12/10/2024 Telephone [facility] MEDICINE [address] [place] [phone] Jay Davis MD chart prep from Last [...] Description 03/17/2025 3:00 PM EDT Office Visit [facility] MEDICINE [address] [place], [place] [phone] Jay Davis MD [address] [place] [address] Health Maintenance Due Date Last Done Comments [...] AM EDT Narrative 02/17/2025 12:25 PM EDT [address] [address] [address] Scan Report Signed Patient: Diane Johnson MR#: [id number] : 1975 Acct:[id number] Age/Sex: 49 / F ADM Date: 02/17/25 Loc: HO.ED Attending Dr: Ordering Physician: Shanelle Guardado NP Date of Service: 02/17/25 Procedure(s): CT head/brain wo IV con Accession Number(s): [id number] cc: Jay Hooper MD; Shanelle Guardado NP Report Number: [id number]: Total DLP = 626.00 mGy-cm Reason for [...] 02/17/25 1223 DD/ 1028 TD/TT: 02/17/25 1039 Dye Tub Operator: Procedure Note Donotuseinterpreter, Image - 02/17/[address] [address] [address] Scan Report Signed Patient: Diane JohnsonMR#: [id number] : 1975Acct:[id number] Age/Sex: 49 / FADM Date: 02/17/25 Loc: HO.ED Attending Dr: Ordering Physician: Shanelle Guardado NP Date of Service: 02/17/25 Procedure(s): CT head/brain wo IV con Accession Number(s): [id number] cc: Jay Hooper MD; Shanelle Guardado NP Report Number: [id number]: Total DLP = 626.00 mGy-cm Reason for [...] 02/17/25 1223 DD/ 1028 TD/TT: 02/17/25 1039 Dye Tub Operator: [facility] External Provider IMG CT PROCEDURES Edited Result - Final * Vitamin B12/Folate, Serum Panel (01/16/2025 12:31 PM EDT) Vitamin B12 263 200 - 900 pg/mL [facility] Comment:NORMAL 200-900 PG/ML INDETERMINATE 160-199 PG/ML DEFICIENT < 160 PG/ML Folate 8.5 > or = 4.0 ng/mL [facility] Comment:Reference Values:> o r = 4.0 ng/mL< 4.0 ng/mL suggests folate deficiency Methotrexate, aminopterin and folinic acid(leucovorin) are chemotherapeutic agents whose molecularstructures are similar to folate; therefore, the Architectfolate assay cannot be used for patients using these drugs. Blood Venous blood specimen / Unknown 01/16/2025 12:31 PM EDT 01/16/2025 12:31 PM EDT us Jay Henry MD LAB BLOOD ORDERABLES Final Result [facility] [address] [place], [place] [phone] * (ABNORMAL) CBC auto differential (01/16/2025 12:31 PM EDT) Only the most recent of2 resultswithin the time period is included. White Blood Count 8.2 4.8 - 10.8 X10*3/uL [facility] Red Blood Count 5.14 4.20 - 5.50 X10*6/uL [facility] Hemoglobin 10.3(L) 12.0 - 16.0 g/dl [facility] Hematocrit 36.1(L) 37.0 - 47.0 % [facility] Mean Corpuscular Volume 70.2(L) 80.0 - 98.0 fL [facility] Mean Corpuscular Hemoglobin 20.0(L) 27.0 - 33.0 pg [facility] Mean Corpuscular HGB Conc 28.5(L) 31.0 - 35.0 g/dl [facility] Red Cell Distribution Width 17.2(H) 11.0 - 16.0 % [facility] Platelet Count 385 160 - 400 X10*3/uL [facility] Mean Platelet Volume 11.6 9.4 - 12.3 fL [facility] Neutrophils Percent Auto 67.4 45 - 73 % [facility] Imm Gran Pct Auto 0.5(H) 0.0 - 0.4 % [facility] Lymphocytes Percent Auto 25.1 20 - 40 % [facility] Monocytes Percent Auto 5.1 2 - 11 % [facility] Eosinophils Percent Auto 1.3 0 - 4 % [facility] Basophils Percent Auto 0.6 0 - 2 % [facility] NRBC Pct Auto 0.0 0.0 - 0.2 /100WBC [facility] Neutrophils Absolute Auto 5.5 2.0 - 8.3 x10*3/uL [facility] Imm Gran Abs Auto 0.04(H) 0.00 - 0.03 X10*3/uL [facility] Lymphocytes Absolute Auto 2.1 1.2 - 4.9 X10*3/uL [facility] Monocytes Absolute Auto 0.4 0.1 - 1.2 X10*3/uL [facility] Eosinophils Absolute Auto 0.1 0.0 - 0.4 X10*3/uL [facility] Basophils Absolute Auto 0.1 0.0 - 0.2 X10*3/uL [facility] NRBC Abs Auto 0.000 0.0 - 0.012 X10*3/uL [facility] Blood Venous blood specimen / Unknown 01/16/2025 12:31 PM EDT 01/16/2025 12:31 PM EDT us Jay Henry MD LAB BLOOD ORDERABLES Final Result [facility] [address] [place] [phone] * (ABNORMAL) Iron And Total Iron Binding Capacity (01/16/2025 12:31 PM EDT) Iron 16(L) 30 - 160 mcg/dL [facility] Total Iron Binding Capacity 409 228 - 428 mcg/dL [facility] Percent Iron Saturation 4(L) 15 - 50 % [facility] Unsaturated Iron Binding 393 ug/dL [facility] Blood Venous blood specimen / Unknown 01/16/2025 12:31 PM EDT 01/16/2025 12:31 PM EDT Jay Henry MD LAB BLOOD ORDERABLES Final Result Performing Organization Address City/[facility]/ZIP Co de Phone Number [facility] [address] [place] [phone] * (ABNORMAL) Ferritin (01/16/2025 12:31 PM EDT) Ferritin 8(L) 10 - 250 ng/mL [facility] Blood Venous blood specimen / Unknown 01/16/2025 12:31 PM EDT 01/16/2025 12:31 PM EDT Jay Henry MD LAB BLOOD ORDERABLES Final Result Performing Organization Address City/[facility]/[place] Co de Phone Number [facility] [address] [place] [phone] * Comprehensive Metabolic Panel (01/16/2025 12:31 PM EDT) Only the most recent of2 resultswithin the time period is included. Sodium 141 135 - 145 mmol/L [facility] Potassium 3.9 3.3 - 5.1 mmol/L [facility] Chloride 107 96 - 108 mmol/L [facility] Carbon Dioxide 26 22 - 29 mmol/L [facility] Anion Gap 12 12 - 20 [facility] Urea Nitrogen (BUN) 15 9 - 16 mg/dL [facility] Creatinine, Serum 0.67 0.5 - 1.4 mg/dL [facility] Estimated Glomerular Filt Rate >60 [facility] Comment:Chronic Kidney Disea se: Estimated GFR < 60 mL/min/1.45x7Xoudzy Kidney Disease: Estimated GFR < 15 mL/min/1.73m2 Glucose 112 60 - 115 mg/dL [facility] Calcium 9.1 8.4 - 10.2 mg/dL [facility] Bilirubin, Total 0.4 0.0 - 1.0 mg/dL [facility] Aspartate Amino Transferase 22 5 - 31 U/L [facility] Alanine Aminotransferase 14 0 - 31 U/L [facility] Total Protein 7.6 6.5 - 8.0 g/dL [facility] Albumin Level 4.3 3.5 - 5.0 g/dL [facility] Alkaline Phosphatase 90 39 - 117 U/L [facility] Blood Venous blood specimen / Unknown 01/16/2025 12:31 PM EDT 01/16/2025 12:31 PM EDT Jay Henry MD LAB BLOOD ORDERABLES Final Result Performing Organization Address [facility]/ZIP Co de Phone Number [facility] [address] [place] [phone] * Hepatitis C Antibody with Reflex to HCV, RNA, Quantitative, Real-Time PCR (01/16/2025 6:58 AM EDT) Hepatitis C Antibody Nonreactive Nonreactive [facility] Comment:Antibodies to HCV no t detected; does not exclude early acuteHCV infection. Blood Venous blood specimen / Unknown 01/16/2025 6:58 AM EDT 01/16/2025 7:03 AM EDT Jay Henry MD LAB BLOOD ORDERABLES Final Result Performing Organization Address [facility]/[place] Co de Phone Number [facility] [address] [place] [phone] * BI Mammogram Screening Tomosynthesis Bilateral (10/20/2024 1:27 PM EDT) Anatomical Region Laterality Modality Breast Bilateral Mammography 10/20/2024 1:27 PM EDT Narrative 10/26/2024 5:47 PM EDT [facility] [address] [place] [address] Mammography Report Signed Patient: Diane Johnson MR#: [id number] : 1975 Acct:[id number] Age/Sex: 49 / F ADM Date: 10/20/24 Loc: HO.MAMMO Attending Dr: Jay Hooper MD Ordering Physician: Jay Hooper MD Resu lts: 2Benign Findings Date of Service: 10/20/24 Follow Up: 1 Year From Orig inal Mammogram Procedure(s): MM tomosynthesis screening BI Accession Number(s): [id number] cc: Jay Hooper MD EXAMINATION: MM SCREENING [...] 10/26/24 1744 DD/ 1327 TD/TT: 10/20/24 1355 Dye Tub Operator: Procedure Note Donotuseinterpreter, Image - 10/27/2024 [facility] [address] [place] [address] Mammography Report Signed Patient: Luna Johnson#: [id number] : 1975Acct:[id number] Age/Sex: 49 / FADM Date: 10/20/24 Loc: HO.MAMMO Attending Dr: Jay Hooper MD Ordering Physician: Jay Hooper MDResu lts: 2Benign Findings Date of Service: 10/20/24Follow Up: 1 Year From Orig inal Mammogram Procedure(s): MM tomosynthesis screening BI Accession Number(s): [id number] cc: Jay Hooper MD EXAMINATION: MM SCREENING [...] by Sanna Marx DO in OV> 10/26/24 9503 DD/ 1327 TD/TT: 10/20/24 1355 Dye Tub Operator: Jay Henry MD IMG BI PROCEDURES Darin viki Result - Final * Lipid Panel, Standard (09/12/2024 9:40 AM EDT) Triglycerides 132 <150 mg/dL [facility] Comment:Desirable Triglyceri de: less than 150 mg/dLBorderline High Triglyceride 150-199 mg/dLHigh Triglyceride: 200-499 mg/dLVery High Triglyceride: greater than or equal to 5OO mg/dL Cholesterol 174 <200 mg/dL [facility] Comment:Desirable Cholestero l: less than 200 mg/dLBorderline High Cholesterol: 200-239 mg/dLHigh Cholesterol: greater than 239 mg/dL LDL Cholesterol Calculated 93 <100 mg/dL [facility] Comment:Desirable LDL: less than 100 mg/dLNear Optimal/Above Optimal LDL: 110- 129 mg/dLBorderline High LDL: 130-159 mg/dLHigh LDL: 160-189 mg/dLVery High LDL: greater than or equal to 190 mg/dL HDL Cholesterol 55 >40 mg/dL [facility] Comment:Desirable HDL: great er than 40 mg/dL Note: This HDL assay may give artificially low results in patients with liver disease. Blood Venous blood specimen / Unknown 09/12/2024 9:40 AM EDT 09/12/2024 9:40 AM EDT Jay Henry MD LAB BLOOD ORDERABLES Final Result [facility] [address] [place] [phone] * ThinPrep Imaging Pap and HPV mRNA E6/E7 with Reflex to HPV 16,18/45 (03/18/2024 8:00 AM EDT) HPV 16 RNA RIP [facility] HPV 18/45 RNA [facility] HPV nRNA E6/E7 Not Detected Not Detected [facility] Comment:Methodology: Transcr iption-Mediated AmplificationThis assay detects E6/E7 viral messenger RNA (mRNA) from 14high-risk HPV types (16,18,31,33,35,39,45,51,52,56,58,59,66,68).Cervical sources are required for HPV testing.If a vaginal source from a patient who has had atotal hysterectomy with removal of cervix wassubmitted, please contact the testing laboratoryfor alternative testing options.For additional information, please refer tohttp://education.[employer]/faq/MLH209p7(This link if provided for information/educational purposes only.)THIS TEST WAS PERFORMED AT:[employer] [address] [phone] WASHINGTON MD SOURCE: SEE NOTE [facility] Comment:None given Report Status: [facility] Clinical Information: SEE NOTE [facility] Comment:None given LMP: SEE NOTE [facility] Comment:NONE GIVEN Prev. PAP: SEE NOTE [facility] Comment:NONE GIVEN Prev. BX: SEE NOTE [facility] Comment:NONE GIVEN Statement Of Adequacy: SEE NOTE [facility] Comment:Satisfactory for caroline luation.Endocervical/transformation zone componentpresent. General Categorization: [facility] Interpretation/Result: SEE NOTE [facility] Comment:Cytology Results: Ne gative for intraepitheliallesion or malignancy. Cytology Comment SEE NOTE [facility] Comment:This Pap test has be en evaluated with computerassisted technology. Aircraft Design Engineer: SEE NOTE [facility] Comment:BK,CT(ASCP)CT screen ing location: [address] Review Aircraft Design Engineer: [facility] Pathologist [facility] PAP Infection [facility] See Note SEE NOTE [facility] Comment:EXPLANATORY NOTE:The Pap is a screening test for cervical cancer. It isnot a diagnostic test and is subject to false negativeand false positive results. It is most reliable when asatisfactory sample, regularly obtained, is submittedwith relevant clinical findings and history, and whenthe Pap result is evaluated along with historic andcurrent clinical information. 03/18/2024 8:00 AM EDT 03/18/2024 3:31 PM EDT Narrative [facility] - 03/25/2024 2:07 PM EDT SEE SCANNED RESULTS IN EMR us Generic External Data Provider LAB PATHOLOGY ORD ERABLES Final Result [facility] [address] [place] [phone] * Hm Colonoscopy (12/30/2021) Colonoscopy Normal Normal us Jay Henry MD HEALTH MAINTENANCE Ed ited Result - Final from Last 3 Months or Most Recently Relevant to Health Maintenance Insurance [employer] Care Teams Computer Animator Relationship Specialty Start Date End Date Jay Davis MD [address] [place] [phone] PCP - General Internal Medicine 01/13/14
--- OUTSIDE RECORDS SUMMARY | 2025-03-04 15:43 | XMS_ITS | Encounter Summary ---
Author Organization [employer] Address [address] [facility] [address] [place] [address] Care Team Providers Care Adz Worker Name Role Phone Jya Davis MD Primary Care Provide r Reason for Visit * Reason Onset Date Comments Med Refill 10/15/2023 Encounter Details Date Type Department Care Team ([facility] st Contact Info) Description 10/15/2023 Refill [facility] [address] [place] [phone] Jay Davis MD [address] [place] [address] Dermatitis Social History Tobacco Use Types Packs/Day [...] t he electric, gas, oil or water [email or web address] threatened to shut off services in your [...] Upcoming Encounters Date Type Department Care Team ([facility] st Contact Info) Description 03/17/2025 3:00 PM EDT Office Visit [facility] [address] [place] [address] Jay Davis MD [address] [place] [phone] documented as of this encounter Visit Diagnoses Diagnosis Dermatitis Contact dermatitis and other eczema, due to unspecified cause documented in this encounter Additional Health Concerns Assessment Noted Time PHQ-9 Depression Total Score: 6 10/06/19 23 12:39 PM EDT documented as of this encounter Care Teams Adz Worker Relationship Specialty Start Date End Date Jay Davis MD [address] [place] [phone] PCP - General Internal Medicine 01/13/14 documented as of this encounter
== END 2025-03-04 14:18 | disposition home or self-care (01) ==
LOC: HO.HBS 13:20
PROVIDERS: PCP Internal Medicine; Visit Provider Physician Assistant Surgical
DX: E66.9 Obesity, unspecified (principal); Z68.33 Body mass index [BMI] 33.0-33.9, adult; Z90.3 Acquired absence of stomach [part of]; Z98.84 Bariatric surgery status
CPT/HCPCS: 99214

== ENCOUNTER 2025-03-05 07:22 | Outpatient (REF) | payer OTHER, SELFPAY ==
--- OUTSIDE RECORDS SUMMARY | 2025-03-05 07:24 | XMS_ITS | Clinical Summary ---
Author Organization [facility] Address [address] [place] [address] Phone Care Team Providers Care Hair Spinner Name Role Phone Jay Hooper MD Primary [...] complete this topic Insurance MEDICAID - [place] [facility] Care Teams Hair Spinner Relationship Specialty Start Date End Date Jay Hooper MD [address] [place] [phone] PCP - General 04/05/10
[2025-03-05 09:16] LABS: Folate 8.2 ng/mL (> or = 4.0); Vitamin B12 316 pg/mL (200-900)
== END 2025-03-05 07:23 | disposition home or self-care (01) ==
LOC: HO.LAB 07:22
PROVIDERS: PCP Internal Medicine; Visit Provider Physician Assistant Surgical
DX: Z98.84 Bariatric surgery status (principal)
CPT/HCPCS: 36415; 82306; 82607; 82746; 84425; 84590; 84630

== ENCOUNTER 2025-04-02 14:21 | Outpatient (AMB) | payer OTHER, SELFPAY ==
--- NOTE | 2025-04-02 14:25 | MHC.OFFVIS ---
Intake Visit Reasons: 4 WEEKS AFTER AJOVY Allergies codeine (CODEINE) Allergy (Intermediate, Verified 03/04/25 13:31) HEASDACHE/DIZZY acetaminophen (Percocet) Allergy (Unknown, Verified 03/04/25 13:31) Tachycardia oxycodone (Percocet) Allergy (Unknown, Verified 03/04/25 13:31) tachycardia Penicillins (PENICILLINS) Adverse Reaction (Unknown, Verified 03/04/25 13:31) HEADACHE/DIZZINESS scopolamine (SCOPOLAMINE) Adverse Reaction (Unknown, Verified 03/04/25 13:31) EPISODE OF DEPRESSION MORPHINE Allergy (Unknown, Uncoded 02/25/25 13:22) tachycardia PENICILLIN Allergy (Unknown, Uncoded 02/25/25 13:22) tachycardia From PERCOCET Adverse Reaction (Intermediate, Uncoded 02/25/25 13:22) HEADACHE/DIZZY HPI Comments Details: No improvement in headaches after first Ajovy injection on 02/25/2025. She had to miss work 3 days last month and 1 day this month. No medication side effects. She was not comfortable with giving herself injection and was here for additional Ajovy education. She stopped taking Aleve about a year ago and was taking Tylenol every day instead. Migraines were previously treated with Botox, which worked well for her, but Botox was no longer covered by insurance. Last Botox was 09/30/2024. Previously, she was passing out 3-4x/month, work up negative. She has headaches daily?and once in a while she passes out?for 5 minutes. No convulsion. No tongue bite or incontinence. No chest pain.? She does well with the Botox and has much fewer headaches. Her migraines are improved from the Botox. She did not want to try any other prophylactic meds. Chronic GARCIA for years, did not respond to amitriptyline and chlordiazepoxide. She takes Aleve 4-6/day. She has not been able to get off it and it is possible that these could be drug withdrawal headaches. At times she will start talking random things and acting inappropriately. On 07/22/18 she was noted at work to have rapid jerking eye movements, facial twitching and not responding for 1-2 minutes. Had an episode of urinary incontinence in bed on 07/25/18 and also once last year. Syncopal episode in September 2017. Has had 5 more episodes. No incontinence and was confused. ? 2 syncope in 2015 in the shower and once in uncles house from a couch 5-10 minutes lying on floor with no sz and no incontinence or post ictal confusion. Not responding for 5 minutes, No confusion after. One episode of where she woke up very confused and went into the shower with her clothes on and denied it . Lasted 15 -20 minutes, slept and was fine 1/2 hour later and was fine. Gets headaches almost daily. She has a long history of recurrent syncopal episodes. She got no warning. There was no tongue biting or incontinence. There is no chest pain or palpitation. [facility] Medical History (Updated 02/25/25 @ 13:22 by Misty Contreras CNP) Memory loss Chronic tension headache Migraine Goiter History of migraine Tubular adenoma Back pain Malabsorption due to intolerance, not elsewhere classified Overweight (BMI 25.0-29.9) Super obesity Surgical History Hx of bladder repair surgery Hx of colonoscopy History of tubal ligation History of esophagogastroduodenoscopy (EGD) History of cholecystectomy LAP-BAND surgery status History of bunionectomy Hx of section Hx of knee surgery S/P laparoscopic sleeve gastrectomy History of loop recorder Family History Father Diabetes HTN (hypertension) Mother Diabetes CVD (cardiovascular disease) Brother No problems noted. Brother No problems noted. Brother No problems noted. Brother No problems noted. Sister No problems noted. Sister No problems noted. Sister No problems noted. Son No problems noted. Daughter No problems noted. Daughter No problems noted. Daughter No problems noted. 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[place] Female Reproductive History Menstrual Age of Menarche: 12 Review of Systems Const Denies chills, Denies daytime sleepiness, Reports difficulty sleeping, Denies fatigue, Denies fever(s), Denies frequent falls, Reports headache(s), Denies increased appetite, Denies poor appetite, Denies snoring, Denies weakness, Denies weight gain and Denies weight loss Eyes Denies loss of vision ENT Denies vertigo, Denies dizziness, Reports headache(s) and Denies neck pain Card Denies chest pain at rest, Denies chest pain with activity, Denies syncope, Denies leg edema, Denies palpitations, Denies dyspnea and Denies dyspnea on exertion Resp Denies cough, Denies dyspnea, Denies dyspnea on exertion and Denies snoring GI Denies abdominal pain, Denies constipation, Denies heartburn, Denies diarrhea and Denies nausea Denies urinary frequency, Denies urinary incontinence and Denies urinary urgency Musc Denies abnormal gait, Denies back pain, Denies myalgias, Denies arthralgias, Denies neck pain, Denies numbness and Denies tingling Neuro Denies abnormal gait, Denies vertigo, Denies dizziness, Denies syncope, Denies frequent falls, Reports headache(s), Denies lack of coordination, Denies loss of vision, Denies memory loss, Denies numbness, Denies Other visual disturbances, Denies restless legs, Denies seizure-like activity, Denies tingling, Denies paresthesias, Denies tremor(s) and Denies weakness Psych Denies anxiety, Denies depression, Denies auditory hallucinations, Denies memory loss and Denies visual hallucinations Endo Denies fatigue and Denies palpitations Physical Exam Const Other: General Appearance:? normal, in no acute distress. Heart:? S1, S2 normal, no murmurs. Lungs:? clear anteriorly and posteriorly. Musculoskeletal:? normal. Extremities:? no edema. Psych:? alert, oriented, cognitive function intact, cooperative with exam. Neuro Other: Abnormal Neurological Findings:?none.? Mental Status: alert and oriented X 3. Normal attention, orientation, memory, and affect. Cranial Nerves: Pupils are equal, round, and reactive to light. External ocular muscles are intact. Visual bhagat are full, no ptosis. Face is symmetrical, no facial weakness or droop. Facial sensations are normal. Tongue protrudes in midline. Palate elevates symmetrically. Shoulder shrugging is normal Motor Examination: Normal muscle tone, bulk and strength. No atrophy or fasciculations. No drift of the extended upper extremities. DTR 2+. Plantars are flexor. Sensory Exam: Normal light touch, temperature, pinprick, vibration, and joint-position sensations. Rhomberg sign is absent. Coordination: No ataxia. No titubation. Gait Exam: Within normal limits. Cerebellar Signs: Tclfoh-ja-lart is okay. Extrapyramidal System: No tremor, rigidity with normal facial expressions. No bradykinesia. No bradyphrenia. Normal arm swing and posture. No propulsion or retropulsion. Speech: Normal. Results Reviewed Results Reviewed: CT head at [facility] [place] 02/17/25: No acute intracranial abnormality. September 2024: CT brain - normal, 48 hr EEG - normal, Holter monitor - normal Psych testing c/w depression and low cognitive abilities. Assessment & Plan Assessment & Plan (1) Migraine: Code(s): G43.909 - Migraine, unspecified, not intractable, without status migrainosus Category: Medical Qualifiers: Intractability: not intractable Migraine type: unspecified Status migrainosus presence: without status migrainosus Qualified Code(s): G43.909 - Migraine, unspecified, not intractable, without status migrainosus Plan: Migraines were previously treated by Botox, which worked well for her, but Botox was no longer covered by insurance and she started Ajovy on 02/25/2025. No improvement in headaches after first dose of Ajovy. She was due for second injection. She was not comfortable with giving herself injection and was here for additional Ajovy education. She was educated on the purpose, use, and side effects of medication. She was educated on how to administer medication and proper disposal. Coding Level of Care Code Est Pt Level 4 (22946) Diagnoses Migraine without status migrainosus, not intractable, unspecified migraine type G43.909 Intractability: not intractable Migraine type: unspecified Status migrainosus presence: without status migrainosus
--- OUTSIDE RECORDS SUMMARY | 2025-04-02 18:12 | XMS_ITS | Clinical Summary ---
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 Devices (Pulse Oximeter For Finger) miscIndications :COVID-19 To use every 4 hours. Call the office if O2 Sat < 90% 1 each 05/21/20 23 Active acetaminophen (Tylenol) 500 MG tablet Take 2 tablets (1,000 mg) by mouth every 6 (six) hours if needed for moderate pain or fever for up to 25 doses. 40 tablet 05/16/20 24 Active lidocaine (Lidoderm) 5 % patch Apply 1 patch topically Once per day. Remove & discard patch within 12 hours or as directed by . 30 patch 2 05/16/20 24 025 Active Blood Pressure kit 1 each 2 times daily. 1 kit 05/16/20 24 025 Active ibuprofen 400 MG tablet Take 1 tablet (400 mg) by mouth every 6 (six) hours if needed for moderate pain or fever for up to 30 doses. 30 tablet 01/16/20 25 Active Diclofenac Sodium 1 % gelIndications: Pain of right heel Use twice daily on affected area 50 g 1 01/16/20 25 Active terbinafine (LamISIL AT) 1 % creamIndication s:Tinea pedis of right foot Apply topically 2 times daily. 42 g 1 01/16/20 25 Active tiZANidine (Zanaflex) 2 MG tabletIndicatio ns:Low back pain radiating to right leg Take 1 tablet (2 mg) by mouth every 6 (six) hours if needed for muscle spasms. 30 tablet 01/16/20 25 Active triamcinolone (Kenalog) 0.1 % creamIndication s:Dermatitis APPLY TO THE AFFECTED AREA(S) SPARINGLY TWICE DAILY 15 g 1 01/16/20 25 Active cetirizine (ZyrTEC) 10 MG tabletIndicatio ns:Subacute cough Take 1 tablet (10 mg) by mouth Once per day. 30 tablet 2 01/16/20 25 025 Active FeroSul 325 (65 Fe) MG tabletIndicatio ns:Iron deficiency anemia, unspecified iron deficiency anemia type TAKE 1 TABLET BY MOUTH TWICE DAILY BEFORE BREAKFAST AND BEFORE SUPPER 180 tablet 03/19/20 25 Active escitalopram (Lexapro) 5 MG tabletIndicatio ns:Major depressive disorder, recurrent episode, moderate (CMS/HCC) (HCC) Take 1 tablet (5 mg) by mouth Once per day. 30 tablet 2 03/17/20 25 026 Active ferrous sulfate (Fe Tabs) 325 (65 Fe) MG EC tabletIndicatio ns:Iron deficiency anemia, unspecified iron deficiency anemia type Take 1 tablet (325 mg) by mouth before breakfast and before evening meal. Do not crush, chew, or split. 60 tablet 3 01/17/20 25 025 Discontinued(Re order (will not trigger notification to Pharmacy)) ferrous sulfate (Fe Tabs) 325 (65 Fe) MG EC tabletIndicatio ns:Iron deficiency anemia, unspecified iron deficiency anemia type Take 1 tablet (325 mg) by mouth before breakfast and before evening meal. Do not crush, chew, or split. 180 tablet 1 03/17/20 25 025 Discontinued Active Problems Problem Noted Date Diagnosed Date Iron deficiency anemia chantel sparksy to inadequate dietary iron intake 03/17/2025 Assessment & Plan (03/17/2025 3:26 PM EDT): Lab Results Component Value Date WBC 8.2 01/16/2025 HGB 10.3 (L) 01/16/2025 HCT 36.1 (L) 01/16/2025 MCV 70.2 (L) 01/16/2025 PLT 385 01/16/2025 Pt's most recent CBC showed anemia, low iron and ferritin Pt already under the care of GI. Labs faxed for consideration of EGD. Pt had Colonoscopy 12/30/2021 Pt on Iron supplementation Will repeat CBC today Pt report heavy menses , likely culprit Goiter 09/11/2024 Assessment & Plan (12/11/2024 2:44 [...] Obtain TSH, Endocrinology evaluation Major depressive disorder, r ecurrent episode, moderate (CMS/HCC) 06/12/2024 Assessment & Plan (03/17/2025 3:34 PM EDT): Patient currently feeling depressed, having difficulty at work and at home, insomnia, She is no longer under the care of Zohreh Raphael at [facility]. Back in 10/2023 Pt underwent extensive pyschologic testing and was diagnosed with depression and insomnia Patient tells me she is already seeing a therapist. [facility] at [facility] Plan: Trial of Escitalopram 5 mg po daily Pt will continue to follow with her psychotherapy 1 month follow up Assessment & Plan (12/11/2024 3:06 PM EDT): Patient is no longer under the care of Zohreh Raphael at [facility]. Back in 10/2023 Pt underwent extensive pyschologic testing and was diagnosed with depression and insomnia Patient tells me she is already seeing a therapist. Plan: Pt will continue to follow with her. Assessment & Plan (09/11/2024 2:44 PM EDT): Patient is no longer under the care of Zohreh Raphael at [facility]. Back in 10/2023 Pt underwent extensive pyschologic testing and was diagnosed with depression and insomnia Plan: Patient tells me she is awaiting to see a psychiatrist at [facility] Assessment & Plan (06/12/2024 3:06 PM EST): Patient is under the care of Zohreh Raphael at [facility]. Back in 10/2023 Pt underwent extensive [...] 48 hr ambulatory EEG done 10/2024 at [facility] was Normal Assessment & Plan (06/12/2024 4:07 [...] was seen at the [facility] Center at [facility] and was told she did not need [...] this with her psychotherapist Zohreh Simmons at [facility] Subacute cough 12/25/2023 Assessment & Plan (06/12/2024 [...] Preventative health care 10/05/2022 Assessment & Plan (12/11/2024 [...] 8:25 AM EDT): Mammogram: Done 05/07/2017 at [facility] was normal Pap Smear: Done [...] step. 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 This was finally done 10/19/2023 See report. Diagnosed with Depression, Insomnia, Borderline intellectual functioning Recommendations were to: Refer to: , Consider treatment for depression and insomnia ( She is awaiting to see Psychiatrist at [facility] ), Refer to Sleep Medicine (appointment pending) [...] step. 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 This was finally done 10/19/2023 See report. Diagnosed with Depression, Insomnia, Borderline intellectual functioning Recommendations were to: Refer to: , Consider treatment for depression and insomnia ( She is awaiting to see Psychiatrist at [facility] ), refer to Sleep Medicine (appointment pending) [...] step. 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 This was finally done 10/19/2023 See [...] [facility] Obesity 04/14/2014 Assessment & Plan (03/17/2025 3:18 PM EDT): Images from the original note were not included. Patient has been counseled and educated about diet and exercise. Personal goal of weight loss discussed Assessment & Plan (09/11/2024 2:35 PM EDT): Patient has been counseled and educated about diet and exercise. Personal goal of weight loss discussed Kidney stone 01/29/2012 Impaired glucose tolerance 01/29/2012 Assessment & Plan (03/17/2025 3:17 PM EDT): Repeat FBG 01/16/2025 112 Dietary Recommendations: Fruits, vegetables, whole grains, protein foods, and fat-free or low-fat dairy products are healthy choices. Eat different types of protein foods in your diet. This can include seafood, lean meats, poultry, beans, peas, lentils, nuts, seeds, soy products, and eggs. Limit foods and beverages higher in added sugars, saturated fat, and sodium. Exercise Recommendations: At least 150 minutes of moderate-intensity physical activity per week, or an equivalent combination of moderate- and vigorous-intensity activity Assessment & Plan (01/15/2025 3:12 PM EDT): Repeat FBG Migraine without aura and wi thout status migrainosus, not intractable 01/29/2012 Assessment & Plan (03/17/2025 3:13 PM EDT): Pt started on Botox with good results Under the care of neurology specialist Last seen 02/25/2025 per their notes: Migraines were previously treated by Botox, which worked well for her, however Botox was no longer covered by insurance and she was started on Ajovy. She was seen at [facility] ER on 02/17/[address] head reviewed from ER, no acute findings. Assessment & Plan (06/12/2024 4:09 PM EST): Pt started on Botox with good results Under the care of neurology specialist Dr Leonardo. Assessment & Plan (10/05/2022 8:27 AM EDT): Pt started on Botox with good results Under the care of neurology specialist Dr Leonardo. Doing well. Last seen 08/23/2022 Encounters Date Type Department Care Team Description 03/18/2025 Telephone [facility] [address] [place] [address] Jay Davis MD Appointment Request 03/17/2025 3:00 PM EDT Office Visit [facility] [address] [place] [address] Jay Davis MD Major depressive disorder, recurrent episode, moderate (CMS/HCC) (HCC) (Primary Dx); Migraine without aura and without status migrainosus, not intractable; Iron deficiency anemia secondary to inadequate dietary iron intake; Impaired glucose tolerance; Class 1 obesity due to excess calories without serious comorbidity with body mass index (BMI) of 33.0 to 33.9 in adult; Iron deficiency anemia, unspecified iron deficiency anemia type 03/17/2025 Refill [facility] [address] [place] [address] Jay Davis MD Iron deficiency anemia, unspecified iron deficiency anemia type 03/17/2025 Travel 03/16/2025 Telephone [facility] [address] [place] [phone] Jay Davis MD chart prep 03/05/2025 Orders Only GENERIC EXTERNAL DATA DEPARTMENT Provider, Generic External Data 02/17/2025 Orders Only [facility] External Provider, [facility] 01/16/2025 Orders Only [facility] [address] [place] [phone] Jay Davis MD Iron deficiency anemia, unspecified iron deficiency anemia type (Primary Dx) 01/16/2025 Telephone [facility] [address] [place] [phone] Jay Davis MD Results 01/16/2025 Results Follow-Up [address] [address] Jay Davis MD CBC auto differential, Hepatitis C Antibody with Reflex to HCV, RNA, Quantitative, Real-Time PCR, Iron And Total Iron Binding Capacity, Additional followed-up results: 2 01/15/2025 3:00 PM EDT Office Visit [facility] [address] [place] [phone] Jay Davis MD Impaired glucose tolerance (Primary Dx); Fatigue due to excessive exertion, initial encounter; Sleep disturbances; Pain of right heel; Tinea pedis of right foot; Low back pain radiating to right leg; Dermatitis; Subacute cough 01/15/2025 Travel 01/14/2025 Refill [facility] [address] [place] [phone] Jay Davis MD Low back pain radiating to right leg 01/14/2025 Refill [facility] [address] [place] [phone] Jay Davis MD Tinea pedis of right foot; Low back pain radiating to right leg 01/14/2025 Refill [facility] [address] [place] [phone] Riley Waldrop MD 01/14/2025 Travel from Last 3 Months Immunizations Immunization Administration [...] Sign Reading Time Taken Comments Blood Pressure 138/82 03/17/2025 3:28 PM EDT Pulse 69 03/17/2025 3:07 PM EDT Temperature 37.5 C (99.5 F) 03/17/2025 3:07 PM EDT Respiratory Rate 21 03/17/2025 3:07 PM EDT Oxygen Saturation 98% 01/15/2025 2:53 PM EDT Inhaled Oxygen Concentration - - Weight 81.4 kg (179 lb 8 oz) 03/17/2025 3:07 PM EDT Height 154.9 cm (5' 1 ) 03/17/2025 3:07 PM EDT Body Mass Index 33.92 03/17/2025 3:07 PM EDT Plan of Treatment Health Maintenance [...] Procedure Name Priority Date/Time Associated Diagnosis Comments VITAMIN B1 Routine 03/05/2025 7:42 AM EDT VITAMIN A Routine 03/05/2025 7:42 AM EDT ZINC Routine 03/05/2025 7:42 AM EDT VITAMIN B12/FOLATE, SERUM PANEL Routine 03/05/2025 7:42 AM EDT VITAMIN D,25-OH,TOTAL,IA Routine 03/05/2025 7:[address] HEAD WO CONTRAST Routine 02/17/2025 1 [...] Recently Relevant to Health Maintenance Results * Vitamin D, 25-Hydroxy, Total, Immunoassay (03/05/2025 7:42 AM EDT) Vitamin D 25-OH Total 30.2 >30 ng/mL [facility] Comment: Health Based Reference Values*< 20 ng/mL Tioyyfghg33-99 ng/mL Insufficient> 30 ng/mL Sufficient*Bri SONG. N Engl J Med. 2007;357:266-280There is no well-established upper level of normal vitamin Dlevels. Some laboratories use 50 ng/mL as an upper limit ofnormal. However, toxicity is patient-dependent and may occurat any level. Careful correlation with the patient'spresentation is necessary and, if there is concern forvitamin D toxicity, treatment should be consideredirrespective of the serum level.Care must be taken in interpreting Vitamin D results fromdifferent laboratories and methodologies. Published datademonstrated that results from patients undergoinghemodialysis may show a negative bias when tested withvarious automated 25-OH vitamin D assays when compared toLC-MS/MS.When testing samples from patients whose predominant form ofVitamin D is Vitamin D2, such as patients receiving VitaminD2 supplementation, results that are subtherapeutic shouldbe confirmed with another method such as LC-MS/MS. 03/05/2025 7:42 AM EDT 03/05/2025 7:42 AM EDT us Generic External Data Provider LAB BLOOD ORDERAB LES Final Result [facility] [address] [place] [phone] * Vitamin B12 (Cobalamin) and Folate Panel, Serum (03/05/2025 7:42 AM EDT) Only the most recent of2 resultswithin the time period is included. Vitamin B12 316 200 - 900 pg/mL [facility] Comment:NORMAL 200-900 PG/ML INDETERMINATE 160-199 PG/ML DEFICIENT < 160 PG/ML Folate 8.2 > or = 4.0 ng/mL [facility] Comment:Reference Values:> o r = 4.0 ng/mL< 4.0 ng/mL suggests folate deficiency Methotrexate, aminopterin and folinic acid(leucovorin) are chemotherapeutic agents whose molecularstructures are similar to folate; therefore, the Architectfolate assay cannot be used for patients using these drugs. 03/05/2025 7:42 AM EDT 03/05/2025 7:42 AM EDT us Generic External Data Provider LAB BLOOD ORDERAB LES Final Result Performing Organization Address [facility] Co de Phone Number [facility] [address] [place] [phone] * Zinc (03/05/2025 7:42 AM EDT) Zinc 65 60 - 130 mcg/dL [facility] Comment:This test was develo ped and its analytical performancecharacteristics have been determined by [facility] [place], [place]. It hasnot been cleared or approved by the U.S. Food and DrugAdministration. This assay has been validated pursuantto the CLIA regulations and is used for clinicalpurposes.THIS TEST WAS PERFORMED AT:[facility] [id number] [place] [phone] SWIFT MD,PHD 03/05/2025 7:42 AM EDT 03/05/2025 7:42 AM EDT Generic External Data Provider LAB BLOOD ORDERAB LES Final Result Performing Organization Address [facility] de Phone Number [facility] [address] [place] [phone] * Vitamin A (03/05/2025 7:42 AM EDT) Vitamin A (Retinol) 61 38 - 98 mcg/dL [facility] Comment:Vitamin supplementat ion within 24 hours prior toblood draw may affect the accuracy of the results.This test was developed and its analytical performancecharacteristics have been determined by [facility] [place], [place]. It hasnot been cleared or approved by the U.S. Food and DrugAdministration. This assay has been validated pursuantto the CLIA regulations and is used for clinicalpurposes.THIS TEST WAS PERFORMED AT:[facility] [id number] [place] [phone] SWIFT MD,PHD 03/05/2025 7:42 AM EDT 03/05/2025 7:42 AM EDT us Generic External Data Provider LAB BLOOD ORDERAB LES Final Result Performing Organization Address [facility] Co de Phone Number [facility] [address] [place] [phone] * Vitamin B1 (03/05/2025 7:42 AM EDT) Vitamin B1 12 8 - 30 nmol/L [facility] Comment:Vitamin supplementat ion within 24 hours prior toblood draw may affect the accuracy of the results.This test was developed and its analytical performancecharacteristics have been determined by [facility] [place], [place]. It hasnot been cleared or approved by the U.S. Food and DrugAdministration. This assay has been validated pursuantto the CLIA regulations and is used for clinicalpurposes.THIS TEST WAS PERFORMED AT:[id number] [place] [address]OEKCTFECASEY SWIFT MD,PHD 03/05/2025 7:42 AM EDT 03/05/2025 7:42 AM EDT Generic External Data Provider LAB BLOOD ORDERAB LES Final Result Performing Organization Address [facility] Co de Phone Number [facility] [address] [place] [address] [phone] * CT Head w/o Contrast (02/17/2025 10:28 AM EDT) Anatomical Region Laterality Modality Head, Neck Computed Tomogra phy 02/17/2025 10:2 8 AM EDT Narrative 02/17/2025 12:25 PM EDT [address] [address] [address] Scan Report Signed Patient: Diane Johnson MR#: [id number] : 1975 Acct:[id number] Age/Sex: 49 / F ADM Date: 02/17/25 Loc: HO.ED Attending Dr: Ordering Physician: Shanelle Guardado NP Date of Service: 02/17/25 Procedure(s): CT head/brain wo IV con Accession Number(s): [id number] cc: Jay Hooper MD; Shanelle Guardado NP Report Number: [id number]: Total DLP = 626.00 mGy-cm Reason for [...] MD 02/17/2025 12:23 PM EDT Dictated By: Jhon Armstrong MD Signed By: <Electronically signed by John Armstrong MD in OV> 02/17/25 1223 DD/ 1028 TD/TT: 02/17/25 1039 Plant Controls Specialist: Procedure Note Donotuseinterpreter, Image - 02/17/[address] [address] [address] Scan Report Signed Patient: Diane JohnsonMR#: [id number] : 1975Acct:[id number] Age/Sex: 49 / FADM Date: 02/17/25 Loc: HO.ED Attending Dr: Ordering Physician: Shanelle Guardado NP Date of Service: 02/17/25 Procedure(s): CT head/brain wo IV con Accession Number(s): [id number] cc: Jay Hooper MD; Shanelle Guardado NP Report Number: [id number]: Total DLP = 626.00 mGy-cm Reason for [...] 02/17/25 1223 DD/ 1028 TD/TT: 02/17/25 1039 Plant Controls Specialist: [facility] External Provider IMG CT PROCEDURES Edited Result - Final * (ABNORMAL) CBC auto differential (01/16/2025 12:31 PM EDT) Only the most recent of2 resultswithin the time period is included. White Blood Count 8.2 4.8 - 10.8 X10*3/uL [facility] Red Blood Count 5.14 4.20 - 5.50 X10*6/uL [facility] Hemoglobin 10.3(L) 12.0 - 16.0 g/dl [facility] Hematocrit 36.1(L) 37.0 - 47.0 % [facility] Mean Corpuscular Volume 70.2(L) 80.0 - 98.0 fL [facility] Mean Corpuscular Hemoglobin 20.0(L) 27.0 - 33.0 pg [facility] Mean Corpuscular HGB Conc 28.5(L) 31.0 - 35.0 g/dl [facility] Red Cell Distribution Width 17.2(H) 11.0 - 16.0 % [facility] Platelet Count 385 160 - 400 X10*3/uL [facility] Mean Platelet Volume 11.6 9.4 - 12.3 fL [facility] Neutrophils Percent Auto 67.4 45 - 73 % [facility] Imm Gran Pct Auto 0.5(H) 0.0 - 0.4 % [facility] Lymphocytes Percent Auto 25.1 20 - 40 % [facility] Monocytes Percent Auto 5.1 2 - 11 % [facility] Eosinophils Percent Auto 1.3 0 - 4 % [facility] Basophils Percent Auto 0.6 0 - 2 % [facility] NRBC Pct Auto 0.0 0.0 - 0.2 /100WBC [facility] Neutrophils Absolute Auto 5.5 2.0 - 8.3 x10*3/uL [facility] Imm Gran Abs Auto 0.04(H) 0.00 - 0.03 X10*3/uL [facility] Lymphocytes Absolute Auto 2.1 1.2 - 4.9 X10*3/uL [facility] Monocytes Absolute Auto 0.4 0.1 - 1.2 X10*3/uL [facility] Eosinophils Absolute Auto 0.1 0.0 - 0.4 X10*3/uL [facility] Basophils Absolute Auto 0.1 0.0 - 0.2 X10*3/uL [facility] NRBC Abs Auto 0.000 0.0 - 0.012 X10*3/uL [facility] Blood Venous blood specimen / Unknown 01/16/2025 12:31 PM EDT 01/16/2025 12:31 PM EDT Jay Henry MD LAB BLOOD ORDERABLES Final Result Performing Organization Address City/[facility]/ZIP Co de Phone Number [facility] [address] [place] [phone] * (ABNORMAL) Iron And Total Iron Binding Capacity (01/16/2025 12:31 PM EDT) Iron 16(L) 30 - 160 mcg/dL [facility] Total Iron Binding Capacity 409 228 - 428 mcg/dL [facility] Percent Iron Saturation 4(L) 15 - 50 % [facility] Unsaturated Iron Binding 393 ug/dL [facility] Blood Venous blood specimen / Unknown 01/16/2025 12:31 PM EDT 01/16/2025 12:31 PM EDT Jay Henry MD LAB BLOOD ORDERABLES Final Result Performing Organization Address City/[facility]/ZIP Co de Phone Number [facility] [address] [place] [phone] * (ABNORMAL) Ferritin (01/16/2025 12:31 PM EDT) Ferritin 8(L) 10 - 250 ng/mL [facility] Blood Venous blood specimen / Unknown 01/16/2025 12:31 PM EDT 01/16/2025 12:31 PM EDT Jya Henry MD LAB BLOOD ORDERABLES Final Result [facility] [address] [place] [phone] * Comprehensive Metabolic Panel (01/16/2025 12:31 PM EDT) Only the most recent of2 resultswithin the time period is included. Sodium 141 135 - 145 mmol/L [facility] Potassium 3.9 3.3 - 5.1 mmol/L [facility] Chloride 107 96 - 108 mmol/L [facility] Carbon Dioxide 26 22 - 29 mmol/L [facility] Anion Gap 12 12 - 20 [facility] Urea Nitrogen (BUN) 15 9 - 16 mg/dL [facility] Creatinine, Serum 0.67 0.5 - 1.4 mg/dL [facility] Estimated Glomerular Filt Rate >60 [facility] Comment:Chronic Kidney Disea se: Estimated GFR < 60 mL/min/1.44m0Gnyboz Kidney Disease: Estimated GFR < 15 mL/min/1.73m2 Glucose 112 60 - 115 mg/dL [facility] Calcium 9.1 8.4 - 10.2 mg/dL [facility] Bilirubin, Total 0.4 0.0 - 1.0 mg/dL [facility] Aspartate Amino Transferase 22 5 - 31 U/L [facility] Alanine Aminotransferase 14 0 - 31 U/L [facility] Total Protein 7.6 6.5 - 8.0 g/dL [facility] Albumin Level 4.3 3.5 - 5.0 g/dL [facility] Alkaline Phosphatase 90 39 - 117 U/L [facility] Blood Venous blood specimen / Unknown 01/16/2025 12:31 PM EDT 01/16/2025 12:31 PM EDT Jay Henry MD LAB BLOOD ORDERABLES Final Result [facility] [address] [place] [phone] * Hepatitis C Antibody with Reflex to HCV, RNA, Quantitative, Real-Time PCR (01/16/2025 6:58 AM EDT) Hepatitis C Antibody Nonreactive Nonreactive [facility] Comment:Antibodies to HCV no t detected; does not exclude early acuteHCV infection. Blood Venous blood specimen / Unknown 01/16/2025 6:58 AM EDT 01/16/2025 7:03 AM EDT us Jay Henry MD LAB BLOOD ORDERABLES Final Result [facility] [address] [place] [phone] * BI Mammogram Screening Tomosynthesis Bilateral (10/20/2024 1:27 PM EDT) Anatomical Region Laterality Modality Breast Bilateral Mammography 10/20/2024 1:27 PM EDT Narrative 10/26/2024 5:47 PM EDT [facility] [address] [place] [address] Mammography Report Signed Patient: Diane Johnson MR#: [id number] : 1975 Acct:[id number] Age/Sex: 49 / F ADM Date: 10/20/24 Loc: HO.MAMMO Attending Dr: Jay Hooper MD Ordering Physician: Jay Hooper MD Resu lts: 2Benign Findings Date of Service: 10/20/24 Follow Up: 1 Year From Orig inal Mammogram Procedure(s): MM tomosynthesis screening BI Accession Number(s): [id number] cc: Jay Hooper MD EXAMINATION: MM SCREENING [...] Sanna Marx DO 10/26/2024 05:44 PM EDT RP Dictated By: Sanna Marx DO Signed By: <Electronically signed by Sanna Marx DO in OV> 10/26/24 1744 DD/ 1327 TD/TT: 10/20/24 1355 Plant Controls Specialist: Procedure Note Donotuseinterpreter, Image - [facility] [address] [place] [address] Mammography Report Signed Patient: Luna Johnson#: [id number] : 1975Acct:[id number] Age/Sex: 49 / FADM Date: 10/20/24 Loc: HO.MAMMO Attending Dr: Jay Hooper MD Ordering Physician: Jay Hooper MDResu lts: 2Benign Findings Date of Service: 10/20/24Follow Up: 1 Year From Orig ina Mammogram Procedure(s): MM tomosynthesis screening BI Accession Number(s): [id number] cc: Jay Hooper MD EXAMINATION: MM SCREENING [...] Sanna Marx DO 10/26/2024 05:44 PM EDT RP Dictated By: Sanna Marx DO Signed By: <Electronically signed by Sanna Marx DO in OV> 10/26/24 1744 DD/ 1327 TD/TT: 10/20/24 1355 Plant Controls Specialist: us Jay Henry MD IMG BI PROCEDURES Darin viki Result - Final * Lipid Panel, Standard (09/12/2024 9:40 AM EDT) Triglycerides 132 <150 mg/dL [facility] Comment:Desirable Triglyceri de: less than 150 mg/dLBorderline High Triglyceride 150-199 mg/dLHigh Triglyceride: 200-499 mg/dLVery High Triglyceride: greater than or equal to 5OO mg/dL Cholesterol 174 <200 mg/dL [facility] Comment:Desirable Cholestero l: less than 200 mg/dLBorderline High Cholesterol: 200-239 mg/dLHigh Cholesterol: greater than 239 mg/dL LDL Cholesterol Calculated 93 <100 mg/dL [facility] Comment:Desirable LDL: less than 100 mg/dLNear Optimal/Above Optimal LDL: 110- 129 mg/dLBorderline High LDL: 130-159 mg/dLHigh LDL: 160-189 mg/dLVery High LDL: greater than or equal to 190 mg/dL HDL Cholesterol 55 >40 mg/dL [facility] Comment:Desirable HDL: great er than 40 mg/dL Note: This HDL assay may give artificially low results in patients with liver disease. Blood Venous blood specimen / Unknown 09/12/2024 9:40 AM EDT 09/12/2024 9:40 AM EDT us Jay Henry MD LAB BLOOD ORDERABLES Final Result [facility] [address] [place] [address] [phone] * ThinPrep Imaging Pap and HPV mRNA E6/E7 with Reflex to HPV 16,18/45 (03/18/2024 8:00 AM EDT) HPV 16 RNA [facility] HPV 18/45 RNA [facility] HPV nRNA E6/E7 Not Detected Not Detected [facility] Comment:Methodology: Transcr iption-Mediated AmplificationThis assay detects E6/E7 viral messenger RNA (mRNA) from 14high-risk HPV types (16,18,31,33,35,39,45,51,52,56,58,59,66,68).Cervical sources are required for HPV testing.If a vaginal source from a patient who has had atotal hysterectomy with removal of cervix wassubmitted, please contact the testing laboratoryfor alternative testing options.For additional information, please refer tohttp://education.Aptible/faq/PPX858s7(This link if provided for information/educational purposes only.)THIS TEST WAS PERFORMED AT:[employer] [place] [phone] WASHINGTON MD SOURCE: SEE NOTE [facility] Comment:None given Report Status: [facility] Clinical Information: SEE NOTE [facility] Comment:None given LMP: SEE NOTE [facility] Comment:NONE GIVEN Prev. PAP: SEE NOTE [facility] Comment:NONE GIVEN Prev. BX: SEE NOTE [facility] Comment:NONE GIVEN Statement Of Adequacy: SEE NOTE [facility] Comment:Satisfactory for caroline luation.Endocervical/transformation zone componentpresent. General Categorization: [facility] Interpretation/Result: SEE NOTE [facility] Comment:Cytology Results: Ne gative for intraepitheliallesion or malignancy. Cytology Comment SEE NOTE [facility] Comment:This Pap test has be en evaluated with computerassisted technology. Lawyer Probate: SEE NOTE [facility] Comment:BK,CT(ASCP)CT screen ing location: [address] Review Lawyer Probate: [facility] Pathologist [facility] PAP Infection [facility] See Note SEE NOTE [facility] Comment:EXPLANATORY NOTE:The Pap is a screening test for cervical cancer. It isnot a diagnostic test and is subject to false negativeand false positive results. It is most reliable when asatisfactory sample, regularly obtained, is submittedwith relevant clinical findings and history, and whenthe Pap result is evaluated along with historic andcurrent clinical information. 03/18/2024 8:00 AM EDT 03/18/2024 3:31 PM EDT Narrative [facility] - 03/25/2024 2:07 PM EDT SEE SCANNED RESULTS IN EMR us Generic External Data Provider LAB PATHOLOGY ORD ERABLES Final Result [facility] [address] [place] [address] [phone] * Hm Colonoscopy (12/30/2021) Colonoscopy Normal Normal us Jay Henry MD HEALTH MAINTENANCE Ed ited Result - Final from Last 3 Months or Most Recently Relevant to Health Maintenance [place] [address] [address] [employer] Care Teams Senior Firmware Engineer Relationship Specialty Start Date End Date Jay Davis MD [address] [place] [id number] PCP - General Internal Medicine 01/13/14
--- OUTSIDE RECORDS SUMMARY | 2025-04-02 18:12 | XMS_ITS | Encounter Summary ---
Author Organization [employer] Address [address] [facility] [address] [place] [address] Care Team Providers Care Sal[employer] Officer Name Role Phone Jay Davis MD Primary Care Provide r Reason for Visit * Reason Onset Date Comments Med Refill 01/14/2025 Encounter Details Date Type Department Care Team ([facility] st Contact Info) Description 01/14/[address] [facility] [address] [place] [address] Jay Davis MD [address] [place] [address] Low back pain radiating to right leg [...] as of this encounter Plan of Treatment Not on file documented as of this encounter Visit Diagnoses Diagnosis Low back pain radiating to right leg Lumbago documented in this encounter Additional Health Concerns Assessment Noted Time PHQ-9 Depression Total Score: 18 025 3:21 PM EDT documented as of this encounter Care Teams Sal[employer] Officer Relationship Specialty Start Date End Date Jay Davis MD [address] [place] [address] PCP - General Internal Medicine 01/13/14 documented as of this encounter
--- OUTSIDE RECORDS SUMMARY | 2025-04-02 18:12 | XMS_ITS | Encounter Summary ---
Author Organization [employer] Address [address] [facility] 7[address] [place] [address] Care Team Providers Care It Project Coordinator Name Role Phone Jay Davis MD Primary Care Provide r Reason for Visit * Reason Onset Date Comments Med Refill 01/14/2025 Encounter Details Date Type Department Care Team ([facility] st Contact Info) Description 01/14/2025 Refill [facility] [address] [place] [address] Riley Waldrop MD [address] [place] [address] Social History Tobacco Use Types Packs/Day Years [...] documented as of this encounter Care Teams It Project Coordinator Relationship Specialty Start Date End Date Jay Davis MD [address] [place] [phone] PCP - General Internal Medicine 01/13/14 documented as of this encounter
--- OUTSIDE RECORDS SUMMARY | 2025-04-02 18:12 | XMS_ITS | Encounter Summary ---
Author Organization [employer] Address [address] [facility] 7t [place] [address] Care Team Providers Care Cutting Table Operator Name Role Phone Jay Davis MD Primary Care Provide r Reason for Visit * Reason Onset Date Comments Med Refill 10/15/2023 Encounter Details Date Type Department Care Team ([facility] st Contact Info) Description 10/15/2023 Refill [facility] [address] [place] [address] Jay Davis MD [address] [place] [address] Dermatitis Social History Tobacco Use Types Packs/Day [...] t he electric, gas, oil or water [employer] threatened to shut off services in your [...] documented as of this encounter Care Teams Cutting Table Operator Relationship Specialty Start Date End Date Jay Davis MD [address] [place] [address] PCP - General Internal Medicine 01/13/14 documented as of this encounter
--- OUTSIDE RECORDS SUMMARY | 2025-04-02 18:12 | XMS_ITS | Encounter Summary ---
Author Organization [employer] Address [address] [facility] [address] [place] [address] Care Team Providers Care Transportation Inspector Name Role Phone Jay Davis MD Primary Care Provide r Reason for Visit * Reason Onset Date Comments Referral 07/11/2024 Encounter Details Date Type Department Care Team ([facility] st Contact Info) Description 07/11/2024 Telephone [facility] [address] [place], [place] [phone] Jay Davis MD [address] [place] [address] Referral Social History Tobacco Use Types Packs/Day [...] documented in this encounter Plan of Treatment Not on file documented as of this encounter Visit Diagnoses Not on filedocumented in this encounter Additional Health Concerns Assessment Noted Time PHQ-9 Depression Total Score: 0 12/25/19 24 1:07 PM EDT documented as of this encounter Care Teams Transportation Inspector Relationship Specialty Start Date End Date Jay Davis MD [address] [place] [phone] PCP - General Internal Medicine 01/13/14 documented as of this encounter
--- OUTSIDE RECORDS SUMMARY | 2025-04-02 18:12 | XMS_ITS | Clinical Summary ---
Author Organization [facility] Address [address] [place] [address] Phone Care Team Providers Care Civil Engineer Land Development Name Role Phone Jay Hooper MD Primary [...] Last Done Comments Breast Cancer Screening 1975 Colorectal Cancer Screening: Colonoscopy 1975 Cervical Cancer Screening: P ap Smear 1994 Pneumococcal Vaccine: 50+ Years (1 of 1 - PCV) 2023 Zoster Vaccines (1 of 2) 2023 023, 09/07/2022 HIV Screening 04/07/2024 Hepatitis C Screening 04/07/2024 Social Influencers of Health Screening 04/07/2024 Depression Screening 06/11/2024 COVID-19 Vaccine (3 - 2024-2 6 season) 2025 10/07/2020, 09/15/2020 Influenza Vaccine (#1) 2025 Cholesterol Screening (Lipid Panel) 09/12/2029 09/12/2024 DTaP,Tdap,and Td Vaccines (3 - Td or Tdap) 09/07/2032 09/07/2022, 01/29/2012 RSV Immunization Adult Patients (1 - 1-dose 75+ series) 2048 MMR Vaccines Aged Out 10/11/2022, 09/07/2022 No [...] complete this topic Insurance MEDICAID - [place] [facility] Care Teams Civil Engineer Land Development Relationship Specialty Start Date End Date Jay Hooper MD [address] [place] [address] [place] [phone] PCP - General 04/05/10
== END 2025-04-02 14:42 | disposition home or self-care (01) ==
LOC: HO.HSM 14:22
PROVIDERS: PCP Internal Medicine; Visit Provider Registered Nurse
DX: G43.909 Migraine, unspecified, not intractable, without status migrainosus (principal)
CPT/HCPCS: 99214

== ENCOUNTER 2025-05-22 15:11 | Emergency (ER) | payer OTHER, SELFPAY ==
--- NOTE | ~2025-05-22 | CT_ITS ---
EXAMINATION: CT HEAD WITHOUT CONTRAST (STROKE PROTOCOL) CLINICAL INFORMATION: Left-sided weakness. Concerning stroke. COMPARISON: February 17, 2025. TECHNIQUE: Contiguous axial imaging was performed from the skull base to vertex without intravenous administration of contrast. This CT examination was performed using dose optimization techniques as appropriate, variously including the following: *Automated exposure control *Adjustment of mA and/or kV according to patient size (this includes techniques or standardized protocols for targeted exams where dose is matched to indication/reason for exam; i.e. extremities or head) *Use of iterative reconstruction technique DLP: 659 mGy-cm FINDINGS: No acute intracranial hemorrhage, mass effect, midline shift, hydrocephalus or herniation. Schwartz-white matter differentiation is normal. Posterior cranial fossa contents demonstrated no acute hemorrhage or mass effect. Normal position of the cerebellar tonsils. Sellar/suprasellar region demonstrated no gross masses. No increased density in the MCA. No air-fluid levels in the paranasal sinuses. Tympanic cavities and mastoid cells are aerated. CT/CT angio head neck STROKE IMPRESSION: No acute intracranial hemorrhage or acute brain abnormality by CT. This critical result was discussed with physician historian research assistant from the emergency department, Jt Mota at 3:23 PM hours on May 22, 2025.. It was ascertained that the content and urgency of the report was understood at the time of direct communication. EXAMINATION: CTA NECK WITH CONTRAST (STROKE) CTA BRAIN WITH CONTRAST (STROKE) CLINICAL INFORMATION: Suspect acute stroke. Assess for major vessel occlusion. Please call report.. Left-sided weakness. COMPARISON: None available. TECHNIQUE: CTA of the head and neck was performed in the axial plane from the mediastinum to the skull vertex using 70 mL Omnipaque 350 intravenous contrast. Additional reformatted multiplanar images including maximum intensity projection MIP images are generated on the CT workstation. This CT examination was performed using dose optimization techniques as appropriate, variously including the following: *Automated exposure control *Adjustment of mA and/or kV according to patient size (this includes techniques or standardized protocols for targeted exams where dose is matched to indication/reason for exam; i.e. extremities or head) *Use of iterative reconstruction technique DLP: 638 mGy-cm FINDINGS: The degree of stenosis determined by criteria similar to NASCET. Chest CTA: Normal patency caliber of the included aortic arch without intimal flap. The main branches are patent without focal stenosis. Neck CTA: Right CCA: Normal patency. No focal stenosis. No intimal flap. Right ICA: Normal patency. No focal stenosis. No intimal flap. Left CCA: Normal patency. No focal stenosis. No intimal flap. Left ICA: Normal patency. No focal stenosis. No intimal flap. V1/V2 segments: Normal patency. No focal stenosis. No intimal flap. Both origin from the subclavian artery. Codominant. Brain CTA: Anterior cerebral circulation: ICAs: Normal patency. No focal stenosis. No intimal flap. No abrupt cut off. There is a 2 mm IV contrast enhanced round shaped abnormality in the posterior medial aspect of the cavernous segment near the posterior communicating artery origin. MCAs: Normal patency. No focal stenosis. No abrupt cut off. ICA terminus is normal. Bifurcation/trifurcation demonstrated no vascular irregularity. ACAs: Normal patency. No focal stenosis. No abrupt cut off. Anterior communicating artery is patent. Ophthalmic arteries are patent without vascular irregularity. Posterior communicating arteries are patent. 2 mm irregularity at the origin of the right posterior communicating artery. Posterior cerebral circulation: V3/V4 segments: Normal patency. No focal stenosis. No intimal flap. Posterior inferior cerebellar arteries are patent. Anterior inferior cerebral arteries are patent. Basilar artery is patent without focal stenosis or intimal flap. career placement specialist: No focal stenosis. No abrupt cut off. Ancillary findings: Nonspecific prominent cervical lymph nodes. . IMPRESSION: No main cerebral artery occlusion or embolus. No high degree stenosis or dissection. 2 mm cerebral aneurysm versus infundibulum, right posterior communicating artery. This critical test result is communicated to: Physician historian research assistant, Jt Mota on May 22, 2025 at 1:25 PM. Electronically signed by: Srikanth Coates MD 05/22/2025 03:36 PM [facility]
--- NOTE | ~2025-05-22 | CT_ITS ---
EXAMINATION: CT HEAD WITHOUT CONTRAST (STROKE PROTOCOL) CLINICAL INFORMATION: Left-sided weakness. Concerning stroke. COMPARISON: February 17, 2025. TECHNIQUE: Contiguous axial imaging was performed from the skull base to vertex without intravenous administration of contrast. This CT examination was performed using dose optimization techniques as appropriate, variously including the following: *Automated exposure control *Adjustment of mA and/or kV according to patient size (this includes techniques or standardized protocols for targeted exams where dose is matched to indication/reason for exam; i.e. extremities or head) *Use of iterative reconstruction technique DLP: 659 mGy-cm FINDINGS: No acute intracranial hemorrhage, mass effect, midline shift, hydrocephalus or herniation. Schwartz-white matter differentiation is normal. Posterior cranial fossa contents demonstrated no acute hemorrhage or mass effect. Normal position of the cerebellar tonsils. Sellar/suprasellar region demonstrated no gross masses. No increased density in the MCA. No air-fluid levels in the paranasal sinuses. Tympanic cavities and mastoid cells are aerated. CT/CT head for STROKE IMPRESSION: No acute intracranial hemorrhage or acute brain abnormality by CT. This critical result was discussed with physician cafe assistant from the emergency department, Jt Mota at 3:23 PM hours on May 22, 2025.. It was ascertained that the content and urgency of the report was understood at the time of direct communication. EXAMINATION: CTA NECK WITH CONTRAST (STROKE) CTA BRAIN WITH CONTRAST (STROKE) CLINICAL INFORMATION: Suspect acute stroke. Assess for major vessel occlusion. Please call report.. Left-sided weakness. COMPARISON: None available. TECHNIQUE: CTA of the head and neck was performed in the axial plane from the mediastinum to the skull vertex using 70 mL Omnipaque 350 intravenous contrast. Additional reformatted multiplanar images including maximum intensity projection MIP images are generated on the CT workstation. This CT examination was performed using dose optimization techniques as appropriate, variously including the following: *Automated exposure control *Adjustment of mA and/or kV according to patient size (this includes techniques or standardized protocols for targeted exams where dose is matched to indication/reason for exam; i.e. extremities or head) *Use of iterative reconstruction technique DLP: 638 mGy-cm FINDINGS: The degree of stenosis determined by criteria similar to NASCET. Chest CTA: Normal patency caliber of the included aortic arch without intimal flap. The main branches are patent without focal stenosis. Neck CTA: Right CCA: Normal patency. No focal stenosis. No intimal flap. Right ICA: Normal patency. No focal stenosis. No intimal flap. Left CCA: Normal patency. No focal stenosis. No intimal flap. Left ICA: Normal patency. No focal stenosis. No intimal flap. V1/V2 segments: Normal patency. No focal stenosis. No intimal flap. Both origin from the subclavian artery. Codominant. Brain CTA: Anterior cerebral circulation: ICAs: Normal patency. No focal stenosis. No intimal flap. No abrupt cut off. There is a 2 mm IV contrast enhanced round shaped abnormality in the posterior medial aspect of the cavernous segment near the posterior communicating artery origin. MCAs: Normal patency. No focal stenosis. No abrupt cut off. ICA terminus is normal. Bifurcation/trifurcation demonstrated no vascular irregularity. ACAs: Normal patency. No focal stenosis. No abrupt cut off. Anterior communicating artery is patent. Ophthalmic arteries are patent without vascular irregularity. Posterior communicating arteries are patent. 2 mm irregularity at the origin of the right posterior communicating artery. Posterior cerebral circulation: V3/V4 segments: Normal patency. No focal stenosis. No intimal flap. Posterior inferior cerebellar arteries are patent. Anterior inferior cerebral arteries are patent. Basilar artery is patent without focal stenosis or intimal flap. pick up worker: No focal stenosis. No abrupt cut off. Ancillary findings: Nonspecific prominent cervical lymph nodes. . IMPRESSION: No main cerebral artery occlusion or embolus. No high degree stenosis or dissection. 2 mm cerebral aneurysm versus infundibulum, right posterior communicating artery. This critical test result is communicated to: Physician cafe assistant, Jt Mota on May 22, 2025 at 1:25 PM. Electronically signed by: Srikanth Coates MD 05/22/2025 03:36 PM EST
--- NOTE | ~2025-05-22 | MR_ITS ---
CLINICAL HISTORY: ams, left side weakness, right facial droop MR Brain without gadolinium Comparison: CT/REG/SR - CT HEAD WITHOUT IV CONTRAST STROKE - 05/22/25 15:16 EST Findings: No restricted diffusion. No intra-axial mass or hemorrhage. No midline shift. No hydrocephalus. Vascular flow voids are intact. Orbital contents are unremarkable. The sinuses and mastoid air cells are clear. No focal bone lesion. IMPRESSION: Unremarkable brain MRI. This document has been electronically signed by: Kimberly Chandler MD on 05/22/2025 17:00:43
--- NOTE | 2025-05-22 15:12 | ECG_ITS ---
Test Reason : stroke alert Blood Pressure : */* mmHG Vent. Rate : 74 BPM Atrial Rate : 74 BPM P-R Int : 146 ms QRS Dur : 76 ms QT Int : 398 ms P-R-T Axes : 20 5 28 degrees QTcB Int : 441 ms Normal sinus rhythm Normal ECG When compared with ECG of 17-Nov-2024 23:05, No significant change was found Referred By: Jt Mota Electronically Signed By: SARAVANAN DELVALLE MD
[2025-05-22 15:15] VITALS: BMI 26.5
[2025-05-22 15:16] VITALS: BP 149/87; PULSE 87; O2SAT 97
--- NOTE | 2025-05-22 15:17 | ED_ITS ---
HPI - General Adult General Chief complaint: Neuro Symptoms/Deficit Stated complaint: sudden confusion, r facial droop Time Seen by Provider: 05/22/25 15:23 Source: patient and EMS Mode of arrival: EMS Limitations: altered mental status History of Present Illness ED Provider: HANY Mota HPI narrative: Chief Complaint: ?Sudden onset left-sided weakness while at work.? History of Present Illness: Patient was at work when she experienced a sudden inability to move her left upper extremity. Coworkers noted right-sided facial droop. Per EMS and collateral history, she has had a migraine for the past two days and had been out of work during that time. She denies ever having similar neurologic symptoms in the past. No trauma. No chest pain. No pain at work. No blood pressure issues reported at onset. Time last known normal reported to be approximately 20?minutes prior to ED arrival. History taking is limited due to patient?s impaired speech. Related Data Previous Rx's ?Medication ?Instructions ?Recorded yeklqfjn-bikmxkza-fppu 45 mg-folic 1 cap PO DAILY #30 caps 04/29/21 acid 800 mcg-vit K 120 mcg capsule (Bariatric Multivitamins) esomeprazole magnesium 40 mg 40 mg PO DAILY #90 caps 1 06/29/23 capsule,delayed release fremanezumab-vfrm 225 mg/1.5 mL 225 mg (1.5 mL) subcut QMONTH 01/27/25 subcutaneous auto-injector (Ajovy) Migraine 30 days #1 .5 mL phentermine 30 mg capsule 30 mg PO DAILY #30 caps 02/02 Allergies Allergy/AdvReac Type Severity Reaction Status Date / Time codeine (CODEINE) Allergy Intermediate HEASDACHE/D Verified 05/22/25 15:45 AIDEN acetaminophen (Percocet) Allergy Unknown Tachycardia Verified 05/22/25 15:45 oxycodone (Percocet) Allergy Unknown tachycardia Verified 05/22/25 15:45 Penicillins (PENICILLINS) AdvReac Unknown HEADACHE/DI Verified 05/22/25 15:45 ZZINESS scopolamine (SCOPOLAMINE) AdvReac Unknown EPISODE OF Verified 05/22/25 15:45 DEPRESSION MORPHINE Allergy Unknown tachycardia Uncoded 02/25/25 13:22 PENICILLIN Allergy Unknown tachycardia Uncoded 02/25/25 13:22 From PERCOCET AdvReac Intermediate HEADACHE/DI Uncoded 02/25/25 13:22 ZZY Review of Systems 2 Review of Systems: Yes all other systems are reviewed and are negative [facility] Past Medical History Attestation statement: The following information was validated with the patient. Source: old records reviewed and nursing notes reviewed Medical History (Updated 05/22/25 @ 16:48 by HANY Bernard) Memory loss Chronic tension headache Migraine Goiter History of migraine Tubular adenoma Back pain Malabsorption due to intolerance, not elsewhere classified Overweight (BMI 25.0-29.9) Super obesity Surgical History Hx of bladder repair surgery Hx of colonoscopy History of tubal ligation History of esophagogastroduodenoscopy (EGD) History of cholecystectomy LAP-BAND surgery status History of bunionectomy Hx of section Hx of knee surgery S/P laparoscopic sleeve gastrectomy History of loop recorder Family History Family History Father Diabetes HTN (hypertension) Mother Diabetes CVD (cardiovascular disease) Brother No problems noted. Brother No problems noted. Brother No problems noted. Brother No problems noted. Sister No problems noted. Sister No problems noted. Sister No problems noted. Son No problems noted. Daughter No problems noted. Daughter No problems noted. Daughter No problems noted. Social History Social History Household Members: Spouse and Children Housing: House Alcohol intake: never Patient Tobacco Use Status: Never used Tobacco Second Hand Smoke Exposure: No Advance Directives: No Advance Directives Information Provided: Yes Current occupational status: employed [place] [place] Exam ED Exam Exam: Appearance: Alert.? Oriented X3.? No acute distress.? Head: Normocephalic, atraumatic, no step-offs or deformities Eyes: Pupils equal, round and reactive to light.? ENT: Pharynx normal.??External ears normal, TMs normal bilaterally and EAC's normal. No pain with manipulation of external ears bilaterally. No mastoid tenderness. Neck: Normal inspection.? Neck supple.? CVS: Normal heart rate and rhythm.? Pulses normal.? Respiratory: No respiratory distress.? Breath sounds normal.? Abdomen: Soft and nontender.? Skin: Skin warm and dry.? Normal skin color.? Normal skin turgor.? Extremities: No lower extremity edema.? No calf ttp. 5/5 strength to bilateral upper and lower extremities Back: No midline tenderness, no C-spine tenderness, full range of motion, no CVA tenderness bilaterally Neuro: Oriented X 3.? No motor deficit.? No sensory deficit. CN 2-12 intact Vital Signs: Vital Signs - 24 hr 05/22/25 15:43 05/22/25 17:13 Pulse Rate 83 76 Respiratory Rate 18 15 Blood Pressure 144/69 H 133/70 Pulse Oximetry 97 100 Oxygen Delivery Method Room Air Room Air BMI result Body Mass Index 26.5 vss Course Reevaluation(s) Reevaluation #1: CT head was negative for intracranial hemorrhage. CTA negative however radiologist does mention over the phone that there may be a 2 mm aneurysm. Full report to be posted soon. Patient will be brought to MRI stat since we are still in a window. In the meantime will start treating for complex migraine. I did speak to neurology who recommends MRI if stone window. My attending Dr. Barahona also at the bedside evaluating patient agrees with my plan. Nursing staff spoke to patient's daughter who states migraines who presented like this in the past. Time: 15:39 Reevaluation #2: Will treat migraine. Time: 16:45 Reevaluation #3: Patient will be medicated with migraine cocktail. According to therapy site coordinator she received a text saying brain MRI negative. Time: 16:59 Additional Reevaluation(s): Sign out to my Attending Dr. Tamy Ledbetter Medications Administered Discontinued Medications Generic Name Dose Route Start Last Admin Trade Name Claudy PRN Reason Stop Dose Admin Diazepam 2.5 mg 05/22/25 16:44 05/22/25 17:14 Diazepam 10 Mg/2 Ml Cartridge IVPUSH 05/22/25 16:45 2.5 mg STAT STA Administration Diphenhydramine HCl 25 mg 05/22/25 15:23 05/22/25 17:14 Diphenhydramine Hcl 50 Mg/Ml Vial IVPUSH 05/22/25 15:24 25 mg ONCE ONE Administration Sodium Chloride 1,000 mls @ 999 mls/hr 05/22/25 16:45 05/22/25 18:24 Ns IV 05/22/25 17:45 Infused .Q1H1M DARRON Infusion Ketorolac Tromethamine 30 mg 05/22/25 16:42 05/22/25 17:13 Ketorolac Tromethamine 15 Mg/Ml Vial IVPUSH 05/22/25 16:43 30 mg ONCE ONE Administration Metoclopramide HCl 10 mg 05/22/25 15:23 05/22/25 17:14 Metoclopramide Hcl 10 Mg/2 Ml Vial IVPUSH 05/22/25 15:24 10 mg ONCE ONE Administration Medical Decision Making Medical Decision Making MDM Narrative: [age] Middle-aged female with sudden focal neurologic deficits (left-sided weakness, right facial droop) on background of chronic migraines. Problem #1: Acute neurologic deficit ? rule out acute ischemic stroke Assessment: Sudden left-sided weakness and right facial droop concerning for acute cerebrovascular event. History limited; onset <1?hour. NIH Stroke Scale to be completed. Plan: * Immediate non-contrast head CT and CT angiography brain/neck en route from triage. * Obtain stat labs including CBC, CMP, coagulation profile. * Full NIHSS on arrival to CT suite. * Activate stroke alert pathway; notify stroke team. * Monitor neurologic status continuously. * Reached out to Neurology STAT Problem #2: Chronic migraine headache Assessment: History of complex migraines with current 2-day episode; etiology of current focal deficits unknown until stroke work-up completed. Plan: * Hold migraine-specific therapy until after neuroimaging rules out hemorrhage. * Reassess need for anti-migraine treatment post-imaging. NIH Stroke Scale/Score (NIHSS) from [email or web address] on 05/22/2025 All calculations should be rechecked by clinician prior to use RESULT SUMMARY: 14 points NIH Stroke Scale INPUTS: 1A: Level of consciousness ?> 2 = Requires repeated stimulation to arouse 1B: Ask month and age ?> 1 = 1 question right 1C: 'Blink eyes' & 'squeeze hands' ?> 1 = Performs 1 task 2: Horizontal extraocular movements ?> 0 = Normal 3: Visual bhagat ?> 0 = No visual loss 4: Facial palsy ?> 2 = Partial paralysis (lower face) 5A: Left arm motor drift ?> 2 = Drift, hits bed 5B: Right arm motor drift ?> 0 = No drift for 10 seconds 6A: Left leg motor drift ?> 2 = Drift, hits bed 6B: Right leg motor drift ?> 0 = No drift for 5 seconds 7: Limb Ataxia ?> 0 = Does not understand 8: Sensation ?> 0 = Normal; no sensory loss 9: Language/aphasia ?> 2 = Severe aphasia: fragmentary expression, inference needed, cannot identify materials 10: Dysarthria ?> 2 = Severe dysarthria: unintelligible slurring or out of proportion to dysphasia 11: Extinction/inattention ?> 0 = No abnormality Differential Diagnosis Differential Diagnoses: The differential diagnosis associated with the presentation includes Admission/Observation Consideration of admission/observation: Escalation of care including admission/observation considered Lab Data MDM Lab Attestation statement: I reviewed the patient's lab results. 05/22/25 15:39 05/22/25 15:39 Labs: Lab Results 05/22/25 05/22/25 05/22/25 Range/Units 15:15 15:19 15:39 WBC 7.7 (4.8-10.8) X10*3/uL RBC 4.71 (4.20-5.50) X10*6/uL Hgb 9.6 L (12.0-16.0) g/dl Hct 33.5 L (37.0-47.0) % MCV 71.1 L (80.0-98.0) fL MCH 20.4 L (27.0-33.0) pg MCHC 28.7 L (31.0-35.0) g/dl RDW 17.2 H (11.0-16.0) % Plt Count 313 (160-400) X10*3/uL MPV 11.2 (9.4-12.3) fL Immature Gran % (Auto) 0.3 (0.0-0.4) % Neut % (Auto) 69.8 (45-73) % Lymph % (Auto) 21.4 (20-40) % Hendry % (Auto) 6.8 (2-11) % Eos % (Auto) 1.2 (0-4) % Baso % (Auto) 0.5 (0-2) % Lymph # (Auto) 1.6 (1.2-4.9) X10*3/uL Hendry # (Auto) 0.5 (0.1-1.2) X10*3/uL Eos # (Auto) 0.1 (0.0-0.4) X10*3/uL Baso # (Auto) 0.0 (0.0-0.2) X10*3/uL Abs Immat Gran (auto) 0.02 (0.00-0.03) X10*3/uL Absolute Neuts (auto) 5.4 (2.0-8.3) x10*3/uL Absolute Nucleated RBC 0.000 (0.0-0.012) X10*3/uL Nucleated RBC % (auto) 0.0 (0.0-0.2) /100WBC Hold Purple Top PT 12.0 (11.2-13.5) SEC Whole Blood PT 13.0 (11.1-13.5) sec INR 1.0 (0.9-1.1) Whole Blood INR 1.1 (0.9-1.1) APTT 25.8 L (26.7-34.1) SEC Sodium 138 (135-145) mmol/L Potassium 3.9 (3.3-5.1) mmol/L Chloride 109 H (96-108) mmol/L Carbon Dioxide 22 (22-29) mmol/L Anion Gap 11 L (12-20) BUN 13 (9-16) mg/dL Creatinine 0.69 (0.5-1.4) mg/dL Estim Creat Clear Calc 105.4 Estimated GFR > 60 POC Glucose 114 (60-115) mg/dL Random Glucose 110 (60-115) mg/dL Calcium 8.7 (8.4-10.2) mg/dL Troponin I High Sens < 2.7 (<3.5-17.0) ng/L Triglycerides 138 (<150) mg/dL Cholesterol 166 (<200) mg/dL LDL Cholesterol, Calc 87 (<100) mg/dL HDL Cholesterol 52 (>40) mg/dL 05/22/25 Range/Units 15:40 WBC (4.8-10.8) X10*3/uL RBC (4.20-5.50) X10*6/uL Hgb (12.0-16.0) g/dl Hct (37.0-47.0) % MCV (80.0-98.0) fL MCH (27.0-33.0) pg MCHC (31.0-35.0) g/dl RDW (11.0-16.0) % Plt Count (160-400) X10*3/uL MPV (9.4-12.3) fL Immature Gran % (Auto) (0.0-0.4) % Neut % (Auto) (45-73) % Lymph % (Auto) (20-40) % Hendry % (Auto) (2-11) % Eos % (Auto) (0-4) % Baso % (Auto) (0-2) % Lymph # (Auto) (1.2-4.9) X10*3/uL Hendry # (Auto) (0.1-1.2) X10*3/uL Eos # (Auto) (0.0-0.4) X10*3/uL Baso # (Auto) (0.0-0.2) X10*3/uL Abs Immat Gran (auto) (0.00-0.03) X10*3/uL Absolute Neuts (auto) (2.0-8.3) x10*3/uL Absolute Nucleated RBC (0.0-0.012) X10*3/uL Nucleated RBC % (auto) (0.0-0.2) /100WBC Hold Purple Top SEE NOTE PT (11.2-13.5) SEC Whole Blood PT (11.1-13.5) sec INR (0.9-1.1) Whole Blood INR (0.9-1.1) APTT (26.7-34.1) SEC Sodium (135-145) mmol/L Potassium (3.3-5.1) mmol/L Chloride (96-108) mmol/L Carbon Dioxide (22-29) mmol/L Anion Gap (12-20) BUN (9-16) mg/dL Creatinine (0.5-1.4) mg/dL Estim Creat Clear Calc Estimated GFR POC Glucose (60-115) mg/dL Random Glucose (60-115) mg/dL Calcium (8.4-10.2) mg/dL Troponin I High Sens (<3.5-17.0) ng/L Triglycerides (<150) mg/dL Cholesterol (<200) mg/dL LDL Cholesterol, Calc (<100) mg/dL HDL Cholesterol (>40) mg/dL Independent Interpretation I performed an independent interpretation of an: CT Scan Interpretation: IMPRESSION: No main cerebral artery occlusion or embolus. No high degree stenosis or dissection. 2 mm cerebral aneurysm versus infundibulum, right posterior communicating artery. Radiology Impression Discussion of test interpretation with radiology: I have reviewed the radiologist's reading. External Record Review External record reviewed: Inpatient record, Office record, Outpatient record, Prior outpatient labs, Prior outpatient radiology, Primary care record and Outside ED record Critical Care Time Critical Care Time Critical Care Time: Yes Total Critical Care Time: 45 Attestation: I attest to this time spent taking care of the patient, obtaining history, physical, reviewing labs, imaging, treatment of patients condition +/- specialist/hospitalist consult +/- procedure Discharge Plan Discharge Clinical Impression: Hemiplegic migraine Patient Disposition: Home, Self-Care Instructions: Migraine Headache (ED) Additional Instructions: Take your medications as prescribed. If you were prescribed antibiotics today, it is important that you take your medication to their entirety, do not skip any doses, do not finish them early. Follow-up with your primary care provider this week. Return to the emergency department with new or worsening symptoms. Such as fevers, chills, chest pain, shortness of breath, nausea, vomiting, dizziness, headache, vision changes, lethargy In case of emergency call [address] cleared by neurology Please follow-up with neurology Prescriptions: No Action Ajovy Autoinjector 225 mg/1.5 mL auto-injector 225 mg subcut QMONTH 30 Days Qty: 1.5 4RF phentermine 30 mg capsule 30 mg PO DAILY Qty: 30 0RF Rx Instructions: must administer 2 hours after breakfast Bariatric Multivitamins 45 mg iron- 800 mcg-120 mcg capsule 1 cap PO DAILY Qty: 30 0RF esomeprazole magnesium 40 mg capsule,delayed release(DR/EC) 40 mg PO DAILY Qty: 90 3RF [place] [facility] [place] [facility] [place] Group] - 1 week Physician,Unknown J [Primary Care Provider, Medical] Print Language: Upper Sorbian
[2025-05-22 15:23] LABS: Prothrombin Time Whole Bld POC 13.0 sec (11.1-13.5); ~PT, ~INR - Anti Coag Clinic 1.1 (0.9-1.1)
[2025-05-22 15:25] LABS: Glucose, Whole Blood 114 mg/dL (60-115)
--- NOTE | 2025-05-22 15:34 | PC.NURSE ---
Lizette on phone states that migraines in the past have included facial paralysis. also inability to speak. also weakness on one side.
[2025-05-22 15:43] VITALS: BP 144/69; PULSE 83; RESP 18; O2SAT 97; BMI 26.5
[2025-05-22 15:47] LABS: MANUAL DIFF FLAG NO
--- NOTE | 2025-05-22 15:49 | PC.NURSE ---
Pt OFF UNIT to MRI
[2025-05-22 15:55] LABS: INTERNATIONAL NORM RATIO 1.0 (0.9-1.1); Prothrombin Time 12.0 SEC (11.2-13.5)
[2025-05-22 15:56] LABS: Hematocrit 33.5 % (37.0-47.0); Hemoglobin 9.6 g/dl (12.0-16.0); Imm Gran Abs Auto 0.02 X10*3/uL (0.00-0.03); Imm Gran Pct Auto 0.3 % (0.0-0.4); Lymphocytes Absolute Auto 1.6 X10*3/uL (1.2-4.9); Mean Corpuscular HGB Conc 28.7 g/dl (31.0-35.0); Mean Corpuscular Hemoglobin 20.4 pg (27.0-33.0); Mean Corpuscular Volume 71.1 fL (80.0-98.0); NRBC Abs Auto 0.000 X10*3/uL (0.0-0.012); NRBC Pct Auto 0.0 /100WBC (0.0-0.2); Platelet Count 313 X10*3/uL (160-400); Red Blood Count 4.71 X10*6/uL (4.20-5.50); White Blood Count 7.7 X10*3/uL (4.8-10.8)
[2025-05-22 15:58] LABS: Partial Thromboplastin Time 25.8 SEC (26.7-34.1)
[2025-05-22 16:01] LABS: Stroke Lab Use COMPLETE
--- NOTE | 2025-05-22 16:04 | MHC.EDTECH ---
attempted to do ekg pt not in the room.
[2025-05-22 16:09] LABS: Anion Gap 11 (12-20); Calcium 8.7 mg/dL (8.4-10.2); Carbon Dioxide 22 mmol/L (22-29); Chloride 109 mmol/L (96-108); Potassium 3.9 mmol/L (3.3-5.1); Sodium 138 mmol/L (135-145)
[2025-05-22 16:12] LABS: Blood Urea Nitrogen 13 mg/dL (9-16); Cholesterol 166 mg/dL (<200); Creatinine Clr Calc Pharmacy 105.4; Estimated Glomerular Filt Rate > 60; HDL Cholesterol 52 mg/dL (>40); Triglycerides 138 mg/dL (<150)
[2025-05-22 16:14] LABS: Troponin-I High Sensitivity < 2.7 ng/L (<3.5-17.0)
--- NOTE | 2025-05-22 17:09 | MHC.STROKE ---
Called to ED for stroke alert. According to provider, pt had approximately 35 minutes prior to arrival symptoms of aphasia, left sided weakness and a facial droop. Pt unable to answer questions fully. Stroke alert activated and pt had CT imaging completed. Due to hx of migraines, it was decided to sent patient to MRI. Neurology was aware and agreeable. This RN accompanied patient to MRI. Results sent via tiger to me and was shared with provider. Family reporting that this can happen when patient has migraines. Nonetheless, I educated on stroke/tia. Will continue to assist as needed.
[2025-05-22 17:13] VITALS: BP 133/70; PULSE 76; RESP 15; O2SAT 100
[2025-05-22] MEDS: diazePAM 10 MG/2 ML CARTRIDGE 2.5 MG IVPUSH (17:14)
--- NOTE | 2025-05-22 18:24 | PC.NURSE ---
pt ambulatory to and from bathroom with steady gait, daughter standby assist pt reports relief of symptoms from medication/fluid administration
[2025-05-22 18:30] VITALS: BP 124/64; PULSE 79; RESP 18; TEMP 36.7; O2SAT 98
[2025-05-22 18:58] VITALS: BP 124/64; PULSE 79; RESP 18; TEMP 36.7; O2SAT 98
--- OUTSIDE RECORDS SUMMARY | 2025-05-22 20:44 | XMS_ITS | Clinical Summary ---
Author Organization [facility] Address [address] [place] [address] Phone Care Team Providers Care Clay Temperer Name Role Phone Jay Hooper MD Primary [...] complete this topic Insurance [place] - [place] [facility] Care Teams Clay Temperer Relationship Specialty Start Date End Date Jay Hooper MD [address] [place] [address] [place] [id number] PCP - General 04/05/10
== END 2025-05-22 19:06 | disposition home or self-care (01) ==
PROVIDERS: Physician Assistant; Emergency Provider Emergency Medicine
DX: G43.409 Hemiplegic migraine, not intractable, without status migrainosus (principal); R29.810 Facial weakness; R29.714 NIHSS score 14
CPT/HCPCS: 36415; 70450; 70496; 70498; 70551; 80048; 80061; 82947; 84484; 85025; 85610; 85730; 93005; 96361; 96374; 96375; 99285; J1200; J1885; J2765; J3360

== ENCOUNTER → 2025-05-22 15:12 | Outpatient (BNV) | payer OTHER, SELFPAY | PROVIDERS: Emergency Provider Emergency Medicine; Visit Provider Radiology Diagnostic Radiology | DX: R41.82 Altered mental status, unspecified (principal); R53.1 Weakness; R29.810 Facial weakness | CPT/HCPCS: 70450; 70496; 70498; 70551 ==

== ENCOUNTER → 2025-05-22 15:12 | Outpatient (BNV) | payer OTHER, SELFPAY | PROVIDERS: Emergency Provider Emergency Medicine; Visit Provider Internal Medicine Cardiovascular Disease | DX: I63.9 Cerebral infarction, unspecified (principal) | CPT/HCPCS: 93010 ==

== ENCOUNTER 2025-05-29 11:45 | Outpatient (AMB) | payer OTHER, SELFPAY ==
--- NOTE | 2025-05-29 11:50 | A.OFFVIS_ITS ---
Vital Signs 05/29/25 11:51 Height 5 ft 8 in Weight 174 lb 2.643 oz BMI 26.5 BP 122/57 L Blood Pressure Location Lt brachial Position Sitting Pulse 77 Intake Visit Reasons: f/u constipation Intake Note: Diane presents in the office as a follow up for constipation. CC: She states that she is not having constipation but still acid reflux. Allergies codeine (CODEINE) Allergy (Intermediate, Verified 05/29/25 11:54) HEASDACHE/DIZZY acetaminophen (Percocet) Allergy (Unknown, Verified 05/29/25 11:54) Tachycardia oxycodone (Percocet) Allergy (Unknown, Verified 05/29/25 11:54) tachycardia Penicillins (PENICILLINS) Adverse Reaction (Unknown, Verified 05/29/25 11:54) HEADACHE/DIZZINESS scopolamine (SCOPOLAMINE) Adverse Reaction (Unknown, Verified 05/29/25 11:54) EPISODE OF DEPRESSION MORPHINE Allergy (Unknown, Uncoded 05/29/25 11:54) tachycardia PENICILLIN Allergy (Unknown, Uncoded 05/29/25 11:54) tachycardia From PERCOCET Adverse Reaction (Intermediate, Uncoded 05/29/25 11:54) HEADACHE/DIZZY HPI HPI f/u constipation: Details: LAST VISIT Constipation Reflux esophagitis IBS (irritable bowel syndrome) Postprandial abdominal bloating Plan Patient will continue taking Nexium daily. Continue avoiding dietary triggers and late night snacking. Staying upright for minimum 3 hours after meals d iscussed with patient. Colonoscopy will be due in 2026. Patient will will follow-up with us if she will have any other concerns. PCP may take over the PPI prescription. Patient is agreeable to current plan of care and verbalizes understanding of instructions. She was given the opportunity to ask questions and all questions answered. ? Thank you for allowing me to participate in her care Refilled esomeprazole magnesium 40 mg PO DAILY 90 caps 3RF K21.9 TODAY'S VISIT Patient is here today for request visit. Patient reports that her reflux is not very well controlled. Patient was taking Nexium, however when her prescription ran now PCP send has script for pantoprazole. Patient reports that pantoprazole has not worked for her. She is having severe epigastric pain throughout the day after meals, however worse at night time. Patient reports that when she was on Nexium her symptoms were well controlled. Patient reports that she is not eating anything different. She is trying to avoid certain dietary triggers that no that will affect her. Patient denies dyspepsia, dysphagia or odynophagia. Denies any nausea or vomiting. Patient reports that she is moving her bowels without any issues. Does not take anything to help her with bowel movements. Patient had colonoscopy in December of 2021 and will be due in 2026. Denies any melena, hematochezia, unintentional weight loss or ribbon like stools. [facility] Medical History (Updated 05/23/25 @ 00:01 by Carroll Champion) Memory loss Chronic tension headache Migraine Goiter History of migraine Tubular adenoma Back pain Malabsorption due to intolerance, not elsewhere classified Overweight (BMI 25.0-29.9) Super obesity Surgical History Hx of bladder repair surgery Hx of colonoscopy History of tubal ligation History of esophagogastroduodenoscopy (EGD) History of cholecystectomy LAP-BAND surgery status History of bunionectomy Hx of section Hx of knee surgery S/P laparoscopic sleeve gastrectomy History of loop recorder Family History Father Diabetes HTN (hypertension) Mother Diabetes CVD (cardiovascular disease) Brother No problems noted. Brother No problems noted. Brother No problems noted. Brother No problems noted. Sister No problems noted. Sister No problems noted. Sister No problems noted. Son No problems noted. Daughter No problems noted. Daughter No problems noted. Daughter No problems noted. 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 [employer] Female Reproductive History Menstrual Age of Menarche: 12 Review of Systems Const Denies weight gain and Denies weight loss ENT Reports no additional complaints, Denies dysphagia and Denies odynophagia Card Reports no additional complaints Resp Reports no additional complaints GI Reports abdominal pain (Epigastric), Denies belching, Denies melena, Reports bloating, Denies change in bowel habits, Denies dysphagia, Denies excessive flatus, Denies dyspepsia, Reports heartburn, Denies diarrhea, Denies loose stools, Denies nausea, Denies odynophagia and Denies vomiting Musc Reports no additional complaints Neuro Reports no additional complaints Psych Reports no additional complaints Endo Reports no additional complaints Physical Exam Vital Signs: BMI result Body Mass Index 26.5 Const General: healthy appearing and no acute distress Nutritional Appearance: obese Orientation/consciousness: patient oriented x3 Resp Effort & Inspection: normal respiratory effort, able to speak in complete sentences, no tracheal deviation and symmetric chest movement Auscultation: clear to auscultation bilaterally Cardio Rate: regular rate GI Inspection: Yes normal to inspection, No distended and Yes obesity Palpation (GI): Soft to palpation, not firm, nontender and No hepatosplenomegaly present Auscultation: normal bowel sounds General: Yes no CVA tenderness Back/Spine/Pelvis Back: no CVA tenderness Skin General skin exam: elasticity normal, turgor normal and dry skin Neuro General: patient oriented x3 Psych Appearance: grossly normal Mental Status: mental status grossly normal Assessment & Plan Assessment & Plan (1) Irritable bowel syndrome: Code(s): K58.9 - Irritable bowel syndrome, unspecified Qualifiers: Irritable bowel syndrome type: without diarrhea Qualified Code(s): K58.9 - Irritable bowel syndrome, unspecified (2) Postprandial abdominal bloating: Code(s): R14.0 - Abdominal distension (gaseous) (3) GERD (gastroesophageal reflux disease): Code(s): K21.9 - Gastro-esophageal reflux disease without esophagitis Qualifiers: Esophagitis presence: esophagitis presence not specified Qualified Code(s): K21.9 - Gastro-esophageal reflux disease without esophagitis Plan Patient will restart Nexium as this PPI was working better for her. She can try famotidine at bedtime as needed. Avoid dietary triggers in late night snacking. Staying upright for minimum 3 hours after meals discussed with patient. Follow-up in 6 months, sooner on as needed basis. Patient is agreeable to this plan and verbalizes understanding of instructions. She was given the opportunity to ask questions and all questions answered. Thank you for allowing me to participate in her care Medications: New famotidine (Pepcid) 20 mg PO BEDTIME 30 tabs 3RF K21.9 - Gastro-esophageal reflux disease without esophagitis Refilled esomeprazole magnesium 40 mg PO DAILY 90 caps 3RF K21.9 - Gastro-esophageal reflux disease without esophagitis Coding Level of Care Code Est Pt Level 3 (75481) Diagnoses Irritable bowel syndrome without diarrhea K58.9 Irritable bowel syndrome type: without diarrhea Postprandial abdominal bloating R14.0 Gastroesophageal reflux disease, unspecified whether esophagitis present K21.9 Esophagitis presence: esophagitis presence not specified Time Spent (min) 30 Comment 20 minutes spent with patient denied additional 10 minutes spent reviewing her records
[2025-05-29 11:51] VITALS: BP 122/57; PULSE 77; BMI 26.5
--- OUTSIDE RECORDS SUMMARY | 2025-05-29 13:52 | XMS_ITS | Clinical Summary ---
Author Organization [facility] Address [address] [place] [address] Phone Care Team Providers Care Fermenting Cellar Dropper Name Role Phone Jay Hooper MD Primary [...] complete this topic Insurance MEDICAID - [place] [facility] [employer] Care Teams Fermenting Cellar Dropper Relationship Specialty Start Date End Date Jay Hooper MD [address] [place] [phone] PCP - General 04/05/10
--- OUTSIDE RECORDS SUMMARY | 2025-05-29 13:52 | XMS_ITS | Encounter Summary ---
Author Organization [employer] Address [address] [facility] 7 [place] [address] Care Team Providers Care Land Surveying Survey Worker Name Role Phone Jay Davis MD Primary Care Provide r Reason for Visit * Reason Onset Date Comments Referral 07/11/2024 Encounter Details Date Type Department Care Team ([facility] st Contact Info) Description 07/11/[address] [facility] MEDICINE [address] [place], [place] [phone] Jay aDvis MD [address] [place] [address] Referral Social History Tobacco Use Types Packs/Day [...] referral in general to be placed in [facility] as pt work insurance will [...] documented as of this encounter Care Teams Land Surveying Survey Worker Relationship Specialty Start Date End Date Jay Davis MD [address] [place] [id number] PCP - General Internal Medicine 01/13/14 documented as of this encounter
--- OUTSIDE RECORDS SUMMARY | 2025-05-29 13:52 | XMS_ITS | Encounter Summary ---
Author Organization [employer] Address [address] [facility] [address]t [place] [address] Care Team Providers Care Container Shop Welder Name Role Phone Jay Davis MD Primary Care Provide r Reason for Visit * Reason Onset Date Comments Med Refill 01/14/2025 Encounter Details Date Type Department Care Team ([facility] st Contact Info) Description 01/14/2025 Refill [facility] [address] [place] [address] Riley Waldrop MD [address] [place] [address] Social History Tobacco Use Types Packs/Day Years [...] documented as of this encounter Care Teams Container Shop Welder Relationship Specialty Start Date End Date Jay Davis MD [address] [place] [id number] PCP - General Internal Medicine 01/13/14 documented as of this encounter
--- OUTSIDE RECORDS SUMMARY | 2025-05-29 13:52 | XMS_ITS | Encounter Summary ---
Author Organization [employer] Address [address] [facility] 7t [place] [address] Care Team Providers Care Production Manufacturing Worker Name Role Phone Jay Davis MD Primary Care Provide r Reason for Visit * Reason Onset Date Comments Med Refill 10/15/2023 Encounter Details Date Type Department Care Team ([facility] st Contact Info) Description 10/15/2023 Refill [facility] MEDICINE [address] [place] [address] Jay Davis MD [address] [place] [address] Dermatitis Social History Tobacco Use Types Packs/Day [...] t he electric, gas, oil or water [employer] threatened to shut off services in your [...] documented as of this encounter Care Teams Production Manufacturing Worker Relationship Specialty Start Date End Date Jay Davis MD [address] [place] [address] PCP - General Internal Medicine 01/13/14 documented as of this encounter
--- OUTSIDE RECORDS SUMMARY | 2025-05-29 13:52 | XMS_ITS | Encounter Summary ---
Author Organization [employer] Address [address] [facility] [address] [place] [address] Care Team Providers Care Floral Artist Name Role Phone Jay Davis MD Primary Care Provide r Reason for Visit * Reason Onset Date Comments Med Refill 01/14/2025 Encounter Details Date Type Department Care Team ([facility] st Contact Info) Description 01/14/2025 Refill [facility] MED[facility]INE [address] [place] [address] Jay Davis MD [address] [place] [address] Low back pain radiating to right leg [...] documented as of this encounter Care Teams Floral Artist Relationship Specialty Start Date End Date Jay Davis MD [address] [place] [address] PCP - General Internal Medicine 01/13/14 documented as of this encounter
--- OUTSIDE RECORDS SUMMARY | 2025-05-29 13:52 | XMS_ITS | Clinical Summary ---
Author Organization [employer] Address [address] [place] [address] 7[address] [place] [address] Care Team Providers Care Financial Services Rep Name Role Phone Jay Davis MD Primary [...] to 25 doses. 40 tablet 4 Active ibuprofen 400 MG tablet Take 1 [...] per day. 30 tablet 2 5 Active FeroSul 325 (65 Fe) MG tabletIndication s:Iron deficiency anemia, unspecified iron deficiency anemia type TAKE 1 TABLET BY MOUTH TWICE DAILY BEFORE BREAKFAST AND BEFORE SUPPER 180 tablet 5 Active escitalopram (Lexapro) 5 MG tabletIndication s:Major depressive disorder, recurrent episode, moderate (CMS/HCC) (HCC) Take 1 tablet (5 mg) by mouth Once per day. 30 tablet 2 5 06/15/19 26 Active lidocaine (Lidoderm) 5 % patch Apply 1 patch topically Once per day. Remove & discard patch within 12 hours or as directed by MD. 30 patch 2 4 05/16/20 25 Blood Pressure kit 1 each 2 times daily. 1 kit 4 05/16/20 25 Active Problems Problem Noted Date Diagnosed Date Iron deficiency anemia secon demario to inadequate dietary iron intake 03/17/2025 Assessment [...] under the care of Zohreh Raphael at [facility]. Back in 10/2023 Pt underwent extensive pyschologic testing and was diagnosed with depression and insomnia Patient tells me she is already seeing a therapist. [facility] at [facility] Plan: Trial of Escitalopram 5 mg po daily Pt will continue to follow with her psychotherapy 1 month follow up Assessment & Plan (12/11/2024 3:06 PM EDT): Patient is no longer under the care of Zohreh Raphael at [facility]. Back in 10/2023 Pt underwent extensive pyschologic testing and was diagnosed with depression and insomnia Patient tells me she is already seeing a therapist. Plan: Pt will continue to follow with her. Assessment & Plan (09/11/2024 2:44 PM EDT): Patient is no longer under the care of Zohreh Raphael at [facility]. Back in 10/2023 Pt underwent extensive pyschologic testing and was diagnosed with depression and insomnia Plan: Patient tells me she is awaiting to see a psychiatrist at [facility] Assessment & Plan (06/12/2024 3:06 PM EST): Patient is under the care of Zohreh Raphael at [facility]. Back in 10/2023 Pt underwent [...] 48 hr ambulatory EEG done 10/2024 at [facility] was Normal Assessment & Plan (06/12/2024 4:07 [...] was seen at the [facility] at [facility] and was told she did not need [...] this with her psychotherapist Zohreh Simmons at [facility] Subacute cough 12/25/2023 Assessment & Plan (06/12/2024 [...] 8:25 AM EDT): Mammogram: Done 05/07/2017 at [facility] was normal Pap Smear: Done by Dr [...] step. 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 This was finally done 10/19/2023 See report. Diagnosed with Depression, Insomnia, Borderline intellectual functioning Recommendations were to: Refer to: , Consider treatment for depression and insomnia ( She is awaiting to see Psychiatrist at [facility] ), Refer to Sleep Medicine (appointment pending) [...] step. 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 This was finally done 10/19/2023 See report. Diagnosed with Depression, Insomnia, Borderline intellectual functioning Recommendations were to: Refer to: TOM, Consider treatment for depression and insomnia ( She is awaiting to see Psychiatrist at [facility] ), refer to Sleep Medicine (appointment pending) [...] step. 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 This was finally done 10/19/2023 See report. Diagnosed with Depression, Insomnia, Borderline intellectual functioning Recommendations were to: Refer to: TOM, Consider treatment for depression and insomnia ( [...] and able to travel Will refer to [facility] Obesity 04/14/2014 Assessment & Plan (03/17/2025 3:18 [...] started on Ajovy. She was seen at [facility] ER on 02/17/[address] head [...] Type Department Care Team Description 03/18/[address] [address] Jay Davis MD Appointment Request 03/17/2025 3:00 PM EDT Office Visit [address] [address] Jay Davis MD Major depressive disorder, recurrent [...] unspecified iron deficiency anemia type 03/17/[address] [address] Jay Davis MD Iron deficiency anemia, unspecified iron deficiency anemia type 03/17/2025 Travel 03/16/[address] [address] Jay Davis MD chart prep 03/05/2025 Orders Only GENERIC EXTERNAL DATA DEPARTMENT Provider, Generic External Data from Last 3 Months Immunizations Immunization Administration [...] VITAMIN D,25-OH,TOTAL,IA Routine 03/05/2025 7:42 AM EDT HEPATITIS C AB W/REFL TO HCV RNA, QN, PCR Routine 01/16/2025 6:58 AM EDT Fatigue due to excessive exertion, initial encounter BI MAMMOGRAM SCREENING TOMOSYNTHESIS BILATERAL Routine 10/20/2024 [...] Vitamin D 25-OH Total 30.2 >30 ng/mL [facility] Comment: Health Based Reference Values*< 20 ng/mL Vloymzthp35-50 ng/mL Insufficient> 30 ng/mL Sufficient*Bri SONG. N [...] Provider LAB BLOOD ORDERAB LES Final Result [facility] [address] [place] [phone] * Vitamin B12 (Cobalamin) and Folate Panel, Serum (03/05/2025 7:42 AM EDT) Vitamin B12 316 200 - 900 pg/mL [facility] Comment:NORMAL 200-900 PG/ML INDETERMINATE 160-199 PG/ML DEFICIENT < 160 PG/ML Folate 8.2 > or = 4.0 ng/mL [facility] Comment:Reference Values:> o r = 4.0 ng/mL< 4.0 ng/mL suggests folate deficiency Methotrexate, aminopterin and folinic acid(leucovorin) are chemotherapeutic agents whose molecularstructures are similar to folate; therefore, the Architectfolate assay cannot be used for patients using these drugs. 03/05/2025 7:42 AM EDT 03/05/2025 7:42 AM EDT Generic External Data Provider LAB BLOOD ORDERAB LES Final Result Performing Organization Address [facility] Co de Phone Number [facility] [address] [place] [address] [phone] * Zinc (03/05/2025 7:42 AM EDT) Zinc 65 60 - 130 mcg/dL [facility] Comment:This test was develo ped and its analytical performancecharacteristics have been determined by [employer] [place], [place]. It hasnot been cleared or approved by the U.S. Food and DrugAdministration. This assay has been validated pursuantto the CLIA regulations and is used for clinicalpurposes.THIS TEST WAS PERFORMED AT:[employer]/[facility] [place] [id number] SWIFT MD,PHD 03/05/2025 7:42 AM EDT 03/05/2025 7:42 AM EDT Generic External Data Provider LAB BLOOD ORDERAB LES Final Result Performing Organization Address [facility] Co de Phone Number [facility] [address] [place] [address] [phone] * Vitamin A (03/05/2025 7:42 AM EDT) Vitamin A (Retinol) 61 38 - 98 mcg/dL [facility] Comment:Vitamin supplementat ion within 24 hours prior toblood draw may affect the accuracy of the results.This test was developed and its analytical performancecharacteristics have been determined by [employer]. It hasnot been cleared or approved by the U.S. Food and DrugAdministration. This assay has been validated pursuantto the CLIA regulations and is used for clinicalpurposes.THIS TEST WAS PERFORMED AT:[employer] [id number] [place] [id number] SWIFT MD,PHD 03/05/2025 7:42 AM EDT 03/05/2025 7:42 AM EDT us Generic External Data Provider LAB BLOOD ORDERAB LES Final Result Performing Organization Address [facility]/ZIP Co de Phone Number [facility] [address] [place] [phone] * Vitamin B1 (03/05/2025 7:42 AM EDT) Vitamin B1 12 8 - 30 nmol/L [facility] Comment:Vitamin supplementat ion within 24 hours prior toblood draw may affect the accuracy of the results.This test was developed and its analytical performancecharacteristics have been determined by [employer] [place], [place]. It hasnot been cleared or approved by the U.S. Food and DrugAdministration. This assay has been validated pursuantto the CLIA regulations and is used for clinicalpurposes.THIS TEST WAS PERFORMED AT:[employer]/[id number] [place] [id number] SWIFT MD,PHD 03/05/2025 7:42 AM EDT 03/05/2025 7:42 AM EDT Generic External Data Provider LAB BLOOD ORDERAB LES Final Result Performing Organization Address [facility]/ZIP Co de Phone Number [facility] [address] [place] [phone] * Hepatitis C Antibody with Reflex to HCV, RNA, Quantitative, Real-Time PCR (01/16/2025 6:58 AM EDT) Hepatitis C Antibody Nonreactive Nonreactive [facility] Comment:Antibodies to HCV no t detected; does not exclude early acuteHCV infection. Blood Venous blood specimen / Unknown 01/16/2025 6:58 AM EDT 01/16/2025 7:03 AM EDT us Jay Henry MD LAB BLOOD ORDERABLES Final Result [facility] [address] [place] [phone] [phone] * BI Mammogram Screening Tomosynthesis Bilateral (10/20/2024 1:27 PM EDT) Anatomical Region Laterality Modality Breast Bilateral Mammography 10/20/2024 1:27 PM EDT Narrative 10/26/2024 5:47 PM EDT [facility] [address] [place] [address] Mammography Report Signed Patient: Diane Johnson MR#: [id number] : 1975 Acct:[id number] Age/Sex: 49 / F ADM Date: 10/20/24 Loc: HO.MAMMO Attending Dr: Jay Hooper MD Ordering Physician: Jay Hooper MD Resu lts: 2Benign Findings Date of Service: 10/20/24 Follow Up: 1 Year From [facility] Mammogram Procedure(s): MM tomosynthesis screening BI Accession Number(s): [id number] cc: Jay Hooper MD EXAMINATION: MM SCREENING [...] 10/26/24 1744 DD/ 1327 TD/TT: 10/20/24 1355 Adding Machine Mechanic: Procedure Note Donotuseinterpreter, Image - 10/27/2024 [facility] [address] [place] [address] Mammography Report Signed Patient: Diane JohnsonMR#: [id number] : 1975Acct:[id number] Age/Sex: 49 / FADM Date: 10/20/24 Loc: HO.MAMMO Attending Dr: Jay Hooper MD Ordering Physician: Jay Hooper MDResu lts: 2Benign Findings Date of Service: 10/20/24Follow Up: 1 Year From [facility] Mammogram Procedure(s): MM tomosynthesis screening BI Accession Number(s): [id number] cc: Jay Hooper MD EXAMINATION: MM SCREENING [...] 10/26/24 1744 DD/ 1327 TD/TT: 10/20/24 1355 Adding Machine Mechanic: us Jay Henry MD IMG BI PROCEDURES Darin viki Result - Final * Lipid Panel, Standard (09/12/2024 9:40 AM EDT) Triglycerides 132 <150 mg/dL [facility] Comment:Desirable Triglyceri de: less than 150 mg/dLBorderline High Triglyceride 150-199 mg/dLHigh Triglyceride: 200-499 mg/dLVery High Triglyceride: greater than or equal to 5OO mg/dL Cholesterol 174 <200 mg/dL [facility] Comment:Desirable Cholestero l: less than 200 mg/dLBorderline High Cholesterol: 200-239 mg/dLHigh Cholesterol: greater than 239 mg/dL LDL Cholesterol Calculated 93 <100 mg/dL [facility] Comment:Desirable LDL: less than 100 mg/dLNear Optimal/Above Optimal LDL: 110- 129 mg/dLBorderline High LDL: 130-159 mg/dLHigh LDL: 160-189 mg/dLVery High LDL: greater than or equal to 190 mg/dL HDL Cholesterol 55 >40 mg/dL [facility] Comment:Desirable HDL: great er than 40 mg/dL Note: This HDL assay may give artificially low results in patients with liver disease. Blood Venous blood specimen / Unknown 09/12/2024 9:40 AM EDT 09/12/2024 9:40 AM EDT Jay Henry MD LAB BLOOD ORDERABLES Final Result [facility] [address] [place] [phone] * ThinPrep Imaging Pap and HPV mRNA E6/E7 with Reflex to HPV 16,18/45 (03/18/2024 8:00 AM EDT) HPV 16 RNA [facility] HPV 18/45 RNA [facility] HPV nRNA E6/E7 Not Detected Not Detected [facility] Comment:Methodology: Transcr iption-Mediated AmplificationThis assay detects E6/E7 viral messenger RNA (mRNA) from 14high-risk HPV types (16,18,31,33,35,39,45,51,52,56,58,59,66,68).Cervical sources are required for HPV testing.If a vaginal source from a patient who has had atotal hysterectomy with removal of cervix wassubmitted, please contact the testing laboratoryfor alternative testing options.For additional information, please refer [email or web address](This link if provided for information/educational purposes only.)THIS TEST WAS PERFORMED AT:[employer] [place] [phone] WASHINGTON MD SOURCE: SEE NOTE [facility] Comment:None given Report Status: [facility] Clinical Information: SEE NOTE [facility] Comment:None given LMP: SEE NOTE [facility] Comment:NONE GIVEN Prev. PAP: SEE NOTE [facility] Comment:NONE GIVEN Prev. BX: SEE NOTE [facility] Comment:NONE GIVEN Statement Of Adequacy: SEE NOTE [facility] Comment:Satisfactory for caroline luation.Endocervical/transformation zone componentpresent. General Categorization: [facility] Interpretation/Result: SEE NOTE [facility] Comment:Cytology Results: Ne gative for intraepitheliallesion or malignancy. Cytology Comment SEE NOTE [facility] Comment:This Pap test has be en evaluated with computerassisted technology. Human Resources Benefits Administrator: SEE NOTE [facility] Comment:BK,CT(ASCP)CT screen ing location: [address] Review Human Resources Benefits Administrator: [facility] Pathologist TNP [facility] PAP Infection [facility] See Note SEE NOTE [facility] Comment:EXPLANATORY NOTE:The Pap is [...] AM EDT 03/18/2024 3:31 PM EDT Narrative [facility] - 03/25/2024 2:07 PM EDT SEE SCANNED RESULTS IN EMR us Generic External Data Provider LAB PATHOLOGY ORD ERABLES Final Result [facility] [address] [place] [phone] [phone] * Hm Colonoscopy (12/30/2021) Colonoscopy Normal Normal us Jay Henry MD HEALTH MAINTENANCE Ed ited Result - Final from Last 3 Months or Most Recently Relevant to Health Maintenance Insurance [employer] Care Teams Financial Services Rep Relationship Specialty Start Date End Date Jay Davis MD [address] [place] [address] PCP - General Internal Medicine 01/13/14
== END 2025-05-29 12:04 | disposition home or self-care (01) ==
LOC: HO.HGI 11:46
PROVIDERS: PCP Internal Medicine; Visit Provider Nurse Practitioner Family
DX: K58.9 Irritable bowel syndrome, unspecified (principal); R14.0 Abdominal distension (gaseous); K21.9 Gastro-esophageal reflux disease without esophagitis
CPT/HCPCS: 99213

== ENCOUNTER → 2025-06-03 11:53 | Outpatient (AMB) | payer OTHER, SELFPAY ==
--- OUTSIDE RECORDS SUMMARY | 2025-06-03 11:56 | XMS_ITS | Encounter Summary ---
Author Organization [employer] Address [address] [facility] 7[address] [place] [address] Care Team Providers Care Production Clerk Name Role Phone Jay Davis MD Primary Care Provide r Reason for Visit * Reason Onset Date Comments Med Refill 10/15/2023 Encounter Details Date Type Department Care Team ([facility] st Contact Info) Description 10/15/2023 Refill [facility] [address] [place] [address] Jay Davis MD [address] [place] [address] Dermatitis Social History Tobacco Use Types Packs/Day [...] t he electric, gas, oil or water Elys[employer] threatened to shut off services in your [...] as of this encounter Care Teams Production Clerk Relationship Specialty Start Date End Date Jay Davis MD [address] [place] [address] PCP - General Internal Medicine 01/13/14 documented as of this encounter
--- OUTSIDE RECORDS SUMMARY | 2025-06-03 11:56 | XMS_ITS | Encounter Summary ---
Author Organization [employer] Address [address] [facility] 7t [place] [address] Care Team Providers Care Middleware Solutions Architect Name Role Phone Jay Davis MD Primary Care Provide r Reason for Visit * Reason Onset Date Comments Med Refill 01/14/2025 Encounter Details Date Type Department Care Team ([facility] st Contact Info) Description 01/14/2025 Refill [facility] MED[facility] [address] [place] [address] Jay Davis MD [address] [place] [address] Low back pain radiating to right leg [...] documented as of this encounter Care Teams Middleware Solutions Architect Relationship Specialty Start Date End Date Jay Davis MD [address] [place] [address] PCP - General Internal Medicine 01/13/14 documented as of this encounter
--- OUTSIDE RECORDS SUMMARY | 2025-06-03 11:56 | XMS_ITS | Encounter Summary ---
Author Organization [employer] Address [address] [facility] 7 [place] [address] Care Team Providers Care Traditional Maori Health Practitioner Name Role Phone Jay Davis MD Primary Care Provide r Reason for Visit * Reason Onset Date Comments Referral 07/11/2024 Encounter Details Date Type Department Care Team ([facility] st Contact Info) Description 07/11/2024 Telephone [facility] MEDICINE [address] [place], [place] [phone] Jay Davis MD [address] [place] [address] Referral Social History Tobacco Use Types Packs/Day [...] referral in general to be placed in [facility] as pt work insurance will have [...] documented as of this encounter Care Teams Traditional Maori Health Practitioner Relationship Specialty Start Date End Date Jay Davis MD [address] [place] [phone] PCP - General Internal Medicine 01/13/14 documented as of this encounter
--- OUTSIDE RECORDS SUMMARY | 2025-06-03 11:56 | XMS_ITS | Clinical Summary ---
Author Organization [facility] Address [address] [place] [address] Phone Care Team Providers Care Certified Green Building Engineer Name Role Phone Jay Hooper MD [...] complete this topic Insurance [place]ICA[place] - [place] [facility] [place] [address] [employer] SAF[employer] NET Care Teams Certified Green Building Engineer Relationship Specialty Start Date End Date Jay Hooper MD [address] [place] [phone] PCP - General 04/05/10
--- OUTSIDE RECORDS SUMMARY | 2025-06-03 11:56 | XMS_ITS | Encounter Summary ---
Author Organization [employer] Address [address] [facility] 7t [place] [address] Care Team Providers Care Sheep And Wheat Farmer Name Role Phone Jay Davis MD Primary Care Provide r Reason for Visit * Reason Onset Date Comments Med Refill 01/14/2025 Encounter Details Date Type Department Care Team ([facility] st Contact Info) Description 01/14/2025 Refill [facility] [address] [place] [address] Riley Waldrop MD [address] [place] [address] Social History Tobacco Use Types Packs/Day Years [...] documented as of this encounter Care Teams Sheep And Wheat Farmer Relationship Specialty Start Date End Date Jay Davis MD [address] [place] [phone] PCP - General Internal Medicine 01/13/14 documented as of this encounter
--- OUTSIDE RECORDS SUMMARY | 2025-06-03 11:56 | XMS_ITS | Clinical Summary ---
Author Organization [employer] Address [address] [place] [address] [address] [place] [address] Care Team Providers Care Content Curator Name Role Phone Jay Davis MD Primary [...] under the care of Zohreh Raphael at [facility]. Back in 10/2023 Pt underwent [...] under the care of Zohreh Raphael at [facility]. Back in 10/2023 Pt underwent extensive pyschologic testing and was diagnosed with depression and insomnia Patient tells me she is already seeing a therapist. Plan: Pt will continue to follow with her. Assessment & Plan (09/11/2024 2:44 PM EDT): Patient is no longer under the care of Zohreh Raphael at [facility]. Back in 10/2023 Pt underwent extensive pyschologic testing and was diagnosed with depression and insomnia Plan: Patient tells me she is awaiting to see a psychiatrist at [facility] Assessment & Plan (06/12/2024 3:06 PM EST): Patient is under the care of Zohreh Raphael at [facility]. Back in 10/2023 Pt underwent [...] 48 hr ambulatory EEG done 10/2024 at [facility] was Normal Assessment & Plan (06/12/2024 4:07 [...] was seen at the [facility] at [facility] and was told she did not need [...] this with her psychotherapist Zohreh Simmons at [facility] Subacute cough 12/25/2023 Assessment & Plan (06/12/2024 [...] 8:25 AM EDT): Mammogram: Done 05/07/2017 at [facility] was normal Pap Smear: Done by Dr [...] step. 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 This was finally done 10/19/2023 See report. Diagnosed with Depression, Insomnia, Borderline intellectual functioning Recommendations were to: Refer to: , Consider treatment for depression and insomnia ( She is awaiting to see Psychiatrist at [facility] ), Refer to Sleep Medicine (appointment pending) [...] step. 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 This was finally done 10/19/2023 See report. Diagnosed with Depression, Insomnia, Borderline intellectual functioning Recommendations were to: Refer to: TOM, Consider treatment for depression and insomnia ( She is awaiting to see Psychiatrist at [facility] ), refer to Sleep Medicine (appointment pending) [...] step. 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 This was finally done 10/19/2023 See [...] and able to travel Will refer to [facility] Obesity 04/14/2014 Assessment & Plan (03/17/2025 [...] started on Ajovy. She was seen at [facility] ER on 02/17/[address] head [...] Type Department Care Team Description 03/18/[address] [address] Jay Davis MD Appointment Request 03/17/2025 3:00 PM EDT Office Visit [address] [address] Jay Davis MD Major depressive disorder, recurrent [...] unspecified iron deficiency anemia type 03/17/[address] [address] Jay Davis MD Iron deficiency anemia, unspecified iron deficiency anemia type 03/17/2025 Travel 03/16/[address] [address] Jay Davis MD chart prep 03/05/2025 Orders [...] Vitamin D 25-OH Total 30.2 >30 ng/mL [facility] Comment: Health Based Reference Values*< 20 ng/mL Ifzesvflz78-81 ng/mL Insufficient> 30 ng/mL Sufficient*Bri SONG. N [...] Provider LAB BLOOD ORDERAB LES Final Result [facility] [address] [place] [phone] * Vitamin B12 (Cobalamin) and Folate Panel, Serum (03/05/2025 7:42 AM EDT) Vitamin B12 316 200 - 900 pg/mL [facility] Comment:NORMAL 200-900 PG/ML INDETERMINATE 160-199 PG/ML DEFICIENT < 160 PG/ML Folate 8.2 > or = 4.0 ng/mL [facility] Comment:Reference Values:> o r = 4.0 ng/mL< 4.0 ng/mL suggests folate deficiency Methotrexate, aminopterin and folinic acid(leucovorin) are chemotherapeutic agents whose molecularstructures are similar to folate; therefore, the Architectfolate assay cannot be used for patients using these drugs. 03/05/2025 7:42 AM EDT 03/05/2025 7:42 AM EDT Generic External Data Provider LAB BLOOD ORDERAB LES Final Result Performing Organization Address [facility] Co de Phone Number [facility] [address] [place] [phone] * Zinc (03/05/2025 7:42 AM EDT) Zinc 65 60 - 130 mcg/dL [facility] Comment:This test was develo ped and its analytical performancecharacteristics have been determined by [employer] [place], [place]. It hasnot been cleared or approved by the U.S. Food and DrugAdministration. This assay has been validated pursuantto the CLIA regulations and is used for clinicalpurposes.THIS TEST WAS PERFORMED AT:[employer]/[id number] [place] [id number] SWIFT MD,PHD 03/05/2025 7:42 AM EDT 03/05/2025 7:42 AM EDT Generic External Data Provider LAB BLOOD ORDERAB LES Final Result Performing Organization Address [facility] Co de Phone Number [facility] [address] [place] [phone] * Vitamin A (03/05/2025 7:42 AM EDT) Vitamin A (Retinol) 61 38 - 98 mcg/dL [facility] Comment:Vitamin supplementat ion within 24 hours prior toblood draw may affect the accuracy of the results.This test was developed and its analytical performancecharacteristics have been determined by [employer], [place]. It hasnot been cleared or approved by the U.S. Food and DrugAdministration. This assay has been validated pursuantto the CLIA regulations and is used for clinicalpurposes.THIS TEST WAS PERFORMED AT:[employer] [id number] [place] [id number] SWIFT MD,PHD 03/05/2025 7:42 AM EDT 03/05/2025 7:42 AM EDT us Generic External Data Provider LAB BLOOD ORDERAB LES Final Result Performing Organization Address [facility]/ZIP Co de Phone Number [facility] [address] [place] [phone] * Vitamin B1 (03/05/2025 7:42 AM EDT) Vitamin B1 12 8 - 30 nmol/L [facility] Comment:Vitamin supplementat ion within 24 hours prior toblood draw may affect the accuracy of the results.This test was developed and its analytical performancecharacteristics have been determined by [employer] [place], [place]. It hasnot been cleared or approved by the U.S. Food and DrugAdministration. This assay has been validated pursuantto the CLIA regulations and is used for clinicalpurposes.THIS TEST WAS PERFORMED AT:[employer]/[facility] [place] [address]VFGMVBPCASEY SWIFT MD,PHD 03/05/2025 7:42 AM EDT 03/05/2025 7:42 AM EDT Generic External Data Provider LAB BLOOD ORDERAB LES Final Result Performing Organization Address [facility]/ZIP Co de Phone Number [facility] [address] [place] [phone] * Hepatitis C Antibody with Reflex to HCV, RNA, Quantitative, Real-Time PCR (01/16/2025 6:58 AM EDT) Hepatitis C Antibody Nonreactive Nonreactive [facility] Comment:Antibodies to HCV no t detected; does not exclude early acuteHCV infection. Blood Venous blood specimen / Unknown 01/16/2025 6:58 AM EDT 01/16/2025 7:03 AM EDT us Jay Henry MD LAB BLOOD ORDERABLES Final Result [facility] [address] [place] [phone] * BI Mammogram Screening Tomosynthesis Bilateral (10/20/2024 1:27 PM EDT) Anatomical Region Laterality Modality Breast Bilateral Mammography 10/20/2024 1:27 PM EDT Narrative 10/26/2024 5:47 PM EDT [facility] [address] [place] [address] Mammography Report Signed Patient: Diane Johnson MR#: [id number] : 1975 Acct:[id number] Age/Sex: 49 / F ADM Date: 10/20/24 Loc: HO.MAMMO Attending Dr: Jay Hooper MD Ordering Physician: Jay Hooper MD Resu lts: 2Benign Findings Date of Service: 10/20/24 Follow Up: 1 Year From [facility] Mammogram Procedure(s): MM tomosynthesis screening BI Accession Number(s): [id number] cc: Jay Hooper MD EXAMINATION: MM SCREENING [...] 10/26/24 1744 DD/ 1327 TD/TT: 10/20/24 1355 Deburrer Strip: Procedure Note Donotuseinterpreter, Image - 10/27/2024 [facility] [address] [place] [address] Mammography Report Signed Patient: Diane JohnsonMR#: [id number] : 1975Acct:[id number] Age/Sex: 49 / FADM Date: 10/20/24 Loc: HO.MAMMO Attending Dr: Jay Hooper MD Ordering Physician: Jay Hooper MDResu lts: 2Benign Findings Date of Service: 10/20/24Follow Up: 1 Year From [facility] Mammogram Procedure(s): MM tomosynthesis screening BI Accession Number(s): [id number] cc: Jay Hooper MD EXAMINATION: MM SCREENING [...] 10/26/24 1744 DD/ 1327 TD/TT: 10/20/24 1355 Deburrer Strip: us Jay Henry MD IMG BI PROCEDURES Darin viki Result - Final * Lipid Panel, Standard (09/12/2024 9:40 AM EDT) Triglycerides 132 <150 mg/dL [facility] Comment:Desirable Triglyceri de: less than 150 mg/dLBorderline High Triglyceride 150-199 mg/dLHigh Triglyceride: 200-499 mg/dLVery High Triglyceride: greater than or equal to 5OO mg/dL Cholesterol 174 <200 mg/dL [facility] Comment:Desirable Cholestero l: less than 200 mg/dLBorderline High Cholesterol: 200-239 mg/dLHigh Cholesterol: greater than 239 mg/dL LDL Cholesterol Calculated 93 <100 mg/dL [facility] Comment:Desirable LDL: less than 100 mg/dLNear Optimal/Above Optimal LDL: 110- 129 mg/dLBorderline High LDL: 130-159 mg/dLHigh LDL: 160-189 mg/dLVery High LDL: greater than or equal to 190 mg/dL HDL Cholesterol 55 >40 mg/dL [facility] Comment:Desirable HDL: great er than 40 mg/dL Note: This HDL assay may give artificially low results in patients with liver disease. Blood Venous blood specimen / Unknown 09/12/2024 9:40 AM EDT 09/12/2024 9:40 AM EDT Jay Henry MD LAB BLOOD ORDERABLES Final Result [facility] [address] [place] [phone] * ThinPrep Imaging Pap and HPV mRNA E6/E7 with Reflex to HPV 16,18/45 (03/18/2024 8:00 AM EDT) HPV 16 RNA [facility] HPV 18/45 RNA [facility] HPV nRNA E6/E7 Not Detected Not Detected [facility] Comment:Methodology: Transcr iption-Mediated AmplificationThis assay detects E6/E7 viral messenger RNA (mRNA) from 14high-risk HPV types (16,18,31,33,35,39,45,51,52,56,58,59,66,68).Cervical sources are required for HPV testing.If a vaginal source from a patient who has had atotal hysterectomy with removal of cervix wassubmitted, please contact the testing laboratoryfor alternative testing options.For additional information, please refer tohttp://education.[employer]/faq/DFE018v3(This link if provided for information/educational purposes only.)THIS TEST WAS PERFORMED AT:[employer] [place] [phone] WASHINGTON MD SOURCE: SEE NOTE [facility] Comment:None given Report Status: [facility] Clinical Information: SEE NOTE [facility] Comment:None given LMP: SEE NOTE [facility] Comment:NONE GIVEN Prev. PAP: SEE NOTE [facility] Comment:NONE GIVEN Prev. BX: SEE NOTE [facility] Comment:NONE GIVEN Statement Of Adequacy: SEE NOTE [facility] Comment:Satisfactory for caroline luation.Endocervical/transformation zone componentpresent. General Categorization: [facility] Interpretation/Result: SEE NOTE [facility] Comment:Cytology Results: Ne gative for intraepitheliallesion or malignancy. Cytology Comment SEE NOTE [facility] Comment:This Pap test has be en evaluated with computerassisted technology. Hydraulic Chair Assembler: SEE NOTE [facility] Comment:BK,CT(ASCP)CT screen ing location: [address] Review Hydraulic Chair Assembler: [facility] Pathologist TNP [facility] PAP Infection [facility] See Note SEE NOTE [facility] Comment:EXPLANATORY NOTE:The Pap is a screening test for cervical cancer. It isnot a diagnostic test and is subject to false negativeand false positive results. It is most reliable when asatisfactory sample, regularly obtained, is submittedwith relevant clinical findings and history, and whenthe Pap result is evaluated along with historic andcurrent clinical information. 03/18/2024 8:00 AM EDT 03/18/2024 3:31 PM EDT Narrative [facility] - 03/25/2024 2:07 PM EDT SEE SCANNED RESULTS IN EMR us Generic External Data Provider LAB PATHOLOGY ORD ERABLES Final Result [facility] [address] [place] [phone] * Hm Colonoscopy (12/30/2021) Colonoscopy Normal Normal us Jay Henry MD HEALTH MAINTENANCE Ed ited Result - Final from Last 3 Months or Most Recently Relevant to Health Maintenance Insurance [employer] Care Teams Content Curator Relationship Specialty Start Date End Date Jay Davis MD [address] [place] [address] PCP - General Internal Medicine 01/13/14
--- NOTE | 2025-06-03 12:22 | A.OFFVIS_ITS ---
Intake Visit Reasons: 1m VR had no appts Allergies codeine (CODEINE) Allergy (Intermediate, Verified 05/29/25 11:54) HEASDACHE/DIZZY acetaminophen (Percocet) Allergy (Unknown, Verified 05/29/25 11:54) Tachycardia oxycodone (Percocet) Allergy (Unknown, Verified 05/29/25 11:54) tachycardia Penicillins (PENICILLINS) Adverse Reaction (Unknown, Verified 05/29/25 11:54) HEADACHE/DIZZINESS scopolamine (SCOPOLAMINE) Adverse Reaction (Unknown, Verified 05/29/25 11:54) EPISODE OF DEPRESSION MORPHINE Allergy (Unknown, Uncoded 05/29/25 11:54) tachycardia PENICILLIN Allergy (Unknown, Uncoded 05/29/25 11:54) tachycardia From PERCOCET Adverse Reaction (Intermediate, Uncoded 05/29/25 11:54) HEADACHE/DIZZY Medication List - Last Reconciled 06/03/25 by Nayan Leonardo MD escitalopram oxalate 5 mg PO DAILY esomeprazole magnesium 40 mg PO DAILY famotidine (Pepcid) 20 mg PO BEDTIME ferrous sulfate 325 mg PO BID fremanezumab-vfrm (Ajovy) 225 mg (1.5 mL) subcut QMONTH 30 days tmtvxlwmtbnq-ste-ttwc-FA-vit K 45 mg iron- 800 mcg-120 mcg (Bariatric Multivitamins) 1 cap PO DAILY phentermine 30 mg PO DAILY HPI Comments Details: No improvement in headaches after first Ajovy injection on 02/25/2025. She had to miss work 3 days last month and 1 day this month. No medication side effects. She was not comfortable with giving herself injection and was here for additional Ajovy education. She stopped taking Aleve about a year ago and was taking Tylenol every day instead. Migraines were previously treated with Botox, which worked well for her, but Botox was no longer covered by insurance. Last Botox was 09/30/2024. Previously, she was passing out 3-4x/month, work up negative. She has headaches daily?and once in a while she passes out?for 5 minutes. No convulsion. No tongue bite or incontinence. No chest pain.? She does well with the Botox and has much fewer headaches. Her migraines are improved from the Botox. She did not want to try any other prophylactic meds. Chronic GARCIA for years, did not respond to amitriptyline and chlordiazepoxide. She takes Aleve 4-6/day. She has not been able to get off it and it is possible that these could be drug withdrawal headaches. At times she will start talking random things and acting inappropriately. On 07/22/18 she was noted at work to have rapid jerking eye movements, facial twitching and not responding for 1-2 minutes. Had an episode of urinary incontinence in bed on 07/25/18 and also once last year. Syncopal episode in September 2017. Has had 5 more episodes. No incontinence and was confused. ? 2 syncope in 2015 in the shower and once in uncles house from a couch 5-10 minutes lying on floor with no sz and no incontinence or post ictal confusion. Not responding for 5 minutes, No confusion after. One episode of where she woke up very confused and went into the shower with her clothes on and denied it . Lasted 15 -20 minutes, slept and was fine 1/2 hour later and was fine. Gets headaches almost daily. She has a long history of recurrent syncopal episodes. She got no warning. There was no tongue biting or incontinence. There is no chest pain or palpitation. [facility] Medical History (Updated 05/23/25 @ 00:01 by Carroll Champion) Memory loss Chronic tension headache Migraine Goiter History of migraine Tubular adenoma Back pain Malabsorption due to intolerance, not elsewhere classified Overweight (BMI 25.0-29.9) Super obesity Surgical History Hx of bladder repair surgery Hx of colonoscopy History of tubal ligation History of esophagogastroduodenoscopy (EGD) History of cholecystectomy LAP-BAND surgery status History of bunionectomy Hx of section Hx of knee surgery S/P laparoscopic sleeve gastrectomy History of loop recorder Family History Father Diabetes HTN (hypertension) Mother Diabetes CVD (cardiovascular disease) Brother No problems noted. Brother No problems noted. Brother No problems noted. Brother No problems noted. Sister No problems noted. Sister No problems noted. Sister No problems noted. Son No problems noted. Daughter No problems noted. Daughter No problems noted. Daughter No problems noted. 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[place] Female Reproductive History Menstrual Age of Menarche: 12 Review of Systems Const Denies chills, Denies daytime sleepiness, Reports difficulty sleeping, Denies fatigue, Denies fever(s), Denies frequent falls, Reports headache(s), Denies increased appetite, Denies poor appetite, Denies snoring, Denies weakness, Denies weight gain and Denies weight loss Eyes Denies loss of vision ENT Denies vertigo, Denies dizziness, Reports headache(s) and Denies neck pain Card Denies chest pain at rest, Denies chest pain with activity, Denies syncope, Denies leg edema, Denies palpitations, Denies dyspnea and Denies dyspnea on exertion Resp Denies cough, Denies dyspnea, Denies dyspnea on exertion and Denies snoring GI Denies abdominal pain, Denies constipation, Denies heartburn, Denies diarrhea and Denies nausea Denies urinary frequency, Denies urinary incontinence and Denies urinary urgency Musc Denies abnormal gait, Denies back pain, Denies myalgias, Denies arthralgias, Denies neck pain, Denies numbness and Denies tingling Neuro Denies abnormal gait, Denies vertigo, Denies dizziness, Denies syncope, Denies frequent falls, Reports headache(s), Denies lack of coordination, Denies loss of vision, Denies memory loss, Denies numbness, Denies Other visual disturbances, Denies restless legs, Denies seizure-like activity, Denies tingling, Denies paresthesias, Denies tremor(s) and Denies weakness Psych Denies anxiety, Denies depression, Denies auditory hallucinations, Denies memory loss and Denies visual hallucinations Endo Denies fatigue and Denies palpitations Physical Exam Const Other: General Appearance:? normal, in no acute distress. Heart:? S1, S2 normal, no murmurs. Lungs:? clear anteriorly and posteriorly. Musculoskeletal:? normal. Extremities:? no edema. Psych:? alert, oriented, cognitive function intact, cooperative with exam. General: healthy appearing and no acute distress Nutritional Appearance: obese Orientation/consciousness: patient oriented x3 Resp Effort & Inspection: normal respiratory effort, able to speak in complete sentences, no tracheal deviation and symmetric chest movement Auscultation: clear to auscultation bilaterally Cardio Rate: regular rate GI Inspection: Yes normal to inspection, No distended and Yes obesity Palpation (GI): Soft to palpation, not firm, nontender and No hepatosplenomegaly present Auscultation: normal bowel sounds General: Yes no CVA tenderness Back/Spine/Pelvis Back: no CVA tenderness Skin General skin exam: elasticity normal, turgor normal and dry skin Neuro Other: Abnormal Neurological Findings:?none.? Mental Status: alert and oriented X 3. Normal attention, orientation, memory, and affect. Cranial Nerves: Pupils are equal, round, and reactive to light. External ocular muscles are intact. Visual bhagat are full, no ptosis. Face is symmetrical, no facial weakness or droop. Facial sensations are normal. Tongue protrudes in midline. Palate elevates symmetrically. Shoulder shrugging is normal Motor Examination: Normal muscle tone, bulk and strength. No atrophy or fasciculations. No drift of the extended upper extremities. DTR 2+. Plantars are flexor. Sensory Exam: Normal light touch, temperature, pinprick, vibration, and joint- position sensations. Rhomberg sign is absent. Coordination: No ataxia. No titubation. Gait Exam: Within normal limits. Cerebellar Signs: Awmujy-lg-omqe is okay. Extrapyramidal System: No tremor, rigidity with normal facial expressions. No bradykinesia. No bradyphrenia. Normal arm swing and posture. No propulsion or retropulsion. Speech: Normal. General: patient oriented x3 Psych Appearance: grossly normal Mental Status: mental status grossly normal Assessment & Plan Assessment & Plan (1) Migraine: Code(s): G43.909 - Migraine, unspecified, not intractable, without status migrainosus Category: Medical Qualifiers: Migraine type: unspecified Status migrainosus presence: without status migrainosus Intractability: not intractable Qualified Code(s): G43.909 - Migraine, unspecified, not intractable, without status migrainosus Plan: Migraines were previously treated by Botox, which worked well for her, Tried Ajovy for 3 months on 02/25/2025 which did not work. Has failed Propranolol, Topiramate, amitriptyline and triptans. NSAIDS did not work. Plan Try and get approval for Botox 200 units as that is the only medication that has helped. Orders: Orders AMB Botulinum toxin Injection - Patient Supplied N/C Today G43.909 - Migraine, unspecified, not intractable, without status migrainosus Medications: New onabotulinumtoxinA 200 units IM ONCE 1 ea 0RF chronic migraine G43.909 - Migraine, unspecified, not intractable, without status migrainosus onabotulinumtoxinA (Botox) Inject in scalp muscles every 90 days 200 units IM .90 days 1 ea 3RF Coding Level of Care Code Est Pt Level 4 (01357) Diagnoses Migraine without status migrainosus, not intractable, unspecified migraine type G43.909 Migraine type: unspecified Status migrainosus presence: without status migrainosus Intractability: not intractable
== END ==
LOC: HO.HSM 11:54
PROVIDERS: PCP Internal Medicine; Visit Provider Psychiatry & Neurology Neurology
DX: G43.909 Migraine, unspecified, not intractable, without status migrainosus (principal)
CPT/HCPCS: 99214